=== PATIENT | female | born 1940 | race Caucasian/White ===

== ENCOUNTER 2020-02-06 08:03 | Inpatient (IN) | payer MEDICARE, MEDICAID ==
[~2020-02-06] VITALS: Ht 167.6 cm; Wt 82.8 kg
[2020-02-06 08:20] VITALS: BP 138/92
--- NOTE | 2020-02-06 08:24 | NUR ---
ED Nurse Note: Patient was brought in from [facility] d/t dislodged NG tube happened at 0100. Pt is covid (+), PNA. Patient presented with SOB, O2 sat 86% on RA, 99% with 2L via NC. Patient has left hip fracture, presented with IV line on left forearm, nurse was not able to draw blood. Patient AAO x3, VSS at this time.
--- NOTE | 2020-02-06 08:30 | NUR ---
ED Nurse Note: IV line was started at left AC 20ga, blood and urine specimen collected sent to lab.
--- NOTE | 2020-02-06 08:44 | Emergency Room Report ---
History of Present Illness General Chief Complaint: General Complaint Source: Medical Record, EMS Present Illness HPI 79-year-old female presents the ED for evaluation. Brought in by EMS from senior living facility. Patient pulled out her NG tube last night. Patient nonverbal at baseline. No signs of distress on arrival. Patient reportedly has been had a poor appetite. COVID positive. Unable to provide any additional history at this time. No other aggravating relieving factors. No other associated symptoms Allergies: Coded Allergies: No Known Allergies (Unverified , 02/06/20) COVID-19 Screening Contact w/high risk pt: Yes Experienced COVID-19 symptoms?: Yes COVID-19 Testing performed LEAD JANITOR: Yes - 01/31/20 COVID-19 Screening: Positive COVID-19 COVID-19 Testing Source: nasopharynx Patient History Past Medical History: none, other - COVID+ Past Surgical History: other - L hip fx Pertinent Family History: none Social History: Denies: smoking, alcohol use, drug use Now: No Immunizations: UTD Reviewed Nursing Documentation: PMH: Agreed; PSxH: Agreed Review of Systems All Other Systems: limited Physical Exam Vital Signs Date Time Temp Pulse Resp B/P (MAP) Pulse Ox O2 Delivery O2 Flow Rate FiO2 02/06/20 08:04 98.1 68 16 138/92 (107) Nasal Cannula 3.0 Sp02 EP Interpretation: reviewed, normal General Appearance: no apparent distress, non-toxic, other - nonverbal Head: normocephalic, atraumatic Eyes: bilateral eye normal inspection, bilateral eye PERRL ENT: hearing grossly normal, normal pharynx, no angioedema, normal voice Neck: full range of motion, supple/symm/no masses Respiratory: chest non-tender, lungs clear, normal breath sounds, speaking full sentences Cardiovascular #1: regular rate, rhythm, no edema Cardiovascular #2: 2+ carotid (R), 2+ carotid (L), 2+ radial (R), 2+ radial (L) , 2+ dorsalis pedis (R), 2+ dorsalis pedis (L) Gastrointestinal: normal bowel sounds, non tender, soft, non-distended, no guarding, no rebound Rectal: deferred Genitourinary: normal inspection, no CVA tenderness Musculoskeletal: back normal, normal range of motion, gait/station normal, non- tender Neurologic: alert, other - nonverbal Psychiatric: other - nonverbal Reflexes: 3+ bicep (R), 3+ bicep (L), 3+ tricep (R), 3+ tricep (L), 3+ knee (R) , 3+ knee (L) Skin: other - see nursing notes Lymphatic: no adenopathy Medical Decision Making Diagnostic Impression: Primary Impression: Pneumonia Qualified Codes: J18.9 - Pneumonia, unspecified organism Additional Impressions: Renal failure Qualified Codes: N19 - Unspecified kidney failure Failure to thrive Qualified Codes: R62.7 - Adult failure to thrive UTI (urinary tract infection) Qualified Codes: N39.0 - Urinary tract infection, site not specified ER Course Hospital Course 79-year-old female presents after dislodged NG tube. Poor appetite. Recent COVID diagnosis Differential diagnoses include: Pneumonia, CHF exacerbation, pneumothorax, fluid overload Clinical course Patient placed on stretcher. In isolation. I wore full PPE. On content analyst with stable vitals. After initial history and physical, I ordered nebulizer treatments. I ordered labs, IV fluids, EKG, chest x-ray, blood cultures, UA. Patient placed on nasal cannula with O2 saturation improving Labs - no leukocytosis noted, hemoglobin/hematocrit stable, BUN/Cr elevated, lactate okay UA+ bacteria CXR - bilateral opacities EKG - afib no acute ischemic changes interpreted by me IV fluids given. Broad-spectrum antibiotics given. Case discussed with Dr. Faust and he agreed to the patient to his service for further care and support I feel this is a highly complex case requiring extensive working including EKG/ Rhythm strip, Xray/CT/US, Blood/urine lab work, repeat exams while in ED, and administration of strong opiates/narcotics for pain control, admission to hospital or close patient follow up. Diagnosis - pneumonia, renal failure, FTT, UTI Patient admitted to floor in serious condition Laboratory Tests Test 02/06/20 08:40 02/06/20 08:50 Urine Color Pale yellow Urine Appearance Slightly cloudy Urine pH 5 (4.5-8.0) Urine Specific [place] 1.015 (1.005-1.035) Urine Protein 2+ (NEGATIVE) H Urine Glucose (UA) Negative (NEGATIVE) Urine Ketones Negative (NEGATIVE) Urine Blood 5+ (NEGATIVE) H Urine Nitrite Negative (NEGATIVE) Urine Bilirubin Negative (NEGATIVE) Urine Urobilinogen Normal MG/DL (0.0-1.0) Urine Leukocyte Esterase 3+ (NEGATIVE) H Urine RBC Tntc /HPF (0 - 2) H Urine WBC Tntc /HPF (0 - 2) H Urine Squamous Epithelial Cells Few /LPF (NONE/OCC) Urine Bacteria Moderate /HPF (NONE) H Urine Yeast Many /HPF (NONE) H White Blood Count 10.4 K/UL (4.8-10.8) Red Blood Count 4.30 M/UL (4.20-5.40) Hemoglobin 11.6 G/DL (12.0-16.0) L Hematocrit 37.2 % (37.0-47.0) Mean Corpuscular Volume 87 FL (80-99) Mean Corpuscular Hemoglobin 26.9 PG (27.0-31.0) L Mean Corpuscular Hemoglobin Concent 31.1 G/DL (32.0-36.0) L Red Cell Distribution Width 14.9 % (11.6-14.8) H Platelet Count 185 K/UL (150-450) Mean Platelet Volume 7.3 FL (6.5-10.1) Neutrophils (%) (Auto) % (45.0-75.0) Lymphocytes (%) (Auto) % (20.0-45.0) Monocytes (%) (Auto) % (1.0-10.0) Eosinophils (%) (Auto) % (0.0-3.0) Basophils (%) (Auto) % (0.0-2.0) Differential Total Cells Counted 100 Neutrophils % (Manual) 86 % (45-75) H Lymphocytes % (Manual) 8 % (20-45) L Monocytes % (Manual) 4 % (1-10) Eosinophils % (Manual) 2 % (0-3) Basophils % (Manual) 0 % (0-2) Band Neutrophils 0 % (0-8) Platelet Estimate Adequate Platelet Morphology Normal Hypochromasia 1+ Anisocytosis 1+ Prothrombin Time 12.8 SEC (9.30-11.50) H Prothromb Time International Ratio 1.2 (0.9-1.1) H Activated Partial Thromboplast Time 29 SEC (23-33) Sodium Level 142 MMOL/L (136-145) Potassium Level 4.1 MMOL/L (3.5-5.1) Chloride Level 106 MMOL/L (98-107) Carbon Dioxide Level 25 MMOL/L (21-32) Anion Gap 11 mmol/L (5-15) Blood Urea Nitrogen 93 mg/dL (7-18) H Creatinine 4.1 MG/DL (0.55-1.30) H Estimat Glomerular Filtration Rate 10.5 mL/min (>60) Glucose Level 228 MG/DL (74-106) H Lactic Acid Level 1.20 mmol/L (0.4-2.0) Calcium Level 8.8 MG/DL (8.5-10.1) Total Bilirubin 0.7 MG/DL (0.2-1.0) Aspartate Amino Transf (AST/SGOT) 23 U/L (15-37) Alanine Aminotransferase (ALT/SGPT) 24 U/L (12-78) Alkaline Phosphatase 65 U/L (46-116) C-Reactive Protein, Quantitative 4.8 mg/dL (0.00-0.90) H Pro-B-Type Natriuretic Peptide 84299 pg/mL (0-125) H Total Protein 6.1 G/DL (6.4-8.2) L Albumin 1.8 G/DL (3.4-5.0) L Globulin 4.3 g/dL Albumin/Globulin Ratio 0.4 (1.0-2.7) L EKG Diagnostic Results Rate: normal Rhythm: other - afib ST Segments: no acute changes ASA given to the pt in ED: No Rhythm Strip Diag. Results EP Interpretation: yes Rhythm: no PVC's, no ectopy Chest X-Ray Diagnostic Results Chest X-Ray Diagnostic Results : Chest X-Ray Ordered: Yes # of Views/Limited/Complete: 1 View Indication: Other EP Interpretation: Yes Interpretation: no pneumothorax Last Vital Signs Date Time Temp Pulse Resp B/P (MAP) Pulse Ox O2 Delivery O2 Flow Rate FiO2 02/06/20 08:04 98.1 68 16 138/92 (107) Nasal Cannula 3.0 Status: improved Disposition: ADMITTED INPATIENT Condition: Serious Referrals: Janes Faust MD (PCP) Luca Wheatley MD Feb 06, 2020 08:44
[2020-02-06] MEDS ORDERED: CARVEDILOL25 MG NGT (09:19)
[2020-02-06] MEDS ORDERED: HEPARIN SO5000 UNIT2 SUBQ (09:19)
[2020-02-06] MEDS ORDERED: LANTUS SOL100 UNIT/1 SUBQ (09:19)
[2020-02-06] MEDS ORDERED: GLIPIZIDE5 MG GT (09:19)
[2020-02-06] MEDS ORDERED: METFORMIN HCL1000 M1 ORAL (09:19)
[2020-02-06] MEDS ORDERED: GABAPENTIN400 MG NG (09:19)
[2020-02-06] MEDS ORDERED: NORCO 5-325 TA1 EAC1 NGT (09:19)
[2020-02-06] MEDS ORDERED: ACETAMINOPHEN325 M1 NGT (09:19)
[2020-02-06] MEDS ORDERED: FERROUS SULFAT325 MG GT (09:19)
[2020-02-06] MEDS ORDERED: ZOSYN 3.373.375 GM/1 IVPB (09:19)
[2020-02-06] MEDS ORDERED: ATORVASTATIN CA20 MG NGT (09:19)
[2020-02-06 09:24] LABS: HEMATOCRIT 37.2 % (37.0-47.0); HEMOGLOBIN 11.6 G/DL (12.0-16.0); MEAN CORPUSCULAR VOLUME 87 FL (80-99); PLATELET COUNT 185 K/UL (150-450); RED CELL DISTRIBUTION WIDTH 14.9 % (11.6-14.8); WHITE BLOOD COUNT 10.4 K/UL (4.8-10.8)
[2020-02-06 09:25] LABS: CALCIUM 8.8 MG/DL (8.5-10.1); CREATININE 4.1 MG/DL (0.55-1.30); POTASSIUM 4.1 MMOL/L (3.5-5.1)
[2020-02-06 09:34] LABS: INR 1.2 (0.9-1.1)
[2020-02-06 09:37] LABS: APPEARANCE,URINE SLIGHTLY CLOUDY; BILIRUBIN, URINE NEGATIVE (NEGATIVE); COLOR,URINE PALE YELLOW; GLUCOSE, URINE (UA) NEGATIVE (NEGATIVE); KETONES,URINE NEGATIVE (NEGATIVE); LEUKOCYTE ESTERASE ,URINE 3+ (NEGATIVE); NITRITE,URINE NEGATIVE (NEGATIVE); PH,URINE 5 (4.5-8.0); PROTEIN,URINE 2+ (NEGATIVE); UROBILINOGEN,URINE NORMAL MG/DL (0.0-1.0)
[2020-02-06 09:39] LABS: ALBUMIN 1.8 G/DL (3.4-5.0); ALBUMIN/GLOBULIN RATIO 0.4 (1.0-2.7); BILIRUBIN,TOTAL 0.7 MG/DL (0.2-1.0)
--- NOTE | 2020-02-06 09:51 | Diagnostic Imaging Report ---
EXAM: XR Chest, 1 View CLINICAL HISTORY: PREOP TECHNIQUE: Frontal view of the chest. COMPARISON: No relevant prior studies available. FINDINGS: Lungs: Subsegmental atelectasis versus infiltrates in bilateral lung bases. Pulmonary vascular congestion. Pleural space: Small bilateral pleural effusions. Heart: Cardiomegaly. Mediastinum: Unremarkable. Bones/joints: Degenerative changes throughout the visualized spine and shoulder joints. Vasculature: Atherosclerotic calcifications within the aortic arch. Tubes, lines and devices: Telemetry leads overlie the thorax. IMPRESSION: 1. Findings concerning for CHF. Cardiomegaly with pulmonary vascular congestion and small bilateral pleural effusions. 2. Subsegmental atelectasis versus infiltrates in bilateral lung bases.
--- NOTE | 2020-02-06 10:04 | NUR ---
ED Nurse Note: Patient was assessed, can freely swalow. Per Dr. Ardon withhold NG tube for now.
[2020-02-06] MEDS ORDERED: Azithromycin 500 MG in NS 275 ML IV ONE (10:15)
[2020-02-06] MEDS ORDERED: Piperacillin/Tazobactam 3.375 GM in NS 110 ML IVPB ONE (10:15)
[2020-02-06 11:20] VITALS: BP 128/90
[2020-02-06] MEDS ORDERED: Morphine Sulfate 2mg/ml Inj(IV/IM USE ONLY) IVP ONE (11:45)
--- NOTE | 2020-02-06 11:50 | NUR ---
ED Nurse Note: NG tube was placed by Viv,RN 16F, patient tolerated procedure well.
--- NOTE | 2020-02-06 12:03 | NUR ---
ED Nurse Note: Report was given to BONG Rosado.
--- NOTE | 2020-02-06 12:58 | NUR ---
ED Nurse Note: Patient was admited to AMS due to FTT. Patient was transfered to the unit via gurney, with all belongings. Patient AAO x 4 ,VSS at this time.
[2020-02-06 13:40] VITALS: BP 133/75
--- NOTE | 2020-02-06 13:40 | NUR ---
NURSE NOTES: admitted patient from Ed, came on rparis, no belongings noted. Patient on 2L O2, no respiratory distress noted, has NGT on left nare at 62cm taran. Has sacral wound and bilateral heels DTI, also large area bruise at right hip due to previous fall at SNF. Right lower leg dry wound with black scab. LAC gauge 20. Cornelius catheter Fr16 drains yellow urine with pink sediments, trace hematuria. Bilateral leg edema x3. Patient tried to pull out NGT and IV access, will notify dr. Faust.
--- NOTE | 2020-02-06 14:18 | NUR ---
NURSE NOTES: called [facility], nurse chemical supervisor is unable to take the call. Left message to hotel or motel receptionist Linda for facility's nurse chemical supervisor to call back at 4E number for patient's code status ISHMAEL.
--- NOTE | 2020-02-06 14:30 | Diagnostic Imaging Report ---
EXAM: XR Chest, 1 View CLINICAL HISTORY: NGT TECHNIQUE: Frontal view of the chest. COMPARISON: Chest x-rays obtained the same date. FINDINGS: Lungs: Pulmonary vascular congestion. Subsegmental atelectasis versus infiltrates in bilateral lung bases. Pleural space: Bilateral pleural effusions. Heart: Cardiomegaly. Mediastinum: Unremarkable. Bones/joints: Unremarkable. Soft tissues: Radiodense clips in the pelvis bilaterally. Tubes, lines and devices: NG tube tip in the mid central abdomen, likely in the distal stomach. IMPRESSION: 1. NG tube tip in the mid central abdomen, likely in the distal stomach. 2. Bilateral pleural effusions. 3. Pulmonary vascular congestion. 4. Cardiomegaly. 5. Subsegmental atelectasis versus infiltrates in bilateral lung bases.
--- NOTE | 2020-02-06 14:32 | Consultation ---
Consult Note Consult Note Asked to evaluate the patient at the request of Dr. Riojas for renal failure 79-year-old female presents the ED for evaluation. Brought in by EMS from [facility] facility. Patient pulled out her NG tube last night. Patient nonverbal at baseline. No signs of distress on arrival. Patient reportedly has been had a poor appetite. COVID positive. Unable to provide any additional history at this time. No other aggravating relieving factors. No other associated symptoms No Known Allergies (Unverified , 02/06/20) COVID-19 Screening Contact w/high risk pt: Yes Experienced COVID-19 symptoms?: Yes COVID-19 Testing performed MENTAL HEALTH COUNSELOR: Yes - 01/31/20 COVID-19 Screening: Positive COVID-19 COVID-19 Testing Source: nasopharynx Past Medical History: none, other - COVID+ Past Surgical History: other - L hip fx Pertinent Family History: none Social History: Denies: smoking, alcohol use, drug use Now: No Immunizations: UTD Reviewed Nursing Documentation: PMH: Agreed; PSxH: Agreed Vital Signs Date Time Temp Pulse Resp B/P (MAP) Pulse Ox O2 Delivery O2 Flow Rate FiO2 02/06/20 08:04 98.1 68 16 138/92 (107) Nasal Cannula 3.0 PHYSICAL EXAMINATION: VITAL SIGNS: Temperature 97.4, pulse 74, blood pressure 140/78. GENERAL APPEARANCE: Seems to have normal rate. HEAD AND NECK: She had dry mouth. HEART: Normal rate. LUNGS: Clear. ABDOMEN: Soft, nontender. She has NG-tube. EXTREMITIES: localized edema on the right hand. NEUROLOGIC: Opens eyes, disoriented. LABORATORY AND DIAGNOSTIC DATA: WBC 10.4, hemoglobin 11.6, hematocrit 37.2, platelet is 185,000. Sodium 142, potassium 4.1, chloride 106, bicarb 25, BUN 93, creatinine 4.1, glucose 128. BNP is elevated to 29,520. Albumin is 1.8. Lactic acid is within normal limit, 1.2. UA showed wbc too numerous to count, rbc too numerous to count, leukocyte esterase positive. . Assessment/Plan Impression: Renal failure, etiology unclear. Most likely secondary to heart failure and or diabetes Patient has history of diabetes mellitus based on her medication list: receiving metformin and oral hypoglycemic agents Pneumonia, Covid 19 Positive UTI Mild anemia Suggestions: Cornelius 2D echo Kidney ultrasound Urine studies Avoid nephrotoxic's Antibiotics Per orders Quirino Cormier MD Feb 06, 2020 14:32
--- NOTE | 2020-02-06 15:00 | NUR ---
NURSE NOTES: RN received admission orders from Dr. Faust who made round earlier and per Dr. Faust patient fell recently unknown date with left hip fracture. RN asked if x-ray is needed but Dr. Faust declined. Per Dr. Kaplan, no DVT prophylaxis due to fx and risk of bleeding.
[2020-02-06 16:00] VITALS: BP 104/74
--- NOTE | 2020-02-06 16:05 | NUR ---
NURSE NOTES: called [facility], spoken to Kriss Alarcon nurse lace tearing supervisor re: code status. Patient is Full Code. Addendum: 02/06/20 at 1939 by KUNAL ALEXANDER RN daughter Padmini contacted, she is not aware of patient's code and didn't want to make a decision, told to check [facility].
[2020-02-06] MEDS ORDERED: Docusate 100mg cap ORAL SCH (18:00)
[2020-02-06] MEDS: Docusate 100mg/10ml Liq NG SCH (18:14)
[2020-02-06] MEDS: NovoLOG Insulin Flexpen SUBQ SCH ×2 (18:26→23:52)
--- NOTE | 2020-02-06 18:44 | Consultation ---
DATE OF CONSULTATION: 02/06/2020 CHIEF COMPLAINT: I was asked to see this patient for gastrostomy evaluation versus oral diet. HISTORY OF PRESENT ILLNESS: The patient is an 79-year-old white woman with cognitive dysfunction was brought in from shelter with a nasogastric tube. Apparently shelter is unable to accept the patient with nasogastric tube feeding and therefore some form of stable feeding regimen will have to be discovered. The patient is somewhat confused and only says some words incoherently; however, she does respond to voice . She is awake. She has a nasogastric tube. She was examined in the emergency room. PAST MEDICAL HISTORY: History of failure to thrive, urinary tract infection, renal failure, history of for recent COVID-19 pneumonia, hypercholesterolemia, hypertension, anemia, diabetes. FAMILY HISTORY: Unavailable and unobtainable. SOCIAL HISTORY: The patient is from a shelter. REVIEW OF SYSTEMS: Unobtainable. PHYSICAL EXAMINATION: GENERAL: Debilitated white woman, seen in the emergency room, in no distress. HEENT: Normocephalic and atraumatic. Nasogastric tube was in place. NECK: Supple. CHEST: Coarse breath sounds. CARDIOVASCULAR: Regular rate. ABDOMEN: Soft, obese with good bowel sounds. EXTREMITIES: Trace edema in the lower extremities. LABORATORY DATA: Noted. The patient's creatinine is 4.1. ASSESSMENT: This patient presents with some degree of cognitive dysfunction and need for nasogastric tube feeding. I believe the she is awake enough that a swallow study can be done tomorrow to assess for swallow function. Sedatives should be avoided. In the meantime for now, nasogastric tube can be used to give feeding her swallow function is evaluated. RECOMMENDATIONS: Per above discussion and per orders in the chart. Thank you for asking me to participate in care this patient. Sofie Santos M.D. DR: Rohit JOB#: [id number] CC: LALO
--- NOTE | 2020-02-06 19:40 | NUR ---
NURSE HAND-OFF: Important Events on Shift:[admission, restraint, wound assessment, feeding through NGT started, tolerates well] Patient Status: [stable] Diet: [nepro 30cc/hr] Pending Orders: [cbc, cmp, uric acid, troponin, tsh, mag, phos, lipid and iron panels, HgAic, GGTP, folic acid, ferritin, vit VB12, CK] Pending Results/Labs:[] Pending MD notification:[] Latest Vital Signs: Temperature 97.7 , Pulse 81 , B/P 104 /74 , Respiratory Rate 18 , O2 SAT 93 , Nasal Cannula, O2 Flow Rate 2.0 . Vital Sign Comment: [] Latest Barrett Fall Score: 60 Fall Risk: High Risk Safety Measures: Call light , Bed Alarm Zone 2, Side Rails Side Rails x2, Bed position Low and Locked. Fall Precautions: Report given to [BONG Gaspar].
[2020-02-06 20:00] VITALS: BP 141/82
--- NOTE | 2020-02-06 20:05 | NUR ---
NURSE NOTES: Received patient asleep, on bilateral soft wrist restraints, on NGtube feeding.
[2020-02-06] MEDS: Carvedilol 25mg Tab NG SCH (20:55)
[2020-02-06] MEDS: cefTRIAXone 1 GM in D5W 55 ML IVPB SCH (20:55)
[2020-02-06] MEDS: Atorvastatin 20mg tab NG SCH (20:56)
[2020-02-06] MEDS ORDERED: Carvedilol 25mg Tab ORAL SCH (21:00)
[2020-02-06] MEDS ORDERED: Atorvastatin 20mg tab ORAL SCH (21:00)
--- NOTE | 2020-02-06 23:20 | Initial Psychiatric Evaluation ---
Psychiatry Consultation Psychiatry Consultation Chief Complaint: General Complaint Allergies: Coded Allergies: No Known Allergies (Unverified , 02/06/20) Medication History Scheduled Atorvastatin Calcium* (Atorvastatin Calcium*), 20 MG NGT BEDTIME, (Reported) Carvedilol* (Carvedilol*), 25 MG NGT EVERY 12 HOURS, (Reported) Docusate Sodium* (Docusate Sodium*), 100 MG GT DAILY, (Reported) Ferrous Sulfate* (Ferrous Sulfate*), 325 MG GT DAILY, (Reported) Folic Acid* (Folic Acid*), 1 MG GT DAILY, (Reported) Gabapentin* (Gabapentin*), 300 MG ORAL BID, (Reported) Glipizide* (Glipizide*), 10 MG GT BIDAC, (Reported) Heparin Sod (Porcine) (Heparin Sodium*), 5,000 UNITS SUBQ EVERY 12 HOURS, ( Reported) Nut.tx.glucose Intolerance,Soy (Glucerna), 1 EACH GT LUNCHTIME, (Reported) Pantoprazole* (Pantoprazole*), 40 MG GT EVERY 12 HOURS, (Reported) Lntrunrbjuqy-Dyqq-Cfxhuefa,Iso (Zosyn 3.375 Gm Pre Mix-Bag), 3.375 GM IVPB EVERY 12 HOURS, (Reported) Sodium Citrate (Sod Citrate-Citric Acid Soln), 30 ML GT BID, (Reported) Scheduled PRN Acetaminophen* (Acetaminophen 325MG Tablet*), 650 MG NGT Q6H PRN for Mild Pain ( Pain Scale 1-3), (Reported) Bisacodyl (Bisacodyl), 10 MG RC for Constipation, (Reported) Calcium Carb/Mag Hydrox/Simeth (Mylanta Tonight 800-270-80/10), 30 ML GT Q6HR PRN for GASTRITIS, (Reported) Hydralazine Hcl* (Hydralazine Hcl*), 10 MG GT for SBP>160, (Reported) Hydrocodone Bit/Acetaminophen 5-325* (Charlotte 5-325 Tablet*), 1 TAB NGT Q4H PRN for Moderate Pain (Pain Scale 4-6), (Reported) Magnesium Hydroxide* (Milk Of Magnesia*), 30 ML GT Q6HR PRN for GASTRITIS, ( Reported) Na Phos,M-B/Na Phos,Di-Ba* (Fleet Enema*), 133 ML RECTAL for Constipation, ( Reported) Ondansetron* (Zofran*), 4 MG GT Q12HR PRN for Nausea & Vomiting, (Reported) Miscellaneous Medications Insulin Aspart (Novolog), UNITS SQ, (Reported) Discontinued Medications Gabapentin* (Gabapentin*), 300 MG NG TWICE A DAY, (Reported) Discontinued Reason: Prescription changed Insulin Glargine (Lantus), 0 SUBQ BEDTIME, (Reported) Discontinued Reason: Prescription changed Metformin Hcl* (Metformin Hcl*), 1,000 MG ORAL DAILY, (Reported) Discontinued Reason: Pt stopped taking med Patient History Limited by: medical condition Objective Data Height (Feet): 5 Height (Inches): 6.00 Weight (Pounds): 160 Additional Comments: awake, disoriented. Mood is agitated. Affect is flat. Thought process, there is a paucity of thought content. Thought content, no suicidal or homicidal ideation. Cognition is impaired. Insight and judgment impaired. Assessment/Plan Diagnosis Brandenburg I: ASSESSMENT: Brandenburg I Dementia with behavior disturbance. Brandenburg II Deferred. Brandenburg III As above. Brandenburg IV Moderate. Brandenburg V 20. PLAN: 1. Haldol as needed. 2. Bilateral self-restraints. Eboni Thomas MD Feb 06, 2020 23:20
--- NOTE | 2020-02-06 23:59 | Consultation ---
DATE OF CONSULTATION: 02/06/2020 INFECTIOUS DISEASES CONSULTATION CONSULTING PHYSICIAN: Viet Harper MD PRIMARY ATTENDING PHYSICIAN: Janes Faust MD REASON FOR CONSULTATION: COVID-19 disease and UTI. HISTORY OF PRESENT ILLNESS: The patient is an 79-year-old white female [facility] because failure to thrive she had , NG-tube in the nursing facility did pull out. The patient's COVID test is positive since 01/31/2020, but found to have renal failure and pyuria. PAST MEDICAL HISTORY: Diabetes mellitus. She has dementia and right hip fracture. ALLERGIES: No known drug allergies. MEDICATIONS: Protonix, atorvastatin, insulin aspart, carvedilol. Got a dose of Zosyn and azithromycin in the ER. SOCIAL HISTORY: Single. skilled nursing resident. No other history obtainable. PHYSICAL EXAMINATION: VITAL SIGNS: Temperature 97.4, pulse 74, blood pressure 140/78. GENERAL APPEARANCE: Seems to have normal rate. HEAD AND NECK: She had dry mouth. HEART: Normal rate. LUNGS: Clear. ABDOMEN: Soft, nontender. She has NG-tube. EXTREMITIES: localized edema on the right hand. NEUROLOGIC: Opens eyes, disoriented. LABORATORY AND DIAGNOSTIC DATA: WBC 10.4, hemoglobin 11.6, hematocrit 37.2, platelet is 185,000. Sodium 142, potassium 4.1, chloride 106, bicarb 25, BUN 93, creatinine 4.1, glucose 128. BNP is elevated to 29,520. Albumin is 1.8. Lactic acid is within normal limit, 1.2. UA showed wbc too numerous to count, rbc too numerous to count, leukocyte esterase positive. IMPRESSION: COVID-19, pneumonia, has some infiltrate on chest x-ray, has pyuria likely UTI, has likely CHF, failure to thrive, severe protein malnutrition, diabetes mellitus, and acute renal failure. RECOMMENDATION: We will start the patient on ceftriaxone. We will follow up the cultures. At the end of my exam, I thank Dr. Faust for involving me in the care of this patient. Viet Harper M.D. DR: Elfego JOB#: [id number] CC: LALO
[2020-02-07] VITALS (7 sets, daily range): BP systolic 138–160; BP diastolic 70–104
--- NOTE | 2020-02-07 02:00 | NUR ---
NURSE NOTES: Pt. received from BONG Gaspar. Pt. nonverbal, breathing even on 2LNC, no indications of respiratory distress, no indications of pain. Bilateral soft wrist restraints noted, movement and sensation intact, pulses palpable. Generalized edema noted in x4 extremities. IV noted left AC 20g saline locked. NG tube intact and secured, running nepro at 30cc. Cornelius intact and draining well. Bed is low and locked, side rails x3 up, bed alarm active, and call light in reach.
--- NOTE | 2020-02-07 02:59 | Consultation ---
DATE OF CONSULTATION: 02/06/2020 PULMONARY CONSULTATION CONSULTING PHYSICIAN: Brady Junior MD REFERRING PHYSICIAN: Janes Faust MD REASON FOR CONSULTATION: Pneumonia. HISTORY OF PRESENT ILLNESS: This is an 79-year-old female brought [facility] the hospital from a [facility]. She has an NG tube in place that she pulled out. Patient is unable to provide any further history. She was tested and found to be COVID positive. No other history available. Patient was seen in the emergency room. She has been seen by Nephrology as well. Patient is nonverbal. She is saturating well on nasal oxygen. MEDICATIONS: Patient's home medications include Lipitor, Coreg, Protonix. She is also on broad-spectrum antibiotics. REVIEW OF SYSTEMS: Unobtainable. PHYSICAL EXAMINATION: GENERAL: An elderly female. VITAL SIGNS: O2 saturation 98% on 2 L oxygen, blood pressure 104/70, heart rate 81, respirations 18, she is afebrile. HEENT: Unremarkable. NG tube is in place. LUNGS: Clear breath sounds bilaterally. ABDOMEN: Soft. EXTREMITIES: There is no edema. LABORATORY TESTING: Unremarkable with normal CBC except [place] 4[place] [address]. Coags show INR 1.2. Urinalysis shows too numerous to count wbc's. IMAGING STUDIES: Patient underwent a chest x-ray, which showed cardiomegaly with pulmonary vascular congestion and atelectasis bilaterally. Patient underwent abdominal x-ray as well, which showed NG tube in the correct position and also pulmonary vascular congestion. The patient was tested for COVID-19 and was found to be positive. IMPRESSION: 1. COVID-19 pneumonia. 2. Cardiomegaly/CHF. 3. Renal failure. 4. dysfunction. 5. Hyperlipidemia. DISCUSSION: Admit to the hospital. Patient will benefit from steroids and remdesivir. We will defer to ID. Continue oxygen oxygen. Will need swallow evaluation G-tube. Will follow her felt finishing supervisor. Brady Junior M.D. DR: MARCELLUS JOB#: [id number] CC:
--- NOTE | 2020-02-07 02:59 | History and Physical Report ---
DATE OF ADMISSION: 02/06/2020 HISTORY OF PRESENT ILLNESS: The patient comes in with failure to thrive, pulled out an NG-tube at the facility. The patient also was found to have pneumonia, UTI, renal failure, recently COVID positive, also recent left hip fracture. The patient's NG-tube was replaced at the emergency room. The patient denies nausea, vomiting, or diarrhea. Comes to our facility. The patient is unable to provide reliable history. PAST MEDICAL HISTORY: COVID positive, history of left hip fracture, history of UTI in the past. Also iron deficiency, hyperlipidemia, hypertension, NIDDM. PAST SURGICAL HISTORY: Hip surgery. ALLERGIES: No known allergies. FAMILY HISTORY: Noncontributory. SOCIAL HISTORY: No history of alcohol or illicit drugs. Comes from a detention. MEDICATIONS: Coreg, Lipitor, gabapentin, iodine, glipizide, Lantus, and metformin. REVIEW OF SYSTEMS: HEENT: Denies headaches. RESPIRATORY: Denies shortness of breath. Denies cough. CARDIOVASCULAR: Denies chest pain. GI: Denies nausea, vomiting, or diarrhea. Does have hip pain, however, is a poor historian. Cannot rely on the patient's history. PHYSICAL EXAMINATION: VITAL SIGNS: Temperature 97.7, pulse 81, blood pressure 104/74. HEENT: PERRLA. CHEST: Bilateral rales. CARDIOVASCULAR: Regular rate and rhythm. No murmurs. ABDOMEN: Soft. Positive bowel sounds. No organomegaly. PELVIC: Decreased range of motion of the hip due to pain. Dorsalis pedis pulses are present. LABORATORY DATA: WBC of 10.4, hemoglobin of 11.6, and platelets of 185. Sodium 142, potassium 4.1, BUN of 92, creatinine 4.1, and glucose of 228. ASSESSMENT AND PLAN: The patient is COVID positive, recent history of left hip fracture, failure to thrive. The patient with NG-tube, which was replaced at the emergency room. The patient also has UTI and pneumonia and renal failure. I have consulted Dr. Thomas, Dr. Winter, , Dr. Viet Harper, and Dr. Cormier for the agitation as well as for the management of possible G-tube. Says the detention is not accepting her NG-tube and also for the COVID positive, Dr. Viet Harper and Dr. Brady Junior were then consulted and for the acute renal failure and Dr. Cormier was consulted. Mostly, the patient is dehydrated. Janes Faust M.D. DR: KAREN JOB#: [id number] CC:
[2020-02-07] MEDS: NovoLOG Insulin Flexpen SUBQ SCH ×3 (06:25→18:00)
[2020-02-07 07:39] LABS: HEMATOCRIT 30.6 % (37.0-47.0); HEMOGLOBIN 9.4 G/DL (12.0-16.0); MEAN CORPUSCULAR VOLUME 87 FL (80-99); PLATELET COUNT 167 K/UL (150-450); RED BLOOD COUNT 3.53 M/UL (4.20-5.40); RED CELL DISTRIBUTION WIDTH 15.2 % (11.6-14.8); WHITE BLOOD COUNT 10.3 K/UL (4.8-10.8)
--- NOTE | 2020-02-07 07:39 | NUR ---
NURSE HAND-OFF: Important Events on Shift:[insulin given as ordered Patient Status: stable Diet: nepro Pending Orders: na Pending Results/Labs:na Pending MD notification:request PRN blood pressure medications Latest Vital Signs: Temperature 97.9 , Pulse 79 , B/P 160 /90 , Respiratory Rate 21 , O2 SAT 96 , Nasal Cannula, O2 Flow Rate 2.0 . Vital Sign Comment: stable Latest Barrett Fall Score: 60 Fall Risk: High Risk Safety Measures: Call light Within Reach, Bed Alarm Zone 2, Side Rails Side Rails x3, Bed position Low and Locked. Fall Precautions: Yellow Socks Report given to BONG Javier.
--- NOTE | 2020-02-07 07:53 | NUR ---
NURSE NOTES: Received report from BONG Kate. Patient is AAO x 1-2, nonverbal and unable to make needs known. Pt is on O2 at 2LPM via NC in no apparent respiratory distress. Pt has a L nare 62 cm NGT connected to continuous feeding at 30 ml/hr. Last BS was 251 and pt was given 4 units. LBM on 02/05/20. Pt has a kinney in place with slight hematuria reported noted during previous shift. Multiple skin issues and alterations. L AC [address] lock [address]. Pt has B soft wrist restraints in place, skin intact with swelling noted on B hands pitting edema of 3+ despite proper placement of restraints noted. BLE pitting edema noted as well. Pending stool collection. Bed in lowest position, locked. Will continue POC.
[2020-02-07 07:58] LABS: ALANINE AMINOTRANSFERASE 26 U/L (12-78); ALBUMIN 1.6 G/DL (3.4-5.0); ALBUMIN/GLOBULIN RATIO 0.4 (1.0-2.7); ALKALINE PHOSPHATASE 75 U/L (46-116); ANION GAP 14 mmol/L (5-15); ASPARTATE AMINO TRANSFERASE 24 U/L (15-37); BILIRUBIN,TOTAL 0.4 MG/DL (0.2-1.0); BLOOD UREA NITROGEN 90 mg/dL (7-18); CALCIUM 7.5 MG/DL (8.5-10.1); CARBON DIOXIDE 21 MMOL/L (21-32); CHLORIDE 113 MMOL/L (98-107); CHOLESTEROL 121 MG/DL (< 200); CREATINE KINASE 7 U/L (26-308); CREATININE 3.9 MG/DL (0.55-1.30); FERRITIN > 2000 NG/ML (8-388); GAMMA GLUTAMYL TRANSPEPTIDASE 54 U/L (5-85); HDL CHOLESTEROL 19 MG/DL (40-60); PHOSPHORUS 3.8 MG/DL (2.5-4.9); POTASSIUM 3.8 MMOL/L (3.5-5.1); SODIUM 148 MMOL/L (136-145); TRIGLYCERIDES 170 MG/DL (30-150)
[2020-02-07 09:07] LABS: IRON 52 ug/dL (50-175); TOTAL IRON BINDING CAPACITY 86 ug/dL (250-450)
[2020-02-07 09:10] LABS: % IRON SATURATION 60 % (15-50)
[2020-02-07] MEDS: Pantoprazole Inj IVP SCH (09:55)
[2020-02-07] MEDS: Carvedilol 25mg Tab NG SCH ×2 (09:55→21:49)
[2020-02-07] MEDS: Docusate 100mg/10ml Liq NG SCH ×2 (09:55→18:44)
[2020-02-07] MEDS: HydrALAZINE 10mg Tab NG SCH ×3 (09:59→18:44)
--- NOTE | 2020-02-07 10:17 | General Progress Note ---
Assessment/Plan Assessment/Plan: DYSPHAGIA Covod positive NGTF swallow eval pending will fu Subjective ROS Limited/Unobtainable: No Allergies: Coded Allergies: No Known Allergies (Unverified , 02/06/20) Objective Last 24 Hour Vital Signs Date Time Temp Pulse Resp B/P (MAP) Pulse Ox O2 Delivery O2 Flow Rate FiO2 02/07/20 09:59 160/104 02/07/20 09:55 77 160/104 02/07/20 08:00 97.9 77 18 160/104 (122) 96 02/07/20 06:00 97.9 79 21 160/90 (113) 96 02/07/20 00:00 97.8 83 21 138/70 (92) 97 02/06/20 20:55 78 141/82 02/06/20 20:24 Nasal Cannula 2.0 02/06/20 20:00 97.7 78 22 141/82 (101) 95 02/06/20 17:37 Nasal Cannula 2.0 02/06/20 16:00 97.7 81 18 104/74 (84) 93 02/06/20 13:40 96.4 79 18 133/75 (94) 100 02/06/20 12:55 97.4 74 18 140/78 99 Nasal Cannula 2.0 02/06/20 12:18 97.4 02/06/20 11:20 97.5 72 16 128/90 99 Nasal Cannula 2.0 Intake and Output 02/06/20 02/07/20 19:00 07:00 Intake Total 30 ml 295 ml Output Total 320 ml 150 ml Balance -290 ml 145 ml Intake Free Water 60 ml IV Total 55 ml Tube Feeding 30 ml 180 ml Output Urine Total 320 ml 150 ml # Voids 1 Laboratory Tests 02/06/20 18:10: Urine Random Sodium 24 02/07/20 04:00: White Blood Count 10.3, Red Blood Count 3.53L, Hemoglobin 9.4L, Hematocrit 30.6L , Mean Corpuscular Volume 87, Mean Corpuscular Hemoglobin 26.7L, Mean Corpuscular Hemoglobin Concent 30.9L, Red Cell Distribution Width 15.2H, Platelet Count 167, Mean Platelet Volume 7.0, Neutrophils (%) (Auto) , Lymphocytes (%) (Auto) , Monocytes (%) (Auto) , Eosinophils (%) (Auto) , Basophils (%) (Auto) , Neutrophils % (Manual) [Pending], Lymphocytes % (Manual) [Pending], Platelet Estimate [Pending], Platelet Morphology [Pending], Sodium Level 148H, Potassium Level 3.8, Chloride Level 113H, Carbon Dioxide Level 21, Anion Gap 14, Blood Urea Nitrogen 90H, Creatinine 3.9H, Estimat Glomerular Filtration Rate 11.1, Glucose Level 230H, Hemoglobin A1c 8.2H, Uric Acid 10.1H, Calcium Level 7.5L, Phosphorus Level 3.8, Magnesium Level 1.9, Iron Level 52, Total Iron Binding Capacity 86L, Percent Iron Saturation 60H, Unsaturated Iron Binding 34L, Ferritin > 2000H, Total Bilirubin 0.4, Gamma Glutamyl Transpeptidase 54, Aspartate Amino Transf (AST/SGOT) 24, Alanine Aminotransferase (ALT/SGPT) 26, Alkaline Phosphatase 75, Total Creatine Kinase 7L, Troponin I 0.100H, C-Reactive Protein, Quantitative 4.1H, Pro-B-Type Natriuretic Peptide 82351M, Total Protein 5.4L, Albumin 1.6L, Globulin 3.8, Albumin/Globulin Ratio 0.4L, Triglycerides Level 170H, Cholesterol Level 121, LDL Cholesterol 72, HDL Cholesterol 19L, Cholesterol/HDL Ratio 6.4H, Vitamin B12 Level 731, Folate 17.0, Thyroid Stimulating Hormone (TSH) 0.560 Height (Feet): 5 Height (Inches): 6.00 Weight (Pounds): 160 General Appearance: no apparent distress EENT: normal ENT inspection Neck: supple Cardiovascular: normal rate Respiratory/Chest: decreased breath sounds Abdomen: normal bowel sounds, non tender, soft Extremities: non-tender Gopal Winter MD Feb 07, 2020 10:17
--- NOTE | 2020-02-07 10:31 | Consultation ---
Consult Note Consult Note Additional 30 minutes of non face to face time was spent in review of medical records, arrangement of care and discussion with consultants involved with care Date of Discussion: 02/07/20 A [id number] discussion with the [] regarding the patient's advanced care planning took place during this hospitalization on the above date. The discussion included the explanation and discussion of advance directives and associated forms/documents, as well as the patient's current code status. We also discussed at length the patient's medical conditions (both acute and chronic), general prognosis, treatment options, and goals of care. The following summarizes the discussion: Advance Care Planning/Goals of Care: - Will attempt to fill out an AD and/or POLST with the patient prior to discharge, if not already completed - Continue current evaluation and management of any acute and chronic medical issues - Will continue to support the patient/family - Will continue to discuss both short- and long-term goals of care DPOA-HC/Surrogate Decision Maker: None currently appointed [] Code Status: Full Code AD Forms/Documents Completed: Deferred A total of 31 minutes was spent on this discussion, including counseling, answering questions, and completing, if any, pertinent advanced care planning forms/documents. Brady Junior MD Feb 07, 2020 10:31
--- NOTE | 2020-02-07 10:50 | Pulmonology Progress Note ---
Subjective ROS Limited/Unobtainable: No Interval Events: None new Constitutional: Reports: no symptoms HEENT: Repors: no symptoms Respiratory: Reports: no symptoms Cardiovascular: Reports: no symptoms Gastrointestinal/Abdominal: Reports: no symptoms Allergies: Coded Allergies: No Known Allergies (Unverified , 02/06/20) Objective Last 24 Hour Vital Signs Date Time Temp Pulse Resp B/P (MAP) Pulse Ox O2 Delivery O2 Flow Rate FiO2 02/07/20 09:59 160/104 02/07/20 09:55 77 160/104 02/07/20 08:00 97.9 77 18 160/104 (122) 96 02/07/20 06:00 97.9 79 21 160/90 (113) 96 02/07/20 00:00 97.8 83 21 138/70 (92) 97 02/06/20 20:55 78 141/82 02/06/20 20:24 Nasal Cannula 2.0 02/06/20 20:00 97.7 78 22 141/82 (101) 95 02/06/20 17:37 Nasal Cannula 2.0 02/06/20 16:00 97.7 81 18 104/74 (84) 93 02/06/20 13:40 96.4 79 18 133/75 (94) 100 02/06/20 12:55 97.4 74 18 140/78 99 Nasal Cannula 2.0 02/06/20 12:18 97.4 02/06/20 11:20 97.5 72 16 128/90 99 Nasal Cannula 2.0 Intake and Output 02/06/20 02/07/20 19:00 07:00 Intake Total 30 ml 295 ml Output Total 320 ml 150 ml Balance -290 ml 145 ml Intake Free Water 60 ml IV Total 55 ml Tube Feeding 30 ml 180 ml Output Urine Total 320 ml 150 ml # Voids 1 General Appearance: no acute distress HEENT: mucous membranes moist Respiratory: chest wall non-tender, lungs clear Cardiovascular: normal peripheral pulses Abdomen: normal bowel sounds Microbiology Date/Time Source Procedure Growth Status 02/06/20 08:50 Nasopharynx SARS-CoV-2 RdRp Gene Assay - Final Complete 02/06/20 08:40 Urine,Clean Catch Urine Culture - Preliminary NO GROWTH Resulted 02/06/20 00:00 Rectum Ordered Laboratory Tests 02/06/20 18:10: Urine Random Sodium 24 02/07/20 04:00: White Blood Count 10.3, Red Blood Count 3.53L, Hemoglobin 9.4L, Hematocrit 30.6L , Mean Corpuscular Volume 87, Mean Corpuscular Hemoglobin 26.7L, Mean Corpuscular Hemoglobin Concent 30.9L, Red Cell Distribution Width 15.2H, Platelet Count 167, Mean Platelet Volume 7.0, Neutrophils (%) (Auto) , Lymphocytes (%) (Auto) , Monocytes (%) (Auto) , Eosinophils (%) (Auto) , Basophils (%) (Auto) , Differential Total Cells Counted 100, Neutrophils % ( Manual) 87H, Lymphocytes % (Manual) 10L, Monocytes % (Manual) 3, Eosinophils % ( Manual) 0, Basophils % (Manual) 0, Band Neutrophils 0, Platelet Estimate Adequate, Platelet Morphology Normal, Hypochromasia 2+, Anisocytosis 1+, Sodium Level 148H, Potassium Level 3.8, Chloride Level 113H, Carbon Dioxide Level 21, Anion Gap 14, Blood Urea Nitrogen 90H, Creatinine 3.9H, Estimat Glomerular Filtration Rate 11.1, Glucose Level 230H, Hemoglobin A1c 8.2H, Uric Acid 10.1H, Calcium Level 7.5L, Phosphorus Level 3.8, Magnesium Level 1.9, Iron Level 52, Total Iron Binding Capacity 86L, Percent Iron Saturation 60H, Unsaturated Iron Binding 34L, Ferritin > 2000H, Total Bilirubin 0.4, Gamma Glutamyl Transpeptidase 54, Aspartate Amino Transf (AST/SGOT) 24, Alanine Aminotransferase (ALT/SGPT) 26, Alkaline Phosphatase 75, Total Creatine Kinase 7L, Troponin I 0.100H, C-Reactive Protein, Quantitative 4.1H, Pro-B-Type Natriuretic Peptide 50718R, Total Protein 5.4L, Albumin 1.6L, Globulin 3.8, Albumin/Globulin Ratio 0.4L, Triglycerides Level 170H, Cholesterol Level 121, LDL Cholesterol 72, HDL Cholesterol 19L, Cholesterol/HDL Ratio 6.4H, Vitamin B12 Level 731, Folate 17.0, Thyroid Stimulating Hormone (TSH) 0.560 Current Medications Medications (Trade) Dose Ordered Sig/Maria Fernanda Route PRN Reason Start Time Stop Time Status Last Admin Dose Admin Allopurinol (allopurinoL) 300 mg DAILY NG 02/07/20 09:00 03/08/20 08:59 02/07/20 09:55 Atorvastatin Calcium (Lipitor) 20 mg BEDTIME NG 02/06/20 21:00 05/06/20 20:59 02/06/20 20:56 Carvedilol (Coreg) 25 mg EVERY 12 HOURS NG 02/06/20 21:00 03/07/20 20:59 02/07/20 09:55 Ceftriaxone Sodium 1 gm/ Dextrose 55 ml @ 110 mls/hr Q24H IVPB 02/06/20 21:00 02/13/20 20:59 02/06/20 20:55 Dextrose (Dextrose 50%) 25 ml Q30M PRN IV Hypoglycemia 02/06/20 14:15 05/06/20 14:14 Dextrose (Dextrose 50%) 50 ml Q30M PRN IV Hypoglycemia 02/06/20 14:15 05/06/20 14:14 Docusate Sodium (Colace) 100 mg TWICE A DAY NG 02/06/20 18:00 03/07/20 17:59 02/07/20 09:55 Hydralazine HCl (Apresoline) 10 mg Q6HR NG 02/07/20 09:00 05/07/20 08:59 02/07/20 09:59 Insulin Aspart (NovoLOG) Q6HR SUBQ 02/06/20 18:00 05/06/20 17:59 02/07/20 06:25 Pantoprazole (Protonix) 40 mg DAILY IVP 02/07/20 09:00 03/08/20 08:59 02/07/20 09:55 Assessment/Plan Assessment/Plan IMPRESSION: 1. COVID-19 pneumonia. 2. Cardiomegaly/CHF. 3. Renal failure. DISCUSSION: Continue steroids and remdesivir. I will defer to ID. 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 Delmar Root Omar Syed MD Feb 07, 2020 10:50
--- NOTE | 2020-02-07 11:34 | Infectious Diseases Prog Note ---
Assessment/Plan Assessment/Plan IMPRESSION: COVID-19 pneumonia, pyuria likely UTI, CHF, Failure to thrive, Severe protein malnutrition, Diabetes mellitus, Acute renal failure. RECOMMENDATION: Continue ceftriaxone. We will follow up the cultures. Can not give Remdesivir because of renal failure Subjective ROS Limited/Unobtainable: Yes Respiratory: Reports: dry cough Neurologic: Reports: confusion, other - on restraint Allergies: Coded Allergies: No Known Allergies (Unverified , 02/06/20) Objective Last 24 Hour Vital Signs Date Time Temp Pulse Resp B/P (MAP) Pulse Ox O2 Delivery O2 Flow Rate FiO2 02/07/20 09:59 160/104 02/07/20 09:55 77 160/104 02/07/20 08:00 97.9 77 18 160/104 (122) 96 02/07/20 06:00 97.9 79 21 160/90 (113) 96 02/07/20 00:00 97.8 83 21 138/70 (92) 97 02/06/20 20:55 78 141/82 02/06/20 20:24 Nasal Cannula 2.0 02/06/20 20:00 97.7 78 22 141/82 (101) 95 02/06/20 17:37 Nasal Cannula 2.0 02/06/20 16:00 97.7 81 18 104/74 (84) 93 02/06/20 13:40 96.4 79 18 133/75 (94) 100 02/06/20 12:55 97.4 74 18 140/78 99 Nasal Cannula 2.0 02/06/20 12:18 97.4 Height (Feet): 5 Height (Inches): 6.00 Weight (Pounds): 160 General Appearance: no acute distress HEENT: mucous membranes moist Respiratory/Chest: lungs clear Cardiovascular: normal rate Abdomen: soft, non tender, other - NG tube Genitourinary: other - Cornelius catheter, cloudy urine Extremities: other - hands edema Neurologic/Psychiatric: alert, responsive Microbiology Date/Time Source Procedure Growth Status 02/06/20 08:50 Nasopharynx SARS-CoV-2 RdRp Gene Assay - Final Complete 02/06/20 08:40 Urine,Clean Catch Urine Culture - Preliminary NO GROWTH Resulted 02/06/20 00:00 Rectum Ordered Laboratory Tests Test 02/06/20 18:10 02/07/20 04:00 Urine Random Sodium 24 mmol/L (20-110) White Blood Count 10.3 K/UL (4.8-10.8) Red Blood Count 3.53 M/UL (4.20-5.40) L Hemoglobin 9.4 G/DL (12.0-16.0) L Hematocrit 30.6 % (37.0-47.0) L Mean Corpuscular Volume 87 FL (80-99) Mean Corpuscular Hemoglobin 26.7 PG (27.0-31.0) L Mean Corpuscular Hemoglobin Concent 30.9 G/DL (32.0-36.0) L Red Cell Distribution Width 15.2 % (11.6-14.8) H Platelet Count 167 K/UL (150-450) Mean Platelet Volume 7.0 FL (6.5-10.1) Neutrophils (%) (Auto) % (45.0-75.0) Lymphocytes (%) (Auto) % (20.0-45.0) Monocytes (%) (Auto) % (1.0-10.0) Eosinophils (%) (Auto) % (0.0-3.0) Basophils (%) (Auto) % (0.0-2.0) Differential Total Cells Counted 100 Neutrophils % (Manual) 87 % (45-75) H Lymphocytes % (Manual) 10 % (20-45) L Monocytes % (Manual) 3 % (1-10) Eosinophils % (Manual) 0 % (0-3) Basophils % (Manual) 0 % (0-2) Band Neutrophils 0 % (0-8) Platelet Estimate Adequate Platelet Morphology Normal Hypochromasia 2+ Anisocytosis 1+ Sodium Level 148 MMOL/L (136-145) H Potassium Level 3.8 MMOL/L (3.5-5.1) Chloride Level 113 MMOL/L (98-107) H Carbon Dioxide Level 21 MMOL/L (21-32) Anion Gap 14 mmol/L (5-15) Blood Urea Nitrogen 90 mg/dL (7-18) H Creatinine 3.9 MG/DL (0.55-1.30) H Estimat Glomerular Filtration Rate 11.1 mL/min (>60) Glucose Level 230 MG/DL (74-106) H Hemoglobin A1c 8.2 % (4.3-6.0) H Uric Acid 10.1 MG/DL (2.6-7.2) H Calcium Level 7.5 MG/DL (8.5-10.1) L Phosphorus Level 3.8 MG/DL (2.5-4.9) Magnesium Level 1.9 MG/DL (1.8-2.4) Iron Level 52 ug/dL (50-175) Total Iron Binding Capacity 86 ug/dL (250-450) L Percent Iron Saturation 60 % (15-50) H Unsaturated Iron Binding 34 ug/dL (112-346) L Ferritin > 2000 NG/ML (8-388) H Total Bilirubin 0.4 MG/DL (0.2-1.0) Gamma Glutamyl Transpeptidase 54 U/L (5-85) Aspartate Amino Transf (AST/SGOT) 24 U/L (15-37) Alanine Aminotransferase (ALT/SGPT) 26 U/L (12-78) Alkaline Phosphatase 75 U/L (46-116) Total Creatine Kinase 7 U/L (26-308) L Troponin I 0.100 ng/mL (0.000-0.056) C-Reactive Protein, Quantitative 4.1 mg/dL (0.00-0.90) H Pro-B-Type Natriuretic Peptide 80894 pg/mL (0-125) H Total Protein 5.4 G/DL (6.4-8.2) L Albumin 1.6 G/DL (3.4-5.0) L Globulin 3.8 g/dL Albumin/Globulin Ratio 0.4 (1.0-2.7) L Triglycerides Level 170 MG/DL (30-150) H Cholesterol Level 121 MG/DL (< 200) LDL Cholesterol 72 mg/dL (<100) HDL Cholesterol 19 MG/DL (40-60) L Cholesterol/HDL Ratio 6.4 (3.3-4.4) H Vitamin B12 Level 731 PG/ML (193-986) Folate 17.0 NG/ML (8.6-58.9) Thyroid Stimulating Hormone (TSH) 0.560 uiU/mL (0.358-3.740) Current Medications Medications (Trade) Dose Ordered Sig/Maria Fernanda Route PRN Reason Start Time Stop Time Status Last Admin Dose Admin Allopurinol (allopurinoL) 300 mg DAILY NG 02/07/20 09:00 03/08/20 08:59 02/07/20 09:55 Atorvastatin Calcium (Lipitor) 20 mg BEDTIME NG 02/06/20 21:00 05/06/20 20:59 02/06/20 20:56 Carvedilol (Coreg) 25 mg EVERY 12 HOURS NG 02/06/20 21:00 03/07/20 20:59 02/07/20 09:55 Ceftriaxone Sodium 1 gm/ Dextrose 55 ml @ 110 mls/hr Q24H IVPB 02/06/20 21:00 02/13/20 20:59 02/06/20 20:55 Dextrose (Dextrose 50%) 25 ml Q30M PRN IV Hypoglycemia 02/06/20 14:15 05/06/20 14:14 Dextrose (Dextrose 50%) 50 ml Q30M PRN IV Hypoglycemia 02/06/20 14:15 05/06/20 14:14 Docusate Sodium (Colace) 100 mg TWICE A DAY NG 02/06/20 18:00 03/07/20 17:59 02/07/20 09:55 Hydralazine HCl (Apresoline) 10 mg Q6HR NG 02/07/20 09:00 05/07/20 08:59 02/07/20 09:59 Insulin Aspart (NovoLOG) Q6HR SUBQ 02/06/20 18:00 05/06/20 17:59 02/07/20 06:25 Pantoprazole (Protonix) 40 mg DAILY IVP 02/07/20 09:00 03/08/20 08:59 02/07/20 09:55 Viet Harper MD Feb 07, 2020 11:34
[2020-02-07] MEDS ORDERED: Varibar Honey 250ml MC PRN (12:15)
[2020-02-07] MEDS ORDERED: Varibar Pudding 230ml MC PRN (12:15)
[2020-02-07] MEDS ORDERED: Varibar Thin Liquid powder 148gm MC PRN (12:15)
[2020-02-07] MEDS ORDERED: Varibar Nectar 240ml MC PRN (12:15)
--- NOTE | 2020-02-07 12:44 | NUR ---
RD ASSESSMENT & RECOMMENDATIONS SEE CARE ACTIVITY FOR COMPLETE ASSESSMENT DAILY ESTIMATED NEEDS: Needs based on Wounds, DM, ARF/ 53.4kg abw 25-30 kcals/kg 6981-4137 total kcals 1-1.5 (increase w/ renal fxn improvement) g protein/kg 53-80 g total protein 25-30 mL/kg 4456-1930 total fluid mLs NUTRITION DIAGNOSIS: * Swallowing difficulty R/T dysphagia, decreased cognitive fxn as evidenced by s/p NGT insertion @ SNF, on NGT feeds, pending RN REFERRAL eval. * Increased kcal/prot needs R/T wound healing as evidenced by pt admitted w/ multiple wound per photos, pending eval * Altered nutrition related lab values R/T diabetes, cardiac hx, renal dysfunction as evidenced by elev BGs (230, 228), A1C 8.2, BNP 07604, elev creat (4.1-> 3.9), elev BUN (93->90). CURRENT TF:Nepro @ 30ml/hr x 24 hrs PO DIET RECOMMENDATIONS: IF SAFE FOR ORAL DIET -> CCHO LOW, LOW NA/ texture per RN REFERRAL ENTERAL NUTRITION RECOMMENDATIONS: Glucerna 1.5 @ 40ml/hr x 24 hrs to provide 960ml, 1440kcal, 79g prot, 728ml free water * W/ improving renal fxn and lytes wnl, rec TF change to Glucerna 1.5 * Initiate GLucerna 1.5 @20ml/hr x 4hrs, advance 10ml q 4 hrs as tolerated to goal : will provide 100% est kcal/prot needs @ goal * HOB over 30 degrees/ water flush per MD ADDITIONAL RECOMMENDATIONS: * Per SNF: HT=62" NL=[id number] (02/05/20) * Monitor renal fxn and lytes, need for renal TF formula (creat trending down, K, phos, mag wnl) * Consider long acting insulin for improved BG control * Wound healing: Add Vit C 250mg QD + Silvano BID f/up w/ WC eval * Monitor for oral diet vs TF : RN REFERRAL eval pending
--- NOTE | 2020-02-07 12:57 | Nephrology Progress Note ---
Assessment/Plan Problem List: (1) Renal failure (ARF), acute on chronic (2) COVID-19 (3) UTI (urinary tract infection) (4) Congestive heart failure (5) Anemia (6) Diabetic nephropathy Assessment Renal failure, etiology unclear. Most likely secondary to heart failure. And or diabetes Patient has history of diabetes mellitus since she is receiving metformin and oral hypoglycemic agents Pneumonia UTI Mild anemia Plan February 06: Continue to monitor renal parameters. 2D echocardiogram results and kidney ultrasound results are pending. Hemoglobin A1c results suggestive of diabetes mellitus [id number]. Will continue to optimize cardiac status. Hydralazine as an afterload reduction ordered. Allopurinol for high uric acid ordered. February 05: Cornelius 2D echo Kidney ultrasound Urine studies Avoid nephrotoxic's Antibiotics Per orders Subjective ROS Limited/Unobtainable: Yes Objective Objective Last 24 Hour Vital Signs Date Time Temp Pulse Resp B/P (MAP) Pulse Ox O2 Delivery O2 Flow Rate FiO2 02/07/20 12:41 141/83 02/07/20 09:59 160/104 02/07/20 09:55 77 160/104 02/07/20 08:00 97.9 77 18 160/104 (122) 96 02/07/20 06:00 97.9 79 21 160/90 (113) 96 02/07/20 00:00 97.8 83 21 138/70 (92) 97 02/06/20 20:55 78 141/82 02/06/20 20:24 Nasal Cannula 2.0 02/06/20 20:00 97.7 78 22 141/82 (101) 95 02/06/20 17:37 Nasal Cannula 2.0 02/06/20 16:00 97.7 81 18 104/74 (84) 93 02/06/20 13:40 96.4 79 18 133/75 (94) 100 02/06/20 12:55 97.4 74 18 140/78 99 Nasal Cannula 2.0 Intake and Output 02/06/20 02/07/20 19:00 07:00 Intake Total 30 ml 295 ml Output Total 320 ml 150 ml Balance -290 ml 145 ml Intake Free Water 60 ml IV Total 55 ml Tube Feeding 30 ml 180 ml Output Urine Total 320 ml 150 ml # Voids 1 Laboratory Tests 02/06/20 18:10: Urine Random Sodium 24 02/07/20 04:00: White Blood Count 10.3, Red Blood Count 3.53L, Hemoglobin 9.4L, Hematocrit 30.6L , Mean Corpuscular Volume 87, Mean Corpuscular Hemoglobin 26.7L, Mean Corpuscular Hemoglobin Concent 30.9L, Red Cell Distribution Width 15.2H, Platelet Count 167, Mean Platelet Volume 7.0, Neutrophils (%) (Auto) , Lymphocytes (%) (Auto) , Monocytes (%) (Auto) , Eosinophils (%) (Auto) , Basophils (%) (Auto) , Differential Total Cells Counted 100, Neutrophils % ( Manual) 87H, Lymphocytes % (Manual) 10L, Monocytes % (Manual) 3, Eosinophils % ( Manual) 0, Basophils % (Manual) 0, Band Neutrophils 0, Platelet Estimate Adequate, Platelet Morphology Normal, Hypochromasia 2+, Anisocytosis 1+, Sodium Level 148H, Potassium Level 3.8, Chloride Level 113H, Carbon Dioxide Level 21, Anion Gap 14, Blood Urea Nitrogen 90H, Creatinine 3.9H, Estimat Glomerular Filtration Rate 11.1, Glucose Level 230H, Hemoglobin A1c 8.2H, Uric Acid 10.1H, Calcium Level 7.5L, Phosphorus Level 3.8, Magnesium Level 1.9, Iron Level 52, Total Iron Binding Capacity 86L, Percent Iron Saturation 60H, Unsaturated Iron Binding 34L, Ferritin > 2000H, Total Bilirubin 0.4, Gamma Glutamyl Transpeptidase 54, Aspartate Amino Transf (AST/SGOT) 24, Alanine Aminotransferase (ALT/SGPT) 26, Alkaline Phosphatase 75, Total Creatine Kinase 7L, Troponin I 0.100H, C-Reactive Protein, Quantitative 4.1H, Pro-B-Type Natriuretic Peptide 15622T, Total Protein 5.4L, Albumin 1.6L, Globulin 3.8, Albumin/Globulin Ratio 0.4L, Triglycerides Level 170H, Cholesterol Level 121, LDL Cholesterol 72, HDL Cholesterol 19L, Cholesterol/HDL Ratio 6.4H, Vitamin B12 Level 731, Folate 17.0, Thyroid Stimulating Hormone (TSH) 0.560 Height (Feet): 5 Height (Inches): 6.00 Weight (Pounds): 160 General Appearance: no apparent distress EENT: other - NG tube in place Cardiovascular: normal rate - 77 Respiratory/Chest: decreased breath sounds Abdomen: distended Quirino Cormier MD Feb 07, 2020 12:57
--- NOTE | 2020-02-07 14:33 | Diagnostic Imaging Report ---
Indication: Renal insufficiency Technique: US Renal Comp Comparison: None Findings: The right kidney measures 11 cm in length. Echogenicity appears within increased. There is a simple appearing cyst that measures 6.8 cm in the lower pole. No hydronephrosis or sonographically appreciable renal stone. Left kidney measures 9.7 cm in length. Echogenicity appears mildly increased. Well-circumscribed anechoic lesions are noted with enhance through transmission in the left kidney, larger measures 2.6 cm. These most likely represent cysts. Additional 2 cm hypoechoic lesion is noted with equivocal through transmission. Large versus is seen. Bladder is collapsed by Cornelius catheter. Trace ascites is incidentally identified. Cholelithiasis incidentally noted. No biliary ductal dilatation. Common bile duct normal in caliber measuring 5 mm. IMPRESSION: * Mildly increased renal echogenicity. Findings are concerning for intrinsic/medical renal disease. * No evidence of hydronephrosis bilaterally. * Bilateral simple appearing renal cysts. * Additional 2 cm hypoechoic possible cyst versus mass in the left kidney. Periventricular evaluation with MRI of the abdomen, ideally without and with contrast. * Bladder decompressed by Cornelius catheter, precluding its evaluation. * Trace ascites incidentally identified. * Cholelithiasis incidentally identified.
--- NOTE | 2020-02-07 14:55 | NUR ---
NURSE NOTES: Relayed prelim result of 2D Echo to Dr. Cormier's office and s/w Luisa. Notified re patient's Renal U/S result came back. aware of patient's troponin level from this AM per Luisa.
--- NOTE | 2020-02-07 16:19 | NUR ---
CASE MANAGEMENT:INITIAL REVIEW 79 YR OLD FEMALE BIBA FROM [facility] CC;GENERAL COMPLAINT SI;COVID-19 POSITIVE. FAILURE TO THRIVE 98.1 79 16 138/92 99% 3L NC bun 93 cr 4.1 bg 228 crp 4.8 bnp [id number] alb 1.8 UA+ PROTEIN, BLOOD, LEUKOCYTE ESTERASE, RBC, WBC, BACTERIA, YEAST COVID RAPID ~ POSITIVE CXR ~ 1. Findings concerning for CHF. Cardiomegaly with pulmonary vascular congestion and small bilateral pleural effusions. 2. Subsegmental atelectasis versus infiltrates in bilateral lung bases. ABD XRAY ~ 1. NG tube tip in the mid central abdomen, likely in the distal stomach. 2. Bilateral pleural effusions. 3. Pulmonary vascular congestion. 4. Cardiomegaly. 5. Subsegmental atelectasis versus infiltrates in bilateral lung bases. IS;IVF NS BOLUS ZITHROMAX IV ZOSYN IV MORPHINE IV ADMITTED TO MED SURG MED SURG STATUS DCP;FROM [facility]
--- NOTE | 2020-02-07 17:05 | Cardiac Electrophysiology PN ---
Subjective Subjective Troponin leak due to renal failure and Cr 4 Nonverbal covid positive EF 55% ECG fib. Off anticoagulation for Left hip Fx Not a candidate for cardiac cath nor indicated [id number] Objective Last 24 Hour Vital Signs Date Time Temp Pulse Resp B/P (MAP) Pulse Ox O2 Delivery O2 Flow Rate FiO2 02/07/20 16:00 97.9 83 19 139/92 (108) 97 02/07/20 12:41 141/83 02/07/20 12:00 98.1 77 18 141/83 (102) 95 02/07/20 09:59 160/104 02/07/20 09:55 77 160/104 02/07/20 09:00 Nasal Cannula 2.0 02/07/20 08:00 97.9 77 18 160/104 (122) 96 02/07/20 06:00 97.9 79 21 160/90 (113) 96 02/07/20 00:00 97.8 83 21 138/70 (92) 97 02/06/20 20:55 78 141/82 02/06/20 20:24 Nasal Cannula 2.0 02/06/20 20:00 97.7 78 22 141/82 (101) 95 02/06/20 17:37 Nasal Cannula 2.0 Intake and Output 02/06/20 02/07/20 19:00 07:00 Intake Total 30 ml 295 ml Output Total 320 ml 150 ml Balance -290 ml 145 ml Intake Free Water 60 ml IV Total 55 ml Tube Feeding 30 ml 180 ml Output Urine Total 320 ml 150 ml # Voids 1 Laboratory Tests Test 02/06/20 18:10 02/07/20 04:00 Urine Random Sodium 24 mmol/L (20-110) White Blood Count 10.3 K/UL (4.8-10.8) Red Blood Count 3.53 M/UL (4.20-5.40) L Hemoglobin 9.4 G/DL (12.0-16.0) L Hematocrit 30.6 % (37.0-47.0) L Mean Corpuscular Volume 87 FL (80-99) Mean Corpuscular Hemoglobin 26.7 PG (27.0-31.0) L Mean Corpuscular Hemoglobin Concent 30.9 G/DL (32.0-36.0) L Red Cell Distribution Width 15.2 % (11.6-14.8) H Platelet Count 167 K/UL (150-450) Mean Platelet Volume 7.0 FL (6.5-10.1) Neutrophils (%) (Auto) % (45.0-75.0) Lymphocytes (%) (Auto) % (20.0-45.0) Monocytes (%) (Auto) % (1.0-10.0) Eosinophils (%) (Auto) % (0.0-3.0) Basophils (%) (Auto) % (0.0-2.0) Differential Total Cells Counted 100 Neutrophils % (Manual) 87 % (45-75) H Lymphocytes % (Manual) 10 % (20-45) L Monocytes % (Manual) 3 % (1-10) Eosinophils % (Manual) 0 % (0-3) Basophils % (Manual) 0 % (0-2) Band Neutrophils 0 % (0-8) Platelet Estimate Adequate Platelet Morphology Normal Hypochromasia 2+ Anisocytosis 1+ Sodium Level 148 MMOL/L (136-145) H Potassium Level 3.8 MMOL/L (3.5-5.1) Chloride Level 113 MMOL/L (98-107) H Carbon Dioxide Level 21 MMOL/L (21-32) Anion Gap 14 mmol/L (5-15) Blood Urea Nitrogen 90 mg/dL (7-18) H Creatinine 3.9 MG/DL (0.55-1.30) H Estimat Glomerular Filtration Rate 11.1 mL/min (>60) Glucose Level 230 MG/DL (74-106) H Hemoglobin A1c 8.2 % (4.3-6.0) H Uric Acid 10.1 MG/DL (2.6-7.2) H Calcium Level 7.5 MG/DL (8.5-10.1) L Phosphorus Level 3.8 MG/DL (2.5-4.9) Magnesium Level 1.9 MG/DL (1.8-2.4) Iron Level 52 ug/dL (50-175) Total Iron Binding Capacity 86 ug/dL (250-450) L Percent Iron Saturation 60 % (15-50) H Unsaturated Iron Binding 34 ug/dL (112-346) L Ferritin > 2000 NG/ML (8-388) H Total Bilirubin 0.4 MG/DL (0.2-1.0) Gamma Glutamyl Transpeptidase 54 U/L (5-85) Aspartate Amino Transf (AST/SGOT) 24 U/L (15-37) Alanine Aminotransferase (ALT/SGPT) 26 U/L (12-78) Alkaline Phosphatase 75 U/L (46-116) Total Creatine Kinase 7 U/L (26-308) L Troponin I 0.100 ng/mL (0.000-0.056) C-Reactive Protein, Quantitative 4.1 mg/dL (0.00-0.90) H Pro-B-Type Natriuretic Peptide 49124 pg/mL (0-125) H Total Protein 5.4 G/DL (6.4-8.2) L Albumin 1.6 G/DL (3.4-5.0) L Globulin 3.8 g/dL Albumin/Globulin Ratio 0.4 (1.0-2.7) L Triglycerides Level 170 MG/DL (30-150) H Cholesterol Level 121 MG/DL (< 200) LDL Cholesterol 72 mg/dL (<100) HDL Cholesterol 19 MG/DL (40-60) L Cholesterol/HDL Ratio 6.4 (3.3-4.4) H Vitamin B12 Level 731 PG/ML (193-986) Folate 17.0 NG/ML (8.6-58.9) Thyroid Stimulating Hormone (TSH) 0.560 uiU/mL (0.358-3.740) Microbiology Date/Time Source Procedure Growth Status 02/06/20 08:50 Nasopharynx SARS-CoV-2 RdRp Gene Assay - Final Complete 02/06/20 08:40 Urine,Clean Catch Urine Culture - Preliminary NO GROWTH Resulted 02/06/20 00:00 Rectum Ordered Aditya Reynolds MD Feb 07, 2020 17:05
--- NOTE | 2020-02-07 17:12 | Consultation ---
History of Present Illness General Date patient seen: Feb 07, 2020 Reason for Hospitalization: General Complaint Present Illness HPI 79-year-old female with multi-medical comorbidities presents [facility] emergency department for evaluation. [facility] Patient nonverbal at baseline. No signs of distress on arrival. Patient reportedly has been had a poor appetite. COVID positive. Unable to provide any additional history at this time. No other aggravating relieving factors. No other associated symptoms surgery called to evaluate assist with care. NG tube is in place. Patient has been admitted. Care management initiated. Patient unable to provide history or participate in exam. Labs reviewed. Extensive chart review performed. Imaging reviewed. Allergies: Coded Allergies: No Known Allergies (Unverified , 02/06/20) COVID-19 Screening Contact w/high risk pt: Yes Experienced COVID-19 symptoms?: Yes COVID-19 symptoms experienced: Shortness of Breath Medication History Scheduled Atorvastatin Calcium* (Atorvastatin Calcium*), 20 MG NGT BEDTIME, (Reported) Carvedilol* (Carvedilol*), 25 MG NGT EVERY 12 HOURS, (Reported) Ferrous Sulfate* (Ferrous Sulfate*), 325 MG ORAL DAILY, (Reported) Gabapentin* (Gabapentin*), 300 MG NG TWICE A DAY, (Reported) Glipizide* (Glipizide*), 10 MG ORAL BIDAC, (Reported) Heparin Sod (Porcine) (Heparin Sodium*), 5,000 UNITS SUBQ EVERY 12 HOURS, ( Reported) Insulin Glargine (Lantus), 0 SUBQ BEDTIME, (Reported) Metformin Hcl* (Metformin Hcl*), 1,000 MG ORAL DAILY, (Reported) Fbhspybmoeui-Xabu-Uxsurwjb,Iso (Zosyn 3.375 Gm Pre Mix-Bag), 3.375 GM IVPB EVERY 12 HOURS, (Reported) Scheduled PRN Acetaminophen* (Acetaminophen 325MG Tablet*), 650 MG NGT Q6H PRN for For Pain, ( Reported) Hydrocodone Bit/Acetaminophen 5-325* ([place] 5-325 Tablet*), 1 TAB NGT Q4H PRN for FOR PAIN, (Reported) Patient History Limited by: medical condition History Provided By: Medical Record, PMD Healthcare decision maker Resuscitation status Advanced Directive on File Past Medical/Surgical History Past Medical/Surgical History: (1) UTI (urinary tract infection) (2) Renal failure (3) Pneumonia (4) Failure to thrive (5) Renal failure (ARF), acute on chronic (6) COVID-19 (7) Congestive heart failure (8) Anemia (9) Diabetic nephropathy Review of Systems Review of Symptoms General ROS: no weight loss or fever Psychological ROS: no depression or mood changes, no memory loss Ophthalmic ROS: no visual changes or eye irritation ENT ROS: no nasal congestion, hearing loss, dizziness Allergy and Immunology ROS: no allergic symptoms or urticaria Hematological and Lymphatic ROS: no swollen glands, unusual bleeding or bruising Endocrine ROS: no polyuria, polydipsia, weight changes, temperature intolerance Respiratory ROS: no cough, shortness of breath, or wheezing Cardiovascular ROS: no chest pain or dyspnea on exertion Gastrointestinal ROS: denies abdominal pain, bright red blood in stool. Musculoskeletal ROS: no myalgias or arthralgias Neurological ROS: no TIA or stroke symptoms Dermatological ROS: no new or changing skin lesions, rashes or pruritis limited given condition Physical Exam Physical Exam General appearance: alert, no distress, appears stated age Head: Normocephalic, without obvious abnormality, atraumatic Eyes: conjunctivae/corneas clear. PERRL, EOM's intact. Fundi benign Throat: Lips, mucosa, and tongue normal. Teeth and gums normal Neck: supple, symmetrical, trachea midline, no adenopathy, thyroid: not enlarged, symmetric, no tenderness/mass/nodules, no carotid bruit and no JVD Lungs: clear to auscultation bilaterally Heart: regular rate and rhythm, S1, S2 normal, no murmur, click, rub or gallop Abdomen: soft, non-tender. Bowel sounds normal. No masses, no organomegaly Extremities: extremities normal, atraumatic, no cyanosis or edema Pulses: 2+ and symmetric Skin: Skin see below Neurologic: Grossly normal Last 24 Hour Vital Signs Date Time Temp Pulse Resp B/P (MAP) Pulse Ox O2 Delivery O2 Flow Rate FiO2 02/07/20 16:00 97.9 83 19 139/92 (108) 97 02/07/20 12:41 141/83 02/07/20 12:00 98.1 77 18 141/83 (102) 95 02/07/20 09:59 160/104 02/07/20 09:55 77 160/104 02/07/20 09:00 Nasal Cannula 2.0 02/07/20 08:00 97.9 77 18 160/104 (122) 96 02/07/20 06:00 97.9 79 21 160/90 (113) 96 02/07/20 00:00 97.8 83 21 138/70 (92) 97 02/06/20 20:55 78 141/82 02/06/20 20:24 Nasal Cannula 2.0 02/06/20 20:00 97.7 78 22 141/82 (101) 95 02/06/20 17:37 Nasal Cannula 2.0 Intake and Output 02/06/20 02/07/20 19:00 07:00 Intake Total 30 ml 295 ml Output Total 320 ml 150 ml Balance -290 ml 145 ml Intake Free Water 60 ml IV Total 55 ml Tube Feeding 30 ml 180 ml Output Urine Total 320 ml 150 ml # Voids 1 Laboratory Tests Test 02/06/20 18:10 02/07/20 04:00 Urine Random Sodium 24 mmol/L (20-110) White Blood Count 10.3 K/UL (4.8-10.8) Red Blood Count 3.53 M/UL (4.20-5.40) L Hemoglobin 9.4 G/DL (12.0-16.0) L Hematocrit 30.6 % (37.0-47.0) L Mean Corpuscular Volume 87 FL (80-99) Mean Corpuscular Hemoglobin 26.7 PG (27.0-31.0) L Mean Corpuscular Hemoglobin Concent 30.9 G/DL (32.0-36.0) L Red Cell Distribution Width 15.2 % (11.6-14.8) H Platelet Count 167 K/UL (150-450) Mean Platelet Volume 7.0 FL (6.5-10.1) Neutrophils (%) (Auto) % (45.0-75.0) Lymphocytes (%) (Auto) % (20.0-45.0) Monocytes (%) (Auto) % (1.0-10.0) Eosinophils (%) (Auto) % (0.0-3.0) Basophils (%) (Auto) % (0.0-2.0) Differential Total Cells Counted 100 Neutrophils % (Manual) 87 % (45-75) H Lymphocytes % (Manual) 10 % (20-45) L Monocytes % (Manual) 3 % (1-10) Eosinophils % (Manual) 0 % (0-3) Basophils % (Manual) 0 % (0-2) Band Neutrophils 0 % (0-8) Platelet Estimate Adequate Platelet Morphology Normal Hypochromasia 2+ Anisocytosis 1+ Sodium Level 148 MMOL/L (136-145) H Potassium Level 3.8 MMOL/L (3.5-5.1) Chloride Level 113 MMOL/L (98-107) H Carbon Dioxide Level 21 MMOL/L (21-32) Anion Gap 14 mmol/L (5-15) Blood Urea Nitrogen 90 mg/dL (7-18) H Creatinine 3.9 MG/DL (0.55-1.30) H Estimat Glomerular Filtration Rate 11.1 mL/min (>60) Glucose Level 230 MG/DL (74-106) H Hemoglobin A1c 8.2 % (4.3-6.0) H Uric Acid 10.1 MG/DL (2.6-7.2) H Calcium Level 7.5 MG/DL (8.5-10.1) L Phosphorus Level 3.8 MG/DL (2.5-4.9) Magnesium Level 1.9 MG/DL (1.8-2.4) Iron Level 52 ug/dL (50-175) Total Iron Binding Capacity 86 ug/dL (250-450) L Percent Iron Saturation 60 % (15-50) H Unsaturated Iron Binding 34 ug/dL (112-346) L Ferritin > 2000 NG/ML (8-388) H Total Bilirubin 0.4 MG/DL (0.2-1.0) Gamma Glutamyl Transpeptidase 54 U/L (5-85) Aspartate Amino Transf (AST/SGOT) 24 U/L (15-37) Alanine Aminotransferase (ALT/SGPT) 26 U/L (12-78) Alkaline Phosphatase 75 U/L (46-116) Total Creatine Kinase 7 U/L (26-308) L Troponin I 0.100 ng/mL (0.000-0.056) C-Reactive Protein, Quantitative 4.1 mg/dL (0.00-0.90) H Pro-B-Type Natriuretic Peptide 28552 pg/mL (0-125) H Total Protein 5.4 G/DL (6.4-8.2) L Albumin 1.6 G/DL (3.4-5.0) L Globulin 3.8 g/dL Albumin/Globulin Ratio 0.4 (1.0-2.7) L Triglycerides Level 170 MG/DL (30-150) H Cholesterol Level 121 MG/DL (< 200) LDL Cholesterol 72 mg/dL (<100) HDL Cholesterol 19 MG/DL (40-60) L Cholesterol/HDL Ratio 6.4 (3.3-4.4) H Vitamin B12 Level 731 PG/ML (193-986) Folate 17.0 NG/ML (8.6-58.9) Thyroid Stimulating Hormone (TSH) 0.560 uiU/mL (0.358-3.740) Height (Feet): 5 Height (Inches): 6.00 Weight (Pounds): 160 Medications Current Medications Medications (Trade) Dose Ordered Sig/Maria Fernanda Route PRN Reason Start Time Stop Time Status Last Admin Dose Admin Allopurinol (allopurinoL) 300 mg DAILY NG 02/07/20 09:00 03/08/20 08:59 02/07/20 09:55 Atorvastatin Calcium (Lipitor) 20 mg BEDTIME NG 02/06/20 21:00 05/06/20 20:59 02/06/20 20:56 Barium Sulfate (Varibar Honey) 250 ml NOW PRN MC RAD 02/07/20 12:15 02/10/20 12:12 Barium Sulfate (Varibar [place]) 240 ml NOW PRN MC RAD 02/07/20 12:15 02/10/20 12:12 Barium Sulfate (Varibar Pudding) 230 ml NOW PRN MC RAD 02/07/20 12:15 02/10/20 12:12 Barium Sulfate (Varibar Thin Liquid powder) 148 gm NOW PRN MC RAD 02/07/20 12:15 02/10/20 12:12 Carvedilol (Coreg) 25 mg EVERY 12 HOURS NG 02/06/20 21:00 03/07/20 20:59 02/07/20 09:55 Ceftriaxone Sodium 1 gm/ Dextrose 55 ml @ 110 mls/hr Q24H IVPB 02/06/20 21:00 02/13/20 20:59 02/06/20 20:55 Dextrose (Dextrose 50%) 25 ml Q30M PRN IV Hypoglycemia 02/06/20 14:15 05/06/20 14:14 Dextrose (Dextrose 50%) 50 ml Q30M PRN IV Hypoglycemia 02/06/20 14:15 05/06/20 14:14 Docusate Sodium (Colace) 100 mg TWICE A DAY NG 02/06/20 18:00 03/07/20 17:59 02/07/20 09:55 Hydralazine HCl (Apresoline) 10 mg Q6HR NG 02/07/20 09:00 05/07/20 08:59 02/07/20 12:41 Insulin Aspart (NovoLOG) Q6HR SUBQ 02/06/20 18:00 05/06/20 17:59 02/07/20 12:43 Pantoprazole (Protonix) 40 mg DAILY IVP 02/07/20 09:00 03/08/20 08:59 02/07/20 09:55 Assessment/Plan Problem List: (1) UTI (urinary tract infection) ICD Codes: N39.0 - Urinary tract infection, site not specified SNOMED: 98366824 Qualifiers: Qualified Codes: N39.0 - Urinary tract infection, site not specified (2) Renal failure (ARF), acute on chronic ICD Codes: N17.9 - Acute kidney failure, unspecified; N18.9 - Chronic kidney disease, unspecified SNOMED: 471622986 (3) COVID-19 Assessment & Plan: ++ abx as per ID will follow with recs Lungs: Subsegmental atelectasis versus infiltrates in bilateral lung bases. Pulmonary vascular congestion. Pleural space: Small bilateral pleural effusions. Heart: Cardiomegaly. Mediastinum: Unremarkable. Bones/joints: Degenerative changes throughout the visualized spine and shoulder joints. Vasculature: Atherosclerotic calcifications within the aortic arch. Tubes, lines and devices: Telemetry leads overlie the thorax. IMPRESSION: 1. Findings concerning for CHF. Cardiomegaly with pulmonary vascular congestion and small bilateral pleural effusions. 2. Subsegmental atelectasis versus infiltrates in bilateral lung bases. ICD Codes: U07.1 - COVID-19 SNOMED: 007460730 (4) Congestive heart failure ICD Codes: I50.9 - Heart failure, unspecified SNOMED: 56158361 (5) Anemia ICD Codes: D64.9 - Anemia, unspecified SNOMED: 844320392 (6) Diabetic nephropathy ICD Codes: E11.21 - Type 2 diabetes mellitus with diabetic nephropathy SNOMED: 08739426, 935332719 (7) Failure to thrive Assessment & Plan: DAILY ESTIMATED NEEDS: Needs based on Wounds, DM, ARF/ 53.4kg abw 25-30 kcals/kg 6912-1342 total kcals 1-1.5 (increase w/ renal fxn improvement) g protein/kg 53-80 g total protein 25-30 mL/kg 6319-6066 total fluid mLs NUTRITION DIAGNOSIS: * Swallowing difficulty R/T dysphagia, decreased cognitive fxn as evidenced by s/p NGT insertion @ SNF, on NGT feeds, pending [facility] eval. * Increased kcal/prot needs R/T wound healing as evidenced by pt admitted w/ multiple wound per photos, pending eval * Altered nutrition related lab values R/T diabetes, cardiac hx, renal dysfunction as evidenced by elev BGs (230, 228), A1C 8.2, BNP 68726, elev creat (4.1-> 3.9), elev BUN (93->90). CURRENT TF:Nepro @ 30ml/hr x 24 hrs PO DIET RECOMMENDATIONS: IF SAFE FOR ORAL DIET -> CCHO LOW, LOW NA/ texture per [facility] ENTERAL NUTRITION RECOMMENDATIONS: Glucerna 1.5 @ 40ml/hr x 24 hrs to provide 960ml, 1440kcal, 79g prot, 728ml free water * W/ improving renal fxn and lytes wnl, rec TF change to Glucerna 1.5 * Initiate GLucerna 1.5 @20ml/hr x 4hrs, advance 10ml q 4 hrs as tolerated to goal : will provide 100% est kcal/prot needs @ goal * HOB over 30 degrees/ water flush per MD ADDITIONAL RECOMMENDATIONS: * Per SNF: HT=62" TN=079hhm (02/05/20) * Monitor renal fxn and lytes, need for renal TF formula (creat trending down, K, phos, mag wnl) * Consider long acting insulin for improved BG control * Wound healing: Add Vit C 250mg QD + Silvano BID f/up w/ WC eval * Monitor for oral diet vs TF : [facility] eval pending SNOMED: 68506763 Qualifiers: Qualified Codes: R62.7 - Adult failure to thrive (8) Renal failure ICD Codes: N19 - Unspecified kidney failure SNOMED: 93136155 Qualifiers: Qualified Codes: N19 - Unspecified kidney failure (9) Pneumonia ICD Codes: J18.9 - Pneumonia, unspecified organism SNOMED: 766727868 Qualifiers: Qualified Codes: J18.9 - Pneumonia, unspecified organism (10) Deep tissue injury Assessment & Plan: Patient identified on admission to have a large sacral deep tissue injury non-blanchable erythema blistering epidermis intact no drainage. Unknown duration. Tenderness difficult to a certain based on clinical examinations patient's history. Labs noted. Patient high risk for decubitus ulcer formation worsening condition. NG tube in place currently. Nutritional optimization. Turn every 2 hours. Offload pressure with pillows. OPTi foam dressing to sacrum. Care plan initiated. Thank you will follow with recommendations ICD Codes: T14.8XXA - Other injury of unspecified body region, initial encounter SNOMED: 963808882 Chris Lei Feb 07, 2020 17:12
--- NOTE | 2020-02-07 18:49 | NUR ---
[facility] [employer] [facility] SWALLOW EVALUATION PATIENT REFERRED TO [facility] [facility] BY DR. CAICEDO. DYSPHAGIA RISK FACTORS FOR THIS 79 Y.O. FEMALE: ACUTE: COVID-19 pneumonia, acute renal failure, PNA, UTI, CHF, FTT, severe protein malnutrition, DM, recent left hip fracture. The patient's NG-tube was replaced at the emergency room. H/O: failure to thrive, urinary tract infection, renal failure, hypercholesterolemia, hypertension, anemia, diabetes. PLOF: Pt's daughter reports that Pt consume thin liquids and soft-puree like food at home. VITALS ON 2 L NASAL CANNULA: HR: 83; RR: 19; SP02 97% Pt seem at bedside, has baseline very wet and deep coughing, oral cavity is dry with debris noted throughout, Pt is unable to verbally communicate wants and needs, is agreeable to PO trials. INITIAL IMPRESSIONS: Moderate oropharyngeal dysphagia with reduced lingual and labial ROM and coordination, prolonged A-P transit times, laryngeal elevation is moderate to severely delayed, multiple swallows noted with each PO trial. Overt aspiration signs and symptoms on thin liquids signified by immediate coughing and with nectar thick liquids s/p 2 PO trials. Patient agreeable to PO trials, minimal PO on each tsp due to Pt's poor opening of mouth, prolonged A-P bolus transit, laryngeal elevation is moderate to severely delayed and incomplete in feel, multiple swallows with each PO trial. PATIENT IS A HIGH RISK FOR ASPIRATION AND POOR PO DUE TO COGNITIVE BEHAVIORAL DEFICITS AND POOR SWALLOW EFFICIENCY. While Pt did not exhibit any overt s/s of aspiration with puree solids, given clinical presentation, at this time Pt has poor prognosis to meet nutrition/hydration and med management via PO intake due to current lethargy, poor swallow efficiency, and now with PNA. RECOMMENDATIONS: 1. NPO, CONTINUE NGT, STRICT ORAL CARE TIB +MOISTURE 2. [employer] PLANS TO F/U TOMORROW TO RE-ASSESS SWALLOWING FUNCTION 3. MONITOR FOR ABILITY TO BE TRANSFERRED TO RADIOLOGY FOR MBSS [employer] spoke with RN regarding results and recommendations, will f/u tomorrow to reassess. Thank you for this referral!
--- NOTE | 2020-02-07 19:30 | NUR ---
NURSE HAND-OFF: Important Events on Shift: Pt failed swallow eval today; NPO for another day per ST, re-eval tomorrow; dtr, Tar[place]y aware; consistently asking for update Patient Status: stable Diet:TF Nepro Pending Orders: n/a Pending Results/Labs: labs in AM Pending MD notification: n/a Latest Vital Signs: Temperature 97.9 , Pulse 83 , B/P 139 /92 , Respiratory Rate 19 , O2 SAT 97 , Nasal Cannula, O2 Flow Rate 2.0 . Vital Sign Comment: continue to monitor Latest Barrett Fall Score: 60 Fall Risk: High Risk Safety Measures: Call light Within Reach, Bed Alarm Zone 2, Side Rails Side Rails x3, Bed position Low and Locked. Fall Precautions: Yellow Socks Report given to BONG Olea. Endorsed POC.
--- NOTE | 2020-02-07 19:31 | NUR ---
NURSE NOTES: Received report from Yaya WOODY. Rounding is done with Yaya. Patient is a/o x1-2, open eyes and responsive, but non-verbal, unable to make needs known. Breathing is even and unlabored with nc 2L/min. NGT connected to continuous feeding at 30ml/hr. No any distress at this time. Cornelius is in place and draining to gravity. UO is low and Yaya stated that Doctor already aware. IV is intact and patent. Multiple skin issues and alterations. L AC [address] lock [address]. Pt has B soft wrist restraints in place, skin intact with swelling noted on B hands pitting edema of 3+ despite proper placement of restraints noted. BLE pitting edema noted as well. Pending stool collection. Bed is on alarm, locked , and lowest position. Call light within reach. Will continue to monitor.
[2020-02-07] MEDS: cefTRIAXone 1 GM in D5W 55 ML IVPB SCH (21:49)
[2020-02-07] MEDS: Atorvastatin 20mg tab NG SCH (21:49)
--- NOTE | 2020-02-07 22:13 | General Progress Note ---
Assessment/Plan Problem List: (1) Congestive heart failure ICD Codes: I50.9 - Heart failure, unspecified SNOMED: 16486237 (2) Anemia ICD Codes: D64.9 - Anemia, unspecified SNOMED: 179652114 (3) Diabetic nephropathy ICD Codes: E11.21 - Type 2 diabetes mellitus with diabetic nephropathy SNOMED: 47576343, 024076789 (4) Renal failure ICD Codes: N19 - Unspecified kidney failure SNOMED: 65929343 Qualifiers: Qualified Codes: N19 - Unspecified kidney failure (5) Failure to thrive SNOMED: 12535519 Qualifiers: Qualified Codes: R62.7 - Adult failure to thrive (6) Pneumonia ICD Codes: J18.9 - Pneumonia, unspecified organism SNOMED: 550886056 Qualifiers: Qualified Codes: J18.9 - Pneumonia, unspecified organism (7) UTI (urinary tract infection) ICD Codes: N39.0 - Urinary tract infection, site not specified SNOMED: 64054895 Qualifiers: Qualified Codes: N39.0 - Urinary tract infection, site not specified (8) Renal failure (ARF), acute on chronic ICD Codes: N17.9 - Acute kidney failure, unspecified; N18.9 - Chronic kidney disease, unspecified SNOMED: 510089275 Status: progressing Assessment/Plan: afebrile h/o covid positive reviewed chart and labs ftt weak vitals stable pna resp insuff Subjective ROS Limited/Unobtainable: Yes Allergies: Coded Allergies: No Known Allergies (Unverified , 02/06/20) Objective Last 24 Hour Vital Signs Date Time Temp Pulse Resp B/P (MAP) Pulse Ox O2 Delivery O2 Flow Rate FiO2 02/07/20 21:49 80 155/79 02/07/20 18:44 139/92 02/07/20 16:00 97.9 83 19 139/92 (108) 97 02/07/20 12:41 141/83 02/07/20 12:00 98.1 77 18 141/83 (102) 95 02/07/20 09:59 160/104 02/07/20 09:55 77 160/104 02/07/20 09:00 Nasal Cannula 2.0 02/07/20 08:00 97.9 77 18 160/104 (122) 96 02/07/20 06:00 97.9 79 21 160/90 (113) 96 02/07/20 00:00 97.8 83 21 138/70 (92) 97 Intake and Output 02/06/20 02/07/20 19:00 07:00 Intake Total 30 ml 295 ml Output Total 320 ml 150 ml Balance -290 ml 145 ml Intake Free Water 60 ml IV Total 55 ml Tube Feeding 30 ml 180 ml Output Urine Total 320 ml 150 ml # Voids 1 Laboratory Tests 02/07/20 04:00: White Blood Count 10.3, Red Blood Count 3.53L, Hemoglobin 9.4L, Hematocrit 30.6L , Mean Corpuscular Volume 87, Mean Corpuscular Hemoglobin 26.7L, Mean Corpuscular Hemoglobin Concent 30.9L, Red Cell Distribution Width 15.2H, Platelet Count 167, Mean Platelet Volume 7.0, Neutrophils (%) (Auto) , Lymphocytes (%) (Auto) , Monocytes (%) (Auto) , Eosinophils (%) (Auto) , Basophils (%) (Auto) , Differential Total Cells Counted 100, Neutrophils % ( Manual) 87H, Lymphocytes % (Manual) 10L, Monocytes % (Manual) 3, Eosinophils % ( Manual) 0, Basophils % (Manual) 0, Band Neutrophils 0, Platelet Estimate Adequate, Platelet Morphology Normal, Hypochromasia 2+, Anisocytosis 1+, Sodium Level 148H, Potassium Level 3.8, Chloride Level 113H, Carbon Dioxide Level 21, Anion Gap 14, Blood Urea Nitrogen 90H, Creatinine 3.9H, Estimat Glomerular Filtration Rate 11.1, Glucose Level 230H, Hemoglobin A1c 8.2H, Uric Acid 10.1H, Calcium Level 7.5L, Phosphorus Level 3.8, Magnesium Level 1.9, Iron Level 52, Total Iron Binding Capacity 86L, Percent Iron Saturation 60H, Unsaturated Iron Binding 34L, Ferritin > 2000H, Total Bilirubin 0.4, Gamma Glutamyl Transpeptidase 54, Aspartate Amino Transf (AST/SGOT) 24, Alanine Aminotransferase (ALT/SGPT) 26, Alkaline Phosphatase 75, Total Creatine Kinase 7L, Troponin I 0.100H, C-Reactive Protein, Quantitative 4.1H, Pro-B-Type Natriuretic Peptide 55327O, Total Protein 5.4L, Albumin 1.6L, Globulin 3.8, Albumin/Globulin Ratio 0.4L, Triglycerides Level 170H, Cholesterol Level 121, LDL Cholesterol 72, HDL Cholesterol 19L, Cholesterol/HDL Ratio 6.4H, Vitamin B12 Level 731, Folate 17.0, Thyroid Stimulating Hormone (TSH) 0.560 Height (Feet): 5 Height (Inches): 6.00 Weight (Pounds): 160 Janes Faust MD Feb 07, 2020 22:13
[2020-02-07] MEDS ORDERED: Haloperidol 5mg/ml Inj IM PRN (23:15)
[2020-02-08] VITALS: BP 121/79
[2020-02-08] MEDS: NovoLOG Insulin Flexpen SUBQ SCH ×6 (00:20→23:26)
[2020-02-08] MEDS: HydrALAZINE 10mg Tab NG SCH ×2 (00:53→05:08)
[2020-02-08 04:00] VITALS: BP 132/79
[2020-02-08 06:37] LABS: HEMATOCRIT 27.5 % (37.0-47.0); HEMOGLOBIN 8.5 G/DL (12.0-16.0); MEAN CORPUSCULAR VOLUME 88 FL (80-99); PLATELET COUNT 136 K/UL (150-450); RED BLOOD COUNT 3.13 M/UL (4.20-5.40); RED CELL DISTRIBUTION WIDTH 16.7 % (11.6-14.8); WHITE BLOOD COUNT 7.5 K/UL (4.8-10.8)
[2020-02-08 06:51] LABS: ALBUMIN 1.6 G/DL (3.4-5.0); ALBUMIN/GLOBULIN RATIO 0.4 (1.0-2.7); BILIRUBIN,TOTAL 0.3 MG/DL (0.2-1.0); CALCIUM 7.7 MG/DL (8.5-10.1); CREATININE 4.1 MG/DL (0.55-1.30); PHOSPHORUS 4.2 MG/DL (2.5-4.9); POTASSIUM 3.8 MMOL/L (3.5-5.1)
--- NOTE | 2020-02-08 07:20 | NUR ---
NURSE HAND-OFF: Important Events on Shift:[N/A] Patient Status: [STABLE] Diet: [TUBE FEEDING] Pending Orders: [NONE] Pending Results/Labs:[NONE] Pending MD notification:[NONE] Latest Vital Signs: Temperature 97.8 , Pulse 76 , B/P 132 /79 , Respiratory Rate 20 , O2 SAT 98 , Nasal Cannula, O2 Flow Rate 2.0 . Vital Sign Comment: [STABLE] Latest Barrett Fall Score: 60 Fall Risk: High Risk Safety Measures: Call light Within Reach, Bed Alarm Zone 2, Side Rails Side Rails x3, Bed position Low and Locked. Fall Precautions: Yellow Socks Report given to [LUIS ANTONIO WOODY].
--- NOTE | 2020-02-08 07:45 | NUR ---
NURSE NOTES: Received report from BONG Olea. Patient is AAO x 1-2, nonverbal and unable to make needs known. Pt is bedbound, nonambulatory. Pt is on O2 at 2LPM via NC in no apparent respiratory distress. Pt has a L nare 62 cm NGT connected to continuous feeding at 30 ml/hr. LBM on 02/05/20. Pt has a kinney in place with 400 ml urine output in previous shift. Multiple skin issues and alterations. L AC [address], patent and flushing. Pt has B soft wrist restraints in place, skin intact with swelling noted on B hands pitting edema of 3+ despite proper placement of restraints noted. BLE pitting edema noted as well. Pending stool collection. Bed in lowest position, locked. Will continue POC.
[2020-02-08 08:00] VITALS: BP 152/95
--- NOTE | 2020-02-08 08:01 | Consultation ---
DATE OF CONSULTATION: 02/07/2020 CARDIOLOGY CONSULTATION CONSULTING PHYSICIAN: Aditya Reynolds M.D. REFERRING PHYSICIAN: Janes Faust M.D. REASON FOR CONSULTATION: Elevated troponin. HISTORY OF PRESENT ILLNESS: The patient is an 79-year-old lady with history of hypertension and was brought to the hospital with NG-tube in place that she had already pulled out. The patient was tested positive for COVID. The patient is not able to provide any information. The patient was evaluated by Dr. Cormier, who ordered a troponin that came back positive. At the time of my evaluation, the patient is nonverbal and is unable to provide any information. Her echocardiogram showed ejection fraction of 50%. The patient's creatinine is also elevated at 4. REVIEW OF SYSTEMS: Cannot be obtained. PAST MEDICAL HISTORY: As mentioned above. FAMILY HISTORY: Noncontributory. SOCIAL HISTORY: She is living at home per her daughter and the long-term per chart prior to coming to the hospital. PHYSICAL EXAMINATION: VITAL SIGNS: Show blood pressure 139/92, pulse is 83, and respirations 18. HEAD AND NECK: Shows no JVD. LUNGS: Decreased breath sounds. CARDIOVASCULAR: Shows regular S1 and S2 with no gallop. ABDOMEN: Soft. EXTREMITIES: 2+ pitting edema. LABORATORY AND DIAGNOSTIC DATA: Her echocardiogram showed normal ejection fraction of 50%, moderate pleural effusion, moderate mitral regurgitation, severe tricuspid regurgitation, and severe pulmonary hypertension. Labs show sodium 148, potassium 3.8, BUN of 90, creatinine of 4.1, and glucose of 230. Troponin is 0.1. ASSESSMENT AND PLAN: 1. Elevated troponin, likely due to the patient's renal failure with BUN of 90 and creatinine of 4.1. The patient is nonverbal and not complained of chest pain. The patient is already on Coreg 25 mg b.i.d. and Lipitor. Her ejection fraction was 50%. We will repeat troponin in the morning and we will get an EKG. 2. Hypertension, on Coreg 25 mg b.i.d. and p.r.n., hydralazine. 3. Hyperlipidemia, on Lipitor. 4. COVID positive. 5. Dysphagia, status post NG tube placement, level is pending. 6. UTI. 7. Diabetes. 8. Severe protein malnutrition. Thank you very much for allowing me to participate in the care of this patient. Please do not hesitate to contact me if you have any questions regarding my evaluation. Aditya Reynolds M.D. DR: Carlos JOB#: [id number] CC:
--- NOTE | 2020-02-08 08:25 | Consultation ---
DATE OF CONSULTATION: 02/07/2020 CONSULTING PHYSICIAN: Eboni Thomas M.D. HISTORY OF PRESENT ILLNESS: This is an 79-year-old female with a history of left hip fracture, dementia, hyperlipidemia, hypertension, positive, who has been admitted to the hospital for medical stabilization. The patient is admitted for failure to thrive and pulled out her NG-tube. The patient is easily agitated, she is with bilateral restraints, difficult to manage, and difficult to redirect. PAST PSYCHIATRIC HISTORY: Significant for dementia. PAST MEDICAL HISTORY: As above. ALLERGIES: No known drug allergies. SUBSTANCE ABUSE HISTORY: No known history of illicit drug use or alcohol. MENTAL STATUS EXAMINATION: The patient is awake, disoriented. Mood is agitated. Affect is flat. Thought process, there is a paucity of thought content. Thought content, no suicidal or homicidal ideation. Cognition is impaired. Insight and judgment impaired. ASSESSMENT: [place] I Dementia with behavior disturbance. [place] II Deferred. [place] III As above. [place] IV Moderate. [place] V 20. PLAN: 1. Haldol as needed. 2. Bilateral self-restraints. Eboni Thomas M.D. DR: GLORIA JOB#: [id number] CC: LALO
--- NOTE | 2020-02-08 08:46 | General Progress Note ---
Assessment/Plan Status: progressing Assessment/Plan: DYSPHAGIA Covod positive HTN elevated trop renal insuf NGTF swallow eval appreciated, pending repeat for today will fu Subjective ROS Limited/Unobtainable: No Allergies: Coded Allergies: No Known Allergies (Unverified , 02/06/20) Objective Last 24 Hour Vital Signs Date Time Temp Pulse Resp B/P (MAP) Pulse Ox O2 Delivery O2 Flow Rate FiO2 02/08/20 08:00 97.2 73 20 152/95 (114) 98 02/08/20 05:08 132/79 02/08/20 04:00 97.8 76 20 132/79 (96) 98 02/08/20 00:53 121/79 02/08/20 00:00 97.9 79 20 121/79 (93) 97 02/07/20 21:49 80 155/79 02/07/20 21:00 Nasal Cannula 2.0 02/07/20 20:00 97.2 80 20 155/79 (104) 99 02/07/20 18:44 139/92 02/07/20 16:00 97.9 83 19 139/92 (108) 97 02/07/20 12:41 141/83 02/07/20 12:00 98.1 77 18 141/83 (102) 95 02/07/20 09:59 160/104 02/07/20 09:55 77 160/104 02/07/20 09:00 Nasal Cannula 2.0 Intake and Output 02/07/20 02/08/20 19:00 07:00 Intake Total 85 ml Output Total 500 ml 400 ml Balance -500 ml -315 ml IV Total 55 ml Tube Feeding 30 ml Output Urine Total 500 ml 400 ml Laboratory Tests 02/08/20 05:35: White Blood Count 7.5, Red Blood Count 3.13L, Hemoglobin 8.5L, Hematocrit 27.5L , Mean Corpuscular Volume 88, Mean Corpuscular Hemoglobin 27.2, Mean Corpuscular Hemoglobin Concent 31.0L, Red Cell Distribution Width 16.7H, Platelet Count 136L, Mean Platelet Volume 7.8, Neutrophils (%) (Auto) , Lymphocytes (%) (Auto) , Monocytes (%) (Auto) , Eosinophils (%) (Auto) , Basophils (%) (Auto) , Sodium Level 148H, Potassium Level 3.8, Chloride Level 114H, Carbon Dioxide Level 21, Anion Gap 13, Blood Urea Nitrogen 96H, Creatinine 4.1H, Estimat Glomerular Filtration Rate 10.5, Glucose Level 270H, Uric Acid 10.3H, Calcium Level 7.7L, Phosphorus Level 4.2, Magnesium Level 2.1, Total Bilirubin 0.3, Aspartate Amino Transf (AST/SGOT) 16, Alanine Aminotransferase (ALT/SGPT) 22, Alkaline Phosphatase 70, Troponin I 0.088H, C- Reactive Protein, Quantitative 3.9H, Pro-B-Type Natriuretic Peptide 15594F, Total Protein 5.4L, Albumin 1.6L, Globulin 3.8, Albumin/Globulin Ratio 0.4L Height (Feet): 5 Height (Inches): 6.00 Weight (Pounds): 160 General Appearance: lethargic EENT: normal ENT inspection Neck: supple Cardiovascular: normal rate Respiratory/Chest: decreased breath sounds Abdomen: hypoactive bowel sounds Extremities: non-tender Gopal Winter MD Feb 08, 2020 08:46
[2020-02-08] MEDS: Carvedilol 25mg Tab NG SCH ×2 (09:00→21:00)
[2020-02-08] MEDS: Docusate 100mg/10ml Liq NG SCH ×2 (09:00→18:00)
[2020-02-08] MEDS: Pantoprazole Inj IVP SCH ×2 (09:04→20:46)
--- NOTE | 2020-02-08 09:10 | NUR ---
NURSE NOTES: Patient noted to have inadvertently removed her NGT. Dr. Winter notified. Per Dr. Winter, await ST re-eval today. Pt to remain NPO. Update given to patient's dtrCharisse. Will continue POC.
--- NOTE | 2020-02-08 09:44 | Nephrology Progress Note ---
Assessment/Plan Problem List: (1) Renal failure (ARF), acute on chronic (2) COVID-19 (3) UTI (urinary tract infection) (4) Congestive heart failure (5) Anemia (6) Diabetic nephropathy Assessment Renal failure, etiology unclear. Most likely secondary to heart failure. And or diabetes Patient has history of diabetes mellitus since she is receiving metformin and oral hypoglycemic agents Pneumonia UTI Mild anemia Plan February 07: Discussed with BONG Javier. Labs reviewed. 2D echo indicates LV function and ejection fraction in mid 50s. Renal parameters unchanged. Calculated GFR between 10-11. We will continue to optimize cardiac status. In my opinion the patient requires dialysis treatment and ultrafiltration if aggressive approach is our plan based on patient being full code. I will discuss the matter with the patient's daughter. Will also discuss with PMD Dr. Riojas. February 06: Continue to monitor renal parameters. 2D echocardiogram results and kidney ultrasound results are pending. Hemoglobin A1c results suggestive of diabetes mellitus [id number]. Will continue to optimize cardiac status. Hydralazine as an afterload reduction ordered. Allopurinol for high uric acid ordered. February 05: Cornelius 2D echo Urine studies Avoid nephrotoxic's Antibiotics Per orders KIDNEY OMARI: * Mildly increased renal echogenicity. Findings are concerning for intrinsic/ medical renal disease. * No evidence of hydronephrosis bilaterally. * Bilateral simple appearing renal cysts. * Additional 2 cm hypoechoic possible cyst versus mass in the left kidney. Periventricular evaluation with MRI of the abdomen, ideally without and with contrast. * Bladder decompressed by Cornelius catheter, precluding its evaluation. * Trace ascites incidentally identified. * Cholelithiasis incidentally identified. Subjective ROS Limited/Unobtainable: No Constitutional: Reports: malaise, weakness Objective Objective Last 24 Hour Vital Signs Date Time Temp Pulse Resp B/P (MAP) Pulse Ox O2 Delivery O2 Flow Rate FiO2 02/08/20 09:00 73 152/95 02/08/20 08:00 97.2 73 20 152/95 (114) 98 02/08/20 05:08 132/79 02/08/20 04:00 97.8 76 20 132/79 (96) 98 02/08/20 00:53 121/79 02/08/20 00:00 97.9 79 20 121/79 (93) 97 02/07/20 21:49 80 155/79 02/07/20 21:00 Nasal Cannula 2.0 02/07/20 20:00 97.2 80 20 155/79 (104) 99 02/07/20 18:44 139/92 02/07/20 16:00 97.9 83 19 139/92 (108) 97 02/07/20 12:41 141/83 02/07/20 12:00 98.1 77 18 141/83 (102) 95 02/07/20 09:59 160/104 02/07/20 09:55 77 160/104 Intake and Output 02/07/20 02/08/20 19:00 07:00 Intake Total 85 ml Output Total 500 ml 400 ml Balance -500 ml -315 ml IV Total 55 ml Tube Feeding 30 ml Output Urine Total 500 ml 400 ml Laboratory Tests 02/08/20 05:35: White Blood Count 7.5, Red Blood Count 3.13L, Hemoglobin 8.5L, Hematocrit 27.5L , Mean Corpuscular Volume 88, Mean Corpuscular Hemoglobin 27.2, Mean Corpuscular Hemoglobin Concent 31.0L, Red Cell Distribution Width 16.7H, Platelet Count 136L, Mean Platelet Volume 7.8, Neutrophils (%) (Auto) , Lymphocytes (%) (Auto) , Monocytes (%) (Auto) , Eosinophils (%) (Auto) , Basophils (%) (Auto) , Sodium Level 148H, Potassium Level 3.8, Chloride Level 114H, Carbon Dioxide Level 21, Anion Gap 13, Blood Urea Nitrogen 96H, Creatinine 4.1H, Estimat Glomerular Filtration Rate 10.5, Glucose Level 270H, Uric Acid 10.3H, Calcium Level 7.7L, Phosphorus Level 4.2, Magnesium Level 2.1, Total Bilirubin 0.3, Aspartate Amino Transf (AST/SGOT) 16, Alanine Aminotransferase (ALT/SGPT) 22, Alkaline Phosphatase 70, Troponin I 0.088H, C- Reactive Protein, Quantitative 3.9H, Pro-B-Type Natriuretic Peptide 09036U, Total Protein 5.4L, Albumin 1.6L, Globulin 3.8, Albumin/Globulin Ratio 0.4L Height (Feet): 5 Height (Inches): 6.00 Weight (Pounds): 160 General Appearance: no apparent distress, lethargic EENT: other Cardiovascular: normal rate Respiratory/Chest: decreased breath sounds Abdomen: distended Quirino Cormier MD Feb 08, 2020 09:44
--- NOTE | 2020-02-08 10:11 | Cardiac Electrophysiology PN ---
Assessment/Plan Assessment/Plan 1. Elevated troponin, due to the patient's renal failure with BUN of 90 and creatinine of 4.1. Levels are low and flat. The patient is nonverbal and not complained of chest pain. On Coreg 25 mg b.i.d. and Lipitor. Her ejection fraction was 50%. 2. Hypertension, on Coreg 25 mg b.i.d. and p.r.n., hydralazine. 3. Hyperlipidemia, on Lipitor. 4. COVID positive. 5. Dysphagia, status post NG tube placement, 6. UTI. 7. Diabetes. 8. Severe protein malnutrition. Subjective Subjective Troponin leak due to renal failure and Cr 4. In atrial fib Nonverbal covid positive EF 55% ECG fib. Off anticoagulation for Left hip Fx Objective Last 24 Hour Vital Signs Date Time Temp Pulse Resp B/P (MAP) Pulse Ox O2 Delivery O2 Flow Rate FiO2 02/08/20 09:00 73 152/95 02/08/20 08:00 97.2 73 20 152/95 (114) 98 02/08/20 05:08 132/79 02/08/20 04:00 97.8 76 20 132/79 (96) 98 02/08/20 00:53 121/79 02/08/20 00:00 97.9 79 20 121/79 (93) 97 02/07/20 21:49 80 155/79 02/07/20 21:00 Nasal Cannula 2.0 02/07/20 20:00 97.2 80 20 155/79 (104) 99 02/07/20 18:44 139/92 02/07/20 16:00 97.9 83 19 139/92 (108) 97 02/07/20 12:41 141/83 02/07/20 12:00 98.1 77 18 141/83 (102) 95 Intake and Output 02/07/20 02/08/20 19:00 07:00 Intake Total 85 ml Output Total 500 ml 400 ml Balance -500 ml -315 ml IV Total 55 ml Tube Feeding 30 ml Output Urine Total 500 ml 400 ml Laboratory Tests Test 02/08/20 05:35 White Blood Count 7.5 K/UL (4.8-10.8) Red Blood Count 3.13 M/UL (4.20-5.40) L Hemoglobin 8.5 G/DL (12.0-16.0) L Hematocrit 27.5 % (37.0-47.0) L Mean Corpuscular Volume 88 FL (80-99) Mean Corpuscular Hemoglobin 27.2 PG (27.0-31.0) Mean Corpuscular Hemoglobin Concent 31.0 G/DL (32.0-36.0) L Red Cell Distribution Width 16.7 % (11.6-14.8) H Platelet Count 136 K/UL (150-450) L Mean Platelet Volume 7.8 FL (6.5-10.1) Neutrophils (%) (Auto) % (45.0-75.0) Lymphocytes (%) (Auto) % (20.0-45.0) Monocytes (%) (Auto) % (1.0-10.0) Eosinophils (%) (Auto) % (0.0-3.0) Basophils (%) (Auto) % (0.0-2.0) Sodium Level 148 MMOL/L (136-145) H Potassium Level 3.8 MMOL/L (3.5-5.1) Chloride Level 114 MMOL/L (98-107) H Carbon Dioxide Level 21 MMOL/L (21-32) Anion Gap 13 mmol/L (5-15) Blood Urea Nitrogen 96 mg/dL (7-18) H Creatinine 4.1 MG/DL (0.55-1.30) H Estimat Glomerular Filtration Rate 10.5 mL/min (>60) Glucose Level 270 MG/DL (74-106) H Uric Acid 10.3 MG/DL (2.6-7.2) H Calcium Level 7.7 MG/DL (8.5-10.1) L Phosphorus Level 4.2 MG/DL (2.5-4.9) Magnesium Level 2.1 MG/DL (1.8-2.4) Total Bilirubin 0.3 MG/DL (0.2-1.0) Aspartate Amino Transf (AST/SGOT) 16 U/L (15-37) Alanine Aminotransferase (ALT/SGPT) 22 U/L (12-78) Alkaline Phosphatase 70 U/L (46-116) Troponin I 0.088 ng/mL (0.000-0.056) C-Reactive Protein, Quantitative 3.9 mg/dL (0.00-0.90) H Pro-B-Type Natriuretic Peptide 43241 pg/mL (0-125) H Total Protein 5.4 G/DL (6.4-8.2) L Albumin 1.6 G/DL (3.4-5.0) L Globulin 3.8 g/dL Albumin/Globulin Ratio 0.4 (1.0-2.7) L Microbiology Date/Time Source Procedure Growth Status 02/06/20 08:50 Blood Blood Culture - Preliminary NO GROWTH AFTER 24 HOURS Resulted 02/06/20 08:35 Blood Blood Culture - Preliminary NO GROWTH AFTER 24 HOURS Resulted 02/06/20 08:50 Nasopharynx SARS-CoV-2 RdRp Gene Assay - Final Complete 02/06/20 08:40 Urine,Clean Catch Urine Culture - Preliminary Resulted 02/07/20 10:00 Rectum Received Objective HEAD AND NECK: Shows no JVD. LUNGS: Decreased breath sounds. CARDIOVASCULAR: Irregular S1 and S2 with no gallop. ABDOMEN: Soft. EXTREMITIES: 2+ pitting edema. Aditya Reynolds MD Feb 08, 2020 10:11
--- NOTE | 2020-02-08 10:16 | Pulmonology Progress Note ---
Subjective ROS Limited/Unobtainable: No Interval Events: None new Constitutional: Reports: no symptoms HEENT: Repors: no symptoms Respiratory: Reports: no symptoms Cardiovascular: Reports: no symptoms Gastrointestinal/Abdominal: Reports: no symptoms Allergies: Coded Allergies: No Known Allergies (Unverified , 02/06/20) Objective Last 24 Hour Vital Signs Date Time Temp Pulse Resp B/P (MAP) Pulse Ox O2 Delivery O2 Flow Rate FiO2 02/08/20 09:00 73 152/95 02/08/20 08:00 97.2 73 20 152/95 (114) 98 02/08/20 05:08 132/79 02/08/20 04:00 97.8 76 20 132/79 (96) 98 02/08/20 00:53 121/79 02/08/20 00:00 97.9 79 20 121/79 (93) 97 02/07/20 21:49 80 155/79 02/07/20 21:00 Nasal Cannula 2.0 02/07/20 20:00 97.2 80 20 155/79 (104) 99 02/07/20 18:44 139/92 02/07/20 16:00 97.9 83 19 139/92 (108) 97 02/07/20 12:41 141/83 02/07/20 12:00 98.1 77 18 141/83 (102) 95 Intake and Output 02/07/20 02/08/20 19:00 07:00 Intake Total 85 ml Output Total 500 ml 400 ml Balance -500 ml -315 ml IV Total 55 ml Tube Feeding 30 ml Output Urine Total 500 ml 400 ml General Appearance: no acute distress HEENT: mucous membranes moist Respiratory: chest wall non-tender, lungs clear Cardiovascular: normal peripheral pulses Abdomen: normal bowel sounds Microbiology Date/Time Source Procedure Growth Status 02/06/20 08:50 Blood Blood Culture - Preliminary NO GROWTH AFTER 24 HOURS Resulted 02/06/20 08:35 Blood Blood Culture - Preliminary NO GROWTH AFTER 24 HOURS Resulted 02/06/20 08:50 Nasopharynx SARS-CoV-2 RdRp Gene Assay - Final Complete 02/06/20 08:40 Urine,Clean Catch Urine Culture - Preliminary Resulted 02/07/20 10:00 Rectum Received Laboratory Tests 02/08/20 05:35: White Blood Count 7.5, Red Blood Count 3.13L, Hemoglobin 8.5L, Hematocrit 27.5L , Mean Corpuscular Volume 88, Mean Corpuscular Hemoglobin 27.2, Mean Corpuscular Hemoglobin Concent 31.0L, Red Cell Distribution Width 16.7H, Platelet Count 136L, Mean Platelet Volume 7.8, Neutrophils (%) (Auto) , Lymphocytes (%) (Auto) , Monocytes (%) (Auto) , Eosinophils (%) (Auto) , Basophils (%) (Auto) , Sodium Level 148H, Potassium Level 3.8, Chloride Level 114H, Carbon Dioxide Level 21, Anion Gap 13, Blood Urea Nitrogen 96H, Creatinine 4.1H, Estimat Glomerular Filtration Rate 10.5, Glucose Level 270H, Uric Acid 10.3H, Calcium Level 7.7L, Phosphorus Level 4.2, Magnesium Level 2.1, Total Bilirubin 0.3, Aspartate Amino Transf (AST/SGOT) 16, Alanine Aminotransferase (ALT/SGPT) 22, Alkaline Phosphatase 70, Troponin I 0.088H, C- Reactive Protein, Quantitative 3.9H, Pro-B-Type Natriuretic Peptide 90354C, Total Protein 5.4L, Albumin 1.6L, Globulin 3.8, Albumin/Globulin Ratio 0.4L Current Medications Medications (Trade) Dose Ordered Sig/Maria Fernanda Route PRN Reason Start Time Stop Time Status Last Admin Dose Admin Allopurinol (allopurinoL) 300 mg DAILY NG 02/07/20 09:00 03/08/20 08:59 02/07/20 09:55 Atorvastatin Calcium (Lipitor) 20 mg BEDTIME NG 02/06/20 21:00 05/06/20 20:59 02/07/20 21:49 Barium Sulfate (Varibar Honey) 250 ml NOW PRN RAD 02/07/20 12:15 02/10/20 12:12 Barium Sulfate (Varibar Innovation) 240 ml NOW PRN MC RAD 02/07/20 12:15 02/10/20 12:12 Barium Sulfate (Varibar Pudding) 230 ml NOW PRN RAD 02/07/20 12:15 02/10/20 12:12 Barium Sulfate (Varibar Thin Liquid powder) 148 gm NOW PRN MC RAD 02/07/20 12:15 02/10/20 12:12 Carvedilol (Coreg) 25 mg EVERY 12 HOURS NG 02/06/20 21:00 03/07/20 20:59 02/07/20 21:49 Ceftriaxone Sodium 1 gm/ Dextrose 55 ml @ 110 mls/hr Q24H IVPB 02/06/20 21:00 02/13/20 20:59 02/07/20 21:49 Dextrose (Dextrose 50%) 25 ml Q30M PRN IV Hypoglycemia 02/06/20 14:15 05/06/20 14:14 Dextrose (Dextrose 50%) 50 ml Q30M PRN IV Hypoglycemia 02/06/20 14:15 05/06/20 14:14 Docusate Sodium (Colace) 100 mg TWICE A DAY NG 02/06/20 18:00 03/07/20 17:59 02/07/20 18:44 Haloperidol Lactate (Haldol) 5 mg Q6H PRN IM Agitation 02/07/20 23:15 03/23/20 23:14 Hydralazine HCl (Apresoline) 25 mg Q8HR NG 02/08/20 14:00 05/07/20 08:59 Insulin Aspart (NovoLOG) Q6HR SUBQ 02/06/20 18:00 05/06/20 17:59 02/08/20 06:11 Pantoprazole (Protonix) 40 mg Q12HR IVP 02/08/20 21:00 03/08/20 08:59 Assessment/Plan Assessment/Plan IMPRESSION: 1. COVID-19 pneumonia. 2. Cardiomegaly/CHF. 3. Renal failure. DISCUSSION: Continue oxygen via nasal canulae Remdesiver contraindicated due to renal failure Hold off on steroids as minimal hypoxemia I will follow as foil spinner. Delmar Root Omar Syed MD Feb 08, 2020 10:16
--- NOTE | 2020-02-08 11:18 | Infectious Diseases Prog Note ---
Assessment/Plan Assessment/Plan IMPRESSION: COVID-19 pneumonia, positive since 01/18 pyuria likely UTI, CHF, Failure to thrive, Severe protein malnutrition, Diabetes mellitus, Acute renal failure. Chronic kidney disease RECOMMENDATION: Continue ceftriaxone. We will follow up the cultures. Case was D/W daughter Subjective ROS Limited/Unobtainable: Yes Constitutional: Denies: fever Neurologic: Reports: confusion, other - on restraint Allergies: Coded Allergies: No Known Allergies (Unverified , 02/06/20) Objective Last 24 Hour Vital Signs Date Time Temp Pulse Resp B/P (MAP) Pulse Ox O2 Delivery O2 Flow Rate FiO2 02/08/20 09:00 73 152/95 02/08/20 08:00 97.2 73 20 152/95 (114) 98 02/08/20 05:08 132/79 02/08/20 04:00 97.8 76 20 132/79 (96) 98 02/08/20 00:53 121/79 02/08/20 00:00 97.9 79 20 121/79 (93) 97 02/07/20 21:49 80 155/79 02/07/20 21:00 Nasal Cannula 2.0 02/07/20 20:00 97.2 80 20 155/79 (104) 99 02/07/20 18:44 139/92 02/07/20 16:00 97.9 83 19 139/92 (108) 97 02/07/20 12:41 141/83 02/07/20 12:00 98.1 77 18 141/83 (102) 95 Height (Feet): 5 Height (Inches): 6.00 Weight (Pounds): 160 General Appearance: no acute distress HEENT: mucous membranes moist Respiratory/Chest: lungs clear, other - oxygen by nasal cannula Abdomen: soft, non tender Genitourinary: other - Cornelius catheter, cloudy urine Extremities: other - edema of arms Neurologic/Psychiatric: aphasia, other - awake Microbiology Date/Time Source Procedure Growth Status 02/07/20 10:00 Rectum Received 02/06/20 08:50 Nasopharynx SARS-CoV-2 RdRp Gene Assay - Final Complete 02/06/20 08:50 Blood Blood Culture - Preliminary NO GROWTH AFTER 24 HOURS Resulted 02/06/20 08:40 Urine,Clean Catch Urine Culture - Preliminary Resulted 02/06/20 08:35 Blood Blood Culture - Preliminary NO GROWTH AFTER 24 HOURS Resulted Laboratory Tests Test 02/08/20 05:35 White Blood Count 7.5 K/UL (4.8-10.8) Red Blood Count 3.13 M/UL (4.20-5.40) L Hemoglobin 8.5 G/DL (12.0-16.0) L Hematocrit 27.5 % (37.0-47.0) L Mean Corpuscular Volume 88 FL (80-99) Mean Corpuscular Hemoglobin 27.2 PG (27.0-31.0) Mean Corpuscular Hemoglobin Concent 31.0 G/DL (32.0-36.0) L Red Cell Distribution Width 16.7 % (11.6-14.8) H Platelet Count 136 K/UL (150-450) L Mean Platelet Volume 7.8 FL (6.5-10.1) Neutrophils (%) (Auto) % (45.0-75.0) Lymphocytes (%) (Auto) % (20.0-45.0) Monocytes (%) (Auto) % (1.0-10.0) Eosinophils (%) (Auto) % (0.0-3.0) Basophils (%) (Auto) % (0.0-2.0) Sodium Level 148 MMOL/L (136-145) H Potassium Level 3.8 MMOL/L (3.5-5.1) Chloride Level 114 MMOL/L (98-107) H Carbon Dioxide Level 21 MMOL/L (21-32) Anion Gap 13 mmol/L (5-15) Blood Urea Nitrogen 96 mg/dL (7-18) H Creatinine 4.1 MG/DL (0.55-1.30) H Estimat Glomerular Filtration Rate 10.5 mL/min (>60) Glucose Level 270 MG/DL (74-106) H Uric Acid 10.3 MG/DL (2.6-7.2) H Calcium Level 7.7 MG/DL (8.5-10.1) L Phosphorus Level 4.2 MG/DL (2.5-4.9) Magnesium Level 2.1 MG/DL (1.8-2.4) Total Bilirubin 0.3 MG/DL (0.2-1.0) Aspartate Amino Transf (AST/SGOT) 16 U/L (15-37) Alanine Aminotransferase (ALT/SGPT) 22 U/L (12-78) Alkaline Phosphatase 70 U/L (46-116) Troponin I 0.088 ng/mL (0.000-0.056) C-Reactive Protein, Quantitative 3.9 mg/dL (0.00-0.90) H Pro-B-Type Natriuretic Peptide 80425 pg/mL (0-125) H Total Protein 5.4 G/DL (6.4-8.2) L Albumin 1.6 G/DL (3.4-5.0) L Globulin 3.8 g/dL Albumin/Globulin Ratio 0.4 (1.0-2.7) L Current Medications Medications (Trade) Dose Ordered Sig/Maria Fernanda Route PRN Reason Start Time Stop Time Status Last Admin Dose Admin Allopurinol (allopurinoL) 300 mg DAILY NG 02/07/20 09:00 03/08/20 08:59 02/07/20 09:55 Atorvastatin Calcium (Lipitor) 20 mg BEDTIME NG 02/06/20 21:00 05/06/20 20:59 02/07/20 21:49 Barium Sulfate (Varibar Honey) 250 ml NOW PRN MC RAD 02/07/20 12:15 02/10/20 12:12 Barium Sulfate (Varibar [place]) 240 ml NOW PRN MC RAD 02/07/20 12:15 02/10/20 12:12 Barium Sulfate (Varibar Pudding) 230 ml NOW PRN MC RAD 02/07/20 12:15 02/10/20 12:12 Barium Sulfate (Varibar Thin Liquid powder) 148 gm NOW PRN MC RAD 02/07/20 12:15 02/10/20 12:12 Carvedilol (Coreg) 25 mg EVERY 12 HOURS NG 02/06/20 21:00 03/07/20 20:59 02/07/20 21:49 Ceftriaxone Sodium 1 gm/ Dextrose 55 ml @ 110 mls/hr Q24H IVPB 02/06/20 21:00 02/13/20 20:59 02/07/20 21:49 Dextrose (Dextrose 50%) 25 ml Q30M PRN IV Hypoglycemia 02/06/20 14:15 05/06/20 14:14 Dextrose (Dextrose 50%) 50 ml Q30M PRN IV Hypoglycemia 02/06/20 14:15 05/06/20 14:14 Docusate Sodium (Colace) 100 mg TWICE A DAY NG 02/06/20 18:00 03/07/20 17:59 02/07/20 18:44 Haloperidol Lactate (Haldol) 5 mg Q6H PRN IM Agitation 02/07/20 23:15 03/23/20 23:14 Hydralazine HCl (Apresoline) 25 mg Q8HR NG 02/08/20 14:00 05/07/20 08:59 Insulin Aspart (NovoLOG) Q6HR SUBQ 02/06/20 18:00 05/06/20 17:59 02/08/20 06:11 Pantoprazole (Protonix) 40 mg Q12HR IVP 02/08/20 21:00 03/08/20 08:59 Viet Harper MD Feb 08, 2020 11:18
[2020-02-08 12:00] VITALS: BP 137/74
[2020-02-08] MEDS ORDERED: GABAPENTIN100 MG ORAL (13:09)
[2020-02-08] MEDS ORDERED: MILK OF MA400 MG/51 GT (13:09)
[2020-02-08] MEDS ORDERED: HYDRALAZINE HCL10 MG GT (13:09)
[2020-02-08] MEDS ORDERED: FOLIC ACID1 MG GT (13:09)
[2020-02-08] MEDS ORDERED: ZOFRAN4 M3 GT (13:09)
[2020-02-08] MEDS ORDERED: DOCUSATE SODIU100 MG GT (13:09)
[2020-02-08] MEDS ORDERED: BICITRA30 ML GT (13:09)
[2020-02-08] MEDS ORDERED: BISACODYL10 M1 RC (13:09)
[2020-02-08] MEDS ORDERED: FLEET ENEMA133 ML RECTAL (13:09)
[2020-02-08] MEDS ORDERED: MYLANTA TONIGH355 ML GT (13:18)
[2020-02-08] MEDS ORDERED: NOVOLOG100 UNIT/5 SQ (13:18)
[2020-02-08] MEDS ORDERED: GLUCERNA1 EACH GT (13:24)
[2020-02-08] MEDS ORDERED: PANTOPRAZOLE SO40 MG GT (13:25)
[2020-02-08] MEDS: HydrALAZINE 25mg tab NG SCH ×2 (14:00→21:27)
--- NOTE | 2020-02-08 14:11 | Cardiology Report ---
APPROVED REPORT EKG Measurement Heart [id number] <Conclusion> Atrial fibrillation Low voltage QRS Cannot rule out Anterior infarct, age undetermined Abnormal ECG
[2020-02-08 16:00] VITALS: BP 136/76
--- NOTE | 2020-02-08 18:00 | NUR ---
NURSE NOTES: Patient is still pending ev. Notified Dr. Govind amaro patient still NPO as patient is still awaiting ev. Pending nutrition orders as patient no longer has NGT. Addendum: 02/08/20 at 1935 by Yaya Rondon RN Dr. Winter also made aware. Received response from Dr. Winter and confirmed that patient must be kept NPO for now until ev.
--- NOTE | 2020-02-08 18:22 | Surgery Progress Note ---
Surgery Progress Note Subjective Additional Comments no acute events comfortable appearing no n/v Objective Last 24 Hour Vital Signs Date Time Temp Pulse Resp B/P (MAP) Pulse Ox O2 Delivery O2 Flow Rate FiO2 02/08/20 16:00 98.2 70 20 136/76 (96) 95 02/08/20 14:00 137/74 02/08/20 12:00 96.0 80 19 137/74 (95) 94 02/08/20 09:00 73 152/95 02/08/20 09:00 Nasal Cannula 2.0 02/08/20 08:00 97.2 73 20 152/95 (114) 98 02/08/20 05:08 132/79 02/08/20 04:00 97.8 76 20 132/79 (96) 98 02/08/20 00:53 121/79 02/08/20 00:00 97.9 79 20 121/79 (93) 97 02/07/20 21:49 80 155/79 02/07/20 21:00 Nasal Cannula 2.0 02/07/20 20:00 97.2 80 20 155/79 (104) 99 02/07/20 18:44 139/92 I&O Intake and Output 02/07/20 02/08/20 19:00 07:00 Intake Total 85 ml Output Total 500 ml 400 ml Balance -500 ml -315 ml IV Total 55 ml Tube Feeding 30 ml Output Urine Total 500 ml 400 ml Dressing: other Wound: other Cardiovascular: RSR Respiratory: decreased breath sounds Abdomen: soft, non-tender, present bowel sounds Extremities: no tenderness, no cyanosis Laboratory Tests Test 02/08/20 05:35 White Blood Count 7.5 K/UL (4.8-10.8) Red Blood Count 3.13 M/UL (4.20-5.40) L Hemoglobin 8.5 G/DL (12.0-16.0) L Hematocrit 27.5 % (37.0-47.0) L Mean Corpuscular Volume 88 FL (80-99) Mean Corpuscular Hemoglobin 27.2 PG (27.0-31.0) Mean Corpuscular Hemoglobin Concent 31.0 G/DL (32.0-36.0) L Red Cell Distribution Width 16.7 % (11.6-14.8) H Platelet Count 136 K/UL (150-450) L Mean Platelet Volume 7.8 FL (6.5-10.1) Neutrophils (%) (Auto) % (45.0-75.0) Lymphocytes (%) (Auto) % (20.0-45.0) Monocytes (%) (Auto) % (1.0-10.0) Eosinophils (%) (Auto) % (0.0-3.0) Basophils (%) (Auto) % (0.0-2.0) Sodium Level 148 MMOL/L (136-145) H Potassium Level 3.8 MMOL/L (3.5-5.1) Chloride Level 114 MMOL/L (98-107) H Carbon Dioxide Level 21 MMOL/L (21-32) Anion Gap 13 mmol/L (5-15) Blood Urea Nitrogen 96 mg/dL (7-18) H Creatinine 4.1 MG/DL (0.55-1.30) H Estimat Glomerular Filtration Rate 10.5 mL/min (>60) Glucose Level 270 MG/DL (74-106) H Uric Acid 10.3 MG/DL (2.6-7.2) H Calcium Level 7.7 MG/DL (8.5-10.1) L Phosphorus Level 4.2 MG/DL (2.5-4.9) Magnesium Level 2.1 MG/DL (1.8-2.4) Total Bilirubin 0.3 MG/DL (0.2-1.0) Aspartate Amino Transf (AST/SGOT) 16 U/L (15-37) Alanine Aminotransferase (ALT/SGPT) 22 U/L (12-78) Alkaline Phosphatase 70 U/L (46-116) Troponin I 0.088 ng/mL (0.000-0.056) C-Reactive Protein, Quantitative 3.9 mg/dL (0.00-0.90) H Pro-B-Type Natriuretic Peptide 02941 pg/mL (0-125) H Total Protein 5.4 G/DL (6.4-8.2) L Albumin 1.6 G/DL (3.4-5.0) L Globulin 3.8 g/dL Albumin/Globulin Ratio 0.4 (1.0-2.7) L Plan Problems: (1) UTI (urinary tract infection) (2) Renal failure (ARF), acute on chronic (3) COVID-19 Assessment & Plan: ++ abx as per ID will follow with recs Lungs: Subsegmental atelectasis versus infiltrates in bilateral lung bases. Pulmonary vascular congestion. Pleural space: Small bilateral pleural effusions. Heart: Cardiomegaly. Mediastinum: Unremarkable. Bones/joints: Degenerative changes throughout the visualized spine and shoulder joints. Vasculature: Atherosclerotic calcifications within the aortic arch. Tubes, lines and devices: Telemetry leads overlie the thorax. IMPRESSION: 1. Findings concerning for CHF. Cardiomegaly with pulmonary vascular congestion and small bilateral pleural effusions. 2. Subsegmental atelectasis versus infiltrates in bilateral lung bases. (4) Congestive heart failure (5) Anemia (6) Diabetic nephropathy (7) Failure to thrive Assessment & Plan: DAILY ESTIMATED NEEDS: Needs based on Wounds, DM, ARF/ 53.4kg abw 25-30 kcals/kg 7566-7550 total kcals 1-1.5 (increase w/ renal fxn improvement) g protein/kg 53-80 g total protein 25-30 mL/kg 7810-5095 total fluid mLs NUTRITION DIAGNOSIS: * Swallowing difficulty R/T dysphagia, decreased cognitive fxn as evidenced by s/p NGT insertion @ SNF, on NGT feeds, pending SALES TEAM MANAGER eval. * Increased kcal/prot needs R/T wound healing as evidenced by pt admitted w/ multiple wound per photos, pending eval * Altered nutrition related lab values R/T diabetes, cardiac hx, renal dysfunction as evidenced by elev BGs (230, 228), A1C 8.2, BNP 40875, elev creat (4.1-> 3.9), elev BUN (93->90). CURRENT TF:Nepro @ 30ml/hr x 24 hrs PO DIET RECOMMENDATIONS: IF SAFE FOR ORAL DIET -> CCHO LOW, LOW NA/ texture per SALES TEAM MANAGER ENTERAL NUTRITION RECOMMENDATIONS: Glucerna 1.5 @ 40ml/hr x 24 hrs to provide 960ml, 1440kcal, 79g prot, 728ml free water * W/ improving renal fxn and lytes wnl, rec TF change to Glucerna 1.5 * Initiate GLucerna 1.5 @20ml/hr x 4hrs, advance 10ml q 4 hrs as tolerated to goal : will provide 100% est kcal/prot needs @ goal * HOB over 30 degrees/ water flush per MD ADDITIONAL RECOMMENDATIONS: * Per SNF: HT=62" IM=040iht (02/05/20) * Monitor renal fxn and lytes, need for renal TF formula (creat trending down, K, phos, mag wnl) * Consider long acting insulin for improved BG control * Wound healing: Add Vit C 250mg QD + Silvano BID f/up w/ WC eval * Monitor for oral diet vs TF : SALES TEAM MANAGER eval pending (8) Renal failure (9) Pneumonia (10) Deep tissue injury Assessment & Plan: Patient identified on admission to have a large sacral deep tissue injury non-blanchable erythema blistering epidermis intact no drainage. Unknown duration. Tenderness difficult to a certain based on clinical examinations patient's history. Labs noted. Patient high risk for decubitus ulcer formation worsening condition. NG tube in place currently. Nutritional optimization. Turn every 2 hours. Offload pressure with pillows. OPTi foam dressing to sacrum. Care plan initiated. Thank you will follow with recommendations Chris Lei Feb 08, 2020 18:22
--- NOTE | 2020-02-08 19:00 | NUR ---
NURSE HAND-OFF: Important Events on Shift: Pt removed her NGT in AM; Per Dr. Winter, await ST eval; Dtr, Charisse, aware. ST eval still pending at this time. Patient Status: stable Diet: NPO Pending Orders: n/a Pending Results/Labs: labs in AM Pending MD notification: Notify Dr. Faust re ST eval results Latest Vital Signs: Temperature 98.2 , Pulse 70 , B/P 136 /76 , Respiratory Rate 20 , O2 SAT 95 , Nasal Cannula, O2 Flow Rate 2.0 . Vital Sign Comment: stable, continue to monitor Latest Barrett Fall Score: 60 Fall Risk: High Risk Safety Measures: Call light Within Reach, Bed Alarm Zone 2, Side Rails Side Rails x3, Bed position Low and Locked. Fall Precautions: Yellow Socks Report given to BONG Constantino. Endorsed POC.
[2020-02-08 20:00] VITALS: BP 152/76
--- NOTE | 2020-02-08 20:00 | NUR ---
NURSE NOTES: Patient received in bed asleep, appears fatigued. On bilateral soft wrist restraints to prevent pulling medical devices. had BM, incontinence care provided. Will continue with plan of care.
[2020-02-08] MEDS: Atorvastatin 20mg tab NG SCH (20:32)
[2020-02-08] MEDS: cefTRIAXone 1 GM in D5W 55 ML IVPB SCH (20:46)
--- NOTE | 2020-02-08 21:24 | General Progress Note ---
Assessment/Plan Problem List: (1) Congestive heart failure ICD Codes: I50.9 - Heart failure, unspecified SNOMED: 37463743 (2) Anemia ICD Codes: D64.9 - Anemia, unspecified SNOMED: 223892418 (3) Diabetic nephropathy ICD Codes: E11.21 - Type 2 diabetes mellitus with diabetic nephropathy SNOMED: 65877822, 977897948 (4) Renal failure ICD Codes: N19 - Unspecified kidney failure SNOMED: 83383921 Qualifiers: Qualified Codes: N19 - Unspecified kidney failure (5) Failure to thrive SNOMED: 16390167 Qualifiers: Qualified Codes: R62.7 - Adult failure to thrive (6) Pneumonia ICD Codes: J18.9 - Pneumonia, unspecified organism SNOMED: 874274069 Qualifiers: Qualified Codes: J18.9 - Pneumonia, unspecified organism (7) UTI (urinary tract infection) ICD Codes: N39.0 - Urinary tract infection, site not specified SNOMED: 48744594 Qualifiers: Qualified Codes: N39.0 - Urinary tract infection, site not specified (8) Renal failure (ARF), acute on chronic ICD Codes: N17.9 - Acute kidney failure, unspecified; N18.9 - Chronic kidney disease, unspecified SNOMED: 099241487 Status: progressing Assessment/Plan: spoke with daughter worsening renal function peg per dr melo swallow study is pending Subjective ROS Limited/Unobtainable: Yes Allergies: Coded Allergies: No Known Allergies (Unverified , 02/06/20) Objective Last 24 Hour Vital Signs Date Time Temp Pulse Resp B/P (MAP) Pulse Ox O2 Delivery O2 Flow Rate FiO2 02/08/20 16:00 98.2 70 20 136/76 (96) 95 02/08/20 14:00 137/74 02/08/20 12:00 96.0 80 19 137/74 (95) 94 02/08/20 09:00 73 152/95 02/08/20 09:00 Nasal Cannula 2.0 02/08/20 08:00 97.2 73 20 152/95 (114) 98 02/08/20 05:08 132/79 02/08/20 04:00 97.8 76 20 132/79 (96) 98 02/08/20 00:53 121/79 02/08/20 00:00 97.9 79 20 121/79 (93) 97 02/07/20 21:49 80 155/79 Intake and Output 02/07/20 02/08/20 19:00 07:00 Intake Total 85 ml Output Total 500 ml 400 ml Balance -500 ml -315 ml IV Total 55 ml Tube Feeding 30 ml Output Urine Total 500 ml 400 ml Laboratory Tests 02/08/20 05:35: White Blood Count 7.5, Red Blood Count 3.13L, Hemoglobin 8.5L, Hematocrit 27.5L , Mean Corpuscular Volume 88, Mean Corpuscular Hemoglobin 27.2, Mean Corpuscular Hemoglobin Concent 31.0L, Red Cell Distribution Width 16.7H, Platelet Count 136L, Mean Platelet Volume 7.8, Neutrophils (%) (Auto) , Lymphocytes (%) (Auto) , Monocytes (%) (Auto) , Eosinophils (%) (Auto) , Basophils (%) (Auto) , Sodium Level 148H, Potassium Level 3.8, Chloride Level 114H, Carbon Dioxide Level 21, Anion Gap 13, Blood Urea Nitrogen 96H, Creatinine 4.1H, Estimat Glomerular Filtration Rate 10.5, Glucose Level 270H, Uric Acid 10.3H, Calcium Level 7.7L, Phosphorus Level 4.2, Magnesium Level 2.1, Total Bilirubin 0.3, Aspartate Amino Transf (AST/SGOT) 16, Alanine Aminotransferase (ALT/SGPT) 22, Alkaline Phosphatase 70, Troponin I 0.088H, C- Reactive Protein, Quantitative 3.9H, Pro-B-Type Natriuretic Peptide 70410T, Total Protein 5.4L, Albumin 1.6L, Globulin 3.8, Albumin/Globulin Ratio 0.4L Height (Feet): 5 Height (Inches): 6.00 Weight (Pounds): 160 Janes Faust MD Feb 08, 2020 21:24
--- NOTE | 2020-02-08 23:00 | Psych Consult Progress Note ---
Psychiatry Progress Note Psychiatry Progress Note Subjective cont to have episodes of agitation Medications Current Medications Medications (Trade) Dose Ordered Sig/Maria Fernanda Route PRN Reason Start Time Stop Time Status Last Admin Dose Admin Allopurinol (allopurinoL) 300 mg DAILY NG 02/07/20 09:00 03/08/20 08:59 02/07/20 09:55 Atorvastatin Calcium (Lipitor) 20 mg BEDTIME NG 02/06/20 21:00 05/06/20 20:59 02/07/20 21:49 Barium Sulfate (Varibar Honey) 250 ml NOW PRN MC RAD 02/07/20 12:15 02/10/20 12:12 Barium Sulfate (Varibar [place]) 240 ml NOW PRN MC RAD 02/07/20 12:15 02/10/20 12:12 Barium Sulfate (Varibar Pudding) 230 ml NOW PRN MC RAD 02/07/20 12:15 02/10/20 12:12 Barium Sulfate (Varibar Thin Liquid powder) 148 gm NOW PRN MC RAD 02/07/20 12:15 02/10/20 12:12 Carvedilol (Coreg) 25 mg EVERY 12 HOURS NG 02/06/20 21:00 03/07/20 20:59 02/07/20 21:49 Ceftriaxone Sodium 1 gm/ Dextrose 55 ml @ 110 mls/hr Q24H IVPB 02/06/20 21:00 02/13/20 20:59 02/08/20 20:46 Dextrose (Dextrose 50%) 25 ml Q30M PRN IV Hypoglycemia 02/06/20 14:15 05/06/20 14:14 Dextrose (Dextrose 50%) 50 ml Q30M PRN IV Hypoglycemia 02/06/20 14:15 05/06/20 14:14 Docusate Sodium (Colace) 100 mg TWICE A DAY NG 02/06/20 18:00 03/07/20 17:59 02/07/20 18:44 Haloperidol Lactate (Haldol) 5 mg Q6H PRN IM Agitation 02/07/20 23:15 03/23/20 23:14 Hydralazine HCl (Apresoline) 25 mg Q8HR NG 02/08/20 14:00 05/07/20 08:59 Insulin Aspart (NovoLOG) Q6HR SUBQ 02/06/20 18:00 05/06/20 17:59 02/08/20 12:27 Pantoprazole (Protonix) 40 mg Q12HR IVP 02/08/20 21:00 03/08/20 08:59 02/08/20 20:46 Allergies: Coded Allergies: No Known Allergies (Unverified , 02/06/20) Objective Data Height (Feet): 5 Height (Inches): 6.00 Weight (Pounds): 160 General Appearance: no apparent distress, lethargic Additional Comments: awake, disoriented. Mood is agitated. Affect is flat. Thought process, there is a paucity of thought content. Thought content, no suicidal or homicidal ideation. Cognition is impaired. Insight and judgment impaired. Assessment/Plan Status: progressing Assessment/Plan: ASSESSMENT: Charlotte I Dementia with behavior disturbance. Charlotte II Deferred. Charlotte III As above. Charlotte IV Moderate. Charlotte V 20. PLAN: 1. Haldol as needed. 2. Bilateral self-restraints. Eboni Thomas MD Feb 08, 2020 23:00
[2020-02-09] VITALS: BP 142/83
[2020-02-09 04:00] VITALS: BP 163/92
--- NOTE | 2020-02-09 04:00 | NUR ---
NURSE NOTES: Patient had BM again. Incontinence care provided. Dressing changed on sacrum. Calazime cream applied to perineal and abdominal folds redness.
--- NOTE | 2020-02-09 05:16 | NUR ---
NURSE NOTES: Unable to draw blood from patient d/t bilateral arm edema. heavy truck technician made aware.
[2020-02-09] MEDS: HydrALAZINE 25mg tab NG SCH ×3 (05:29→21:49)
[2020-02-09] MEDS: NovoLOG Insulin Flexpen SUBQ SCH ×3 (05:29→18:35)
[2020-02-09 06:37] LABS: HEMATOCRIT 27.6 % (37.0-47.0); HEMOGLOBIN 8.8 G/DL (12.0-16.0); MEAN CORPUSCULAR VOLUME 87 FL (80-99); PLATELET COUNT 131 K/UL (150-450); RED BLOOD COUNT 3.18 M/UL (4.20-5.40); RED CELL DISTRIBUTION WIDTH 16.8 % (11.6-14.8); WHITE BLOOD COUNT 6.7 K/UL (4.8-10.8)
[2020-02-09 07:13] LABS: ALBUMIN 1.7 G/DL (3.4-5.0); ALBUMIN/GLOBULIN RATIO 0.4 (1.0-2.7); BILIRUBIN,TOTAL 0.4 MG/DL (0.2-1.0); CALCIUM 7.2 MG/DL (8.5-10.1); CREATININE 4.2 MG/DL (0.55-1.30); PHOSPHORUS 4.8 MG/DL (2.5-4.9)
--- NOTE | 2020-02-09 07:24 | NUR ---
NURSE HAND-OFF: Important Events on Shift:[had BM, wound dressings changed] Patient Status: [stable] Diet: [NPO] Pending Orders: [awaiting repeat Bedside Swallow] Pending Results/Labs:[] Pending MD notification:[restraint order due to be renewed today] Latest Vital Signs: Temperature 96.8 , Pulse 71 , B/P 163 /92 , Respiratory Rate 20 , O2 SAT 97 , Room Air, O2 Flow Rate 2.0 . Vital Sign Comment: [] Latest Barrett Fall Score: 75 Fall Risk: High Risk Safety Measures: Call light Within Reach, Bed Alarm Zone 2, Side Rails Side Rails x3, Bed position Low and Locked. Fall Precautions: Yellow Socks Report given to [Gloria WOODY].
[2020-02-09 08:00] VITALS: BP 181/97
--- NOTE | 2020-02-09 08:08 | NUR ---
NURSE NOTES: received report from BONG Constantino. patient in bed. sleeping. no respiratory distress noted on room air. breathing even and unlabored. no facial grimacing. IV on LAC intact. f/c draining. complete NPO. pending ST eval today. positive covid on 02/05. droplet and contact isolation. lung sound clear. active bowel sound. edema all extremities. +4. bed in the lowest position and locked. call light within reach. alarm on. will continue to provide plan of care.
--- NOTE | 2020-02-09 08:23 | General Progress Note ---
Assessment/Plan Status: progressing Assessment/Plan: DYSPHAGIA Covod positive HTN elevated trop renal insuf swallow eval appreciated, pending repeat for today npo for now pending family decisions>>> ? hospice will fu Subjective ROS Limited/Unobtainable: No Allergies: Coded Allergies: No Known Allergies (Unverified , 02/06/20) Objective Last 24 Hour Vital Signs Date Time Temp Pulse Resp B/P (MAP) Pulse Ox O2 Delivery O2 Flow Rate FiO2 02/09/20 05:29 163/92 02/09/20 04:00 96.8 71 20 163/92 (115) 97 02/09/20 00:00 96.4 78 18 142/83 (102) 94 02/08/20 21:27 152/76 02/08/20 21:00 Room Air 02/08/20 21:00 73 152/76 02/08/20 20:00 96.3 73 18 152/76 (101) 97 02/08/20 16:00 98.2 70 20 136/76 (96) 95 02/08/20 14:00 137/74 02/08/20 12:00 96.0 80 19 137/74 (95) 94 02/08/20 09:00 73 152/95 02/08/20 09:00 Nasal Cannula 2.0 Intake and Output 02/08/20 02/09/20 19:00 07:00 Intake Total 55 ml Output Total 200 ml 170 ml Balance -200 ml -115 ml IV Total 55 ml Output Urine Total 200 ml 170 ml # Voids 3 # Bowel Movements 2 Laboratory Tests 02/09/20 06:15: White Blood Count 6.7, Red Blood Count 3.18L, Hemoglobin 8.8L, Hematocrit 27.6L, Mean Corpuscular Volume 87, Mean Corpuscular Hemoglobin 27.7, Mean Corpuscular Hemoglobin Concent 31.9L, Red Cell Distribution Width 16.8H, Platelet Count 131L , Mean Platelet Volume 6.9, Neutrophils (%) (Auto) , Lymphocytes (%) (Auto) , Monocytes (%) (Auto) , Eosinophils (%) (Auto) , Basophils (%) (Auto) , Neutrophils % (Manual) [Pending], Lymphocytes % (Manual) [Pending], Platelet Estimate [Pending], Platelet Morphology [Pending], Sodium Level 149H, Potassium Level 4.0, Chloride Level 114H, Carbon Dioxide Level 21, Anion Gap 14, Blood Urea Nitrogen 98H, Creatinine 4.2H, Estimat Glomerular Filtration Rate 10.2, Glucose Level 197H, Uric Acid 10.9H, Calcium Level 7.2L, Phosphorus Level 4.8, Magnesium Level 2.0, Total Bilirubin 0.4, Aspartate Amino Transf (AST/SGOT) 16, Alanine Aminotransferase (ALT/SGPT) 15, Alkaline Phosphatase 66, C-Reactive Protein, Quantitative 4.3H, Pro-B-Type Natriuretic Peptide 68725R, Total Protein 5.8L, Albumin 1.7L, Globulin 4.1, Albumin/Globulin Ratio 0.4L Height (Feet): 5 Height (Inches): 6.00 Weight (Pounds): 160 General Appearance: no apparent distress EENT: normal ENT inspection Neck: supple Cardiovascular: normal rate Respiratory/Chest: decreased breath sounds Abdomen: normal bowel sounds, non tender, soft Extremities: non-tender Gopal Winter MD Feb 09, 2020 08:23
[2020-02-09] MEDS: Docusate 100mg/10ml Liq NG SCH ×2 (09:00→18:00)
[2020-02-09] MEDS: Carvedilol 25mg Tab NG SCH ×2 (09:00→21:49)
--- NOTE | 2020-02-09 09:13 | Nephrology Progress Note ---
Assessment/Plan Problem List: (1) Renal failure (ARF), acute on chronic (2) COVID-19 (3) UTI (urinary tract infection) (4) Congestive heart failure (5) Anemia (6) Diabetic nephropathy Assessment Renal failure, etiology unclear. Most likely secondary to heart failure. And or diabetes Patient has history of diabetes mellitus since she is receiving metformin and oral hypoglycemic agents Pneumonia UTI Mild anemia Plan February 08: Labs were reviewed. Medication list reviewed. Yesterday I received a call from Dr. Recinos the patient's primary physician who opposes initiating dialysis on the patient due to her multiple medical problems and dementia. Later on I received a text from him that the daughter is talking to family about home hospice. At this time we will continue her supportive noninvasive care. Will start the patient off clonidine patch for high blood pressure. February 07: Discussed with BONG Javier. Labs reviewed. 2D echo indicates LV function and ejection fraction in mid 50s. Renal parameters unchanged. Calculated GFR between 10-11. We will continue to optimize cardiac status. In my opinion the patient requires dialysis treatment and ultrafiltration if aggressive approach is our plan based on patient being full code. I will discuss the matter with the patient's daughter. Will also discuss with PMD Dr. Riojas. February 06: Continue to monitor renal parameters. 2D echocardiogram results and kidney ultrasound results are pending. Hemoglobin A1c results suggestive of diabetes mellitus [id number]. Will continue to optimize cardiac status. Hydralazine as an afterload reduction ordered. Allopurinol for high uric acid ordered. February 05: Cornelius 2D echo Urine studies Avoid nephrotoxic's Antibiotics Per orders KIDNEY OMARI: * Mildly increased renal echogenicity. Findings are concerning for intrinsic/medical renal disease. * No evidence of hydronephrosis bilaterally. * Bilateral simple appearing renal cysts. * Additional 2 cm hypoechoic possible cyst versus mass in the left kidney. Periventricular evaluation with MRI of the abdomen, ideally without and with contrast. * Bladder decompressed by Cornelius catheter, precluding its evaluation. * Trace ascites incidentally identified. * Cholelithiasis incidentally identified. Subjective ROS Limited/Unobtainable: Yes Objective Objective Last 24 Hour Vital Signs Date Time Temp Pulse Resp B/P (MAP) Pulse Ox O2 Delivery O2 Flow Rate FiO2 02/09/20 05:29 163/92 02/09/20 04:00 96.8 71 20 163/92 (115) 97 02/09/20 00:00 96.4 78 18 142/83 (102) 94 02/08/20 21:27 152/76 02/08/20 21:00 Room Air 02/08/20 21:00 73 152/76 02/08/20 20:00 96.3 73 18 152/76 (101) 97 02/08/20 16:00 98.2 70 20 136/76 (96) 95 02/08/20 14:00 137/74 02/08/20 12:00 96.0 80 19 137/74 (95) 94 Intake and Output 02/08/20 02/09/20 19:00 07:00 Intake Total 55 ml Output Total 200 ml 170 ml Balance -200 ml -115 ml IV Total 55 ml Output Urine Total 200 ml 170 ml # Voids 3 # Bowel Movements 2 Current Medications Medications (Trade) Dose Ordered Sig/Maria Fernanda Route PRN Reason Start Time Stop Time Status Last Admin Dose Admin Allopurinol (allopurinoL) 300 mg DAILY NG 02/07/20 09:00 03/08/20 08:59 02/07/20 09:55 Atorvastatin Calcium (Lipitor) 20 mg BEDTIME NG 02/06/20 21:00 05/06/20 20:59 02/07/20 21:49 Barium Sulfate (Varibar Honey) 250 ml NOW PRN MC RAD 02/07/20 12:15 02/10/20 12:12 Barium Sulfate (Varibar [place]) 240 ml NOW PRN MC RAD 02/07/20 12:15 02/10/20 12:12 Barium Sulfate (Varibar Pudding) 230 ml NOW PRN MC RAD 02/07/20 12:15 02/10/20 12:12 Barium Sulfate (Varibar Thin Liquid powder) 148 gm NOW PRN MC RAD 02/07/20 12:15 02/10/20 12:12 Carvedilol (Coreg) 25 mg EVERY 12 HOURS NG 02/06/20 21:00 03/07/20 20:59 02/07/20 21:49 Ceftriaxone Sodium 1 gm/ Dextrose 55 ml @ 110 mls/hr Q24H IVPB 02/06/20 21:00 02/13/20 20:59 02/08/20 20:46 Dextrose (Dextrose 50%) 25 ml Q30M PRN IV Hypoglycemia 02/06/20 14:15 05/06/20 14:14 Dextrose (Dextrose 50%) 50 ml Q30M PRN IV Hypoglycemia 02/06/20 14:15 05/06/20 14:14 Docusate Sodium (Colace) 100 mg TWICE A DAY NG 02/06/20 18:00 03/07/20 17:59 02/07/20 18:44 Haloperidol Lactate (Haldol) 5 mg Q6H PRN IM Agitation 02/07/20 23:15 03/23/20 23:14 Hydralazine HCl (Apresoline) 25 mg Q8HR NG 02/08/20 14:00 05/07/20 08:59 Insulin Aspart (NovoLOG) Q6HR SUBQ 02/06/20 18:00 05/06/20 17:59 02/09/20 05:29 Pantoprazole (Protonix) 40 mg Q12HR IVP 02/08/20 21:00 03/08/20 08:59 02/08/20 20:46 Laboratory Tests 02/09/20 06:15: White Blood Count 6.7, Red Blood Count 3.18L, Hemoglobin 8.8L, Hematocrit 27.6L, Mean Corpuscular Volume 87, Mean Corpuscular Hemoglobin 27.7, Mean Corpuscular Hemoglobin Concent 31.9L, Red Cell Distribution Width 16.8H, Platelet Count 131L , Mean Platelet Volume 6.9, Neutrophils (%) (Auto) , Lymphocytes (%) (Auto) , Monocytes (%) (Auto) , Eosinophils (%) (Auto) , Basophils (%) (Auto) , Neutrophils % (Manual) [Pending], Lymphocytes % (Manual) [Pending], Platelet Est imate [Pending], Platelet Morphology [Pending], Sodium Level 149H, Potassium Level 4.0, Chloride Level 114H, Carbon Dioxide Level 21, Anion Gap 14, Blood Urea Nitrogen 98H, Creatinine 4.2H, Estimat Glomerular Filtration Rate 10.2, Glucose Level 197H, Uric Acid 10.9H, Calcium Level 7.2L, Phosphorus Level 4.8, Magnesium Level 2.0, Total Bilirubin 0.4, Aspartate Amino Transf (AST/SGOT) 16, Alanine Aminotransferase (ALT/SGPT) 15, Alkaline Phosphatase 66, C-Reactive Protein, Quantitative 4.3H, Pro-B-Type Natriuretic Peptide 79678I, Total Protein 5.8L, Albumin 1.7L, Globulin 4.1, Albumin/Globulin Ratio 0.4L Height (Feet): 5 Height (Inches): 6.00 Weight (Pounds): 160 General Appearance: no apparent distress, lethargic Cardiovascular: normal rate Respiratory/Chest: decreased breath sounds Abdomen: distended Quirino Cormier MD Feb 09, 2020 09:13
[2020-02-09] MEDS: Pantoprazole Inj IVP SCH ×2 (09:52→21:50)
--- NOTE | 2020-02-09 10:01 | NUR ---
NURSE NOTES: patient blood pressure was trending up. 181/97 at 0800. rechecked 195/110. Patient is complete NPO for swallow eval. Notified Dr. Cormier and received order TTS 3 now and once a week. order noted and carried out.
--- NOTE | 2020-02-09 10:13 | NUR ---
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 Notified DR.Masoud Harper and no new order at this time.
--- NOTE | 2020-02-09 10:27 | Pulmonology Progress Note ---
Subjective ROS Limited/Unobtainable: Yes Interval Events: None new Constitutional: Denies: fever HEENT: Repors: no symptoms Respiratory: Reports: no symptoms Cardiovascular: Reports: no symptoms Gastrointestinal/Abdominal: Reports: no symptoms Allergies: Coded Allergies: No Known Allergies (Unverified , 02/06/20) Objective Last 24 Hour Vital Signs Date Time Temp Pulse Resp B/P (MAP) Pulse Ox O2 Delivery O2 Flow Rate FiO2 02/09/20 08:00 98.0 71 20 181/97 (125) 96 02/09/20 05:29 163/92 02/09/20 04:00 96.8 71 20 163/92 (115) 97 02/09/20 00:00 96.4 78 18 142/83 (102) 94 02/08/20 21:27 152/76 02/08/20 21:00 Room Air 02/08/20 21:00 73 152/76 02/08/20 20:00 96.3 73 18 152/76 (101) 97 02/08/20 16:00 98.2 70 20 136/76 (96) 95 02/08/20 14:00 137/74 02/08/20 12:00 96.0 80 19 137/74 (95) 94 Intake and Output 02/08/20 02/09/20 19:00 07:00 Intake Total 55 ml Output Total 200 ml 170 ml Balance -200 ml -115 ml IV Total 55 ml Output Urine Total 200 ml 170 ml # Voids 3 # Bowel Movements 2 General Appearance: no acute distress HEENT: mucous membranes moist Respiratory: chest wall non-tender, lungs clear Cardiovascular: normal peripheral pulses Abdomen: normal bowel sounds Microbiology Date/Time Source Procedure Growth Status 02/07/20 10:00 Rectum VRE Culture - Final Enterococcus Faecium - Vre Complete Laboratory Tests 02/09/20 06:15: White Blood Count 6.7, Red Blood Count 3.18L, Hemoglobin 8.8L, Hematocrit 27.6L, Mean Corpuscular Volume 87, Mean Corpuscular Hemoglobin 27.7, Mean Corpuscular Hemoglobin Concent 31.9L, Red Cell Distribution Width 16.8H, Platelet Count 131L , Mean Platelet Volume 6.9, Neutrophils (%) (Auto) , Lymphocytes (%) (Auto) , Monocytes (%) (Auto) , Eosinophils (%) (Auto) , Basophils (%) (Auto) , Neutrophils % (Manual) [Pending], Lymphocytes % (Manual) [Pending], Platelet Estimate [Pending], Platelet Morphology [Pending], Sodium Level 149H, Potassium Level 4.0, Chloride Level 114H, Carbon Dioxide Level 21, Anion Gap 14, Blood Urea Nitrogen 98H, Creatinine 4.2H, Estimat Glomerular Filtration Rate 10.2, Glucose Level 197H, Uric Acid 10.9H, Calcium Level 7.2L, Phosphorus Level 4.8, Magnesium Level 2.0, Total Bilirubin 0.4, Aspartate Amino Transf (AST/SGOT) 16, Alanine Aminotransferase (ALT/SGPT) 15, Alkaline Phosphatase 66, C-Reactive Protein, Quantitative 4.3H, Pro-B-Type Natriuretic Peptide 05796F, Total Protein 5.8L, Albumin 1.7L, Globulin 4.1, Albumin/Globulin Ratio 0.4L Current Medications Medications (Trade) Dose Ordered Sig/Maria Fernanda Route PRN Reason Start Time Stop Time Status Last Admin Dose Admin Allopurinol (allopurinoL) 300 mg DAILY NG 02/07/20 09:00 03/08/20 08:59 02/07/20 09:55 Barium Sulfate (Varibar Honey) 250 ml NOW PRN MC RAD 02/07/20 12:15 02/10/20 12:12 Barium Sulfate (Varibar [place]) 240 ml NOW PRN MC RAD 02/07/20 12:15 02/10/20 12:12 Barium Sulfate (Varibar Pudding) 230 ml NOW PRN MC RAD 02/07/20 12:15 02/10/20 12:12 Barium Sulfate (Varibar Thin Liquid powder) 148 gm NOW PRN MC RAD 02/07/20 12:15 02/10/20 12:12 Carvedilol (Coreg) 25 mg EVERY 12 HOURS NG 02/06/20 21:00 03/07/20 20:59 02/07/20 21:49 Ceftriaxone Sodium 1 gm/ Dextrose 55 ml @ 110 mls/hr Q24H IVPB 02/06/20 21:00 02/13/20 20:59 02/08/20 20:46 Clonidine HCl (Catapres TTS-3) 1 patch QWEEK TDERMAL 02/09/20 11:00 05/09/20 10:59 Dextrose (Dextrose 50%) 25 ml Q30M PRN IV Hypoglycemia 02/06/20 14:15 05/06/20 14:14 Dextrose (Dextrose 50%) 50 ml Q30M PRN IV Hypoglycemia 02/06/20 14:15 05/06/20 14:14 Docusate Sodium (Colace) 100 mg TWICE A DAY NG 02/06/20 18:00 03/07/20 17:59 02/07/20 18:44 Haloperidol Lactate (Haldol) 5 mg Q6H PRN IM Agitation 02/07/20 23:15 03/23/20 23:14 Hydralazine HCl (Apresoline) 25 mg Q8HR NG 02/08/20 14:00 05/07/20 08:59 Insulin Aspart (NovoLOG) Q6HR SUBQ 02/06/20 18:00 05/06/20 17:59 02/09/20 05:29 Pantoprazole (Protonix) 40 mg Q12HR IVP 02/08/20 21:00 03/08/20 08:59 02/09/20 09:52 Assessment/Plan Assessment/Plan IMPRESSION: 1. COVID-19 pneumonia. 2. Cardiomegaly/CHF. 3. Renal failure. DISCUSSION: Continue oxygen via nasal canulae; currently on RA Remdesiver contraindicated due to renal failure Hold off on steroids as minimal hypoxemia I will follow as data integrity consultant. Delmar Root Omar Syed MD Feb 09, 2020 10:27
--- NOTE | 2020-02-09 10:57 | NUR ---
CASE MANAGEMENT:REVIEW SI;CHF. COVID PNEUMONIA. RENAL FAILURE. ANEMIA. 96.8 78 20 181/97 94% ON RA H/H 8.8/27.6 NA 149 BUN 98 CR 4.2 URIC ACID 10.9 CA 7.2 CRP 4.3 [employer]OD[employer]ENCE [employer]OR 35538 ALB 1.7 IS;PROTONIX IV Q12 ROCEPHIN IV Q24 INSULIN SUBQ Q6 MED SURG STATUS DCP;FROM [facility] PLAN; CONTINUE NPO SWALLOW EVEN PEG PLACEMENT
[2020-02-09 12:00] VITALS: BP 168/65
--- NOTE | 2020-02-09 12:50 | NUR ---
NURSE NOTES provide wound treatment with Josewound care nurse. noted unstageable on sacral area. new treatment order with therahoney and moisture barrier around wound cover with optifoam daily. placed p200 mattress for wound management. both heels redness. turn and reposition every 2hours.
--- NOTE | 2020-02-09 13:47 | NUR ---
NURSE NOTES: patient was trying to pull out kinney cath. notified and received order renew soft restraints for prevention removing devices. order noted and carried out.
--- NOTE | 2020-02-09 14:25 | NUR ---
NURSE NOTES: ST is not available for swallow eval until tmrw. notified and received order insert NG tube for feeding. order noted and carried out.
--- NOTE | 2020-02-09 14:28 | Surgery Progress Note ---
Surgery Progress Note Subjective Symptoms: improved Additional Comments no acute events labs noted eaxm stable Objective Last 24 Hour Vital Signs Date Time Temp Pulse Resp B/P (MAP) Pulse Ox O2 Delivery O2 Flow Rate FiO2 02/09/20 12:00 98.9 91 20 168/65 (99) 98 02/09/20 10:32 181/97 02/09/20 09:00 Room Air 02/09/20 08:00 98.0 71 20 181/97 (125) 96 02/09/20 05:29 163/92 02/09/20 04:00 96.8 71 20 163/92 (115) 97 02/09/20 00:00 96.4 78 18 142/83 (102) 94 02/08/20 21:27 152/76 02/08/20 21:00 Room Air 02/08/20 21:00 73 152/76 02/08/20 20:00 96.3 73 18 152/76 (101) 97 02/08/20 16:00 98.2 70 20 136/76 (96) 95 I&O Intake and Output 02/08/20 02/09/20 19:00 07:00 Intake Total 55 ml Output Total 200 ml 170 ml Balance -200 ml -115 ml IV Total 55 ml Output Urine Total 200 ml 170 ml # Voids 3 # Bowel Movements 2 Dressing: dry Cardiovascular: RSR Respiratory: clear, decreased breath sounds Abdomen: soft, non-tender, present bowel sounds Extremities: no cyanosis Laboratory Tests Test 02/09/20 06:15 White Blood Count 6.7 K/UL (4.8-10.8) Red Blood Count 3.18 M/UL (4.20-5.40) L Hemoglobin 8.8 G/DL (12.0-16.0) L Hematocrit 27.6 % (37.0-47.0) L Mean Corpuscular Volume 87 FL (80-99) Mean Corpuscular Hemoglobin 27.7 PG (27.0-31.0) Mean Corpuscular Hemoglobin Concent 31.9 G/DL (32.0-36.0) L Red Cell Distribution Width 16.8 % (11.6-14.8) H Platelet Count 131 K/UL (150-450) L Mean Platelet Volume 6.9 FL (6.5-10.1) Neutrophils (%) (Auto) % (45.0-75.0) Lymphocytes (%) (Auto) % (20.0-45.0) Monocytes (%) (Auto) % (1.0-10.0) Eosinophils (%) (Auto) % (0.0-3.0) Basophils (%) (Auto) % (0.0-2.0) Differential Total Cells Counted 100 Neutrophils % (Manual) 90 % (45-75) H Lymphocytes % (Manual) 8 % (20-45) L Monocytes % (Manual) 2 % (1-10) Eosinophils % (Manual) 0 % (0-3) Basophils % (Manual) 0 % (0-2) Band Neutrophils 0 % (0-8) Platelet Estimate Decreased L Platelet Morphology Normal Hypochromasia 2+ Anisocytosis 1+ Sodium Level 149 MMOL/L (136-145) H Potassium Level 4.0 MMOL/L (3.5-5.1) Chloride Level 114 MMOL/L (98-107) H Carbon Dioxide Level 21 MMOL/L (21-32) Anion Gap 14 mmol/L (5-15) Blood Urea Nitrogen 98 mg/dL (7-18) H Creatinine 4.2 MG/DL (0.55-1.30) H Estimat Glomerular Filtration Rate 10.2 mL/min (>60) Glucose Level 197 MG/DL (74-106) H Uric Acid 10.9 MG/DL (2.6-7.2) H Calcium Level 7.2 MG/DL (8.5-10.1) L Phosphorus Level 4.8 MG/DL (2.5-4.9) Magnesium Level 2.0 MG/DL (1.8-2.4) Total Bilirubin 0.4 MG/DL (0.2-1.0) Aspartate Amino Transf (AST/SGOT) 16 U/L (15-37) Alanine Aminotransferase (ALT/SGPT) 15 U/L (12-78) Alkaline Phosphatase 66 U/L (46-116) C-Reactive Protein, Quantitative 4.3 mg/dL (0.00-0.90) H Pro-B-Type Natriuretic Peptide 89397 pg/mL (0-125) H Total Protein 5.8 G/DL (6.4-8.2) L Albumin 1.7 G/DL (3.4-5.0) L Globulin 4.1 g/dL Albumin/Globulin Ratio 0.4 (1.0-2.7) L Plan Problems: (1) UTI (urinary tract infection) (2) Renal failure (ARF), acute on chronic (3) COVID-19 Assessment & Plan: ++ abx as per ID will follow with recs Lungs: Subsegmental atelectasis versus infiltrates in bilateral lung bases. Pulmonary vascular congestion. Pleural space: Small bilateral pleural effusions. Heart: Cardiomegaly. Mediastinum: Unremarkable. Bones/joints: Degenerative changes throughout the visualized spine and shoulder joints. Vasculature: Atherosclerotic calcifications within the aortic arch. Tubes, lines and devices: Telemetry leads overlie the thorax. IMPRESSION: 1. Findings concerning for CHF. Cardiomegaly with pulmonary vascular congestion and small bilateral pleural effusions. 2. Subsegmental atelectasis versus infiltrates in bilateral lung bases. (4) Congestive heart failure (5) Anemia (6) Diabetic nephropathy (7) Failure to thrive Assessment & Plan: DAILY ESTIMATED NEEDS: Needs based on Wounds, DM, ARF/ 53.4kg abw 25-30 kcals/kg [id number] total kcals 1-1.5 (increase w/ renal fxn improvement) g protein/kg 53-80 g total protein 25-30 mL/kg 9566-2133 total fluid mLs NUTRITION DIAGNOSIS: * Swallowing difficulty R/T dysphagia, decreased cognitive fxn as evidenced by s/p NGT insertion @ SNF, on NGT feeds, pending TECHNOLOGY TRAINER eval. * Increased kcal/prot needs R/T wound healing as evidenced by pt admitted w/ multiple wound per photos, pending eval * Altered nutrition related lab values R/T diabetes, cardiac hx, renal dysfunction as evidenced by elev BGs (230, 228), A1C 8.2, BNP 66280, elev creat (4.1-> 3.9), elev BUN (93->90). CURRENT TF:Nepro @ 30ml/hr x 24 hrs PO DIET RECOMMENDATIONS: IF SAFE FOR ORAL DIET -> CCHO LOW, LOW NA/ texture per TECHNOLOGY TRAINER ENTERAL NUTRITION RECOMMENDATIONS: Glucerna 1.5 @ 40ml/hr x 24 hrs to provide 960ml, 1440kcal, 79g prot, 728ml free water * W/ improving renal fxn and lytes wnl, rec TF change to Glucerna 1.5 * Initiate GLucerna 1.5 @20ml/hr x 4hrs, advance 10ml q 4 hrs as tolerated to goal : will provide 100% est kcal/prot needs @ goal * HOB over 30 degrees/ water flush per MD ADDITIONAL RECOMMENDATIONS: * Per SNF: HT=62" KE=333mbb (02/05/20) * Monitor renal fxn and lytes, need for renal TF formula (creat trending down, K, phos, mag wnl) * Consider long acting insulin for improved BG control * Wound healing: Add Vit C 250mg QD + Silvano BID f/up w/ WC eval * Monitor for oral diet vs TF : TECHNOLOGY TRAINER eval pending (8) Renal failure (9) Pneumonia (10) Deep tissue injury Assessment & Plan: Patient identified on admission to have a large sacral deep tissue injury non-blanchable erythema blistering epidermis intact no drainage. Unknown duration. Tenderness difficult to a certain based on clinical examinations patient's history. Labs noted. Patient high risk for decubitus ulcer formation worsening condition. NG tube in place currently. Nutritional optimization. Turn every 2 hours. Offload pressure with pillows. OPTi foam dressing to sacrum. Care plan initiated. Thank you will follow with recommendations Chris Lei Feb 09, 2020 14:28
--- NOTE | 2020-02-09 14:42 | NUR ---
NURSE NOTES: Wound re-assessment done by Wound care nurse and clarified the order of the wound stage on sacrum,patient admitted with sacrum unstageable pressure sore and left and right heel stage 1.
--- NOTE | 2020-02-09 14:45 | Infectious Diseases Prog Note ---
Assessment/Plan Assessment/Plan IMPRESSION: COVID-19 pneumonia, positive since 01/18 pyuria likely UTI, CHF, Failure to thrive, Severe protein malnutrition, Diabetes mellitus, Acute renal failure. 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 We will follow up the cultures. Family is considering hospice Subjective ROS Limited/Unobtainable: Yes Allergies: Coded Allergies: No Known Allergies (Unverified , 02/06/20) Objective Last 24 Hour Vital Signs Date Time Temp Pulse Resp B/P (MAP) Pulse Ox O2 Delivery O2 Flow Rate FiO2 02/09/20 12:00 98.9 91 20 168/65 (99) 98 02/09/20 10:32 181/97 02/09/20 09:00 Room Air 02/09/20 08:00 98.0 71 20 181/97 (125) 96 02/09/20 05:29 163/92 02/09/20 04:00 96.8 71 20 163/92 (115) 97 02/09/20 00:00 96.4 78 18 142/83 (102) 94 02/08/20 21:27 152/76 02/08/20 21:00 Room Air 02/08/20 21:00 73 152/76 02/08/20 20:00 96.3 73 18 152/76 (101) 97 02/08/20 16:00 98.2 70 20 136/76 (96) 95 Height (Feet): 5 Height (Inches): 6.00 Weight (Pounds): 160 HEENT: mucous membranes moist Respiratory/Chest: lungs clear Cardiovascular: normal rate Abdomen: soft, non tender Neurologic/Psychiatric: aphasia Microbiology Date/Time Source Procedure Growth Status 02/07/20 10:00 Rectum VRE Culture - Final Enterococcus Faecium - Vre Complete Laboratory Tests Test 02/09/20 06:15 White Blood Count 6.7 K/UL (4.8-10.8) Red Blood Count 3.18 M/UL (4.20-5.40) L Hemoglobin 8.8 G/DL (12.0-16.0) L Hematocrit 27.6 % (37.0-47.0) L Mean Corpuscular Volume 87 FL (80-99) Mean Corpuscular Hemoglobin 27.7 PG (27.0-31.0) Mean Corpuscular Hemoglobin Concent 31.9 G/DL (32.0-36.0) L Red Cell Distribution Width 16.8 % (11.6-14.8) H Platelet Count 131 K/UL (150-450) L Mean Platelet Volume 6.9 FL (6.5-10.1) Neutrophils (%) (Auto) % (45.0-75.0) Lymphocytes (%) (Auto) % (20.0-45.0) Monocytes (%) (Auto) % (1.0-10.0) Eosinophils (%) (Auto) % (0.0-3.0) Basophils (%) (Auto) % (0.0-2.0) Differential Total Cells Counted 100 Neutrophils % (Manual) 90 % (45-75) H Lymphocytes % (Manual) 8 % (20-45) L Monocytes % (Manual) 2 % (1-10) Eosinophils % (Manual) 0 % (0-3) Basophils % (Manual) 0 % (0-2) Band Neutrophils 0 % (0-8) Platelet Estimate Decreased L Platelet Morphology Normal Hypochromasia 2+ Anisocytosis 1+ Sodium Level 149 MMOL/L (136-145) H Potassium Level 4.0 MMOL/L (3.5-5.1) Chloride Level 114 MMOL/L (98-107) H Carbon Dioxide Level 21 MMOL/L (21-32) Anion Gap 14 mmol/L (5-15) Blood Urea Nitrogen 98 mg/dL (7-18) H Creatinine 4.2 MG/DL (0.55-1.30) H Estimat Glomerular Filtration Rate 10.2 mL/min (>60) Glucose Level 197 MG/DL (74-106) H Uric Acid 10.9 MG/DL (2.6-7.2) H Calcium Level 7.2 MG/DL (8.5-10.1) L Phosphorus Level 4.8 MG/DL (2.5-4.9) Magnesium Level 2.0 MG/DL (1.8-2.4) Total Bilirubin 0.4 MG/DL (0.2-1.0) Aspartate Amino Transf (AST/SGOT) 16 U/L (15-37) Alanine Aminotransferase (ALT/SGPT) 15 U/L (12-78) Alkaline Phosphatase 66 U/L (46-116) C-Reactive Protein, Quantitative 4.3 mg/dL (0.00-0.90) H Pro-B-Type Natriuretic Peptide 03632 pg/mL (0-125) H Total Protein 5.8 G/DL (6.4-8.2) L Albumin 1.7 G/DL (3.4-5.0) L Globulin 4.1 g/dL Albumin/Globulin Ratio 0.4 (1.0-2.7) L Current Medications Medications (Trade) Dose Ordered Sig/Maria Fernanda Route PRN Reason Start Time Stop Time Status Last Admin Dose Admin Allopurinol (allopurinoL) 300 mg DAILY NG 02/07/20 09:00 03/08/20 08:59 02/07/20 09:55 Barium Sulfate (Varibar Honey) 250 ml NOW PRN MC RAD 02/07/20 12:15 02/10/20 12:12 Barium Sulfate (Varibar [place]) 240 ml NOW PRN MC RAD 02/07/20 12:15 02/10/20 12:12 Barium Sulfate (Varibar Pudding) 230 ml NOW PRN MC RAD 02/07/20 12:15 02/10/20 12:12 Barium Sulfate (Varibar Thin Liquid powder) 148 gm NOW PRN MC RAD 02/07/20 12:15 02/10/20 12:12 Carvedilol (Coreg) 25 mg EVERY 12 HOURS NG 02/06/20 21:00 03/07/20 20:59 02/07/20 21:49 Ceftriaxone Sodium 1 gm/ Dextrose 55 ml @ 110 mls/hr Q24H IVPB 02/06/20 21:00 02/13/20 20:59 02/08/20 20:46 Clonidine HCl (Catapres TTS-3) 1 patch QWEEK TDERMAL 02/09/20 11:00 05/09/20 10:59 02/09/20 10:32 Dextrose (Dextrose 50%) 25 ml Q30M PRN IV Hypoglycemia 02/06/20 14:15 05/06/20 14:14 Dextrose (Dextrose 50%) 50 ml Q30M PRN IV Hypoglycemia 02/06/20 14:15 05/06/20 14:14 Docusate Sodium (Colace) 100 mg TWICE A DAY NG 02/06/20 18:00 03/07/20 17:59 02/07/20 18:44 Haloperidol Lactate (Haldol) 5 mg Q6H PRN IM Agitation 02/07/20 23:15 03/23/20 23:14 Hydralazine HCl (Apresoline) 25 mg Q8HR NG 02/08/20 14:00 05/07/20 08:59 Insulin Aspart (NovoLOG) Q6HR SUBQ 02/06/20 18:00 05/06/20 17:59 02/09/20 05:29 Pantoprazole (Protonix) 40 mg Q12HR IVP 02/08/20 21:00 03/08/20 08:59 02/09/20 09:52 Viet Harper MD Feb 09, 2020 14:45
[2020-02-09 16:00] VITALS: BP 134/72
--- NOTE | 2020-02-09 16:55 | Cardiology Progress Note ---
Assessment/Plan Status: stable Assessment/Plan Assessment/Plan Assessment/Plan 1. Elevated troponin, due to the patient's renal failure with BUN of 90 and creatinine of 4.1. Levels are low and flat. The patient is nonverbal and not complained of chest pain. On Coreg 25 mg b.i.d. and Lipitor. Her ejection fraction was 50%. 2. Hypertension, on Coreg 25 mg b.i.d. and p.r.n., hydralazine. 3. Hyperlipidemia, on Lipitor. 4. COVID positive. 5. Dysphagia, status post NG tube placement, 6. UTI. 7. Diabetes. 8. Severe protein malnutrition. Subjective Cardiovascular: Reports: no symptoms Respiratory: Reports: no symptoms Gastrointestinal/Abdominal: Reports: no symptoms Genitourinary: Reports: no symptoms Subjective COVERAGE FOR [place]OL[place] Objective Last 24 Hour Vital Signs Date Time Temp Pulse Resp B/P (MAP) Pulse Ox O2 Delivery O2 Flow Rate FiO2 02/09/20 16:00 98.8 84 20 134/72 (92) 98 02/09/20 12:00 98.9 91 20 168/65 (99) 98 02/09/20 10:32 181/97 02/09/20 09:00 Room Air 02/09/20 08:00 98.0 71 20 181/97 (125) 96 02/09/20 05:29 163/92 02/09/20 04:00 96.8 71 20 163/92 (115) 97 02/09/20 00:00 96.4 78 18 142/83 (102) 94 02/08/20 21:27 152/76 02/08/20 21:00 Room Air 02/08/20 21:00 73 152/76 02/08/20 20:00 96.3 73 18 152/76 (101) 97 General Appearance: no apparent distress, alert EENT: PERRL/EOMI, normal ENT inspection, TMs normal Neck: non-tender, normal alignment, supple, normal inspection Rhythm: NSR Cardiovascular: normal peripheral pulses, normal rate, regular rhythm Respiratory/Chest: chest wall non-tender, lungs clear, normal breath sounds, no respiratory distress Abdomen: normal bowel sounds, non tender, no organomegaly Extremities: normal range of motion, non-tender, normal inspection 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: 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, no motor/sensory deficits Intake and Output 02/08/20 02/09/20 19:00 07:00 Intake Total 55 ml Output Total 200 ml 170 ml Balance -200 ml -115 ml IV Total 55 ml Output Urine Total 200 ml 170 ml # Voids 3 # Bowel Movements 2 Laboratory Tests Test 02/09/20 06:15 White Blood Count 6.7 K/UL (4.8-10.8) Red Blood Count 3.18 M/UL (4.20-5.40) L Hemoglobin 8.8 G/DL (12.0-16.0) L Hematocrit 27.6 % (37.0-47.0) L Mean Corpuscular Volume 87 FL (80-99) Mean Corpuscular Hemoglobin 27.7 PG (27.0-31.0) Mean Corpuscular Hemoglobin Concent 31.9 G/DL (32.0-36.0) L Red Cell Distribution Width 16.8 % (11.6-14.8) H Platelet Count 131 K/UL (150-450) L Mean Platelet Volume 6.9 FL (6.5-10.1) Neutrophils (%) (Auto) % (45.0-75.0) Lymphocytes (%) (Auto) % (20.0-45.0) Monocytes (%) (Auto) % (1.0-10.0) Eosinophils (%) (Auto) % (0.0-3.0) Basophils (%) (Auto) % (0.0-2.0) Differential Total Cells Counted 100 Neutrophils % (Manual) 90 % (45-75) H Lymphocytes % (Manual) 8 % (20-45) L Monocytes % (Manual) 2 % (1-10) Eosinophils % (Manual) 0 % (0-3) Basophils % (Manual) 0 % (0-2) Band Neutrophils 0 % (0-8) Platelet Estimate Decreased L Platelet Morphology Normal Hypochromasia 2+ Anisocytosis 1+ Sodium Level 149 MMOL/L (136-145) H Potassium Level 4.0 MMOL/L (3.5-5.1) Chloride Level 114 MMOL/L (98-107) H Carbon Dioxide Level 21 MMOL/L (21-32) Anion Gap 14 mmol/L (5-15) Blood Urea Nitrogen 98 mg/dL (7-18) H Creatinine 4.2 MG/DL (0.55-1.30) H Estimat Glomerular Filtration Rate 10.2 mL/min (>60) Glucose Level 197 MG/DL (74-106) H Uric Acid 10.9 MG/DL (2.6-7.2) H Calcium Level 7.2 MG/DL (8.5-10.1) L Phosphorus Level 4.8 MG/DL (2.5-4.9) Magnesium Level 2.0 MG/DL (1.8-2.4) Total Bilirubin 0.4 MG/DL (0.2-1.0) Aspartate Amino Transf (AST/SGOT) 16 U/L (15-37) Alanine Aminotransferase (ALT/SGPT) 15 U/L (12-78) Alkaline Phosphatase 66 U/L (46-116) C-Reactive Protein, Quantitative 4.3 mg/dL (0.00-0.90) H Pro-B-Type Natriuretic Peptide 44629 pg/mL (0-125) H Total Protein 5.8 G/DL (6.4-8.2) L Albumin 1.7 G/DL (3.4-5.0) L Globulin 4.1 g/dL Albumin/Globulin Ratio 0.4 (1.0-2.7) L Microbiology Date/Time Source Procedure Growth Status 02/07/20 10:00 Rectum VRE Culture - Final Enterococcus Faecium - Vre Complete Bennett Barron MD Feb 09, 2020 16:55
--- NOTE | 2020-02-09 17:33 | Diagnostic Imaging Report ---
EXAM: XR Abdomen, 2 Views CLINICAL HISTORY: NGT TECHNIQUE: Frontal view of the abdomen/pelvis with upright view of the abdomen. COMPARISON: 02/06/2020 FINDINGS: Lower thorax: Cardiomegaly again seen. Dense retrocardiac atelectasis and bibasilar atelectasis without or with consolidation, correlate with presentation. Lungs better evaluated with dedicated chest radiographs. Intraperitoneal space: No free air. Gastrointestinal tract: Nonobstructive bowel gas pattern. Bones/joints: Unremarkable. Tubes, lines and devices: Enteric tube with tip and proximal sideport below the gastroesophageal junction. IMPRESSION: 1. Enteric tube with tip and proximal sideport below the gastroesophageal junction. 2. Nonobstructive bowel gas pattern. 3. Dense retrocardiac atelectasis and bibasilar atelectasis without or with consolidation, correlate with presentation. 4. Lungs better evaluated with dedicated chest radiographs. 5. Cardiomegaly again seen.
--- NOTE | 2020-02-09 18:03 | NUR ---
NURSE NOTES:WOUND CARE NOTES: Pt presented on admission with multiple Pressure Injuries, Fx L Hip. Large contusion noted to L Hip/ Lateral L Femur. Sacral DTPI partially opened and is 75% necrotic, 25% moist erythematous and clear skin flap that is loose.(L)5.5cm x (W)9cm. Small amt serous exudate noted. Non-Blanchable erythema periwound. Partial thickness wound noted to L Hip. Base of wound is moist and viable. edges adherent to base of wound(L)3cm x (W)2.5cm. L Heel is boggy with non-Blanchable erythema with delineated margins. L heel is boggy with non-blanchable erythema. Tx.Plan: Cleanse Sacral wound with Saline. Apply Therahoney. Apply Moisture Barrier Paste periwound. Cover with Optifoam drsg. Change every 3 days and prn. Apply Moisture Barrier Paste to L Hip wound. Cover with Optifoam drsg. Change every 3 days and prn Apply Cavilon Skin Barrier to both heels. Cover each heel with Optifoam drsg. Change every 7 days and prn. Reposition at least every 2hours or as tolerated. Off-load heels with pillow. APM/CHE Mattress overlay.
--- NOTE | 2020-02-09 18:08 | NUR ---
NURSE NOTES: KUB resulted. verified with radiology Theo, ok to use NG tube.
--- NOTE | 2020-02-09 19:34 | NUR ---
NURSE HAND-OFF: Important Events on Shift:NG insertion, wound care(unstageable on sacral) Patient Status: weak Diet: Nephro@30 Pending Orders: 2nd ST swallow eval Pending Results/Labs:n/a Pending MD notification:n/a Latest Vital Signs: Temperature 98.8 , Pulse 84 , B/P 134 /72 , Respiratory Rate 20 , O2 SAT 98 , Room Air, O2 Flow Rate 2.0 . Vital Sign Comment: stable. episode of HTN. new order of TTS3 qweek Latest Barrett Fall Score: 75 Fall Risk: High Risk Safety Measures: Call light Within Reach, Bed Alarm Zone 2, Side Rails Side Rails x3, Bed position Low and Locked. Fall Precautions: Yellow Socks Report given to BONG Hyde
[2020-02-09 20:00] VITALS: BP 160/100
--- NOTE | 2020-02-09 20:00 | NUR ---
NURSE NOTES: Received patient awake in bed, no s/s of acute distress. Edema noted on bilateral upper extremities. IV access patent, flushed with normal saline, patient tolerating well. Cornelius catheter noted, draining yellow liquid, secured. Bed low and locked, P200 mattress. NG tube in place, feeding at 30cc/hr, patient tolerating well.
--- NOTE | 2020-02-09 21:07 | General Progress Note ---
Subjective ROS Limited/Unobtainable: Yes Allergies: Coded Allergies: No Known Allergies (Unverified , 02/06/20) Objective Last 24 Hour Vital Signs Date Time Temp Pulse Resp B/P (MAP) Pulse Ox O2 Delivery O2 Flow Rate FiO2 02/09/20 16:00 98.8 84 20 134/72 (92) 98 02/09/20 12:00 98.9 91 20 168/65 (99) 98 02/09/20 10:32 181/97 02/09/20 09:00 Room Air 02/09/20 08:00 98.0 71 20 181/97 (125) 96 02/09/20 05:29 163/92 02/09/20 04:00 96.8 71 20 163/92 (115) 97 02/09/20 00:00 96.4 78 18 142/83 (102) 94 02/08/20 21:27 152/76 Intake and Output 02/08/20 02/09/20 19:00 07:00 Intake Total 55 ml Output Total 200 ml 170 ml Balance -200 ml -115 ml IV Total 55 ml Output Urine Total 200 ml 170 ml # Voids 3 # Bowel Movements 2 Laboratory Tests 02/09/20 06:15: White Blood Count 6.7, Red Blood Count 3.18L, Hemoglobin 8.8L, Hematocrit 27.6L, Mean Corpuscular Volume 87, Mean Corpuscular Hemoglobin 27.7, Mean Corpuscular Hemoglobin Concent 31.9L, Red Cell Distribution Width 16.8H, Platelet Count 131L , Mean Platelet Volume 6.9, Neutrophils (%) (Auto) , Lymphocytes (%) (Auto) , Monocytes (%) (Auto) , Eosinophils (%) (Auto) , Basophils (%) (Auto) , Differential Total Cells Counted 100, Neutrophils % (Manual) 90H, Lymphocytes % (Manual) 8L, Monocytes % (Manual) 2, Eosinophils % (Manual) 0, Basophils % (Manual) 0, Band Neutrophils 0, Platelet Estimate DecreasedL, Platelet Morphology Normal, Hypochromasia 2+, Anisocytosis 1+, Sodium Level 149H, Potassium Level 4.0, Chloride Level 114H, Carbon Dioxide Level 21, Anion Gap 14, Blood Urea Nitrogen 98H, Creatinine 4.2H, Estimat Glomerular Filtration Rate 10.2, Glucose Level 197H, Uric Acid 10.9H, Calcium Level 7.2L, Phosphorus Level 4.8, Magnesium Level 2.0, Total Bilirubin 0.4, Aspartate Amino Transf (AST/SGOT) 16, Alanine Aminotransferase (ALT/SGPT) 15, Alkaline Phosphatase 66, C-Reactive Protein, Quantitative 4.3H, Pro-B-Type Natriuretic Peptide 56962W, Total Protein 5.8L, Albumin 1.7L, Globulin 4.1, Albumin/Globulin Ratio 0.4L Height (Feet): 5 Height (Inches): 6.00 Weight (Pounds): 160 Assessment/Plan Problem List: (1) Congestive heart failure ICD Codes: I50.9 - Heart failure, unspecified SNOMED: 87565278 (2) Anemia ICD Codes: D64.9 - Anemia, unspecified SNOMED: 399185253 (3) Diabetic nephropathy ICD Codes: E11.21 - Type 2 diabetes mellitus with diabetic nephropathy SNOMED: 02825565, 016203605 (4) Renal failure ICD Codes: N19 - Unspecified kidney failure SNOMED: 14933184 Qualifiers: Qualified Codes: N19 - Unspecified kidney failure (5) Failure to thrive SNOMED: 39341840 Qualifiers: Qualified Codes: R62.7 - Adult failure to thrive (6) Pneumonia ICD Codes: J18.9 - Pneumonia, unspecified organism SNOMED: 475767185 Qualifiers: Qualified Codes: J18.9 - Pneumonia, unspecified organism (7) UTI (urinary tract infection) ICD Codes: N39.0 - Urinary tract infection, site not specified SNOMED: 76877566 Qualifiers: Qualified Codes: N39.0 - Urinary tract infection, site not specified (8) Renal failure (ARF), acute on chronic ICD Codes: N17.9 - Acute kidney failure, unspecified; N18.9 - Chronic kidney disease, unspecified SNOMED: 097945450 Status: stable Assessment/Plan: worsening renal function on top of cril malnutrition FTT s/p pna afebrile peg per dr lorie lewis study is pending Janes Faust MD Feb 09, 2020 21:07
--- NOTE | 2020-02-09 21:29 | Cardiology Report ---
APPROVED REPORT EXAM: Two-dimensional and M-mode echocardiogram with Doppler and color Doppler. INDICATION Congestive Heart Failure M-Mode DIMENSIONS IVSd1.3 (0.7-1.1cm)Left Atrium (MM)5.5 (1.6-4.0cm) LVDd5.5 (3.5-5.6cm)Aortic Root3.1 (2.0-3.7cm) PWd1.2 (0.7-1.1cm)Aortic Cusp Exc.1.1 (1.5-2.0cm) IVSs1.5 cmEPSS1.6 (>1.0cm) LVDs4.4 (2.5-4.0cm) PWs1.5 cm <Conclusion> Normal left ventricular chamber size, systolic function and wall motion. Basal to mid septal wall hypokinesia. Left ventricular ejection fraction estimated to be 50 %. Mild left ventricular hypertrophy. No evidence of pericardial effusion. Moderate pleural effusion. Moderate left atrial enlargement. Mild right atrial enlargement. Right ventricular chamber size is within normal limits. Moderate focal aortic valve sclerosis with decreased cusp excursion. Moderate thickened mitral valve leaflets with normal excursion. Mild mitral annulus and aortic root calcification. Pulmonic valve not well visualized. Normal tricuspid valve structure. IVC dilated at 2.3 cm and without physiologic collapse suggestive of increased RA pressure. A color flow and spectral Doppler study was performed and revealed: Trace aortic regurgitation. Moderate mitral regurgitation. Severe tricuspid regurgitation. Tricuspid systolic velocities suggests peak right ventricular systolic pressure of 67 mmHg,consistent with severe pulmonary hypertension. Moderate pulmonic regurgitation present.
[2020-02-09] MEDS ORDERED: LORazepam Inj 2mg/ml 1ml IV PRN (21:30)
[2020-02-09] MEDS: cefTRIAXone 1 GM in D5W 55 ML IVPB SCH (21:49)
--- NOTE | 2020-02-09 22:45 | Psych Consult Progress Note ---
Psychiatry Progress Note Psychiatry Progress Note Subjective cont to have episodes of agitation Medications Current Medications Medications (Trade) Dose Ordered Sig/Maria Fernanda Route PRN Reason Start Time Stop Time Status Last Admin Dose Admin Allopurinol (allopurinoL) 300 mg DAILY NG 02/07/20 09:00 03/08/20 08:59 02/07/20 09:55 Barium Sulfate (Varibar Honey) 250 ml NOW PRN MC RAD 02/07/20 12:15 02/10/20 12:12 Barium Sulfate (Varibar Sinai) 240 ml NOW PRN MC RAD 02/07/20 12:15 02/10/20 12:12 Barium Sulfate (Varibar Pudding) 230 ml NOW PRN MC RAD 02/07/20 12:15 02/10/20 12:12 Barium Sulfate (Varibar Thin Liquid powder) 148 gm NOW PRN MC RAD 02/07/20 12:15 02/10/20 12:12 Carvedilol (Coreg) 25 mg EVERY 12 HOURS NG 02/06/20 21:00 03/07/20 20:59 02/09/20 21:49 Ceftriaxone Sodium 1 gm/ Dextrose 55 ml @ 110 mls/hr Q24H IVPB 02/06/20 21:00 02/13/20 20:59 02/09/20 21:49 Clonidine HCl (Catapres TTS-3) 1 patch QWEEK TDERMAL 02/09/20 11:00 05/09/20 10:59 02/09/20 10:32 Dextrose (Dextrose 50%) 25 ml Q30M PRN IV Hypoglycemia 02/06/20 14:15 05/06/20 14:14 Dextrose (Dextrose 50%) 50 ml Q30M PRN IV Hypoglycemia 02/06/20 14:15 05/06/20 14:14 Docusate Sodium (Colace) 100 mg TWICE A DAY NG 02/06/20 18:00 03/07/20 17:59 02/07/20 18:44 Haloperidol Lactate (Haldol) 5 mg Q6H PRN IM Agitation 02/07/20 23:15 03/23/20 23:14 Hydralazine HCl (Apresoline) 25 mg Q8HR NG 02/08/20 14:00 05/07/20 08:59 02/09/20 21:49 Insulin Aspart (NovoLOG) Q6HR SUBQ 02/06/20 18:00 05/06/20 17:59 02/09/20 18:35 Pantoprazole (Protonix) 40 mg Q12HR IVP 02/08/20 21:00 03/08/20 08:59 02/09/20 21:50 Neurological/Psychiatric: Reports: anxiety, depressed, emotional problems Allergies: Coded Allergies: No Known Allergies (Unverified , 02/06/20) Objective Data Height (Feet): 5 Height (Inches): 6.00 Weight (Pounds): 160 General Appearance: no apparent distress, lethargic Additional Comments: awake, disoriented. Mood is agitated. Affect is flat. Thought process, there is a paucity of thought content. Thought content, no suicidal or homicidal ideation. Cognition is impaired. Insight and judgment impaired. Assessment/Plan Birchwood I: ASSESSMENT: Birchwood I Dementia with behavior disturbance. Birchwood II Deferred. Birchwood III As above. Birchwood IV Moderate. Birchwood V 20. PLAN: 1. Haldol as needed. 2. Bilateral self-restraints. Status: stable Status Narrative ASSESSMENT: Birchwood I Dementia with behavior disturbance. Birchwood II Deferred. Birchwood III As above. Birchwood IV Moderate. Birchwood V 20. PLAN: 1. Haldol as needed. 2. Bilateral self-restraints. Assessment/Plan: ASSESSMENT: Birchwood I Dementia with behavior disturbance. Birchwood II Deferred. Birchwood III As above. Birchwood IV Moderate. Birchwood V 20. PLAN: 1. Haldol as needed. 2. Bilateral self-restraints. Eboni Thomas MD Feb 09, 2020 22:45
[2020-02-10] VITALS (7 sets, daily range): BP systolic 123–170; BP diastolic 68–88
[2020-02-10] MEDS: NovoLOG Insulin Flexpen SUBQ SCH ×4 (05:10→18:00)
[2020-02-10] MEDS: HydrALAZINE 25mg tab NG SCH ×3 (05:10→21:30)
[2020-02-10 06:47] LABS: HEMATOCRIT 27.9 % (37.0-47.0); HEMOGLOBIN 8.7 G/DL (12.0-16.0); MEAN CORPUSCULAR VOLUME 88 FL (80-99); PLATELET COUNT 122 K/UL (150-450); RED BLOOD COUNT 3.18 M/UL (4.20-5.40); RED CELL DISTRIBUTION WIDTH 17.5 % (11.6-14.8); WHITE BLOOD COUNT 6.5 K/UL (4.8-10.8)
--- NOTE | 2020-02-10 07:05 | NUR ---
HAND-OFF: Report given to BONG Castro.
[2020-02-10 07:17] LABS: ALBUMIN 1.7 G/DL (3.4-5.0); ALBUMIN/GLOBULIN RATIO 0.4 (1.0-2.7); BILIRUBIN,TOTAL 0.3 MG/DL (0.2-1.0); CALCIUM 7.6 MG/DL (8.5-10.1); CREATININE 4.1 MG/DL (0.55-1.30); POTASSIUM 3.8 MMOL/L (3.5-5.1)
--- NOTE | 2020-02-10 08:26 | NUR ---
NURSE NOTES: received report from BONG Hyde. patient in bed. open eyes, non verbal, no respiratory distress on room air. no facial grimacing noted. dry cough. IV on left upper arm saline lock. intact. flushed. NG in place. no residual. positive bowel sound. running nephro@30/hr. elevated HOB at all times. F/C draining. no hematuria noted. no foul odor. P200 mattress for wound management. pending for [facility] evde. bed in the lowest position and locked. call light within reach. alarm on. will continue to provide plan of care.
[2020-02-10] MEDS: Docusate 100mg/10ml Liq NG SCH ×2 (08:39→17:59)
[2020-02-10] MEDS: Pantoprazole Inj IVP SCH (08:39)
[2020-02-10] MEDS: Carvedilol 25mg Tab NG SCH ×2 (08:39→21:30)
--- NOTE | 2020-02-10 10:00 | NUR ---
NURSE NOTES: received call from regarding patient's ST eval plan. will f/u for peg placement. patient needs to be seen by ST for swallow eval as soon as possible for discharge.
--- NOTE | 2020-02-10 10:26 | NUR ---
NURSE NOTES: ST swallow eval has been pending d/t ST is not available. called rehab and left message to .
--- NOTE | 2020-02-10 10:36 | Surgery Progress Note ---
Surgery Progress Note Subjective Additional Comments no acute events labs noted xray reviewed no n/v Objective Last 24 Hour Vital Signs Date Time Temp Pulse Resp B/P (MAP) Pulse Ox O2 Delivery O2 Flow Rate FiO2 02/10/20 09:00 Room Air 02/10/20 08:39 77 151/83 02/10/20 08:00 98.5 77 19 151/83 (105) 96 02/10/20 05:10 134/76 02/10/20 04:00 97.0 66 22 150/88 (108) 97 02/10/20 00:00 97.4 69 24 134/76 (95) 97 02/09/20 22:14 Room Air 02/09/20 21:49 134/72 02/09/20 21:49 84 134/72 02/09/20 20:00 97.9 83 20 160/100 (120) 97 02/09/20 16:00 98.8 84 20 134/72 (92) 98 02/09/20 12:00 98.9 91 20 168/65 (99) 98 I&O Intake and Output 02/09/20 02/10/20 19:00 07:00 Intake Total 450 ml Output Total 350 ml Balance 100 ml Intake Free Water 120 ml Tube Feeding 330 ml Output Urine Total 350 ml Dressing: saturated Cardiovascular: RSR Respiratory: decreased breath sounds Abdomen: soft, non-tender, present bowel sounds Extremities: no cyanosis Laboratory Tests Test 02/09/20 11:51 02/09/20 18:22 02/10/20 04:00 POC Whole Blood Glucose 169 MG/DL (74-106) H Pending White Blood Count 6.5 K/UL (4.8-10.8) Red Blood Count 3.18 M/UL (4.20-5.40) L Hemoglobin 8.7 G/DL (12.0-16.0) L Hematocrit 27.9 % (37.0-47.0) L Mean Corpuscular Volume 88 FL (80-99) Mean Corpuscular Hemoglobin 27.4 PG (27.0-31.0) Mean Corpuscular Hemoglobin Concent 31.2 G/DL (32.0-36.0) L Red Cell Distribution Width 17.5 % (11.6-14.8) H Platelet Count 122 K/UL (150-450) L Mean Platelet Volume 6.7 FL (6.5-10.1) Neutrophils (%) (Auto) % (45.0-75.0) Lymphocytes (%) (Auto) % (20.0-45.0) Monocytes (%) (Auto) % (1.0-10.0) Eosinophils (%) (Auto) % (0.0-3.0) Basophils (%) (Auto) % (0.0-2.0) Neutrophils % (Manual) Pending Lymphocytes % (Manual) Pending Platelet Estimate Pending Platelet Morphology Pending Sodium Level 148 MMOL/L (136-145) H Potassium Level 3.8 MMOL/L (3.5-5.1) Chloride Level 112 MMOL/L (98-107) H Carbon Dioxide Level 22 MMOL/L (21-32) Anion Gap 14 mmol/L (5-15) Blood Urea Nitrogen 99 mg/dL (7-18) H Creatinine 4.1 MG/DL (0.55-1.30) H Estimat Glomerular Filtration Rate 10.5 mL/min (>60) Glucose Level 162 MG/DL (74-106) H Calcium Level 7.6 MG/DL (8.5-10.1) L Total Bilirubin 0.3 MG/DL (0.2-1.0) Aspartate Amino Transf (AST/SGOT) 17 U/L (15-37) Alanine Aminotransferase (ALT/SGPT) 14 U/L (12-78) Alkaline Phosphatase 71 U/L (46-116) Total Protein 5.5 G/DL (6.4-8.2) L Albumin 1.7 G/DL (3.4-5.0) L Globulin 3.8 g/dL Albumin/Globulin Ratio 0.4 (1.0-2.7) L Plan Problems: (1) UTI (urinary tract infection) (2) Renal failure (ARF), acute on chronic (3) COVID-19 Assessment & Plan: ++ abx as per ID will follow with recs Lungs: Subsegmental atelectasis versus infiltrates in bilateral lung bases. Pulmonary vascular congestion. Pleural space: Small bilateral pleural effusions. Heart: Cardiomegaly. Mediastinum: Unremarkable. Bones/joints: Degenerative changes throughout the visualized spine and shoulder joints. Vasculature: Atherosclerotic calcifications within the aortic arch. Tubes, lines and devices: Telemetry leads overlie the thorax. IMPRESSION: 1. Findings concerning for CHF. Cardiomegaly with pulmonary vascular congestion and small bilateral pleural effusions. 2. Subsegmental atelectasis versus infiltrates in bilateral lung bases. (4) Congestive heart failure (5) Anemia (6) Diabetic nephropathy (7) Failure to thrive Assessment & Plan: DAILY ESTIMATED NEEDS: Needs based on Wounds, DM, ARF/ 53.4kg abw 25-30 kcals/kg 3676-6626 total kcals 1-1.5 (increase w/ renal fxn improvement) g protein/kg 53-80 g total protein 25-30 mL/kg 7897-6472 total fluid mLs NUTRITION DIAGNOSIS: * Swallowing difficulty R/T dysphagia, decreased cognitive fxn as evidenced by s/p NGT insertion @ SNF, on NGT feeds, pending HAT CONDITIONER eval. * Increased kcal/prot needs R/T wound healing as evidenced by pt admitted w/ multiple wound per photos, pending eval * Altered nutrition related lab values R/T diabetes, cardiac hx, renal dysfunction as evidenced by elev BGs (230, 228), A1C 8.2, BNP 62010, elev creat (4.1-> 3.9), elev BUN (93->90). CURRENT TF:Nepro @ 30ml/hr x 24 hrs PO DIET RECOMMENDATIONS: IF SAFE FOR ORAL DIET -> CCHO LOW, LOW NA/ texture per HAT CONDITIONER ENTERAL NUTRITION RECOMMENDATIONS: Glucerna 1.5 @ 40ml/hr x 24 hrs to provide 960ml, 1440kcal, 79g prot, 728ml free water * W/ improving renal fxn and lytes wnl, rec TF change to Glucerna 1.5 * Initiate GLucerna 1.5 @20ml/hr x 4hrs, advance 10ml q 4 hrs as tolerated to goal : will provide 100% est kcal/prot needs @ goal * HOB over 30 degrees/ water flush per MD ADDITIONAL RECOMMENDATIONS: * Per SNF: HT=62" UZ=783ycw (02/05/20) * Monitor renal fxn and lytes, need for renal TF formula (creat trending down, K, phos, mag wnl) * Consider long acting insulin for improved BG control * Wound healing: Add Vit C 250mg QD + Silvano BID f/up w/ WC eval * Monitor for oral diet vs TF : HAT CONDITIONER eval pending (8) Renal failure (9) Pneumonia (10) Deep tissue injury Assessment & Plan: Patient identified on admission to have a large sacral deep tissue injury non-blanchable erythema blistering epidermis intact no drainage. Unknown duration. Tenderness difficult to a certain based on clinical examinations patient's history. Labs noted. Patient high risk for decubitus ulcer formation worsening condition. NG tube in place currently. Nutritional optimization. Turn every 2 hours. Offload pressure with pillows. OPTi foam dressing to sacrum. Care plan initiated. Thank you will follow with recommendations Pt presented on admission with multiple Pressure Injuries, Fx L Hip. Large contusion noted to L Hip/ Lateral L Femur. Sacral DTPI partially opened and is 75% necrotic, 25% moist erythematous and clear skin flap that is loose.(L)5.5cm x (W)9cm. Small amt serous exudate noted. Non-Blanchable erythema periwound. Partial thickness wound noted to L Hip. Base of wound is moist and viable. edges adherent to base of wound(L)3cm x (W)2.5cm. L Heel is boggy with non-Blanchable erythema with delineated margins. L heel is boggy with non-blanchable erythema. Tx.Plan: Cleanse Sacral wound with Saline. Apply Therahoney. Apply Moisture Barrier Paste periwound. Cover with Optifoam drsg. Change every 3 days and prn. Apply Moisture Barrier Paste to L Hip wound. Cover with Optifoam drsg. Change every 3 days and prn Apply Cavilon Skin Barrier to both heels. Cover each heel with Optifoam drsg. Change every 7 days and prn. Reposition at least every 2hours or as tolerated. Off-load heels with pillow. APM/CHE Mattress overlay. Chris Lei Feb 10, 2020 10:36
--- NOTE | 2020-02-10 10:47 | Nephrology Progress Note ---
Assessment/Plan Problem List: (1) Renal failure (ARF), acute on chronic (2) COVID-19 (3) UTI (urinary tract infection) (4) Congestive heart failure (5) Anemia (6) Diabetic nephropathy Assessment Renal failure, etiology unclear. Most likely secondary to heart failure. And or diabetes Patient has history of diabetes mellitus since she is receiving metformin and oral hypoglycemic agents Pneumonia UTI Mild anemia Plan February 09: Labs reviewed. I received another message from which I shared with primary physician and the consultants indicating that the family does not want dialysis or invasive tubes and they are seeking comfort care and hospice. At this point there is not much to add from renal standpoint to view. Case management and discharge planning consultation and coordination with PMD. February 08: Labs were reviewed. Medication list reviewed. Yesterday I received a call from Dr. Recinos the patient's primary physician who opposes initiating dialysis on the patient due to her multiple medical problems and dementia. Later on I received a text from him that the daughter is talking to family about home hospice. At this time we will continue her supportive noninva sive care. Will start the patient off clonidine patch for high blood pressure. February 07: Discussed with BONG Javier. Labs reviewed. 2D echo indicates LV function and ejection fraction in mid 50s. Renal parameters unchanged. Calculated GFR between 10-11. We will continue to optimize cardiac status. In my opinion the patient requires dialysis treatment and ultrafiltration if aggressive approach is our plan based on patient being full code. I will discuss the matter with the patient's daughter. Will also discuss with PMD Dr. Riojas. February 06: Continue to monitor renal parameters. 2D echocardiogram results and kidney ultrasound results are pending. Hemoglobin A1c results suggestive of diabetes mellitus [id number]. Will continue to optimize cardiac status. Hydralazine as an afterload reduction ordered. Allopurinol for high uric acid ordered. February 05: Cornelius 2D echo Urine studies Avoid nephrotoxic's Antibiotics Per orders KIDNEY OMARI: * Mildly increased renal echogenicity. Findings are concerning for intrinsic/medical renal disease. * No evidence of hydronephrosis bilaterally. * Bilateral simple appearing renal cysts. * Additional 2 cm hypoechoic possible cyst versus mass in the left kidney. Periventricular evaluation with MRI of the abdomen, ideally without and with contrast. * Bladder decompressed by Cornelius catheter, precluding its evaluation. * Trace ascites incidentally identified. * Cholelithiasis incidentally identified. Subjective ROS Limited/Unobtainable: No Constitutional: Reports: malaise, weakness Objective Objective Last 24 Hour Vital Signs Date Time Temp Pulse Resp B/P (MAP) Pulse Ox O2 Delivery O2 Flow Rate FiO2 02/10/20 09:00 Room Air 02/10/20 08:39 77 151/83 02/10/20 08:00 98.5 77 19 151/83 (105) 96 02/10/20 05:10 134/76 02/10/20 04:00 97.0 66 22 150/88 (108) 97 02/10/20 00:00 97.4 69 24 134/76 (95) 97 02/09/20 22:14 Room Air 02/09/20 21:49 134/72 02/09/20 21:49 84 134/72 02/09/20 20:00 97.9 83 20 160/100 (120) 97 02/09/20 16:00 98.8 84 20 134/72 (92) 98 02/09/20 12:00 98.9 91 20 168/65 (99) 98 Intake and Output 02/09/20 02/10/20 19:00 07:00 Intake Total 450 ml Output Total 350 ml Balance 100 ml Intake Free Water 120 ml Tube Feeding 330 ml Output Urine Total 350 ml Current Medications Medications (Trade) Dose Ordered Sig/Maria Fernanda Route PRN Reason Start Time Stop Time Status Last Admin Dose Admin Allopurinol (allopurinoL) 300 mg DAILY NG 02/07/20 09:00 03/08/20 08:59 02/10/20 08:39 Carvedilol (Coreg) 25 mg EVERY 12 HOURS NG 02/06/20 21:00 03/07/20 20:59 02/10/20 08:39 Clonidine HCl (Catapres TTS-3) 1 patch QWEEK TDERMAL 02/09/20 11:00 05/09/20 10:59 02/09/20 10:32 Dextrose (Dextrose 50%) 25 ml Q30M PRN IV Hypoglycemia 02/06/20 14:15 05/06/20 14:14 Dextrose (Dextrose 50%) 50 ml Q30M PRN IV Hypoglycemia 02/06/20 14:15 05/06/20 14:14 Docusate Sodium (Colace) 100 mg TWICE A DAY NG 02/06/20 18:00 03/07/20 17:59 02/10/20 08:39 Epoetin Manoj (Epoetin Manoj-EPBX(NON ESRD)) 10,000 unit FRI- SUBQ 02/11/20 21:00 05/11/20 20:59 Haloperidol Lactate (Haldol) 5 mg Q6H PRN IM Agitation 02/07/20 23:15 03/23/20 23:14 Hydralazine HCl (Apresoline) 25 mg Q8HR NG 02/08/20 14:00 05/07/20 08:59 02/10/20 14:09 Insulin Aspart (NovoLOG) Q6HR SUBQ 02/06/20 18:00 05/06/20 17:59 02/10/20 11:46 Pantoprazole (Protonix) 40 mg Q12HR IVP 02/08/20 21:00 03/08/20 08:59 02/10/20 08:39 Laboratory Tests 02/09/20 11:51: POC Whole Blood Glucose 169H 02/09/20 18:22: POC Whole Blood Glucose [Pending] 02/10/20 04:00: White Blood Count 6.5, Red Blood Count 3.18L, Hemoglobin 8.7L, Hematocrit 27.9L, Mean Corpuscular Volume 88, Mean Corpuscular Hemoglobin 27.4, Mean Corpuscular Hemoglobin Concent 31.2L, Red Cell Distribution Width 17.5H, Platelet Count 122L , Mean Platelet Volume 6.7, Neutrophils (%) (Auto) , Lymphocytes (%) (Auto) , Monocytes (%) (Auto) , Eosinophils (%) (Auto) , Basophils (%) (Auto) , Neutrophils % (Manual) [Pending], Lymphocytes % (Manual) [Pending], Platelet Estimate [Pending], Platelet Morphology [Pending], Sodium Level 148H, Potassium Level 3.8, Chloride Level 112H, Carbon Dioxide Level 22, Anion Gap 14, Blood Urea Nitrogen 99H, Creatinine 4.1H, Estimat Glomerular Filtration Rate 10.5, Glucose Level 162H, Calcium Level 7.6L, Total Bilirubin 0.3, Aspartate Amino Transf (AST/SGOT) 17, Alanine Aminotransferase (ALT/SGPT) 14, Alkaline Phosphatase 71, Total Protein 5.5L, Albumin 1.7L, Globulin 3.8, Albumin/Globulin Ratio 0.4L Height (Feet): 5 Height (Inches): 6.00 Weight (Pounds): 160 General Appearance: no apparent distress, lethargic EENT: other - Now has NG tube Cardiovascular: normal rate Respiratory/Chest: decreased breath sounds Abdomen: distended Quirino Cormier MD Feb 10, 2020 10:47
--- NOTE | 2020-02-10 10:48 | Infectious Diseases Prog Note ---
Assessment/Plan Assessment/Plan IMPRESSION: COVID-19 pneumonia, positive since 01/18 pyuria, Urine culture [id number] gram positive CHF, Failure to thrive, Severe protein malnutrition, Diabetes mellitus, Acute renal failure. 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 Family is considering hospice Subjective ROS Limited/Unobtainable: Yes Constitutional: Denies: fever Allergies: Coded Allergies: No Known Allergies (Unverified , 02/06/20) Objective Last 24 Hour Vital Signs Date Time Temp Pulse Resp B/P (MAP) Pulse Ox O2 Delivery O2 Flow Rate FiO2 02/10/20 09:00 Room Air 02/10/20 08:39 77 151/83 02/10/20 08:00 98.5 77 19 151/83 (105) 96 02/10/20 05:10 134/76 02/10/20 04:00 97.0 66 22 150/88 (108) 97 02/10/20 00:00 97.4 69 24 134/76 (95) 97 02/09/20 22:14 Room Air 02/09/20 21:49 134/72 02/09/20 21:49 84 134/72 02/09/20 20:00 97.9 83 20 160/100 (120) 97 02/09/20 16:00 98.8 84 20 134/72 (92) 98 02/09/20 12:00 98.9 91 20 168/65 (99) 98 Height (Feet): 5 Height (Inches): 6.00 Weight (Pounds): 160 General Appearance: no acute distress HEENT: mucous membranes moist Respiratory/Chest: no respiratory distress Cardiovascular: normal rate Abdomen: soft, non tender, other - NG tube Neurologic/Psychiatric: disoriented Laboratory Tests Test 02/09/20 11:51 02/09/20 18:22 02/10/20 04:00 POC Whole Blood Glucose 169 MG/DL (74-106) H Pending White Blood Count 6.5 K/UL (4.8-10.8) Red Blood Count 3.18 M/UL (4.20-5.40) L Hemoglobin 8.7 G/DL (12.0-16.0) L Hematocrit 27.9 % (37.0-47.0) L Mean Corpuscular Volume 88 FL (80-99) Mean Corpuscular Hemoglobin 27.4 PG (27.0-31.0) Mean Corpuscular Hemoglobin Concent 31.2 G/DL (32.0-36.0) L Red Cell Distribution Width 17.5 % (11.6-14.8) H Platelet Count 122 K/UL (150-450) L Mean Platelet Volume 6.7 FL (6.5-10.1) Neutrophils (%) (Auto) % (45.0-75.0) Lymphocytes (%) (Auto) % (20.0-45.0) Monocytes (%) (Auto) % (1.0-10.0) Eosinophils (%) (Auto) % (0.0-3.0) Basophils (%) (Auto) % (0.0-2.0) Neutrophils % (Manual) Pending Lymphocytes % (Manual) Pending Platelet Estimate Pending Platelet Morphology Pending Sodium Level 148 MMOL/L (136-145) H Potassium Level 3.8 MMOL/L (3.5-5.1) Chloride Level 112 MMOL/L (98-107) H Carbon Dioxide Level 22 MMOL/L (21-32) Anion Gap 14 mmol/L (5-15) Blood Urea Nitrogen 99 mg/dL (7-18) H Creatinine 4.1 MG/DL (0.55-1.30) H Estimat Glomerular Filtration Rate 10.5 mL/min (>60) Glucose Level 162 MG/DL (74-106) H Calcium Level 7.6 MG/DL (8.5-10.1) L Total Bilirubin 0.3 MG/DL (0.2-1.0) Aspartate Amino Transf (AST/SGOT) 17 U/L (15-37) Alanine Aminotransferase (ALT/SGPT) 14 U/L (12-78) Alkaline Phosphatase 71 U/L (46-116) Total Protein 5.5 G/DL (6.4-8.2) L Albumin 1.7 G/DL (3.4-5.0) L Globulin 3.8 g/dL Albumin/Globulin Ratio 0.4 (1.0-2.7) L Current Medications Medications (Trade) Dose Ordered Sig/Maria Fernanda Route PRN Reason Start Time Stop Time Status Last Admin Dose Admin Allopurinol (allopurinoL) 300 mg DAILY NG 02/07/20 09:00 03/08/20 08:59 02/10/20 08:39 Barium Sulfate (Varibar Honey) 250 ml NOW PRN MC RAD 02/07/20 12:15 02/10/20 12:12 Barium Sulfate (Varibar [place]) 240 ml NOW PRN MC RAD 02/07/20 12:15 02/10/20 12:12 Barium Sulfate (Varibar Pudding) 230 ml NOW PRN MC RAD 02/07/20 12:15 02/10/20 12:12 Barium Sulfate (Varibar Thin Liquid powder) 148 gm NOW PRN MC RAD 02/07/20 12:15 02/10/20 12:12 Carvedilol (Coreg) 25 mg EVERY 12 HOURS NG 02/06/20 21:00 03/07/20 20:59 02/10/20 08:39 Ceftriaxone Sodium 1 gm/ Dextrose 55 ml @ 110 mls/hr Q24H IVPB 02/06/20 21:00 02/13/20 20:59 02/09/20 21:49 Clonidine HCl (Catapres TTS-3) 1 patch QWEEK TDERMAL 02/09/20 11:00 05/09/20 10:59 02/09/20 10:32 Dextrose (Dextrose 50%) 25 ml Q30M PRN IV Hypoglycemia 02/06/20 14:15 05/06/20 14:14 Dextrose (Dextrose 50%) 50 ml Q30M PRN IV Hypoglycemia 02/06/20 14:15 05/06/20 14:14 Docusate Sodium (Colace) 100 mg TWICE A DAY NG 02/06/20 18:00 03/07/20 17:59 02/10/20 08:39 Epoetin Manoj (Epoetin Manoj-EPBX(NON ESRD)) 10,000 unit FRI-FRI-FRI SUBQ 02/11/20 21:00 05/11/20 20:59 Haloperidol Lactate (Haldol) 5 mg Q6H PRN IM Agitation 02/07/20 23:15 03/23/20 23:14 Hydralazine HCl (Apresoline) 25 mg Q8HR NG 02/08/20 14:00 05/07/20 08:59 02/10/20 05:10 Insulin Aspart (NovoLOG) Q6HR SUBQ 02/06/20 18:00 05/06/20 17:59 02/10/20 05:10 Pantoprazole (Protonix) 40 mg Q12HR IVP 02/08/20 21:00 03/08/20 08:59 02/10/20 08:39 Viet Harper MD Feb 10, 2020 10:48
--- NOTE | 2020-02-10 10:56 | Pulmonology Progress Note ---
Subjective ROS Limited/Unobtainable: Yes Interval Events: None new Constitutional: Denies: fever HEENT: Repors: no symptoms Respiratory: Reports: no symptoms Cardiovascular: Reports: no symptoms Gastrointestinal/Abdominal: Reports: no symptoms Allergies: Coded Allergies: No Known Allergies (Unverified , 02/06/20) Objective Last 24 Hour Vital Signs Date Time Temp Pulse Resp B/P (MAP) Pulse Ox O2 Delivery O2 Flow Rate FiO2 02/10/20 09:00 Room Air 02/10/20 08:39 77 151/83 02/10/20 08:00 98.5 77 19 151/83 (105) 96 02/10/20 05:10 134/76 02/10/20 04:00 97.0 66 22 150/88 (108) 97 02/10/20 00:00 97.4 69 24 134/76 (95) 97 02/09/20 22:14 Room Air 02/09/20 21:49 134/72 02/09/20 21:49 84 134/72 02/09/20 20:00 97.9 83 20 160/100 (120) 97 02/09/20 16:00 98.8 84 20 134/72 (92) 98 02/09/20 12:00 98.9 91 20 168/65 (99) 98 Intake and Output 02/09/20 02/10/20 19:00 07:00 Intake Total 450 ml Output Total 350 ml Balance 100 ml Intake Free Water 120 ml Tube Feeding 330 ml Output Urine Total 350 ml General Appearance: no acute distress HEENT: mucous membranes moist Respiratory: chest wall non-tender, lungs clear Cardiovascular: normal peripheral pulses Abdomen: normal bowel sounds Laboratory Tests 02/09/20 11:51: POC Whole Blood Glucose 169H 02/09/20 18:22: POC Whole Blood Glucose [Pending] 02/10/20 04:00: White Blood Count 6.5, Red Blood Count 3.18L, Hemoglobin 8.7L, Hematocrit 27.9L, Mean Corpuscular Volume 88, Mean Corpuscular Hemoglobin 27.4, Mean Corpuscular Hemoglobin Concent 31.2L, Red Cell Distribution Width 17.5H, Platelet Count 122L , Mean Platelet Volume 6.7, Neutrophils (%) (Auto) , Lymphocytes (%) (Auto) , Monocytes (%) (Auto) , Eosinophils (%) (Auto) , Basophils (%) (Auto) , Neutrophils % (Manual) [Pending], Lymphocytes % (Manual) [Pending], Platelet Estimate [Pending], Platelet Morphology [Pending], Sodium Level 148H, Potassium Level 3.8, Chloride Level 112H, Carbon Dioxide Level 22, Anion Gap 14, Blood Urea Nitrogen 99H, Creatinine 4.1H, Estimat Glomerular Filtration Rate 10.5, Glucose Level 162H, Calcium Level 7.6L, Total Bilirubin 0.3, Aspartate Amino Transf (AST/SGOT) 17, Alanine Aminotransferase (ALT/SGPT) 14, Alkaline Phosphatase 71, Total Protein 5.5L, Albumin 1.7L, Globulin 3.8, Albumin/Globulin Ratio 0.4L Current Medications Medications (Trade) Dose Ordered Sig/Maria Fernanda Route PRN Reason Start Time Stop Time Status Last Admin Dose Admin Allopurinol (allopurinoL) 300 mg DAILY NG 02/07/20 09:00 03/08/20 08:59 02/10/20 08:39 Barium Sulfate (Varibar Honey) 250 ml NOW PRN MC RAD 02/07/20 12:15 02/10/20 12:12 Barium Sulfate (Varibar [place]) 240 ml NOW PRN MC RAD 02/07/20 12:15 02/10/20 12:12 Barium Sulfate (Varibar Pudding) 230 ml NOW PRN MC RAD 02/07/20 12:15 02/10/20 12:12 Barium Sulfate (Varibar Thin Liquid powder) 148 gm NOW PRN MC RAD 02/07/20 12:15 02/10/20 12:12 Carvedilol (Coreg) 25 mg EVERY 12 HOURS NG 02/06/20 21:00 03/07/20 20:59 02/10/20 08:39 Clonidine HCl (Catapres TTS-3) 1 patch QWEEK TDERMAL 02/09/20 11:00 05/09/20 10:59 02/09/20 10:32 Dextrose (Dextrose 50%) 25 ml Q30M PRN IV Hypoglycemia 02/06/20 14:15 05/06/20 14:14 Dextrose (Dextrose 50%) 50 ml Q30M PRN IV Hypoglycemia 02/06/20 14:15 05/06/20 14:14 Docusate Sodium (Colace) 100 mg TWICE A DAY NG 02/06/20 18:00 03/07/20 17:59 02/10/20 08:39 Epoetin Manoj (Epoetin Manoj-EPBX(NON ESRD)) 10,000 unit FRI- SUBQ 02/11/20 21:00 05/11/20 20:59 Haloperidol Lactate (Haldol) 5 mg Q6H PRN IM Agitation 02/07/20 23:15 03/23/20 23:14 Hydralazine HCl (Apresoline) 25 mg Q8HR NG 02/08/20 14:00 05/07/20 08:59 02/10/20 05:10 Insulin Aspart (NovoLOG) Q6HR SUBQ 02/06/20 18:00 05/06/20 17:59 02/10/20 05:10 Pantoprazole (Protonix) 40 mg Q12HR IVP 02/08/20 21:00 03/08/20 08:59 02/10/20 08:39 Assessment/Plan Assessment/Plan IMPRESSION: 1. COVID-19 pneumonia. 2. Cardiomegaly/CHF. 3. Renal failure. DISCUSSION: Continue oxygen via nasal canulae; currently on RA Remdesiver contraindicated due to renal failure Hold off on steroids as minimal hypoxemia I will follow as production designer. Unable to swallow due to poor mentation Will need PEG Delmar Root Omar Syed MD Feb 10, 2020 10:56
--- NOTE | 2020-02-10 10:56 | NUR ---
RD ASSESSMENT & RECOMMENDATIONS SEE CARE ACTIVITY FOR COMPLETE ASSESSMENT DAILY ESTIMATED NEEDS: Needs based on Wounds, DM, ARF/ 53.4kg abw 25-30 kcals/kg 5066-9477 total kcals 0.8-1.3 (increase w/ renal fxn improvement) g protein/kg 42-69 g total protein 25-30 mL/kg 7817-8307 total fluid mLs NUTRITION DIAGNOSIS: * Swallowing difficulty R/T dysphagia, decreased cognitive fxn as evidenced by s/p NGT insertion @ SNF, on NGT feeds, pending BANK TELLER MACHINE MECHANIC eval. * Increased kcal/prot needs R/T wound healing as evidenced by pt admitted w/ multiple wounds, including sacral DTPI partially opened wound, L hip partial thickness wound, and L heel nonblanchable erythema. * Altered nutrition related lab values R/T diabetes, cardiac hx, renal dysfunction as evidenced by elev BGs (162 197), A1C 8.2, BNP 23673, elev creat (4.1-> 3.9-> 4.1), elev BUN (93->90->99). CURRENT TF:Nepro @ 30ml/hr x 24 hrs PO DIET RECOMMENDATIONS: IF SAFE FOR ORAL DIET -> CCHO LOW, LOW NA/ texture per BANK TELLER MACHINE MECHANIC ENTERAL NUTRITION RECOMMENDATIONS: Nepro @ 35ml/hr x 24 hrs to provide 840ml, 1512kcal, 68g prot, 610ml free water * Rec to continue Nepro w/ poor, non-improving renal fxn (creat 4.1) * Increase goal rate to 35ml/hr to better meet needs. * HOB over 30 degrees/ water flush per MD ADDITIONAL RECOMMENDATIONS: * Per SNF: HT=62" GN=290dbj (02/05/20) * Monitor renal fxn and lytes, need to continue renal TF formula (creat 4.1, phos/mag/K wnl at this time) monitor for possible HD * Consider long acting insulin for improved BG control * Wound healing: Add Nephrovite x 1, Vit C 250mg QD ZnSO4 220mg QD x 10 days, Silvano BID * Monitor for oral diet vs TF : BANK TELLER MACHINE MECHANIC re-eval pending
--- NOTE | 2020-02-10 11:38 | NUR ---
NURSE NOTES: spoke to Hillary/PT regarding speech therapy is not available for last few days. Evelina/PT asked [place],medical safety director said one of [facility] employee, Terri is available tomorrow on 02/11/[address] orders[address]notified and is aware.
--- NOTE | 2020-02-10 14:03 | General Progress Note ---
Subjective ROS Limited/Unobtainable: No Allergies: Coded Allergies: No Known Allergies (Unverified , 02/06/20) Objective Last 24 Hour Vital Signs Date Time Temp Pulse Resp B/P (MAP) Pulse Ox O2 Delivery O2 Flow Rate FiO2 02/10/20 12:00 98.3 77 19 144/85 (104) 96 02/10/20 09:00 Room Air 02/10/20 08:39 77 151/83 02/10/20 08:00 98.5 77 19 151/83 (105) 96 02/10/20 05:10 134/76 02/10/20 04:00 97.0 66 22 150/88 (108) 97 02/10/20 00:00 97.4 69 24 134/76 (95) 97 02/09/20 22:14 Room Air 02/09/20 21:49 134/72 02/09/20 21:49 84 134/72 02/09/20 20:00 97.9 83 20 160/100 (120) 97 02/09/20 16:00 98.8 84 20 134/72 (92) 98 Intake and Output 02/09/20 02/10/20 19:00 07:00 Intake Total 450 ml Output Total 350 ml Balance 100 ml Intake Free Water 120 ml Tube Feeding 330 ml Output Urine Total 350 ml Laboratory Tests 02/09/20 18:22: POC Whole Blood Glucose [Pending] 02/10/20 04:00: White Blood Count 6.5, Red Blood Count 3.18L, Hemoglobin 8.7L, Hematocrit 27.9L, Mean Corpuscular Volume 88, Mean Corpuscular Hemoglobin 27.4, Mean Corpuscular Hemoglobin Concent 31.2L, Red Cell Distribution Width 17.5H, Platelet Count 122L , Mean Platelet Volume 6.7, Neutrophils (%) (Auto) , Lymphocytes (%) (Auto) , Monocytes (%) (Auto) , Eosinophils (%) (Auto) , Basophils (%) (Auto) , Differential Total Cells Counted 100, Neutrophils % (Manual) 90H, Lymphocytes % (Manual) 7L, Monocytes % (Manual) 3, Eosinophils % (Manual) 0, Basophils % (Manual) 0, Band Neutrophils 0, Platelet Estimate DecreasedL, Platelet Morphology Normal, Hypochromasia 2+, Anisocytosis 1+, Sodium Level 148H, Potassium Level 3.8, Chloride Level 112H, Carbon Dioxide Level 22, Anion Gap 14, Blood Urea Nitrogen 99H, Creatinine 4.1H, Estimat Glomerular Filtration Rate 10.5, Glucose Level 162H, Calcium Level 7.6L, Total Bilirubin 0.3, Aspartate Amino Transf (AST/SGOT) 17, Alanine Aminotransferase (ALT/SGPT) 14, Alkaline Phosphatase 71, Total Protein 5.5L, Albumin 1.7L, Globulin 3.8, Albumin/Globulin Ratio 0.4L Height (Feet): 5 Height (Inches): 6.00 Weight (Pounds): 160 General Appearance: no apparent distress EENT: normal ENT inspection Neck: supple Cardiovascular: normal rate Respiratory/Chest: decreased breath sounds Abdomen: normal bowel sounds, non tender, soft Extremities: non-tender Assessment/Plan Status: stable Assessment/Plan: DYSPHAGIA Covod positive HTN elevated trop renal insuf swallow eval appreciated, pending repeat for today npo for now NGTF d/w her daughter, plan for peg tomorrow if she fails Gopal Winter MD Feb 10, 2020 14:03
--- NOTE | 2020-02-10 14:21 | Cardiology Progress Note ---
Assessment/Plan Status: stable Assessment/Plan Assessment/Plan Assessment/Plan 1. Elevated troponin, due to the patient's renal failure with BUN of 90 and creatinine of 4.1. Levels are low and flat. The patient is nonverbal and not complained of chest pain. On Coreg 25 mg b.i.d. and Lipitor. Her ejection fraction was 50%. 2. Hypertension, on Coreg 25 mg b.i.d. and p.r.n., hydralazine. 3. Hyperlipidemia, on Lipitor. 4. COVID positive. 5. Dysphagia, status post NG tube placement, 6. UTI. 7. Diabetes. 8. Severe protein malnutrition. Subjective Cardiovascular: Reports: no symptoms Respiratory: Reports: no symptoms Gastrointestinal/Abdominal: Reports: no symptoms Genitourinary: Reports: no symptoms Subjective COVERAGE FOR [place] Objective Last 24 Hour Vital Signs Date Time Temp Pulse Resp B/P (MAP) Pulse Ox O2 Delivery O2 Flow Rate FiO2 02/10/20 14:09 144/85 02/10/20 12:00 98.3 77 19 144/85 (104) 96 02/10/20 09:00 Room Air 02/10/20 08:39 77 151/83 02/10/20 08:00 98.5 77 19 151/83 (105) 96 02/10/20 05:10 134/76 02/10/20 04:00 97.0 66 22 150/88 (108) 97 02/10/20 00:00 97.4 69 24 134/76 (95) 97 02/09/20 22:14 Room Air 02/09/20 21:49 134/72 02/09/20 21:49 84 134/72 02/09/20 20:00 97.9 83 20 160/100 (120) 97 02/09/20 16:00 98.8 84 20 134/72 (92) 98 General Appearance: no apparent distress, alert EENT: PERRL/EOMI, normal ENT inspection, TMs normal, pharynx normal Neck: non-tender, normal alignment, supple, normal inspection, no JVD Rhythm: NSR, PVCs Cardiovascular: normal rate, regular rhythm Respiratory/Chest: normal breath sounds Abdomen: normal bowel sounds, non tender, soft, no organomegaly Extremities: normal range of motion, non-tender, normal inspection Neurologic: assistant service manager II-XII grossly normal, no motor/sensory deficits Intake and Output 02/09/20 02/10/20 19:00 07:00 Intake Total 450 ml Output Total 350 ml Balance 100 ml Intake Free Water 120 ml Tube Feeding 330 ml Output Urine Total 350 ml Laboratory Tests Test 02/09/20 18:22 02/10/20 04:00 POC Whole Blood Glucose Pending White Blood Count 6.5 K/UL (4.8-10.8) Red Blood Count 3.18 M/UL (4.20-5.40) L Hemoglobin 8.7 G/DL (12.0-16.0) L Hematocrit 27.9 % (37.0-47.0) L Mean Corpuscular Volume 88 FL (80-99) Mean Corpuscular Hemoglobin 27.4 PG (27.0-31.0) Mean Corpuscular Hemoglobin Concent 31.2 G/DL (32.0-36.0) L Red Cell Distribution Width 17.5 % (11.6-14.8) H Platelet Count 122 K/UL (150-450) L Mean Platelet Volume 6.7 FL (6.5-10.1) Neutrophils (%) (Auto) % (45.0-75.0) Lymphocytes (%) (Auto) % (20.0-45.0) Monocytes (%) (Auto) % (1.0-10.0) Eosinophils (%) (Auto) % (0.0-3.0) Basophils (%) (Auto) % (0.0-2.0) Differential Total Cells Counted 100 Neutrophils % (Manual) 90 % (45-75) H Lymphocytes % (Manual) 7 % (20-45) L Monocytes % (Manual) 3 % (1-10) Eosinophils % (Manual) 0 % (0-3) Basophils % (Manual) 0 % (0-2) Band Neutrophils 0 % (0-8) Platelet Estimate Decreased L Platelet Morphology Normal Hypochromasia 2+ Anisocytosis 1+ Sodium Level 148 MMOL/L (136-145) H Potassium Level 3.8 MMOL/L (3.5-5.1) Chloride Level 112 MMOL/L (98-107) H Carbon Dioxide Level 22 MMOL/L (21-32) Anion Gap 14 mmol/L (5-15) Blood Urea Nitrogen 99 mg/dL (7-18) H Creatinine 4.1 MG/DL (0.55-1.30) H Estimat Glomerular Filtration Rate 10.5 mL/min (>60) Glucose Level 162 MG/DL (74-106) H Calcium Level 7.6 MG/DL (8.5-10.1) L Total Bilirubin 0.3 MG/DL (0.2-1.0) Aspartate Amino Transf (AST/SGOT) 17 U/L (15-37) Alanine Aminotransferase (ALT/SGPT) 14 U/L (12-78) Alkaline Phosphatase 71 U/L (46-116) Total Protein 5.5 G/DL (6.4-8.2) L Albumin 1.7 G/DL (3.4-5.0) L Globulin 3.8 g/dL Albumin/Globulin Ratio 0.4 (1.0-2.7) L Bennett Barron MD Feb 10, 2020 14:21
--- NOTE | 2020-02-10 15:18 | NUR ---
NURSE NOTES: Spoke to patients daughter Wendie to get consent for EGD and PEG placement per Dr Peña order but daughter refused the procedure. "doesn't want to give her mom more pain"
--- NOTE | 2020-02-10 15:30 | NUR ---
NURSE NOTES: notified regarding patient daughter refuse egd and peg placement. MD is aware.
--- NOTE | 2020-02-10 18:00 | NUR ---
NURSE NOTES: Patient had a loose stool. held colace 100mg/10cc via ng.
--- NOTE | 2020-02-10 19:27 | NUR ---
NURSE HAND-OFF: Important Events on Shift: new order of egd and peg by , daughter refused. Patient Status: weak Diet: nephro via NG @30 Pending Orders: ST swallow eval Pending Results/Labs:n/a Pending MD notification:n/a Latest Vital Signs: Temperature 97.9 , Pulse 73 , B/P 123 /87 , Respiratory Rate 18 , O2 SAT 96 , Room Air, O2 Flow Rate 2.0 . Vital Sign Comment: stable. bp fluctuate sometimes. is aware. Latest Barrett Fall Score: 75 Fall Risk: High Risk Safety Measures: Call light Within Reach, Bed Alarm Zone 2, Side Rails Side Rails x3, Bed position Low and Locked. Fall Precautions: Yellow Socks Report given to BONG Caruso.
--- NOTE | 2020-02-10 19:34 | NUR ---
NURSE NOTES: Patient is in bed, awake, unable to make needs known. On room air with no signs of distress or SOB. IV intact and patent. Flushes well. NG in place, running feeding as ordered with no residual. Cornelius in place and draining to gravity. P200 mattress. HOB elevated. Bed locked and in lowest position. Call light in reach. Will continue plan of care.
--- NOTE | 2020-02-10 20:21 | General Progress Note ---
Subjective ROS Limited/Unobtainable: Yes Allergies: Coded Allergies: No Known Allergies (Unverified , 02/06/20) Objective Last 24 Hour Vital Signs Date Time Temp Pulse Resp B/P (MAP) Pulse Ox O2 Delivery O2 Flow Rate FiO2 02/10/20 16:00 97.9 73 18 123/87 (99) 96 02/10/20 14:09 144/85 02/10/20 12:00 98.3 77 19 144/85 (104) 96 02/10/20 09:00 Room Air 02/10/20 08:39 77 151/83 02/10/20 08:00 98.5 77 19 151/83 (105) 96 02/10/20 05:10 134/76 02/10/20 04:00 97.0 66 22 150/88 (108) 97 02/10/20 00:00 97.4 69 24 134/76 (95) 97 02/09/20 22:14 Room Air 02/09/20 21:49 134/72 02/09/20 21:49 84 134/72 Intake and Output 02/09/20 02/10/20 19:00 07:00 Intake Total 480 ml Output Total 350 ml Balance 130 ml Intake Free Water 120 ml Tube Feeding 360 ml Output Urine Total 350 ml Laboratory Tests 02/10/20 04:00: White Blood Count 6.5, Red Blood Count 3.18L, Hemoglobin 8.7L, Hematocrit 27.9L, Mean Corpuscular Volume 88, Mean Corpuscular Hemoglobin 27.4, Mean Corpuscular Hemoglobin Concent 31.2L, Red Cell Distribution Width 17.5H, Platelet Count 122L , Mean Platelet Volume 6.7, Neutrophils (%) (Auto) , Lymphocytes (%) (Auto) , Monocytes (%) (Auto) , Eosinophils (%) (Auto) , Basophils (%) (Auto) , Differential Total Cells Counted 100, Neutrophils % (Manual) 90H, Lymphocytes % (Manual) 7L, Monocytes % (Manual) 3, Eosinophils % (Manual) 0, Basophils % (Manual) 0, Band Neutrophils 0, Platelet Estimate DecreasedL, Platelet Morphology Normal, Hypochromasia 2+, Anisocytosis 1+, Sodium Level 148H, Potassium Level 3.8, Chloride Level 112H, Carbon Dioxide Level 22, Anion Gap 14, Blood Urea Nitrogen 99H, Creatinine 4.1H, Estimat Glomerular Filtration Rate 10.5, Glucose Level 162H, Calcium Level 7.6L, Total Bilirubin 0.3, Aspartate Amino Transf (AST/SGOT) 17, Alanine Aminotransferase (ALT/SGPT) 14, Alkaline Phosphatase 71, Total Protein 5.5L, Albumin 1.7L, Globulin 3.8, Albumin/Globulin Ratio 0.4L Height (Feet): 5 Height (Inches): 6.00 Weight (Pounds): 160 Assessment/Plan Problem List: (1) Congestive heart failure ICD Codes: I50.9 - Heart failure, unspecified SNOMED: 23023987 (2) Anemia ICD Codes: D64.9 - Anemia, unspecified SNOMED: 707716363 (3) Diabetic nephropathy ICD Codes: E11.21 - Type 2 diabetes mellitus with diabetic nephropathy SNOMED: 15756304, 210812382 (4) Renal failure ICD Codes: N19 - Unspecified kidney failure SNOMED: 42724440 Qualifiers: Qualified Codes: N19 - Unspecified kidney failure (5) Failure to thrive SNOMED: 42410572 Qualifiers: Qualified Codes: R62.7 - Adult failure to thrive (6) Pneumonia ICD Codes: J18.9 - Pneumonia, unspecified organism SNOMED: 147426690 Qualifiers: Qualified Codes: J18.9 - Pneumonia, unspecified organism (7) UTI (urinary tract infection) ICD Codes: N39.0 - Urinary tract infection, site not specified SNOMED: 12293405 Qualifiers: Qualified Codes: N39.0 - Urinary tract infection, site not specified (8) Renal failure (ARF), acute on chronic ICD Codes: N17.9 - Acute kidney failure, unspecified; N18.9 - Chronic kidney disease, unspecified SNOMED: 336143578 Status: stable Assessment/Plan: apparently daughter wants to do comfort care worsening renal function anemia malnutrtion obs reviewed chart and labs Janes Faust MD Feb 10, 2020 20:21
[2020-02-11] MEDS: NovoLOG Insulin Flexpen SUBQ SCH ×4 (00:55→18:27)
[2020-02-11 04:00] VITALS: BP 158/77
[2020-02-11] MEDS: HydrALAZINE 25mg tab NG SCH ×3 (06:35→22:25)
--- NOTE | 2020-02-11 07:03 | NUR ---
NURSE HAND-OFF: Important Events on Shift: N/A Patient Status: Stable Diet: Nephro/NPO midnight 02/10 Pending Orders: EGD/PEG placement scheduled for 02/10 Pending Results/Labs: No labs Pending MD notification: N/A Latest Vital Signs: Temperature 97.2 , Pulse 66 , B/P 158 /77 , Respiratory Rate 22 , O2 SAT 94 , Room Air, O2 Flow Rate 2.0 . Vital Sign Comment: Latest Barrett Fall Score: 75 Fall Risk: High Risk Safety Measures: Call light Within Reach, Bed Alarm Zone 2, Side Rails Side Rails x3, Bed position Low and Locked. Fall Precautions: Yellow Socks Addendum: 02/11/20 at 0721 by RADHIKA PLEITEZ RN Report given to BONG Mclaughlin
[2020-02-11 08:00] VITALS: BP 165/85
--- NOTE | 2020-02-11 08:00 | NUR ---
NURSE NOTES: pt is in the bed awake. respiration is even and unlabored on room air. no facial grimacing for pain noted. HOB elevated, remains on NPO pending swallow study, no acute distress noted at this time, will continue to monitor.
[2020-02-11] MEDS: Carvedilol 25mg Tab NG SCH ×2 (09:35→22:24)
[2020-02-11] MEDS: Docusate 100mg/10ml Liq NG SCH ×2 (09:36→18:05)
--- NOTE | 2020-02-11 10:39 | Nephrology Progress Note ---
Assessment/Plan Problem List: (1) Renal failure (ARF), acute on chronic (2) COVID-19 (3) UTI (urinary tract infection) (4) Congestive heart failure (5) Anemia (6) Diabetic nephropathy Assessment Renal failure, etiology unclear. Most likely secondary to heart failure. And or diabetes Patient has history of diabetes mellitus since she is receiving metformin and oral hypoglycemic agents Pneumonia UTI Mild anemia Plan February 10: No chemistry panel today. Patient has NG tube. Patient remains full code on the record. However it appears that the family are not agreeable with any tubing or invasive measures. r d manager and social work assistant to follow- up with family regarding further treatment plan. Not much to add from renal standpoint in view of family's decision at this time. February 09: Labs reviewed. I received another message from which I shared with primary physician and the consultants indicating that the family does not want dialysis or invasive tubes and they are seeking comfort care and hospice. At this point there is not much to add from renal standpoint to view. Case management and discharge planning consultation and coordination with PMD. February 08: Labs were reviewed. Medication list reviewed. Yesterday I received a call from Dr. Recinos the patient's primary physician who opposes initiating dialysis on the patient due to her multiple medical problems and dementia. Later on I received a text from him that the daughter is talking to family about home hospice. At this time we will continue her supportive noninvasive care. Will start the patient off clonidine patch for high blood pressure. February 07: Discussed with BONG Javier. Labs reviewed. 2D echo indicates LV function and ejection fraction in mid 50s. Renal parameters unchanged. Calculated GFR between 10-11. We will continue to optimize cardiac status. In my opinion the patient requires dialysis treatment and ultrafiltration if agg ressive approach is our plan based on patient being full code. I will discuss the matter with the patient's daughter. Will also discuss with PMD Dr. Riojas. February 06: Continue to monitor renal parameters. 2D echocardiogram results and kidney ultrasound results are pending. Hemoglobin A1c results suggestive of diabetes mellitus [id number]. Will continue to optimize cardiac status. Hydralazine as an afterload reduction ordered. Allopurinol for high uric acid ordered. February 05: Cornelius 2D echo Urine studies Avoid nephrotoxic's Antibiotics Per orders KIDNEY OMARI: * Mildly increased renal echogenicity. Findings are concerning for intrinsic/medical renal disease. * No evidence of hydronephrosis bilaterally. * Bilateral simple appearing renal cysts. * Additional 2 cm hypoechoic possible cyst versus mass in the left kidney. Periventricular evaluation with MRI of the abdomen, ideally without and with contrast. * Bladder decompressed by Cornelius catheter, precluding its evaluation. * Trace ascites incidentally identified. * Cholelithiasis incidentally identified. Subjective ROS Limited/Unobtainable: Yes Objective Objective Last 24 Hour Vital Signs Date Time Temp Pulse Resp B/P (MAP) Pulse Ox O2 Delivery O2 Flow Rate FiO2 02/11/20 09:35 69 165/85 02/11/20 08:00 98.4 69 20 165/85 (111) 94 02/11/20 06:35 158/77 02/11/20 04:00 97.2 66 22 158/77 (104) 94 02/10/20 23:56 98.3 78 21 158/70 (99) 96 02/10/20 21:30 170/68 02/10/20 21:30 67 170/68 02/10/20 21:00 Room Air 02/10/20 20:00 97.5 67 21 170/68 (102) 95 02/10/20 16:00 97.9 73 18 123/87 (99) 96 02/10/20 14:09 144/85 02/10/20 12:00 98.3 77 19 144/85 (104) 96 Intake and Output 02/10/20 02/11/20 19:00 07:00 Intake Total 510 ml Output Total 350 ml 500 ml Balance 160 ml -500 ml Intake Free Water 150 ml Tube Feeding 360 ml Output Urine Total 350 ml 500 ml # Voids 1 # Bowel Movements 1 No chemistry panel today Height (Feet): 5 Height (Inches): 6.00 Weight (Pounds): 160 General Appearance: no apparent distress, lethargic Cardiovascular: normal rate Respiratory/Chest: decreased breath sounds Abdomen: soft Objective No change Quirino Cormier MD Feb 11, 2020 10:39
--- NOTE | 2020-02-11 10:55 | Pulmonology Progress Note ---
Subjective ROS Limited/Unobtainable: Yes Interval Events: None new Constitutional: Denies: fever HEENT: Repors: no symptoms Respiratory: Reports: no symptoms Cardiovascular: Reports: no symptoms Gastrointestinal/Abdominal: Reports: no symptoms Allergies: Coded Allergies: No Known Allergies (Unverified , 02/06/20) Objective Last 24 Hour Vital Signs Date Time Temp Pulse Resp B/P (MAP) Pulse Ox O2 Delivery O2 Flow Rate FiO2 02/11/20 09:35 69 165/85 02/11/20 08:00 98.4 69 20 165/85 (111) 94 02/11/20 06:35 158/77 02/11/20 04:00 97.2 66 22 158/77 (104) 94 02/10/20 23:56 98.3 78 21 158/70 (99) 96 02/10/20 21:30 170/68 02/10/20 21:30 67 170/68 02/10/20 21:00 Room Air 02/10/20 20:00 97.5 67 21 170/68 (102) 95 02/10/20 16:00 97.9 73 18 123/87 (99) 96 02/10/20 14:09 144/85 02/10/20 12:00 98.3 77 19 144/85 (104) 96 Intake and Output 02/10/20 02/11/20 19:00 07:00 Intake Total 510 ml Output Total 350 ml 500 ml Balance 160 ml -500 ml Intake Free Water 150 ml Tube Feeding 360 ml Output Urine Total 350 ml 500 ml # Voids 1 # Bowel Movements 1 General Appearance: no acute distress HEENT: mucous membranes moist Respiratory: chest wall non-tender, lungs clear Cardiovascular: normal peripheral pulses Abdomen: normal bowel sounds Current Medications Medications (Trade) Dose Ordered Sig/Maria Fernanda Route PRN Reason Start Time Stop Time Status Last Admin Dose Admin Allopurinol (allopurinoL) 300 mg DAILY NG 02/07/20 09:00 03/08/20 08:59 02/11/20 09:35 Carvedilol (Coreg) 25 mg EVERY 12 HOURS NG 02/06/20 21:00 03/07/20 20:59 02/11/20 09:35 Clonidine HCl (Catapres TTS-3) 1 patch QWEEK TDERMAL 02/09/20 11:00 05/09/20 10:59 02/09/20 10:32 Dextrose (Dextrose 50%) 25 ml Q30M PRN IV Hypoglycemia 02/06/20 14:15 05/06/20 14:14 Dextrose (Dextrose 50%) 50 ml Q30M PRN IV Hypoglycemia 02/06/20 14:15 05/06/20 14:14 Docusate Sodium (Colace) 100 mg TWICE A DAY NG 02/06/20 18:00 03/07/20 17:59 02/11/20 09:36 Epoetin Manoj (Epoetin Manoj-EPBX(NON ESRD)) 10,000 unit FRI-FRI-FRI SUBQ 02/11/20 21:00 05/11/20 20:59 Famotidine (Pepcid) 20 mg BID ORAL 02/10/20 18:00 05/10/20 17:59 02/11/20 09:36 Haloperidol Lactate (Haldol) 5 mg Q6H PRN IM Agitation 02/07/20 23:15 03/23/20 23:14 Hydralazine HCl (Apresoline) 25 mg Q8HR NG 02/08/20 14:00 05/07/20 08:59 02/11/20 06:35 Insulin Aspart (NovoLOG) Q6HR SUBQ 02/06/20 18:00 05/06/20 17:59 02/10/20 18:00 Assessment/Plan Assessment/Plan IMPRESSION: 1. COVID-19 pneumonia. 2. Cardiomegaly/CHF. 3. Renal failure. DISCUSSION: Continue oxygen via nasal canulae; currently on RA Remdesiver contraindicated due to renal failure Hold off on steroids as minimal hypoxemia I will follow as staff consultant. Unable to swallow due to poor mentation Will need PEG Family requesting home hospice Delmar Root Omar Syed MD Feb 11, 2020 10:55
--- NOTE | 2020-02-11 11:51 | Surgery Progress Note ---
Surgery Progress Note Subjective Additional Comments ill appearing Objective Last 24 Hour Vital Signs Date Time Temp Pulse Resp B/P (MAP) Pulse Ox O2 Delivery O2 Flow Rate FiO2 02/11/20 09:35 69 165/85 02/11/20 08:00 98.4 69 20 165/85 (111) 94 02/11/20 06:35 158/77 02/11/20 04:00 97.2 66 22 158/77 (104) 94 02/10/20 23:56 98.3 78 21 158/70 (99) 96 02/10/20 21:30 170/68 02/10/20 21:30 67 170/68 02/10/20 21:00 Room Air 02/10/20 20:00 97.5 67 21 170/68 (102) 95 02/10/20 16:00 97.9 73 18 123/87 (99) 96 02/10/20 14:09 144/85 02/10/20 12:00 98.3 77 19 144/85 (104) 96 I&O Intake and Output 02/10/20 02/11/20 19:00 07:00 Intake Total 510 ml Output Total 350 ml 500 ml Balance 160 ml -500 ml Intake Free Water 150 ml Tube Feeding 360 ml Output Urine Total 350 ml 500 ml # Voids 1 # Bowel Movements 1 Dressing: other Wound: other Cardiovascular: RSR Respiratory: decreased breath sounds Abdomen: soft, non-tender, present bowel sounds Extremities: no tenderness, no cyanosis Plan Problems: (1) UTI (urinary tract infection) (2) Renal failure (ARF), acute on chronic (3) COVID-19 Assessment & Plan: ++ abx as per ID will follow with recs Lungs: Subsegmental atelectasis versus infiltrates in bilateral lung bases. Pulmonary vascular congestion. Pleural space: Small bilateral pleural effusions. Heart: Cardiomegaly. Mediastinum: Unremarkable. Bones/joints: Degenerative changes throughout the visualized spine and shoulder joints. Vasculature: Atherosclerotic calcifications within the aortic arch. Tubes, lines and devices: Telemetry leads overlie the thorax. IMPRESSION: 1. Findings concerning for CHF. Cardiomegaly with pulmonary vascular congestion and small bilateral pleural effusions. 2. Subsegmental atelectasis versus infiltrates in bilateral lung bases. (4) Congestive heart failure (5) Anemia (6) Diabetic nephropathy (7) Failure to thrive Assessment & Plan: DAILY ESTIMATED NEEDS: Needs based on Wounds, DM, ARF/ 53.4kg abw 25-30 kcals/kg 6462-3113 total kcals 1-1.5 (increase w/ renal fxn improvement) g protein/kg 53-80 g total protein 25-30 mL/kg 5912-7312 total fluid mLs NUTRITION DIAGNOSIS: * Swallowing difficulty R/T dysphagia, decreased cognitive fxn as evidenced by s/p NGT insertion @ SNF, on NGT feeds, pending [facility] eval. * Increased kcal/prot needs R/T wound healing as evidenced by pt admitted w/ multiple wound per photos, pending eval * Altered nutrition related lab values R/T diabetes, cardiac hx, renal dysfunction as evidenced by elev BGs (230, 228), A1C 8.2, BNP 23802, elev creat (4.1-> 3.9), elev BUN (93->90). CURRENT TF:Nepro @ 30ml/hr x 24 hrs PO DIET RECOMMENDATIONS: IF SAFE FOR ORAL DIET -> CCHO LOW, LOW NA/ texture per [facility] ENTERAL NUTRITION RECOMMENDATIONS: Glucerna 1.5 @ 40ml/hr x 24 hrs to provide 960ml, 1440kcal, 79g prot, 728ml free water * W/ improving renal fxn and lytes wnl, rec TF change to Glucerna 1.5 * Initiate GLucerna 1.5 @20ml/hr x 4hrs, advance 10ml q 4 hrs as tolerated to goal : will provide 100% est kcal/prot needs @ goal * HOB over 30 degrees/ water flush per MD ADDITIONAL RECOMMENDATIONS: * Per SNF: HT=62" TA=104eht (02/05/20) * Monitor renal fxn and lytes, need for renal TF formula (creat trending down, K, phos, mag wnl) * Consider long acting insulin for improved BG control * Wound healing: Add Vit C 250mg QD + Silvano BID f/up w/ WC eval * Monitor for oral diet vs TF : [facility] eval pending (8) Renal failure (9) Pneumonia (10) Deep tissue injury Assessment & Plan: Patient identified on admission to have a large sacral deep tissue injury non-blanchable erythema blistering epidermis intact no drainage. Unknown duration. Tenderness difficult to a certain based on clinical examinations patient's history. Labs noted. Patient high risk for decubitus ulcer formation worsening condition. NG tube in place currently. Nutritional optimization. Turn every 2 hours. Offload pressure with pillows. OPTi foam dressing to sacrum. Care plan initiated. Thank you will follow with recommendations Pt presented on admission with multiple Pressure Injuries, Fx L Hip. Large contusion noted to L Hip/ Lateral L Femur. Sacral DTPI partially opened and is 75% necrotic, 25% moist erythematous and clear skin flap that is loose.(L)5.5cm x (W)9cm. Small amt serous exudate noted. Non-Blanchable erythema periwound. Partial thickness wound noted to L Hip. Base of wound is moist and viable. edges adherent to base of wound(L)3cm x (W)2.5cm. L Heel is boggy with non-Blanchable erythema with delineated margins. L heel is boggy with non-blanchable erythema. Tx.Plan: Cleanse Sacral wound with Saline. Apply Therahoney. Apply Moisture Barrier Paste periwound. Cover with Optifoam drsg. Change every 3 days and prn. Apply Moisture Barrier Paste to L Hip wound. Cover with Optifoam drsg. Change every 3 days and prn Apply Cavilon Skin Barrier to both heels. Cover each heel with Optifoam drsg. Change every 7 days and prn. Reposition at least every 2hours or as tolerated. Off-load heels with pillow. APM/CHE Mattress overlay. Chris Lei Feb 11, 2020 11:51
[2020-02-11 12:00] VITALS: BP 154/73
--- NOTE | 2020-02-11 12:40 | General Progress Note ---
Subjective ROS Limited/Unobtainable: No Allergies: Coded Allergies: No Known Allergies (Unverified , 02/06/20) Objective Last 24 Hour Vital Signs Date Time Temp Pulse Resp B/P (MAP) Pulse Ox O2 Delivery O2 Flow Rate FiO2 02/11/20 09:35 69 165/85 02/11/20 09:00 Room Air 02/11/20 08:00 98.4 69 20 165/85 (111) 94 02/11/20 06:35 158/77 02/11/20 04:00 97.2 66 22 158/77 (104) 94 02/10/20 23:56 98.3 78 21 158/70 (99) 96 02/10/20 21:30 170/68 02/10/20 21:30 67 170/68 02/10/20 21:00 Room Air 02/10/20 20:00 97.5 67 21 170/68 (102) 95 02/10/20 16:00 97.9 73 18 123/87 (99) 96 02/10/20 14:09 144/85 Intake and Output 02/10/20 02/11/20 19:00 07:00 Intake Total 510 ml Output Total 350 ml 500 ml Balance 160 ml -500 ml Intake Free Water 150 ml Tube Feeding 360 ml Output Urine Total 350 ml 500 ml # Voids 1 # Bowel Movements 1 Height (Feet): 5 Height (Inches): 6.00 Weight (Pounds): 160 General Appearance: alert EENT: normal ENT inspection Neck: supple Cardiovascular: normal rate Respiratory/Chest: decreased breath sounds Abdomen: normal bowel sounds, non tender, soft Extremities: non-tender Assessment/Plan Status: stable Assessment/Plan: DYSPHAGIA Covod positive HTN elevated trop renal insuf family refused peg ? hospice care will fu Gopal Winter MD Feb 11, 2020 12:40
--- NOTE | 2020-02-11 12:54 | Infectious Diseases Prog Note ---
Assessment/Plan Assessment/Plan IMPRESSION: COVID-19 pneumonia, positive since 01/18 pyuria, VRE bacteruria CHF, Failure to thrive, Severe protein malnutrition, Diabetes mellitus, Acute renal failure. 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 RECOMMENDATION: Family refused HD & PEG placement Observe off antibiotic Family is considering hospice Subjective ROS Limited/Unobtainable: Yes Respiratory: Reports: dry cough Neurologic: Reports: confusion, other - on restraint Allergies: Coded Allergies: No Known Allergies (Unverified , 02/06/20) Objective Last 24 Hour Vital Signs Date Time Temp Pulse Resp B/P (MAP) Pulse Ox O2 Delivery O2 Flow Rate FiO2 02/11/20 09:35 69 165/85 02/11/20 09:00 Room Air 02/11/20 08:00 98.4 69 20 165/85 (111) 94 02/11/20 06:35 158/77 02/11/20 04:00 97.2 66 22 158/77 (104) 94 02/10/20 23:56 98.3 78 21 158/70 (99) 96 02/10/20 21:30 170/68 02/10/20 21:30 67 170/68 02/10/20 21:00 Room Air 02/10/20 20:00 97.5 67 21 170/68 (102) 95 02/10/20 16:00 97.9 73 18 123/87 (99) 96 02/10/20 14:09 144/85 Height (Feet): 5 Height (Inches): 6.00 Weight (Pounds): 160 General Appearance: no acute distress HEENT: mucous membranes moist Respiratory/Chest: lungs clear Cardiovascular: normal rate Abdomen: soft, non tender, other - NG tube Extremities: no edema Neurologic/Psychiatric: disoriented Current Medications Medications (Trade) Dose Ordered Sig/Maria Fernanda Route PRN Reason Start Time Stop Time Status Last Admin Dose Admin Allopurinol (allopurinoL) 300 mg DAILY NG 02/07/20 09:00 03/08/20 08:59 02/11/20 09:35 Carvedilol (Coreg) 25 mg EVERY 12 HOURS NG 02/06/20 21:00 03/07/20 20:59 02/11/20 09:35 Clonidine HCl (Catapres TTS-3) 1 patch QWEEK TDERMAL 02/09/20 11:00 05/09/20 10:59 02/09/20 10:32 Dextrose (Dextrose 50%) 25 ml Q30M PRN IV Hypoglycemia 02/06/20 14:15 05/06/20 14:14 Dextrose (Dextrose 50%) 50 ml Q30M PRN IV Hypoglycemia 02/06/20 14:15 05/06/20 14:14 Docusate Sodium (Colace) 100 mg TWICE A DAY NG 02/06/20 18:00 03/07/20 17:59 02/11/20 09:36 Epoetin Manoj (Epoetin Manoj-EPBX(NON ESRD)) 10,000 unit SUBQ 02/11/20 21:00 05/11/20 20:59 Famotidine (Pepcid) 20 mg BID ORAL 02/10/20 18:00 05/10/20 17:59 02/11/20 09:36 Haloperidol Lactate (Haldol) 5 mg Q6H PRN IM Agitation 02/07/20 23:15 03/23/20 23:14 Hydralazine HCl (Apresoline) 25 mg Q8HR NG 02/08/20 14:00 05/07/20 08:59 02/11/20 06:35 Insulin Aspart (NovoLOG) Q6HR SUBQ 02/06/20 18:00 05/06/20 17:59 02/10/20 18:00 Viet Harper MD Feb 11, 2020 12:54
--- NOTE | 2020-02-11 13:05 | Cardiology Progress Note ---
Assessment/Plan Assessment/Plan Assessment/Plan Assessment/Plan 1. Elevated troponin, due to the patient's renal failure with BUN of 90 and creatinine of 4.1. Levels are low and flat. The patient is nonverbal and not complained of chest pain. On Coreg 25 mg b.i.d. and Lipitor. Her ejection fraction was 50%. 2. Hypertension, on Coreg 25 mg b.i.d. and p.r.n., hydralazine. 3. Hyperlipidemia, on Lipitor. 4. COVID positive. 5. Dysphagia, status post NG tube placement, 6. UTI. 7. Diabetes. 8. Severe protein malnutrition. Subjective Cardiovascular: Reports: no symptoms Respiratory: Reports: no symptoms Gastrointestinal/Abdominal: Reports: no symptoms Genitourinary: Reports: no symptoms Subjective COVERAGE FOR [employer] Objective Last 24 Hour Vital Signs Date Time Temp Pulse Resp B/P (MAP) Pulse Ox O2 Delivery O2 Flow Rate FiO2 02/11/20 09:35 69 165/85 02/11/20 09:00 Room Air 02/11/20 08:00 98.4 69 20 165/85 (111) 94 02/11/20 06:35 158/77 02/11/20 04:00 97.2 66 22 158/77 (104) 94 02/10/20 23:56 98.3 78 21 158/70 (99) 96 02/10/20 21:30 170/68 02/10/20 21:30 67 170/68 02/10/20 21:00 Room Air 02/10/20 20:00 97.5 67 21 170/68 (102) 95 02/10/20 16:00 97.9 73 18 123/87 (99) 96 02/10/20 14:09 144/85 Intake and Output 02/10/20 02/11/20 19:00 07:00 Intake Total 510 ml Output Total 350 ml 500 ml Balance 160 ml -500 ml Intake Free Water 150 ml Tube Feeding 360 ml Output Urine Total 350 ml 500 ml # Voids 1 # Bowel Movements 1 Bennett Barron MD Feb 11, 2020 13:04
--- NOTE | 2020-02-11 14:22 | NUR ---
CASE MANAGEMENT:REVIEW SI;COVID PNA. CHF. RENAL FAILURE. S/P PEG PLACEMENT TODAY 98.4 72 22 165/85 94% ON RA IS;HYDRALAZINE Q8 COREG Q12 PEPCID BID MED SURG STATUS DCP;FROM [facility]
[2020-02-11 16:00] VITALS: BP 151/78
--- NOTE | 2020-02-11 19:24 | NUR ---
HAND-OFF: Report given to RAND.
--- NOTE | 2020-02-11 19:57 | NUR ---
NURSE NOTES: RECEIVED PATIENT LYING IN BED, EYES OPEN, NON VERBAL, ALL NEEDS ANTICIPATED AND MET BY NURSING STAFF, ASPIRATION PRECAUTIONS OBSERVED AT ALL TIMES. NO SIGNS AND SYMPTOMS OF ACUTE CARDIO RESPIRATORY DISTRESS/SHORTNESS OF BREATH, BILATERAL UPPER EXTREMITIES EDEMATOUS. BILATERAL WRIST RESTRAINT INTACT TO PREVENT PATIENT FROM REMOVING TUBINGS. ABDOMEN SOFT/AUDIBLE BOWEL SOUNDS, NO REPORT OF N/V/D. NGT IN RIGHT NARE, TOLERATING FEEDING. DRESSINGS DRY AND INTACT TO SACRAL/HIPS/ELBOWS/HEELS/ANKLES, REPOSITIONED FOR COMFORT/PRESSURE RELIEF, TOLERATED WELL. SIDE RAILS UP X3/BED IN LOWEST POSITION FOR SAFETY/FREQUENT ROUNDING FOR SAFETY/NEEDS. ISOLATION PRECAUTIONS OBSERVED AT ALL TIMES. CONTINUE WITH CURRENT PLAN OF CARE. NAD.
[2020-02-11 20:00] VITALS: BP 142/93
[2020-02-11] MEDS ORDERED: Epoetin Alfa-EPBX (NON ESRD)10,000 unit/ml vial SUBQ SCH (21:00)
--- NOTE | 2020-02-11 22:05 | General Progress Note ---
Subjective ROS Limited/Unobtainable: Yes Allergies: Coded Allergies: No Known Allergies (Unverified , 02/06/20) Objective Last 24 Hour Vital Signs Date Time Temp Pulse Resp B/P (MAP) Pulse Ox O2 Delivery O2 Flow Rate FiO2 02/11/20 16:00 97.5 71 20 151/78 (102) 96 02/11/20 14:27 154/73 02/11/20 12:00 98.2 72 20 154/73 (100) 95 02/11/20 09:35 69 165/85 02/11/20 09:00 Room Air 02/11/20 08:00 98.4 69 20 165/85 (111) 94 02/11/20 06:35 158/77 02/11/20 04:00 97.2 66 22 158/77 (104) 94 02/10/20 23:56 98.3 78 21 158/70 (99) 96 Intake and Output 02/10/20 02/11/20 19:00 07:00 Intake Total 510 ml Output Total 350 ml 500 ml Balance 160 ml -500 ml Intake Free Water 150 ml Tube Feeding 360 ml Output Urine Total 350 ml 500 ml # Voids 1 # Bowel Movements 1 Height (Feet): 5 Height (Inches): 6.00 Weight (Pounds): 160 Assessment/Plan Problem List: (1) Congestive heart failure ICD Codes: I50.9 - Heart failure, unspecified SNOMED: 30792360 (2) Anemia ICD Codes: D64.9 - Anemia, unspecified SNOMED: 125675459 (3) Diabetic nephropathy ICD Codes: E11.21 - Type 2 diabetes mellitus with diabetic nephropathy SNOMED: 30079818, 698521084 (4) Renal failure ICD Codes: N19 - Unspecified kidney failure SNOMED: 51161180 Qualifiers: Qualified Codes: N19 - Unspecified kidney failure (5) Failure to thrive SNOMED: 65415684 Qualifiers: Qualified Codes: R62.7 - Adult failure to thrive (6) Pneumonia ICD Codes: J18.9 - Pneumonia, unspecified organism SNOMED: 468685014 Qualifiers: Qualified Codes: J18.9 - Pneumonia, unspecified organism (7) UTI (urinary tract infection) ICD Codes: N39.0 - Urinary tract infection, site not specified SNOMED: 41948905 Qualifiers: Qualified Codes: N39.0 - Urinary tract infection, site not specified (8) Renal failure (ARF), acute on chronic ICD Codes: N17.9 - Acute kidney failure, unspecified; N18.9 - Chronic kidney disease, unspecified SNOMED: 305321555 Status: stable, progressing Assessment/Plan: dysphagia pna resp insuff esrd obs comfort care malnutrition afebrile will follow daughter requests Janes Fuast MD Feb 11, 2020 22:05
--- NOTE | 2020-02-11 23:33 | Psych Consult Progress Note ---
Psychiatry Progress Note Psychiatry Progress Note Subjective cont to have episodes of agitation the pt is not violent Medications Current Medications Medications (Trade) Dose Ordered Sig/Maria Fernanda Route PRN Reason Start Time Stop Time Status Last Admin Dose Admin Allopurinol (allopurinoL) 300 mg DAILY NG 02/07/20 09:00 03/08/20 08:59 02/11/20 09:35 Carvedilol (Coreg) 25 mg EVERY 12 HOURS NG 02/06/20 21:00 03/07/20 20:59 02/11/20 22:24 Clonidine HCl (Catapres TTS-3) 1 patch QWEEK TDERMAL 02/09/20 11:00 05/09/20 10:59 02/09/20 10:32 Dextrose (Dextrose 50%) 25 ml Q30M PRN IV Hypoglycemia 02/06/20 14:15 05/06/20 14:14 Dextrose (Dextrose 50%) 50 ml Q30M PRN IV Hypoglycemia 02/06/20 14:15 05/06/20 14:14 Docusate Sodium (Colace) 100 mg TWICE A DAY NG 02/06/20 18:00 03/07/20 17:59 02/11/20 18:05 Epoetin Manoj (Epoetin Manoj-EPBX(NON ESRD)) 10,000 unit FRI-FRI-FRI SUBQ 02/11/20 21:00 05/11/20 20:59 02/11/20 22:24 Famotidine (Pepcid) 20 mg BID ORAL 02/10/20 18:00 05/10/20 17:59 02/11/20 18:05 Haloperidol Lactate (Haldol) 5 mg Q6H PRN IM Agitation 02/07/20 23:15 03/23/20 23:14 Hydralazine HCl (Apresoline) 25 mg Q8HR NG 02/08/20 14:00 05/07/20 08:59 02/11/20 22:25 Insulin Aspart (NovoLOG) Q6HR SUBQ 02/06/20 18:00 05/06/20 17:59 02/11/20 18:27 Neurological/Psychiatric: Reports: anxiety, depressed, emotional problems Allergies: Coded Allergies: No Known Allergies (Unverified , 02/06/20) Objective Data Height (Feet): 5 Height (Inches): 6.00 Weight (Pounds): 160 General Appearance: alert Additional Comments: awake, disoriented. Mood is agitated. Affect is flat. Thought process, there is a paucity of thought content. Thought content, no suicidal or homicidal ideation. Cognition is impaired. Insight and judgment impaired. Assessment/Plan [place] I: ASSESSMENT: [place] I Dementia with behavior disturbance. [place] II Deferred. [place] III As above. [place] IV Moderate. [place] V 20. PLAN: 1. Haldol as needed. 2. Bilateral self-restraints. Status: stable, progressing Status Narrative ASSESSMENT: [place] I Dementia with behavior disturbance. [place] II Deferred. [place] III As above. [place] IV Moderate. [place] V 20. PLAN: 1. Haldol as needed. 2. Bilateral self-restraints. Assessment/Plan: ASSESSMENT: [place] I Dementia with behavior disturbance. [place] II Deferred. [place] III As above. [place] IV Moderate. [place] V 20. PLAN: 1. Haldol as needed. 2. Bilateral self-restraints. Eboni Thomas MD Feb 11, 2020 23:33
[2020-02-12] VITALS: BP 136/89
[2020-02-12] MEDS: NovoLOG Insulin Flexpen SUBQ SCH ×6 (01:03→23:56)
[2020-02-12 04:00] VITALS: BP 145/76
[2020-02-12] MEDS: HydrALAZINE 25mg tab NG SCH ×3 (06:20→22:00)
--- NOTE | 2020-02-12 07:40 | NUR ---
NURSE HAND-OFF: Important Events on Shift:[NGT RIGHT NARE-SWALLOW EVAL ON FRIDAY] Patient Status: [STABLE] Diet: [NEPRO 30ML/HR] Pending Orders: [SWALLOW EVAL ON FRIDAY] Pending Results/Labs:[N/A] Pending MD notification:[N/A] Latest Vital Signs: Temperature 97.5 , Pulse 81 , B/P 141 /78 , Respiratory Rate 18 , O2 SAT 94 , Room Air, O2 Flow Rate 2.0 . Vital Sign Comment: [STABLE, AFEBRILE] Latest Barrett Fall Score: 75 Fall Risk: High Risk Safety Measures: Call light Within Reach, Bed Alarm Zone 2, Side Rails Side Rails x3, Bed position Low and Locked. Fall Precautions: Yellow Socks Report given to [BONG CONTRERAS].
--- NOTE | 2020-02-12 07:49 | NUR ---
NURSE NOTES: Recevived report from SONAL Raymundo. Patient observed to be awake, alert, and oriented x1. Responsive when called by name. Patient seen lying in bed with HOB elevated, currently on room air. No s/sx of SOB/Distress, no s/sx of pain observed. Currently placed on contact and droplet precaution for (+) COVID. NGT placed on right nare, inplace, intact and tolerating feeding well. Cornelisu catheter inplace, intact, and running well. IV site located on LAC g20 sl. Asymptomatic, inplace and intact. Patient on bilateral wrist restraints good circulation present, pulses palpable, skin intact, and extremities with good range of motion. Bed placed on lowest and locked position, call light placed within reach and will continue to monitor.
[2020-02-12 08:00] VITALS: BP 157/78
[2020-02-12] MEDS: Carvedilol 25mg Tab NG SCH ×2 (08:18→20:59)
[2020-02-12] MEDS: Docusate 100mg/10ml Liq NG SCH ×2 (08:18→18:00)
--- NOTE | 2020-02-12 10:56 | Cardiology Progress Note ---
Assessment/Plan Status: stable Assessment/Plan Assessment/Plan Assessment/Plan 1. Elevated troponin, due to the patient's renal failure with BUN of 90 and creatinine of 4.1. Levels are low and flat. The patient is nonverbal and not complained of chest pain. On Coreg 25 mg b.i.d. and Lipitor. Her ejection fraction was 50%. 2. Hypertension, on Coreg 25 mg b.i.d. and p.r.n., hydralazine. 3. Hyperlipidemia, on Lipitor. 4. COVID positive. 5. Dysphagia, status post NG tube placement, 6. UTI. 7. Diabetes. 8. Severe protein malnutrition. Subjective Cardiovascular: Reports: no symptoms Respiratory: Reports: no symptoms Gastrointestinal/Abdominal: Reports: no symptoms Genitourinary: Reports: no symptoms Subjective C[employer] FOR [employer] Objective Last 24 Hour Vital Signs Date Time Temp Pulse Resp B/P (MAP) Pulse Ox O2 Delivery O2 Flow Rate FiO2 02/12/20 09:00 Room Air 02/12/20 08:18 81 157/78 02/12/20 08:00 97.0 81 19 157/78 (104) 94 02/12/20 06:20 141/78 02/12/20 04:00 97.5 81 18 145/76 (99) 94 02/12/20 00:00 97.5 86 20 136/89 (105) 94 02/11/20 22:25 136/89 02/11/20 22:24 86 136/89 02/11/20 21:00 Room Air 02/11/20 20:00 98.6 68 20 142/93 (109) 95 02/11/20 16:00 97.5 71 20 151/78 (102) 96 02/11/20 14:27 154/73 02/11/20 12:00 98.2 72 20 154/73 (100) 95 General Appearance: no apparent distress, alert EENT: PERRL/EOMI, normal ENT inspection, TMs normal, pharynx normal Neck: non-tender, normal alignment, supple, normal inspection, no JVD Rhythm: NSR Cardiovascular: normal peripheral pulses, normal rate Respiratory/Chest: chest wall non-tender, lungs clear, normal breath sounds Abdomen: normal bowel sounds, non tender, soft, no organomegaly Extremities: normal range of motion, non-tender, normal inspection, no calf tenderness, no swelling Neurologic: floor hand II-XII grossly normal, no motor/sensory deficits Intake and Output 02/11/20 02/12/20 19:00 07:00 Intake Total 300 ml Output Total 600 ml 500 ml Balance -600 ml -200 ml Intake Free Water 30 ml Tube Feeding 270 ml Output Urine Total 600 ml 500 ml # Voids 1 # Bowel Movements 1 Bennett Barron MD Feb 12, 2020 10:56
--- NOTE | 2020-02-12 11:55 | Pulmonology Progress Note ---
Subjective ROS Limited/Unobtainable: Yes Interval Events: None new Constitutional: Denies: fever HEENT: Repors: no symptoms Respiratory: Reports: no symptoms Cardiovascular: Reports: no symptoms Gastrointestinal/Abdominal: Reports: no symptoms Allergies: Coded Allergies: No Known Allergies (Unverified , 02/06/20) Objective Last 24 Hour Vital Signs Date Time Temp Pulse Resp B/P (MAP) Pulse Ox O2 Delivery O2 Flow Rate FiO2 02/12/20 09:00 Room Air 02/12/20 08:18 81 157/78 02/12/20 08:00 97.0 81 19 157/78 (104) 94 02/12/20 06:20 141/78 02/12/20 04:00 97.5 81 18 145/76 (99) 94 02/12/20 00:00 97.5 86 20 136/89 (105) 94 02/11/20 22:25 136/89 02/11/20 22:24 86 136/89 02/11/20 21:00 Room Air 02/11/20 20:00 98.6 68 20 142/93 (109) 95 02/11/20 16:00 97.5 71 20 151/78 (102) 96 02/11/20 14:27 154/73 02/11/20 12:00 98.2 72 20 154/73 (100) 95 Intake and Output 02/11/20 02/12/20 19:00 07:00 Intake Total 300 ml Output Total 600 ml 500 ml Balance -600 ml -200 ml Intake Free Water 30 ml Tube Feeding 270 ml Output Urine Total 600 ml 500 ml # Voids 1 # Bowel Movements 1 General Appearance: no acute distress HEENT: mucous membranes moist Respiratory: chest wall non-tender, lungs clear Cardiovascular: normal peripheral pulses Abdomen: normal bowel sounds Current Medications Medications (Trade) Dose Ordered Sig/Maria Fernanda Route PRN Reason Start Time Stop Time Status Last Admin Dose Admin Allopurinol (allopurinoL) 300 mg DAILY NG 02/07/20 09:00 03/08/20 08:59 02/12/20 08:17 Carvedilol (Coreg) 25 mg EVERY 12 HOURS NG 02/06/20 21:00 03/07/20 20:59 02/12/20 08:18 Clonidine HCl (Catapres TTS-3) 1 patch QWEEK TDERMAL 02/09/20 11:00 05/09/20 10:59 02/09/20 10:32 Dextrose (Dextrose 50%) 25 ml Q30M PRN IV Hypoglycemia 02/06/20 14:15 05/06/20 14:14 Dextrose (Dextrose 50%) 50 ml Q30M PRN IV Hypoglycemia 02/06/20 14:15 05/06/20 14:14 Docusate Sodium (Colace) 100 mg TWICE A DAY NG 02/06/20 18:00 03/07/20 17:59 02/12/20 08:18 Epoetin Manoj (Epoetin Manoj-EPBX(NON ESRD)) 10,000 unit FRI- SUBQ 02/11/20 21:00 05/11/20 20:59 02/11/20 22:24 Famotidine (Pepcid) 20 mg BID ORAL 02/10/20 18:00 05/10/20 17:59 02/12/20 08:17 Haloperidol Lactate (Haldol) 5 mg Q6H PRN IM Agitation 02/07/20 23:15 03/23/20 23:14 Hydralazine HCl (Apresoline) 25 mg Q8HR NG 02/08/20 14:00 05/07/20 08:59 02/12/20 06:20 Insulin Aspart (NovoLOG) Q6HR SUBQ 02/06/20 18:00 05/06/20 17:59 02/12/20 06:19 Assessment/Plan Assessment/Plan IMPRESSION: 1. COVID-19 pneumonia. 2. Cardiomegaly/CHF. 3. Renal failure. DISCUSSION: Continue oxygen via nasal canulae; currently on RA Remdesiver contraindicated due to renal failure Hold off on steroids as minimal hypoxemia I will follow as radiology receptionist. Unable to swallow due to poor mentation Will need PEG Family requesting home hospice Delmar Root Omar Syed MD Feb 12, 2020 11:55
[2020-02-12 12:00] VITALS: BP 141/91
--- NOTE | 2020-02-12 13:30 | NUR ---
NURSE NOTES: Patient pulled out NGT despite having restraints. Notified Dr. Winter, still awaiting call back for further orders.
--- NOTE | 2020-02-12 15:00 | Surgery Progress Note ---
Surgery Progress Note Subjective Additional Comments afebrile HD stable labs okay no n/v Objective Last 24 Hour Vital Signs Date Time Temp Pulse Resp B/P (MAP) Pulse Ox O2 Delivery O2 Flow Rate FiO2 02/12/20 14:00 141/91 02/12/20 12:00 98.4 77 19 141/91 (108) 96 02/12/20 09:00 Room Air 02/12/20 08:18 81 157/78 02/12/20 08:00 97.0 81 19 157/78 (104) 94 02/12/20 06:20 141/78 02/12/20 04:00 97.5 81 18 145/76 (99) 94 02/12/20 00:00 97.5 86 20 136/89 (105) 94 02/11/20 22:25 136/89 02/11/20 22:24 86 136/89 02/11/20 21:00 Room Air 02/11/20 20:00 98.6 68 20 142/93 (109) 95 02/11/20 16:00 97.5 71 20 151/78 (102) 96 I&O Intake and Output 02/11/20 02/12/20 19:00 07:00 Intake Total 300 ml Output Total 600 ml 500 ml Balance -600 ml -200 ml Intake Free Water 30 ml Tube Feeding 270 ml Output Urine Total 600 ml 500 ml # Voids 1 # Bowel Movements 1 Dressing: other Wound: other Cardiovascular: RSR Respiratory: decreased breath sounds Abdomen: soft, non-tender, present bowel sounds Extremities: no tenderness, no cyanosis Plan Problems: (1) UTI (urinary tract infection) (2) Renal failure (ARF), acute on chronic (3) COVID-19 Assessment & Plan: ++ abx as per ID will follow with recs Lungs: Subsegmental atelectasis versus infiltrates in bilateral lung bases. Pulmonary vascular congestion. Pleural space: Small bilateral pleural effusions. Heart: Cardiomegaly. Mediastinum: Unremarkable. Bones/joints: Degenerative changes throughout the visualized spine and shoulder joints. Vasculature: Atherosclerotic calcifications within the aortic arch. Tubes, lines and devices: Telemetry leads overlie the thorax. IMPRESSION: 1. Findings concerning for CHF. Cardiomegaly with pulmonary vascular congestion and small bilateral pleural effusions. 2. Subsegmental atelectasis versus infiltrates in bilateral lung bases. (4) Congestive heart failure (5) Anemia (6) Diabetic nephropathy (7) Failure to thrive Assessment & Plan: DAILY ESTIMATED NEEDS: Needs based on Wounds, DM, ARF/ 53.4kg abw 25-30 kcals/kg 5581-2985 total kcals 1-1.5 (increase w/ renal fxn improvement) g protein/kg 53-80 g total protein 25-30 mL/kg 7279-9451 total fluid mLs NUTRITION DIAGNOSIS: * Swallowing difficulty R/T dysphagia, decreased cognitive fxn as evidenced by s/p NGT insertion @ SNF, on NGT feeds, pending [employer] eval. * Increased kcal/prot needs R/T wound healing as evidenced by pt admitted w/ multiple wound per photos, pending eval * Altered nutrition related lab values R/T diabetes, cardiac hx, renal dysfunction as evidenced by elev BGs (230, 228), A1C 8.2, BNP 83536, elev creat (4.1-> 3.9), elev BUN (93->90). CURRENT TF:Nepro @ 30ml/hr x 24 hrs PO DIET RECOMMENDATIONS: IF SAFE FOR ORAL DIET -> CCHO LOW, LOW NA/ texture per [employer] ENTERAL NUTRITION RECOMMENDATIONS: Glucerna 1.5 @ 40ml/hr x 24 hrs to provide 960ml, 1440kcal, 79g prot, 728ml free water * W/ improving renal fxn and lytes wnl, rec TF change to Glucerna 1.5 * Initiate GLucerna 1.5 @20ml/hr x 4hrs, advance 10ml q 4 hrs as tolerated to goal : will provide 100% est kcal/prot needs @ goal * HOB over 30 degrees/ water flush per MD ADDITIONAL RECOMMENDATIONS: * Per SNF: HT=62" [id number] (02/05/20) * Monitor renal fxn and lytes, need for renal TF formula (creat trending down, K, phos, mag wnl) * Consider long acting insulin for improved BG control * Wound healing: Add Vit C 250mg QD + Silvano BID f/up w/ WC eval * Monitor for oral diet vs TF : [employer] eval pending (8) Renal failure (9) Pneumonia (10) Deep tissue injury Assessment & Plan: Patient identified on admission to have a large sacral deep tissue injury non-blanchable erythema blistering epidermis intact no drainage. Unknown duration. Tenderness difficult to a certain based on clinical examinations patient's history. Labs noted. Patient high risk for decubitus ulcer formation worsening condition. NG tube in place currently. Nutritional optimization. Turn every 2 hours. Offload pressure with pillows. OPTi foam dressing to sacrum. Care plan initiated. Thank you will follow with recommendations Pt presented on admission with multiple Pressure Injuries, Fx L Hip. Large contusion noted to L Hip/ Lateral L Femur. Sacral DTPI partially opened and is 75% necrotic, 25% moist erythematous and clear skin flap that is loose.(L)5.5cm x (W)9cm. Small amt serous exudate noted. Non-Blanchable erythema periwound. Partial thickness wound noted to L Hip. Base of wound is moist and viable. edges adherent to base of wound(L)3cm x (W)2.5cm. L Heel is boggy with non-Blanchable erythema with delineated margins. L heel is boggy with non-blanchable erythema. Tx.Plan: Cleanse Sacral wound with Saline. Apply Therahoney. Apply Moisture Barrier Paste periwound. Cover with Optifoam drsg. Change every 3 days and prn. Apply Moisture Barrier Paste to L Hip wound. Cover with Optifoam drsg. Change every 3 days and prn Apply Cavilon Skin Barrier to both heels. Cover each heel with Optifoam drsg. Change every 7 days and prn. Reposition at least every 2hours or as tolerated. Off-load heels with pillow. APM/CHE Mattress overlay. Chris Lei Feb 12, 2020 15:00
--- NOTE | 2020-02-12 15:00 | NUR ---
NURSE NOTES: Notified Dr. Faust regarding patient s/p pulling out NGTube. Per Dr. Faust no reinsertion of NGTube as of the moment and try reaching out to Dr. Winter.
--- NOTE | 2020-02-12 15:11 | Nephrology Progress Note ---
Assessment/Plan Problem List: (1) Renal failure (ARF), acute on chronic (2) COVID-19 (3) UTI (urinary tract infection) (4) Congestive heart failure (5) Anemia (6) Diabetic nephropathy Assessment Renal failure, etiology unclear. Most likely secondary to heart failure. And or diabetes Patient has history of diabetes mellitus since she is receiving metformin and oral hypoglycemic agents Pneumonia UTI Mild anemia Plan February 11: Status quo. Patient pulled out NG tube. Discussed with RN. The daughter request repeat blood work. Patient status remains full code on the records. However during my previous conversations with the daughter and with the patient's PMD Dr. Recinos patient is supposed to be on home hospice at this time. Will defer to case management and socially responsible investment adviser for this matter. February 10: No chemistry panel today. Patient has NG tube. Patient remains full code on the record. However it appears that the family are not agreeable with any tubing or invasive measures. nursing manager and socially responsible investment adviser to follow- up with family regarding further treatment plan. Not much to add from renal standpoint in view of family's decision at this time. February 09: Labs reviewed. I received another message from which I shared with primary physician and the consultants indicating that the family does not want dialysis or invasive tubes and they are seeking comfort care and hospice. At this point there is not much to add from renal standpoint to view. Case management and discharge planning consultation and coordination with PMD. February 08: Labs were reviewed. Medication list reviewed. Yesterday I received a call from Dr. Rceinos the patient's primary physician who opposes initiating dialysis on the patient due to her multiple medical problems and dementia. Later on I received a text from him that the daughter is talking to family about home hospice. At this time we will continue her supportive noninvasive care. Will start the patient off clonidine patch for high blood pressure. February 07: Discussed with BONG Javier. Labs reviewed. 2D echo indicates LV function and ejection fraction in mid 50s. Renal parameters unchanged. Calculated GFR between 10-11. We will continue to optimize cardiac status. In my opinion the patient requires dialysis treatment and ultrafiltration if aggressive approach is our plan based on patient being full code. I will discuss the matter with the patient's daughter. Will also discuss with PMD Dr. Riojas. February 06: Continue to monitor renal parameters. 2D echocardiogram results and kidney ultrasound results are pending. Hemoglobin A1c results suggestive of diabetes mellitus [id number]. Will continue to optimize cardiac status. Hydralazine as an afterload reduction ordered. Allopurinol for high uric acid ordered. February 05: Cornelius 2D echo Urine studies Avoid nephrotoxic's Antibiotics Per orders KIDNEY OMARI: * Mildly increased renal echogenicity. Findings are concerning for intrinsic/medical renal disease. * No evidence of hydronephrosis bilaterally. * Bilateral simple appearing renal cysts. * Additional 2 cm hypoechoic possible cyst versus mass in the left kidney. Periventricular evaluation with MRI of the abdomen, ideally without and with contrast. * Bladder decompressed by Cornelius catheter, precluding its evaluation. * Trace ascites incidentally identified. * Cholelithiasis incidentally identified. Subjective ROS Limited/Unobtainable: Yes Objective Objective Last 24 Hour Vital Signs Date Time Temp Pulse Resp B/P (MAP) Pulse Ox O2 Delivery O2 Flow Rate FiO2 02/12/20 14:00 141/91 02/12/20 12:00 98.4 77 19 141/91 (108) 96 02/12/20 09:00 Room Air 02/12/20 08:18 81 157/78 02/12/20 08:00 97.0 81 19 157/78 (104) 94 02/12/20 06:20 141/78 02/12/20 04:00 97.5 81 18 145/76 (99) 94 02/12/20 00:00 97.5 86 20 136/89 (105) 94 02/11/20 22:25 136/89 02/11/20 22:24 86 136/89 02/11/20 21:00 Room Air 02/11/20 20:00 98.6 68 20 142/93 (109) 95 02/11/20 16:00 97.5 71 20 151/78 (102) 96 Intake and Output 02/11/20 02/12/20 19:00 07:00 Intake Total 300 ml Output Total 600 ml 500 ml Balance -600 ml -200 ml Intake Free Water 30 ml Tube Feeding 270 ml Output Urine Total 600 ml 500 ml # Voids 1 # Bowel Movements 1 No chemistry panel done today Height (Feet): 5 Height (Inches): 6.00 Weight (Pounds): 160 General Appearance: no apparent distress, lethargic Cardiovascular: normal rate Respiratory/Chest: decreased breath sounds Abdomen: distended Objective No change Quirino Cormire MD Feb 12, 2020 15:11
[2020-02-12 16:00] VITALS: BP 139/89
--- NOTE | 2020-02-12 16:05 | NUR ---
NURSE NOTES: Patient observed to be lying in bed with HOB elevated and experiencing labored breathing, rechecked VS BP 143/78, pulse 78 and 02 saturation at 85%. Immediately notified charge nurse, hooked patient on 6L nasal cannula. Checked VS again BP 145/77, pulse 76 and 02 saturation at 96%. Notified Dr. Fasut and redirected to Dr. Junior. Left voicemail for Dr Junior waiting for call back.
--- NOTE | 2020-02-12 16:16 | NUR ---
NURSE NOTES: Charge Nurse called Dr. Junior and left voicemail in regards to patient's condition. Will continue to monitor patient.
--- NOTE | 2020-02-12 17:30 | NUR ---
NURSE NOTES: Notified Dr. Faust that POA/Daughter wanted to speak with him prior to changing code status. Provided Dr Faust with contact number of daughter. No new orders were given at this time.
--- NOTE | 2020-02-12 17:33 | General Progress Note ---
Subjective ROS Limited/Unobtainable: Yes Allergies: Coded Allergies: No Known Allergies (Unverified , 02/06/20) Objective Last 24 Hour Vital Signs Date Time Temp Pulse Resp B/P (MAP) Pulse Ox O2 Delivery O2 Flow Rate FiO2 02/12/20 16:00 98.8 80 18 139/89 (106) 97 02/12/20 14:00 141/91 02/12/20 12:00 98.4 77 19 141/91 (108) 96 02/12/20 09:00 Room Air 02/12/20 08:18 81 157/78 02/12/20 08:00 97.0 81 19 157/78 (104) 94 02/12/20 06:20 141/78 02/12/20 04:00 97.5 81 18 145/76 (99) 94 02/12/20 00:00 97.5 86 20 136/89 (105) 94 02/11/20 22:25 136/89 02/11/20 22:24 86 136/89 02/11/20 21:00 Room Air 02/11/20 20:00 98.6 68 20 142/93 (109) 95 Intake and Output 02/11/20 02/12/20 19:00 07:00 Intake Total 300 ml Output Total 600 ml 500 ml Balance -600 ml -200 ml Intake Free Water 30 ml Tube Feeding 270 ml Output Urine Total 600 ml 500 ml # Voids 1 # Bowel Movements 1 Height (Feet): 5 Height (Inches): 6.00 Weight (Pounds): 160 Assessment/Plan Problem List: (1) Congestive heart failure ICD Codes: I50.9 - Heart failure, unspecified SNOMED: 54659588 (2) Anemia ICD Codes: D64.9 - Anemia, unspecified SNOMED: 709942129 (3) Diabetic nephropathy ICD Codes: E11.21 - Type 2 diabetes mellitus with diabetic nephropathy SNOMED: 11887489, 287931810 (4) Renal failure ICD Codes: N19 - Unspecified kidney failure SNOMED: 23890647 Qualifiers: Qualified Codes: N19 - Unspecified kidney failure (5) Failure to thrive SNOMED: 36281554 Qualifiers: Qualified Codes: R62.7 - Adult failure to thrive (6) Pneumonia ICD Codes: J18.9 - Pneumonia, unspecified organism SNOMED: 381613117 Qualifiers: Qualified Codes: J18.9 - Pneumonia, unspecified organism (7) UTI (urinary tract infection) ICD Codes: N39.0 - Urinary tract infection, site not specified SNOMED: 53037929 Qualifiers: Qualified Codes: N39.0 - Urinary tract infection, site not specified (8) Renal failure (ARF), acute on chronic ICD Codes: N17.9 - Acute kidney failure, unspecified; N18.9 - Chronic kidney disease, unspecified SNOMED: 431231189 Status: stable Assessment/Plan: pulled out ng tube again pna ut afebrile reviewed chart comfort care malnutrition afebrile will follow daughter requests Janes Faust MD Feb 12, 2020 17:33
--- NOTE | 2020-02-12 19:24 | NUR ---
NURSE HAND-OFF: Important Events on Shift:S/P pulled out NGT, episode of desaturation Patient Status: unstable Diet: npo Pending Orders: n/a Pending Results/Labs:n/a Pending MD notification:n/a Latest Vital Signs: Temperature 98.8 , Pulse 80 , B/P 139 /89 , Respiratory Rate 18 , O2 SAT 97 ,via nasal cannula O2 Flow Rate 6.0 . Vital Sign Comment: stable Latest Barrett Fall Score: 75 Fall Risk: High Risk Safety Measures: Call light Within Reach, Bed Alarm Zone 2, Side Rails Side Rails x3, Bed position Low and Locked. Fall Precautions: Yellow Socks Report given to BONG Waller.
--- NOTE | 2020-02-12 19:30 | NUR ---
NURSE NOTES: Patient asleep, easily arousable, and very lethargic. Patient non-verbal at this time. Breathing on 6L O2 via nasal cannula. No crackles and wheezing heard during the auscultation. Received report that patient had a event of pulling out ng tube and episode of desaturation during the dayshift. Dr. Faust made aware during previous shift. Received report that patient's daughter requested to speak with Dr. Faust regards to the code status. Noted no new orders at this time. Patient's current saturation at 98% on 6L oxygen via nasal cannula. No signs of pain or discomfort noted. Patient HOB elevated and bilateral feet elevated. Patient noted with bilateral upper extremity edema, MD aware. Intravenous access noted on left antecubital. On bilateral restraint for pulling out medical devices and patient safety. Pulses present and skin intact. Bed placed at the lowest level with siderails up x 3, brake on, and alarm on. Call light placed within reach. Will continue to monitor.
[2020-02-12 20:00] VITALS: BP 135/79
--- NOTE | 2020-02-12 22:00 | NUR ---
NURSE NOTES: Patient's intravenous access noted to be greater than 72hrs. Removed previous IV and inserted a new 24g IV on left forearm. Asymptomatic, patent, and intact. Explained procedure prior and during the process. Patient tolerated well. No adverse events. Patient has a Cornelius intact and draining on gravity. Cornelius anchor readjusted. Will continue to monitor.
[2020-02-13] VITALS: BP 110/62
[2020-02-13 05:00] VITALS: BP 128/74
[2020-02-13] MEDS: NovoLOG Insulin Flexpen SUBQ SCH ×3 (05:46→17:22)
[2020-02-13] MEDS: HydrALAZINE 25mg tab NG SCH ×3 (05:47→21:07)
--- NOTE | 2020-02-13 06:17 | NUR ---
NURSE NOTES: Unable to obtain a blood sample for ordered morning labs. Endorsed to project hire.
[2020-02-13 07:23] LABS: HEMATOCRIT 30.4 % (37.0-47.0); HEMOGLOBIN 9.3 G/DL (12.0-16.0); MEAN CORPUSCULAR VOLUME 90 FL (80-99); PLATELET COUNT 101 K/UL (150-450); RED BLOOD COUNT 3.38 M/UL (4.20-5.40); RED CELL DISTRIBUTION WIDTH 18.3 % (11.6-14.8); WHITE BLOOD COUNT 6.2 K/UL (4.8-10.8)
--- NOTE | 2020-02-13 07:30 | NUR ---
NURSE NOTES: RECEIVED PATIENT LYING IN BED, EYES OPEN, NON VERBAL, HOB ELEVATED FOR ASPIRATION PRECAUTIONS. NO SIGNS AND SYMPTOMS OF ACUTE CARDIO-RESPIRATORY DISTRESS/SHORTNESS OF BREATH, BILATERAL UPPER EXTREMITIES EDEMATOUS. ELEVATED WITH PILLOWS. BILATERAL SOFT WRIST RESTRAINTS DUE TO PREVIOUSLY PULLING DEVICES. NPO X MEDS/ ICE CHIPS. PATIENT APPEARED TO BE LETHERGIC @ THIS MOMENT. ABDOMEN SOFT/AUDIBLE BOWEL SOUNDS, NO REPORT OF N/V NOTED. PIV PATENT AND INTACT. DRESSINGS DRY AND INTACT TO SACRAL/HIPS/ELBOWS/HEELS/ANKLES, REPOSITIONED FOR COMFORT/PRESSURE RELIEF, SIDERAILS UP X3/BED IN LOWEST POSITION FOR SAFETY/FREQUENT ROUNDING FOR SAFETY/NEEDS. DROPLET PRECAUTIONS OBSERVED AT ALL TIMES. CONTINUE WITH CURRENT PLAN OF CARE.
--- NOTE | 2020-02-13 07:39 | NUR ---
NURSE HAND-OFF: Important Events on Shift: No adverse event during the shift. Patient Status: Stable Diet: Nothing by Mouth Pending Orders: None Pending Results/Labs: None Pending MD notification: None Latest Vital Signs: Temperature 96.8 , Pulse 70 , B/P 128 /74 , Respiratory Rate 20 , O2 SAT 99 , Nasal Cannula, O2 Flow Rate 6.0 . Vital Sign Comment: Latest Barrett Fall Score: 85 Fall Risk: High Risk Safety Measures: Call light Within Reach, Bed Alarm Zone 2, Side Rails Side Rails x3, Bed position Low and Locked. Fall Precautions: Yellow Socks Report given to SONAL Mosqueda.
[2020-02-13 07:57] LABS: ALBUMIN 1.7 G/DL (3.4-5.0); ALBUMIN/GLOBULIN RATIO 0.5 (1.0-2.7); BILIRUBIN,TOTAL 0.3 MG/DL (0.2-1.0); CALCIUM 7.9 MG/DL (8.5-10.1); CREATININE 4.2 MG/DL (0.55-1.30); PHOSPHORUS 6.3 MG/DL (2.5-4.9); POTASSIUM 4.1 MMOL/L (3.5-5.1)
[2020-02-13 08:00] VITALS: BP 136/82
[2020-02-13] MEDS: Docusate 100mg/10ml Liq NG SCH ×2 (08:39→17:15)
[2020-02-13] MEDS: Carvedilol 25mg Tab NG SCH ×2 (08:39→21:06)
--- NOTE | 2020-02-13 09:13 | General Progress Note ---
Subjective ROS Limited/Unobtainable: No Allergies: Coded Allergies: No Known Allergies (Unverified , 02/06/20) Objective Last 24 Hour Vital Signs Date Time Temp Pulse Resp B/P (MAP) Pulse Ox O2 Delivery O2 Flow Rate FiO2 02/13/20 08:39 62 136/82 02/13/20 05:47 128/74 02/13/20 05:00 96.8 70 20 128/74 (92) 99 02/13/20 00:00 97.3 72 20 110/62 (78) 99 02/12/20 22:00 153/92 02/12/20 21:00 Nasal Cannula 6.0 02/12/20 20:59 63 135/79 02/12/20 20:00 98.4 63 20 135/79 (97) 97 02/12/20 18:00 Nasal Cannula 6.0 02/12/20 16:00 98.8 80 18 139/89 (106) 97 02/12/20 14:00 141/91 02/12/20 12:00 98.4 77 19 141/91 (108) 96 Intake and Output 02/12/20 02/13/20 19:00 07:00 Intake Total 60 ml Output Total 500 ml 350 ml Balance -440 ml -350 ml Tube Feeding 60 ml Output Urine Total 500 ml 350 ml Laboratory Tests 02/13/20 06:35: White Blood Count 6.2, Red Blood Count 3.38L, Hemoglobin 9.3L, Hematocrit 30.4L, Mean Corpuscular Volume 90, Mean Corpuscular Hemoglobin 27.6, Mean Corpuscular Hemoglobin Concent 30.7L, Red Cell Distribution Width 18.3H, Platelet Count 101L , Mean Platelet Volume 6.3L, Neutrophils (%) (Auto) , Lymphocytes (%) (Auto) , Monocytes (%) (Auto) , Eosinophils (%) (Auto) , Basophils (%) (Auto) , Neutrophils % (Manual) [Pending], Lymphocytes % (Manual) [Pending], Platelet Estimate [Pending], Platelet Morphology [Pending], Sodium Level 150H, Potassium Level 4.1, Chloride Level 115H, Carbon Dioxide Level 25, Anion Gap 10, Blood Urea Nitrogen 105H, Creatinine 4.2H, Estimat Glomerular Filtration Rate 10.2, Glucose Level 166H, Uric Acid 11.2H, Calcium Level 7.9L, Phosphorus Level 6.3H, Total Bilirubin 0.3, Aspartate Amino Transf (AST/SGOT) 14L, Alanine Aminotransferase (ALT/SGPT) 11L, Alkaline Phosphatase 75, Total Protein 5.4L, Albumin 1.7L, Globulin 3.7, Albumin/Globulin Ratio 0.5L Height (Feet): 5 Height (Inches): 6.00 Weight (Pounds): 160 General Appearance: lethargic EENT: normal ENT inspection Neck: supple Cardiovascular: normal rate Respiratory/Chest: decreased breath sounds Abdomen: normal bowel sounds, non tender, soft Extremities: non-tender Assessment/Plan Status: stable Assessment/Plan: DYSPHAGIA Covod positive HTN elevated trop renal insuf family refused peg agreed to NGTF will reinset NGT ? hospice care will Gopal Maguire MD Feb 13, 2020 09:13
--- NOTE | 2020-02-13 11:23 | NUR ---
NURSE NOTES: NGTUBE INSERTED VIA LEFT NARES. PLACEMENT CONFIRMED WITH APURVA SIMMS VIA STETHOSCOPE. KEPT HOB ELEVATED. O2 SAT 985 ON 6L NC. NO S/S OF DISTRESS OR LABORED BREATHING. ORAL CARE RENDERED. ORDERED STAT KUB FOR PLACEMENT CONFIRMATION. WILL CONT THE PLAN OF CARE. Addendum: 02/13/20 at 1132 by SHANNON SCHUMACHER LVN INITIATED IVF PER MD ORDERED. WILL CONT TO MONITOR.
--- NOTE | 2020-02-13 11:36 | Pulmonology Progress Note ---
Subjective ROS Limited/Unobtainable: No Interval Events: Now requiring O2; pulled out NG Constitutional: Denies: fever HEENT: Repors: no symptoms Respiratory: Reports: no symptoms Cardiovascular: Reports: no symptoms Gastrointestinal/Abdominal: Reports: no symptoms Allergies: Coded Allergies: No Known Allergies (Unverified , 02/06/20) Objective Last 24 Hour Vital Signs Date Time Temp Pulse Resp B/P (MAP) Pulse Ox O2 Delivery O2 Flow Rate FiO2 02/13/20 09:42 Nasal Cannula 6.0 02/13/20 08:39 62 136/82 02/13/20 08:00 96.4 62 18 136/82 (100) 100 02/13/20 05:47 128/74 02/13/20 05:00 96.8 70 20 128/74 (92) 99 02/13/20 00:00 97.3 72 20 110/62 (78) 99 02/12/20 22:00 153/92 02/12/20 21:00 Nasal Cannula 6.0 02/12/20 20:59 63 135/79 02/12/20 20:00 98.4 63 20 135/79 (97) 97 02/12/20 18:00 Nasal Cannula 6.0 02/12/20 16:00 98.8 80 18 139/89 (106) 97 02/12/20 14:00 141/91 02/12/20 12:00 98.4 77 19 141/91 (108) 96 Intake and Output 0 02/12/20 02/13/20 19:00 07:00 Intake Total 60 ml Output Total 500 ml 350 ml Balance -440 ml -350 ml Tube Feeding 60 ml Output Urine Total 500 ml 350 ml General Appearance: no acute distress HEENT: mucous membranes moist Respiratory: chest wall non-tender, lungs clear Cardiovascular: normal peripheral pulses Abdomen: normal bowel sounds Laboratory Tests 02/13/20 06:35: White Blood Count 6.2, Red Blood Count 3.38L, Hemoglobin 9.3L, Hematocrit 30.4L, Mean Corpuscular Volume 90, Mean Corpuscular Hemoglobin 27.6, Mean Corpuscular Hemoglobin Concent 30.7L, Red Cell Distribution Width 18.3H, Platelet Count 101L , Mean Platelet Volume 6.3L, Neutrophils (%) (Auto) , Lymphocytes (%) (Auto) , Monocytes (%) (Auto) , Eosinophils (%) (Auto) , Basophils (%) (Auto) , Differential Total Cells Counted 100, Neutrophils % (Manual) 91H, Lymphocytes % (Manual) 8L, Monocytes % (Manual) 1, Eosinophils % (Manual) 0, Basophils % (Manual) 0, Band Neutrophils 0, Platelet Estimate DecreasedL, Platelet Morphology Normal, Hypochromasia 1+, Anisocytosis 1+, Sodium Level 150H, Potassium Level 4.1, Chloride Level 115H, Carbon Dioxide Level 25, Anion Gap 10, Blood Urea Nitrogen 105H, Creatinine 4.2H, Estimat Glomerular Filtration Rate 10.2, Glucose Level 166H, Uric Acid 11.2H, Calcium Level 7.9L, Phosphorus Level 6.3H, Total Bilirubin 0.3, Aspartate Amino Transf (AST/SGOT) 14L, Alanine Aminotransferase (ALT/SGPT) 11L, Alkaline Phosphatase 75, Total Protein 5.4L, Albumin 1.7L, Globulin 3.7, Albumin/Globulin Ratio 0.5L Current Medications Medications (Trade) Dose Ordered Sig/Maria Fernanda Route PRN Reason Start Time Stop Time Status Last Admin Dose Admin Allopurinol (allopurinoL) 300 mg DAILY NG 02/07/20 09:00 03/08/20 08:59 02/13/20 08:39 Carvedilol (Coreg) 25 mg EVERY 12 HOURS NG 02/06/20 21:00 03/07/20 20:59 02/13/20 08:39 Clonidine HCl (Catapres TTS-3) 1 patch QWEEK TDERMAL 02/09/20 11:00 05/09/20 10:59 02/09/20 10:32 Dextrose 1,000 ml @ 50 mls/hr Q20H IV 02/13/20 10:30 03/14/20 10:29 02/13/20 10:30 Dextrose (Dextrose 50%) 25 ml Q30M PRN IV Hypoglycemia 02/06/20 14:15 05/06/20 14:14 Dextrose (Dextrose 50%) 50 ml Q30M PRN IV Hypoglycemia 02/06/20 14:15 05/06/20 14:14 Docusate Sodium (Colace) 100 mg TWICE A DAY NG 02/06/20 18:00 03/07/20 17:59 02/13/20 08:39 Epoetin Manoj (Epoetin Manoj-EPBX(NON ESRD)) 10,000 unit FRI-FRI-FRI SUBQ 02/11/20 21:00 05/11/20 20:59 02/11/20 22:24 Famotidine (Pepcid) 20 mg BID ORAL 02/10/20 18:00 05/10/20 17:59 02/13/20 08:39 Haloperidol Lactate (Haldol) 5 mg Q6H PRN IM Agitation 02/07/20 23:15 03/23/20 23:14 Hydralazine HCl (Apresoline) 25 mg Q8HR NG 02/08/20 14:00 05/07/20 08:59 02/12/20 06:20 Insulin Aspart (NovoLOG) Q6HR SUBQ 02/06/20 18:00 05/06/20 17:59 02/13/20 05:46 Assessment/Plan Assessment/Plan IMPRESSION: 1. COVID-19 pneumonia. 2. Cardiomegaly/CHF. 3. Renal failure. DISCUSSION: Continue oxygen via nasal canulae; Remdesiver contraindicated due to renal failure Hold off on steroids as minimal hypoxemia I will follow as survey data technician. Unable to swallow due to poor mentation Will need PEG Family requesting home hospice Code status still full code? Demlar Root Omar Syed MD Feb 13, 2020 11:35
[2020-02-13 11:57] VITALS: BP 135/87
--- NOTE | 2020-02-13 12:50 | Nephrology Progress Note ---
Assessment/Plan Problem List: (1) Renal failure (ARF), acute on chronic (2) COVID-19 (3) UTI (urinary tract infection) (4) Congestive heart failure (5) Anemia (6) Diabetic nephropathy Assessment Renal failure, etiology unclear. Most likely secondary to heart failure. And or diabetes Patient has history of diabetes mellitus since she is receiving metformin and oral hypoglycemic agents Pneumonia UTI Mild anemia Plan February 12: Patient's condition unchanged. Remains full code despite of my previous conversation with the patient and the patient's primary physician stating that the patient should be on comfort care, yet according to the nurse, the daughter requesting lab works and etc...... not in line comfort care !!!! Will seek help from estate planner and manager social responsibility to clarify the patient's status. I am available for any further discussion or meeting even though it was made clear to me previously that the patient should not have any dialysis treatment, tubing, invasive measures!! February 11: Status quo. Patient pulled out NG tube. Discussed with RN. The daughter request repeat blood work. Patient status remains full code on the records. However during my previous conversations with the daughter and with the patient's PMD Dr. Recinos patient is supposed to be on home hospice at this time. Will defer to case management and manager social responsibility for this matter. February 10: No chemistry panel today. Patient has NG tube. Patient remains full code on the record. However it appears that the family are not agreeable with any tubing or invasive measures. retail branch manager and manager social responsibility to follow- up with family regarding further treatment plan. Not much to add from renal standpoint in view of family's decision at this time. February 09: Labs reviewed. I received another message from which I shared with primary physician and the consultants indicating that the family does not want dialysis or invasive tubes and they are seeking comfort care and hospice. At this point there is not much to add from renal standpoint to view. Case m anagement and discharge planning consultation and coordination with PMD. February 08: Labs were reviewed. Medication list reviewed. Yesterday I received a call from Dr. Recinos the patient's primary physician who opposes initiating dialysis on the patient due to her multiple medical problems and dementia. Later on I received a text from him that the daughter is talking to family about home hospice. At this time we will continue her supportive noninvasive care. Will start the patient off clonidine patch for high blood pressure. February 07: Discussed with BONG Javier. Labs reviewed. 2D echo indicates LV function and ejection fraction in mid 50s. Renal parameters unchanged. Calculated GFR between 10-11. We will continue to optimize cardiac status. In my opinion the patient requires dialysis treatment and ultrafiltration if aggressive approach is our plan based on patient being full code. I will discuss the matter with the patient's daughter. Will also discuss with PMD Dr. Riojas. February 06: Continue to monitor renal parameters. 2D echocardiogram results and kidney ultrasound results are pending. Hemoglobin A1c results suggestive of diabetes mellitus [id number]. Will continue to optimize cardiac status. Hydralazine as an afterload reduction ordered. Allopurinol for high uric acid ordered. February 05: Cornelius 2D echo Urine studies Avoid nephrotoxic's Antibiotics Per orders KIDNEY OMARI: * Mildly increased renal echogenicity. Findings are concerning for intrinsic/medical renal disease. * No evidence of hydronephrosis bilaterally. * Bilateral simple appearing renal cysts. * Additional 2 cm hypoechoic possible cyst versus mass in the left kidney. Periventricular evaluation with MRI of the abdomen, ideally without and with contrast. * Bladder decompressed by Cornelius catheter, precluding its evaluation. * Trace ascites incidentally identified. * Cholelithiasis incidentally identified. Subjective ROS Limited/Unobtainable: Yes Objective Objective Last 24 Hour Vital Signs Date Time Temp Pulse Resp B/P (MAP) Pulse Ox O2 Delivery O2 Flow Rate FiO2 02/13/20 11:57 96.4 73 20 135/87 (103) 96 02/13/20 09:42 Nasal Cannula 6.0 02/13/20 08:39 62 136/82 02/13/20 08:00 96.4 62 18 136/82 (100) 100 02/13/20 05:47 128/74 02/13/20 05:00 96.8 70 20 128/74 (92) 99 02/13/20 00:00 97.3 72 20 110/62 (78) 99 02/12/20 22:00 153/92 02/12/20 21:00 Nasal Cannula 6.0 02/12/20 20:59 63 135/79 02/12/20 20:00 98.4 63 20 135/79 (97) 97 02/12/20 18:00 Nasal Cannula 6.0 02/12/20 16:00 98.8 80 18 139/89 (106) 97 02/12/20 14:00 141/91 Intake and Output 02/12/20 02/13/20 19:00 07:00 Intake Total 60 ml Output Total 500 ml 350 ml Balance -440 ml -350 ml Tube Feeding 60 ml Output Urine Total 500 ml 350 ml Laboratory Tests 02/13/20 06:35: White Blood Count 6.2, Red Blood Count 3.38L, Hemoglobin 9.3L, Hematocrit 30.4L, Mean Corpuscular Volume 90, Mean Corpuscular Hemoglobin 27.6, Mean Corpuscular Hemoglobin Concent 30.7L, Red Cell Distribution Width 18.3H, Platelet Count 101L , Mean Platelet Volume 6.3L, Neutrophils (%) (Auto) , Lymphocytes (%) (Auto) , Monocytes (%) (Auto) , Eosinophils (%) (Auto) , Basophils (%) (Auto) , Differential Total Cells Counted 100, Neutrophils % (Manual) 91H, Lymphocytes % (Manual) 8L, Monocytes % (Manual) 1, Eosinophils % (Manual) 0, Basophils % (Manual) 0, Band Neutrophils 0, Platelet Estimate DecreasedL, Platelet Morphology Normal, Hypochromasia 1+, Anisocytosis 1+, Sodium Level 150H, Potassium Level 4.1, Chloride Level 115H, Carbon Dioxide Level 25, Anion Gap 10, Blood Urea Nitrogen 105H, Creatinine 4.2H, Estimat Glomerular Filtration Rate 10.2, Glucose Level 166H, Uric Acid 11.2H, Calcium Level 7.9L, Phosphorus Level 6.3H, Total Bilirubin 0.3, Aspartate Amino Transf (AST/SGOT) 14L, Alanine Aminotransferase (ALT/SGPT) 11L, Alkaline Phosphatase 75, Total Protein 5.4L, Albumin 1.7L, Globulin 3.7, Albumin/Globulin Ratio 0.5L Height (Feet): 5 Height (Inches): 6.00 Weight (Pounds): 160 General Appearance: no apparent distress, lethargic EENT: other - Now has NG tube Cardiovascular: normal rate Respiratory/Chest: decreased breath sounds Abdomen: distended Objective No change Quirino Cormier MD Feb 13, 2020 12:50
--- NOTE | 2020-02-13 13:14 | Diagnostic Imaging Report ---
EXAM: XR Abdomen, one Views CLINICAL HISTORY: NGT TECHNIQUE: Frontal view of the abdomen/pelvis COMPARISON: KUB 02/09/20 FINDINGS: Lower thorax: Similar small bilateral pleural effusions and bibasilar lung atelectasis and airspace disease. Gastrointestinal tract: Nonspecific gassy small bowel. No bowel obstruction. Bones/joints: Degenerative changes of the spine. Soft tissues: Surgical clips in the pelvis. Tubes, lines and devices: NG tube tip in stomach, good position. IMPRESSION: 1. NG tube tip in stomach, good position. 2. Similar small bilateral pleural effusions and bibasilar lung atelectasis and airspace disease. 3. Nonspecific gassy small bowel. No bowel obstruction.
--- NOTE | 2020-02-13 13:19 | Surgery Progress Note ---
Surgery Progress Note Subjective Symptoms: improved, tolerating diet, passing flatus Objective Last 24 Hour Vital Signs Date Time Temp Pulse Resp B/P (MAP) Pulse Ox O2 Delivery O2 Flow Rate FiO2 02/13/20 11:57 96.4 73 20 135/87 (103) 96 02/13/20 09:42 Nasal Cannula 6.0 02/13/20 08:39 62 136/82 02/13/20 08:00 96.4 62 18 136/82 (100) 100 02/13/20 05:47 128/74 02/13/20 05:00 96.8 70 20 128/74 (92) 99 02/13/20 00:00 97.3 72 20 110/62 (78) 99 02/12/20 22:00 153/92 02/12/20 21:00 Nasal Cannula 6.0 02/12/20 20:59 63 135/79 02/12/20 20:00 98.4 63 20 135/79 (97) 97 02/12/20 18:00 Nasal Cannula 6.0 02/12/20 16:00 98.8 80 18 139/89 (106) 97 02/12/20 14:00 141/91 I&O Intake and Output 02/12/20 02/13/20 19:00 07:00 Intake Total 60 ml Output Total 500 ml 350 ml Balance -440 ml -350 ml Tube Feeding 60 ml Output Urine Total 500 ml 350 ml Dressing: other Wound: other Cardiovascular: RSR Respiratory: decreased breath sounds Abdomen: soft, non-tender, present bowel sounds Extremities: no tenderness, no cyanosis Laboratory Tests Test 02/13/20 06:35 White Blood Count 6.2 K/UL (4.8-10.8) Red Blood Count 3.38 M/UL (4.20-5.40) L Hemoglobin 9.3 G/DL (12.0-16.0) L Hematocrit 30.4 % (37.0-47.0) L Mean Corpuscular Volume 90 FL (80-99) Mean Corpuscular Hemoglobin 27.6 PG (27.0-31.0) Mean Corpuscular Hemoglobin Concent 30.7 G/DL (32.0-36.0) L Red Cell Distribution Width 18.3 % (11.6-14.8) H Platelet Count 101 K/UL (150-450) L Mean Platelet Volume 6.3 FL (6.5-10.1) L Neutrophils (%) (Auto) % (45.0-75.0) Lymphocytes (%) (Auto) % (20.0-45.0) Monocytes (%) (Auto) % (1.0-10.0) Eosinophils (%) (Auto) % (0.0-3.0) Basophils (%) (Auto) % (0.0-2.0) Differential Total Cells Counted 100 Neutrophils % (Manual) 91 % (45-75) H Lymphocytes % (Manual) 8 % (20-45) L Monocytes % (Manual) 1 % (1-10) Eosinophils % (Manual) 0 % (0-3) Basophils % (Manual) 0 % (0-2) Band Neutrophils 0 % (0-8) Platelet Estimate Decreased L Platelet Morphology Normal Hypochromasia 1+ Anisocytosis 1+ Sodium Level 150 MMOL/L (136-145) H Potassium Level 4.1 MMOL/L (3.5-5.1) Chloride Level 115 MMOL/L (98-107) H Carbon Dioxide Level 25 MMOL/L (21-32) Anion Gap 10 mmol/L (5-15) Blood Urea Nitrogen 105 mg/dL (7-18) H Creatinine 4.2 MG/DL (0.55-1.30) H Estimat Glomerular Filtration Rate 10.2 mL/min (>60) Glucose Level 166 MG/DL (74-106) H Uric Acid 11.2 MG/DL (2.6-7.2) H Calcium Level 7.9 MG/DL (8.5-10.1) L Phosphorus Level 6.3 MG/DL (2.5-4.9) H Total Bilirubin 0.3 MG/DL (0.2-1.0) Aspartate Amino Transf (AST/SGOT) 14 U/L (15-37) L Alanine Aminotransferase (ALT/SGPT) 11 U/L (12-78) L Alkaline Phosphatase 75 U/L (46-116) Total Protein 5.4 G/DL (6.4-8.2) L Albumin 1.7 G/DL (3.4-5.0) L Globulin 3.7 g/dL Albumin/Globulin Ratio 0.5 (1.0-2.7) L Plan Problems: (1) UTI (urinary tract infection) (2) Renal failure (ARF), acute on chronic (3) COVID-19 Assessment & Plan: ++ abx as per ID will follow with recs Lungs: Subsegmental atelectasis versus infiltrates in bilateral lung bases. Pulmonary vascular congestion. Pleural space: Small bilateral pleural effusions. Heart: Cardiomegaly. Mediastinum: Unremarkable. Bones/joints: Degenerative changes throughout the visualized spine and shoulder joints. Vasculature: Atherosclerotic calcifications within the aortic arch. Tubes, lines and devices: Telemetry leads overlie the thorax. IMPRESSION: 1. Findings concerning for CHF. Cardiomegaly with pulmonary vascular congestion and small bilateral pleural effusions. 2. Subsegmental atelectasis versus infiltrates in bilateral lung bases. (4) Congestive heart failure (5) Anemia (6) Diabetic nephropathy (7) Failure to thrive Assessment & Plan: DAILY ESTIMATED NEEDS: Needs based on Wounds, DM, ARF/ 53.4kg abw 25-30 kcals/kg 1150-7931 total kcals 1-1.5 (increase w/ renal fxn improvement) g protein/kg 53-80 g total protein 25-30 mL/kg 0550-7057 total fluid mLs NUTRITION DIAGNOSIS: * Swallowing difficulty R/T dysphagia, decreased cognitive fxn as evidenced by s/p NGT insertion @ SNF, on NGT feeds, pending TINTER PHOTOGRAPH eval. * Increased kcal/prot needs R/T wound healing as evidenced by pt admitted w/ multiple wound per photos, pending eval * Altered nutrition related lab values R/T diabetes, cardiac hx, renal dysfunction as evidenced by elev BGs (230, 228), A1C 8.2, BNP 45118, elev creat (4.1-> 3.9), elev BUN (93->90). CURRENT TF:Nepro @ 30ml/hr x 24 hrs PO DIET RECOMMENDATIONS: IF SAFE FOR ORAL DIET -> CCHO LOW, LOW NA/ texture per TINTER PHOTOGRAPH ENTERAL NUTRITION RECOMMENDATIONS: Glucerna 1.5 @ 40ml/hr x 24 hrs to provide 960ml, 1440kcal, 79g prot, 728ml free water * W/ improving renal fxn and lytes wnl, rec TF change to Glucerna 1.5 * Initiate GLucerna 1.5 @20ml/hr x 4hrs, advance 10ml q 4 hrs as tolerated to goal : will provide 100% est kcal/prot needs @ goal * HOB over 30 degrees/ water flush per MD ADDITIONAL RECOMMENDATIONS: * Per SNF: HT=62" SN=483kky (02/05/20) * Monitor renal fxn and lytes, need for renal TF formula (creat trending down, K, phos, mag wnl) * Consider long acting insulin for improved BG control * Wound healing: Add Vit C 250mg QD + Silvano BID f/up w/ WC eval * Monitor for oral diet vs TF : TINTER PHOTOGRAPH eval pending (8) Renal failure (9) Pneumonia (10) Deep tissue injury Assessment & Plan: Patient identified on admission to have a large sacral deep tissue injury non-blanchable erythema blistering epidermis intact no drainage. Unknown duration. Tenderness difficult to a certain based on clinical examinations patient's history. Labs noted. Patient high risk for decubitus ulcer formation worsening condition. NG tube in place currently. Nutritional optimization. Turn every 2 hours. Offload pressure with pillows. OPTi foam dressing to sacrum. Care plan initiated. Thank you will follow with recommendations Pt presented on admission with multiple Pressure Injuries, Fx L Hip. Large contusion noted to L Hip/ Lateral L Femur. Sacral DTPI partially opened and is 75% necrotic, 25% moist erythematous and clear skin flap that is loose.(L)5.5cm x (W)9cm. Small amt serous exudate noted. Non-Blanchable erythema periwound. Partial thickness wound noted to L Hip. Base of wound is moist and viable. edges adherent to base of wound(L)3cm x (W)2.5cm. L Heel is boggy with non-Blanchable erythema with delineated margins. L heel is boggy with non-blanchable erythema. Tx.Plan: Cleanse Sacral wound with Saline. Apply Therahoney. Apply Moisture Barrier Paste periwound. Cover with Optifoam drsg. Change every 3 days and prn. Apply Moisture Barrier Paste to L Hip wound. Cover with Optifoam drsg. Change every 3 days and prn Apply Cavilon Skin Barrier to both heels. Cover each heel with Optifoam drsg. Change every 7 days and prn. Reposition at least every 2hours or as tolerated. Off-load heels with pillow. APM/CHE Mattress overlay. Chris Lei Feb 13, 2020 13:19
--- NOTE | 2020-02-13 15:48 | NUR ---
NURSE NOTES: INITIATED FEEDING NEPRO @ 10CC RATE AND WILL ADVANCE TOLERATED TO GOAL OF 30CC/HR. HOB ELEVATED FOR ASPIRATION PRECAUTION. WILL CONT TO MONITOR.
[2020-02-13 15:56] VITALS: BP 146/87
--- NOTE | 2020-02-13 16:19 | Infectious Diseases Prog Note ---
Assessment/Plan Assessment/Plan IMPRESSION: COVID-19 pneumonia, positive since 01/18 pyuria, VRE bacteruria CHF, Failure to thrive, Severe protein malnutrition, Diabetes mellitus, Acute renal failure. 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 RECOMMENDATION: Family refused HD & PEG placement Observe off antibiotic Family is considering hospice Subjective ROS Limited/Unobtainable: Yes Constitutional: Denies: fever Neurologic: Reports: confusion, other - on restraint Allergies: Coded Allergies: No Known Allergies (Unverified , 02/06/20) Objective Last 24 Hour Vital Signs Date Time Temp Pulse Resp B/P (MAP) Pulse Ox O2 Delivery O2 Flow Rate FiO2 02/13/20 15:56 97.7 79 18 146/87 (106) 99 02/13/20 13:21 135/87 02/13/20 11:57 96.4 73 20 135/87 (103) 96 02/13/20 09:42 Nasal Cannula 6.0 02/13/20 08:39 62 136/82 02/13/20 08:00 96.4 62 18 136/82 (100) 100 02/13/20 05:47 128/74 02/13/20 05:00 96.8 70 20 128/74 (92) 99 02/13/20 00:00 97.3 72 20 110/62 (78) 99 02/12/20 22:00 153/92 02/12/20 21:00 Nasal Cannula 6.0 02/12/20 20:59 63 135/79 02/12/20 20:00 98.4 63 20 135/79 (97) 97 02/12/20 18:00 Nasal Cannula 6.0 Height (Feet): 5 Height (Inches): 6.00 Weight (Pounds): 160 General Appearance: no acute distress Respiratory/Chest: no respiratory distress Cardiovascular: normal rate Abdomen: soft, non tender, other - NG tube Extremities: no edema Neurologic/Psychiatric: unresponsiveness Laboratory Tests Test 02/13/20 06:35 White Blood Count 6.2 K/UL (4.8-10.8) Red Blood Count 3.38 M/UL (4.20-5.40) L Hemoglobin 9.3 G/DL (12.0-16.0) L Hematocrit 30.4 % (37.0-47.0) L Mean Corpuscular Volume 90 FL (80-99) Mean Corpuscular Hemoglobin 27.6 PG (27.0-31.0) Mean Corpuscular Hemoglobin Concent 30.7 G/DL (32.0-36.0) L Red Cell Distribution Width 18.3 % (11.6-14.8) H Platelet Count 101 K/UL (150-450) L Mean Platelet Volume 6.3 FL (6.5-10.1) L Neutrophils (%) (Auto) % (45.0-75.0) Lymphocytes (%) (Auto) % (20.0-45.0) Monocytes (%) (Auto) % (1.0-10.0) Eosinophils (%) (Auto) % (0.0-3.0) Basophils (%) (Auto) % (0.0-2.0) Differential Total Cells Counted 100 Neutrophils % (Manual) 91 % (45-75) H Lymphocytes % (Manual) 8 % (20-45) L Monocytes % (Manual) 1 % (1-10) Eosinophils % (Manual) 0 % (0-3) Basophils % (Manual) 0 % (0-2) Band Neutrophils 0 % (0-8) Platelet Estimate Decreased L Platelet Morphology Normal Hypochromasia 1+ Anisocytosis 1+ Sodium Level 150 MMOL/L (136-145) H Potassium Level 4.1 MMOL/L (3.5-5.1) Chloride Level 115 MMOL/L (98-107) H Carbon Dioxide Level 25 MMOL/L (21-32) Anion Gap 10 mmol/L (5-15) Blood Urea Nitrogen 105 mg/dL (7-18) H Creatinine 4.2 MG/DL (0.55-1.30) H Estimat Glomerular Filtration Rate 10.2 mL/min (>60) Glucose Level 166 MG/DL (74-106) H Uric Acid 11.2 MG/DL (2.6-7.2) H Calcium Level 7.9 MG/DL (8.5-10.1) L Phosphorus Level 6.3 MG/DL (2.5-4.9) H Total Bilirubin 0.3 MG/DL (0.2-1.0) Aspartate Amino Transf (AST/SGOT) 14 U/L (15-37) L Alanine Aminotransferase (ALT/SGPT) 11 U/L (12-78) L Alkaline Phosphatase 75 U/L (46-116) Total Protein 5.4 G/DL (6.4-8.2) L Albumin 1.7 G/DL (3.4-5.0) L Globulin 3.7 g/dL Albumin/Globulin Ratio 0.5 (1.0-2.7) L Current Medications Medications (Trade) Dose Ordered Sig/Maria Fernanda Route PRN Reason Start Time Stop Time Status Last Admin Dose Admin Allopurinol (allopurinoL) 300 mg DAILY NG 02/07/20 09:00 03/08/20 08:59 02/13/20 08:39 Carvedilol (Coreg) 25 mg EVERY 12 HOURS NG 02/06/20 21:00 03/07/20 20:59 02/13/20 08:39 Clonidine HCl (Catapres TTS-3) 1 patch QWEEK TDERMAL 02/09/20 11:00 05/09/20 10:59 02/09/20 10:32 Dextrose 1,000 ml @ 50 mls/hr Q20H IV 02/13/20 10:30 03/14/20 10:29 02/13/20 10:30 Dextrose (Dextrose 50%) 25 ml Q30M PRN IV Hypoglycemia 02/06/20 14:15 05/06/20 14:14 Dextrose (Dextrose 50%) 50 ml Q30M PRN IV Hypoglycemia 02/06/20 14:15 05/06/20 14:14 Docusate Sodium (Colace) 100 mg TWICE A DAY NG 02/06/20 18:00 03/07/20 17:59 02/13/20 08:39 Epoetin Manoj (Epoetin Manoj-EPBX(NON ESRD)) 10,000 unit FRI-FRI-FRI SUBQ 02/11/20 21:00 05/11/20 20:59 02/11/20 22:24 Famotidine (Pepcid) 20 mg BID ORAL 02/10/20 18:00 05/10/20 17:59 02/13/20 08:39 Haloperidol Lactate (Haldol) 5 mg Q6H PRN IM Agitation 02/07/20 23:15 03/23/20 23:14 Hydralazine HCl (Apresoline) 25 mg Q8HR NG 02/08/20 14:00 05/07/20 08:59 02/12/20 06:20 Insulin Aspart (NovoLOG) Q6HR SUBQ 02/06/20 18:00 05/06/20 17:59 02/13/20 05:46 Viet Harper MD Feb 13, 2020 16:19
--- NOTE | 2020-02-13 17:45 | NUR ---
NURSE NOTES: tube feeding is tolerating with no gastric residual noted. rate is on goal of 30cc/hr. kept HOB elevated for aspiration precaution. Patient is more alert and awake. able to follow commands. will cont to monitor.
--- NOTE | 2020-02-13 19:32 | NUR ---
NURSE HAND-OFF: Important Events on Shift:[NGT INSERTION, IVF INFUSING, WOUND CARE, SAFETY] Patient Status: [ON PROGRESS] Diet: [NEPRO @ 30CC/HR] Pending Orders: [AM LABS] Pending Results/Labs:[] Pending MD notification:[] Latest Vital Signs: Temperature 97.7 , Pulse 79 , B/P 146 /87 , Respiratory Rate 18 , O2 SAT 99 , Nasal Cannula, O2 Flow Rate 6.0 . Vital Sign Comment: [] Latest Barrett Fall Score: 85 Fall Risk: High Risk Safety Measures: Call light Within Reach, Bed Alarm Zone 2, Side Rails Side Rails x3, Bed position Low and Locked. Fall Precautions: Yellow Socks Report given to [KARTHIKEYAN].
--- NOTE | 2020-02-13 19:40 | NUR ---
NURSE NOTES: Report received from Jaylin PRUITT. Patient is awake and alert x 1. Patient is noted to be on 5 liters of oxygen via nasal canula with an oxygen saturation of 100 %. Patient is noted to have NG tube inserted via left nare with nepro running at 30 cc / hr. This is the goal rate of the feeding per MD orders. Patient is noted to have left forearm 24 angie IV access with fluids running per MD orders. Patient is noted to have non pitting bilateral upper extremity edema. Patient is noted to be in bilateral soft wrist restraints due to patient pulling at lines. Pules present and patient is able to move extremities. Patient is noted to be on contact and droplet isolation due to testing positive for covid 19 on February 06, 2020. Bed is locked, alarmed, and in lowest position. Will continue to follow plan of care.
[2020-02-13 20:00] VITALS: BP_SYST 135; BP_SYST 141; BP_DIAS 70; BP_DIAS 81
--- NOTE | 2020-02-13 20:20 | General Progress Note ---
Subjective ROS Limited/Unobtainable: Yes Allergies: Coded Allergies: No Known Allergies (Unverified , 02/06/20) Objective Last 24 Hour Vital Signs Date Time Temp Pulse Resp B/P (MAP) Pulse Ox O2 Delivery O2 Flow Rate FiO2 02/13/20 15:56 97.7 79 18 146/87 (106) 99 02/13/20 13:21 135/87 02/13/20 11:57 96.4 73 20 135/87 (103) 96 02/13/20 09:42 Nasal Cannula 6.0 02/13/20 08:39 62 136/82 02/13/20 08:00 96.4 62 18 136/82 (100) 100 02/13/20 05:47 128/74 02/13/20 05:00 96.8 70 20 128/74 (92) 99 02/13/20 00:00 97.3 72 20 110/62 (78) 99 02/12/20 22:00 153/92 02/12/20 21:00 Nasal Cannula 6.0 02/12/20 20:59 63 135/79 Intake and Output 02/12/20 02/13/20 19:00 07:00 Intake Total 60 ml Output Total 500 ml 350 ml Balance -440 ml -350 ml Tube Feeding 60 ml Output Urine Total 500 ml 350 ml Laboratory Tests 02/13/20 06:35: White Blood Count 6.2, Red Blood Count 3.38L, Hemoglobin 9.3L, Hematocrit 30.4L, Mean Corpuscular Volume 90, Mean Corpuscular Hemoglobin 27.6, Mean Corpuscular Hemoglobin Concent 30.7L, Red Cell Distribution Width 18.3H, Platelet Count 101L , Mean Platelet Volume 6.3L, Neutrophils (%) (Auto) , Lymphocytes (%) (Auto) , Monocytes (%) (Auto) , Eosinophils (%) (Auto) , Basophils (%) (Auto) , Differential Total Cells Counted 100, Neutrophils % (Manual) 91H, Lymphocytes % (Manual) 8L, Monocytes % (Manual) 1, Eosinophils % (Manual) 0, Basophils % (Manual) 0, Band Neutrophils 0, Platelet Estimate DecreasedL, Platelet Morphology Normal, Hypochromasia 1+, Anisocytosis 1+, Sodium Level 150H, Potassium Level 4.1, Chloride Level 115H, Carbon Dioxide Level 25, Anion Gap 10, Blood Urea Nitrogen 105H, Creatinine 4.2H, Estimat Glomerular Filtration Rate 10.2, Glucose Level 166H, Uric Acid 11.2H, Calcium Level 7.9L, Phosphorus Level 6.3H, Total Bilirubin 0.3, Aspartate Amino Transf (AST/SGOT) 14L, Alanine Aminotransferase (ALT/SGPT) 11L, Alkaline Phosphatase 75, Total Protein 5.4L, Albumin 1.7L, Globulin 3.7, Albumin/Globulin Ratio 0.5L Height (Feet): 5 Height (Inches): 6.00 Weight (Pounds): 160 Assessment/Plan Problem List: (1) Congestive heart failure ICD Codes: I50.9 - Heart failure, unspecified SNOMED: 75877861 (2) Anemia ICD Codes: D64.9 - Anemia, unspecified SNOMED: 521521622 (3) Diabetic nephropathy ICD Codes: E11.21 - Type 2 diabetes mellitus with diabetic nephropathy SNOMED: 04981051, 865585839 (4) Renal failure ICD Codes: N19 - Unspecified kidney failure SNOMED: 35288594 Qualifiers: Qualified Codes: N19 - Unspecified kidney failure (5) Failure to thrive SNOMED: 42324626 Qualifiers: Qualified Codes: R62.7 - Adult failure to thrive (6) Pneumonia ICD Codes: J18.9 - Pneumonia, unspecified organism SNOMED: 684911720 Qualifiers: Qualified Codes: J18.9 - Pneumonia, unspecified organism (7) UTI (urinary tract infection) ICD Codes: N39.0 - Urinary tract infection, site not specified SNOMED: 27536707 Qualifiers: Qualified Codes: N39.0 - Urinary tract infection, site not specified (8) Renal failure (ARF), acute on chronic ICD Codes: N17.9 - Acute kidney failure, unspecified; N18.9 - Chronic kidney disease, unspecified SNOMED: 723394241 Status: stable Assessment/Plan: pulled out ng tube again pna malnutrition covid positive resp insuff afebrile reviewed chart and labs Janes Faust MD Feb 13, 2020 20:20
[2020-02-14] VITALS: BP 130/72
[2020-02-14] MEDS: NovoLOG Insulin Flexpen SUBQ SCH ×4 (00:14→18:00)
[2020-02-14 04:00] VITALS: BP 114/67
[2020-02-14] MEDS: HydrALAZINE 25mg tab NG SCH ×2 (05:50→13:43)
--- NOTE | 2020-02-14 07:10 | NUR ---
NURSE HAND-OFF: Important Events on Shift:Patient slept through most of shift and remained in stable condition. Patient continued to tolerate feeding well. Wound care done. Patient Status: full code Diet: Nepro @ 30 cc / hr Pending Orders: none Pending Results/Labs:none Pending MD notification:none Latest Vital Signs: Temperature 98.1 , Pulse 67 , B/P 114 /67 , Respiratory Rate 20 , O2 SAT 100 , Nasal Cannula, O2 Flow Rate 5.0 . Vital Sign Comment: Titrated patient down to 5 liters from 6 liters of oxygen. Latest Barrett Fall Score: 85 Fall Risk: High Risk Safety Measures: Call light Within Reach, Bed Alarm Zone 2, Side Rails Side Rails x3, Bed position Low and Locked. Fall Precautions: Yellow Socks Report given to Daniela WOODY.
[2020-02-14 08:00] VITALS: BP 115/57
--- NOTE | 2020-02-14 08:01 | NUR ---
NURSE NOTES: Report received from Eliu WOODY. Patient seen on rounds, AXOx1, not in distress, on O2 at 5lpm via NC, FLACC score 0. NGT left nares at 63cm level noted running Nepro @ 30ml/hr, no residuals reported overnight. PIV on left forearm patent and intact. Bilateral wrist restraints noted, good circulation, pulses palpable, range of motion noted. Cornelius secured and draining well. Optifoam dressing noted over sacrum and bilateral heels. Isolation precautions maintained. Bed low and locked, siderails up x2, call light placed within reach, will continue to monitor.
[2020-02-14] MEDS: Docusate 100mg/10ml Liq NG SCH ×2 (09:00→17:57)
[2020-02-14] MEDS: Carvedilol 25mg Tab NG SCH ×2 (09:22→20:31)
--- NOTE | 2020-02-14 09:49 | Surgery Progress Note ---
Surgery Progress Note Subjective Additional Comments afebrile Hd stble NG in place tf at 30cc kinney restrains as trying to pull tube Objective Last 24 Hour Vital Signs Date Time Temp Pulse Resp B/P (MAP) Pulse Ox O2 Delivery O2 Flow Rate FiO2 02/14/20 09:22 67 114/67 02/14/20 05:50 114/67 02/14/20 04:00 98.1 67 20 114/67 (83) 100 02/14/20 00:00 98.0 75 20 130/72 (91) 94 02/13/20 21:07 135/70 02/13/20 21:06 77 135/70 02/13/20 21:00 Nasal Cannula 5.0 02/13/20 20:00 97.0 77 20 135/70 (91) 100 02/13/20 15:56 97.7 79 18 146/87 (106) 99 02/13/20 13:21 135/87 02/13/20 11:57 96.4 73 20 135/87 (103) 96 I&O Intake and Output 02/13/20 02/14/20 19:00 07:00 Intake Total 580 ml 1000 ml Output Total 500 ml 200 ml Balance 80 ml 800 ml Intake Free Water 60 ml 120 ml IV Total 400 ml 550 ml Tube Feeding 120 ml 330 ml Output Urine Total 500 ml 200 ml # Bowel Movements 2 Dressing: other Wound: other Cardiovascular: RSR Respiratory: decreased breath sounds Abdomen: soft, non-tender, present bowel sounds Extremities: no tenderness, no cyanosis Plan Problems: (1) UTI (urinary tract infection) (2) Renal failure (ARF), acute on chronic (3) COVID-19 Assessment & Plan: ++ abx as per ID will follow with recs Lungs: Subsegmental atelectasis versus infiltrates in bilateral lung bases. Pulmonary vascular congestion. Pleural space: Small bilateral pleural effusions. Heart: Cardiomegaly. Mediastinum: Unremarkable. Bones/joints: Degenerative changes throughout the visualized spine and shoulder joints. Vasculature: Atherosclerotic calcifications within the aortic arch. Tubes, lines and devices: Telemetry leads overlie the thorax. IMPRESSION: 1. Findings concerning for CHF. Cardiomegaly with pulmonary vascular congestion and small bilateral pleural effusions. 2. Subsegmental atelectasis versus infiltrates in bilateral lung bases. (4) Congestive heart failure (5) Anemia (6) Diabetic nephropathy (7) Failure to thrive Assessment & Plan: DAILY ESTIMATED NEEDS: Needs based on Wounds, DM, ARF/ 53.4kg abw 25-30 kcals/kg 7907-8459 total kcals 1-1.5 (increase w/ renal fxn improvement) g protein/kg 53-80 g total protein 25-30 mL/kg 6528-5584 total fluid mLs NUTRITION DIAGNOSIS: * Swallowing difficulty R/T dysphagia, decreased cognitive fxn as evidenced by s/p NGT insertion @ SNF, on NGT feeds, pending LINE SERVICE ATTENDANT eval. * Increased kcal/prot needs R/T wound healing as evidenced by pt admitted w/ multiple wound per photos, pending eval * Altered nutrition related lab values R/T diabetes, cardiac hx, renal dysfunction as evidenced by elev BGs (230, 228), A1C 8.2, BNP 51937, elev creat (4.1-> 3.9), elev BUN (93->90). CURRENT TF:Nepro @ 30ml/hr x 24 hrs PO DIET RECOMMENDATIONS: IF SAFE FOR ORAL DIET -> CCHO LOW, LOW NA/ texture per LINE SERVICE ATTENDANT ENTERAL NUTRITION RECOMMENDATIONS: Glucerna 1.5 @ 40ml/hr x 24 hrs to provide 960ml, 1440kcal, 79g prot, 728ml free water * W/ improving renal fxn and lytes wnl, rec TF change to Glucerna 1.5 * Initiate GLucerna 1.5 @20ml/hr x 4hrs, advance 10ml q 4 hrs as tolerated to goal : will provide 100% est kcal/prot needs @ goal * HOB over 30 degrees/ water flush per MD ADDITIONAL RECOMMENDATIONS: * Per SNF: HT=62" KU=[id number] (02/05/20) * Monitor renal fxn and lytes, need for renal TF formula (creat trending down, K, phos, mag wnl) * Consider long acting insulin for improved BG control * Wound healing: Add Vit C 250mg QD + Silvano BID f/up w/ WC eval * Monitor for oral diet vs TF : LINE SERVICE ATTENDANT eval pending (8) Renal failure (9) Pneumonia (10) Deep tissue injury Assessment & Plan: Patient identified on admission to have a large sacral deep tissue injury non-blanchable erythema blistering epidermis intact no drainage. Unknown duration. Tenderness difficult to a certain based on clinical examinations patient's history. Labs noted. Patient high risk for decubitus ulcer formation worsening condition. NG tube in place currently. Nutritional optimization. Turn every 2 hours. Offload pressure with pillows. OPTi foam dressing to sacrum. Care plan initiated. Thank you will follow with recommendations Pt presented on admission with multiple Pressure Injuries, Fx L Hip. Large contusion noted to L Hip/ Lateral L Femur. Sacral DTPI partially opened and is 75% necrotic, 25% moist erythematous and clear skin flap that is loose.(L)5.5cm x (W)9cm. Small amt serous exudate noted. Non-Blanchable erythema periwound. Partial thickness wound noted to L Hip. Base of wound is moist and viable. edges adherent to base of wound(L)3cm x (W)2.5cm. L Heel is boggy with non-Blanchable erythema with delineated margins. L heel is boggy with non-blanchable erythema. Tx.Plan: Cleanse Sacral wound with Saline. Apply Therahoney. Apply Moisture Barrier Paste periwound. Cover with Optifoam drsg. Change every 3 days and prn. Apply Moisture Barrier Paste to L Hip wound. Cover with Optifoam drsg. Change every 3 days and prn Apply Cavilon Skin Barrier to both heels. Cover each heel with Optifoam drsg. Change every 7 days and prn. Reposition at least every 2hours or as tolerated. Off-load heels with pillow. APM/CHE Mattress overlay. Chris Lei Feb 14, 2020 09:49
--- NOTE | 2020-02-14 10:15 | General Progress Note ---
Subjective ROS Limited/Unobtainable: No Allergies: Coded Allergies: No Known Allergies (Unverified , 02/06/20) Objective Last 24 Hour Vital Signs Date Time Temp Pulse Resp B/P (MAP) Pulse Ox O2 Delivery O2 Flow Rate FiO2 02/14/20 09:22 67 114/67 02/14/20 09:00 Nasal Cannula 5.0 02/14/20 08:00 96.4 73 19 115/57 (76) 97 02/14/20 05:50 114/67 02/14/20 04:00 98.1 67 20 114/67 (83) 100 02/14/20 00:00 98.0 75 20 130/72 (91) 94 02/13/20 21:07 135/70 02/13/20 21:06 77 135/70 02/13/20 21:00 Nasal Cannula 5.0 02/13/20 20:00 97.0 77 20 135/70 (91) 100 02/13/20 15:56 97.7 79 18 146/87 (106) 99 02/13/20 13:21 135/87 02/13/20 11:57 96.4 73 20 135/87 (103) 96 Intake and Output 02/13/20 02/14/20 19:00 07:00 Intake Total 580 ml 1000 ml Output Total 500 ml 200 ml Balance 80 ml 800 ml Intake Free Water 60 ml 120 ml IV Total 400 ml 550 ml Tube Feeding 120 ml 330 ml Output Urine Total 500 ml 200 ml # Bowel Movements 2 Height (Feet): 5 Height (Inches): 6.00 Weight (Pounds): 160 General Appearance: no apparent distress EENT: PERRL/EOMI Neck: supple Cardiovascular: normal rate Respiratory/Chest: decreased breath sounds Abdomen: normal bowel sounds, non tender, soft Extremities: non-tender Assessment/Plan Status: stable Assessment/Plan: DYSPHAGIA Covod positive HTN elevated trop renal insuf family refused peg NGTF ? hospice care will fu Gopal Winter MD Feb 14, 2020 10:15
--- NOTE | 2020-02-14 10:23 | Pulmonology Progress Note ---
Subjective ROS Limited/Unobtainable: No Interval Events: Now requiring O2; pulled out NG Constitutional: Denies: fever HEENT: Repors: no symptoms Respiratory: Reports: no symptoms Cardiovascular: Reports: no symptoms Gastrointestinal/Abdominal: Reports: no symptoms Allergies: Coded Allergies: No Known Allergies (Unverified , 02/06/20) Objective Last 24 Hour Vital Signs Date Time Temp Pulse Resp B/P (MAP) Pulse Ox O2 Delivery O2 Flow Rate FiO2 02/14/20 09:22 67 114/67 02/14/20 09:00 Nasal Cannula 5.0 02/14/20 08:00 96.4 73 19 115/57 (76) 97 02/14/20 05:50 114/67 02/14/20 04:00 98.1 67 20 114/67 (83) 100 02/14/20 00:00 98.0 75 20 130/72 (91) 94 02/13/20 21:07 135/70 02/13/20 21:06 77 135/70 02/13/20 21:00 Nasal Cannula 5.0 02/13/20 20:00 97.0 77 20 135/70 (91) 100 02/13/20 15:56 97.7 79 18 146/87 (106) 99 02/13/20 13:21 135/87 02/13/20 11:57 96.4 73 20 135/87 (103) 96 Intake and Output 02/13/20 02/14/20 19:00 07:00 Intake Total 580 ml 1000 ml Output Total 500 ml 200 ml Balance 80 ml 800 ml Intake Free Water 60 ml 120 ml IV Total 400 ml 550 ml Tube Feeding 120 ml 330 ml Output Urine Total 500 ml 200 ml # Bowel Movements 2 General Appearance: no acute distress HEENT: mucous membranes moist Respiratory: chest wall non-tender, lungs clear Cardiovascular: normal peripheral pulses Abdomen: normal bowel sounds Current Medications Medications (Trade) Dose Ordered Sig/Maria Fernanda Route PRN Reason Start Time Stop Time Status Last Admin Dose Admin Allopurinol (allopurinoL) 300 mg DAILY NG 02/07/20 09:00 03/08/20 08:59 02/14/20 09:22 Carvedilol (Coreg) 25 mg EVERY 12 HOURS NG 02/06/20 21:00 03/07/20 20:59 02/14/20 09:22 Clonidine HCl (Catapres TTS-3) 1 patch QWEEK TDERMAL 02/09/20 11:00 05/09/20 10:59 02/09/20 10:32 Dextrose 1,000 ml @ 50 mls/hr Q20H IV 02/13/20 10:30 03/14/20 10:29 02/14/20 05:50 Dextrose (Dextrose 50%) 25 ml Q30M PRN IV Hypoglycemia 02/06/20 14:15 05/06/20 14:14 Dextrose (Dextrose 50%) 50 ml Q30M PRN IV Hypoglycemia 02/06/20 14:15 05/06/20 14:14 Docusate Sodium (Colace) 100 mg TWICE A DAY NG 02/06/20 18:00 03/07/20 17:59 02/13/20 17:15 Epoetin Manoj (Epoetin Manoj-EPBX(NON ESRD)) 10,000 unit FRI-FRI-FRI SUBQ 02/11/20 21:00 05/11/20 20:59 02/11/20 22:24 Famotidine (Pepcid) 20 mg BID ORAL 02/10/20 18:00 05/10/20 17:59 02/14/20 09:22 Haloperidol Lactate (Haldol) 5 mg Q6H PRN IM Agitation 02/07/20 23:15 03/23/20 23:14 Hydralazine HCl (Apresoline) 25 mg Q8HR NG 02/08/20 14:00 05/07/20 08:59 02/13/20 21:07 Insulin Aspart (NovoLOG) Q6HR SUBQ 02/06/20 18:00 05/06/20 17:59 02/14/20 05:51 Assessment/Plan Assessment/Plan IMPRESSION: 1. COVID-19 pneumonia. 2. Cardiomegaly/CHF. 3. Renal failure. DISCUSSION: Continue oxygen via nasal canulae; Remdesiver contraindicated due to renal failure Hold off on steroids as minimal hypoxemia I will follow as urgent care physician assistant. Unable to swallow due to poor mentation Will need PEG Family requesting home hospice Code status still full code? Will request attending to clarify code status Delmar Root Omar Syed MD Feb 14, 2020 10:23
--- NOTE | 2020-02-14 10:34 | Cardiology Progress Note ---
Assessment/Plan Status: stable Assessment/Plan Assessment/Plan Assessment/Plan 1. Elevated troponin, due to the patient's renal failure with BUN of 90 and creatinine of 4.1. Levels are low and flat. The patient is nonverbal and not complained of chest pain. On Coreg 25 mg b.i.d. and Lipitor. Her ejection fraction was 50%. 2. Hypertension, on Coreg 25 mg b.i.d. and p.r.n., hydralazine. 3. Hyperlipidemia, on Lipitor. 4. COVID positive. 5. Dysphagia, status post NG tube placement, 6. UTI. 7. Diabetes. 8. Severe protein malnutrition. Subjective Cardiovascular: Reports: no symptoms Respiratory: Reports: no symptoms Gastrointestinal/Abdominal: Reports: no symptoms Genitourinary: Reports: no symptoms Subjective [employer] [place] Objective Last 24 Hour Vital Signs Date Time Temp Pulse Resp B/P (MAP) Pulse Ox O2 Delivery O2 Flow Rate FiO2 02/14/20 09:22 67 114/67 02/14/20 09:00 Nasal Cannula 5.0 02/14/20 08:00 96.4 73 19 115/57 (76) 97 02/14/20 05:50 114/67 02/14/20 04:00 98.1 67 20 114/67 (83) 100 02/14/20 00:00 98.0 75 20 130/72 (91) 94 02/13/20 21:07 135/70 02/13/20 21:06 77 135/70 02/13/20 21:00 Nasal Cannula 5.0 02/13/20 20:00 97.0 77 20 135/70 (91) 100 02/13/20 15:56 97.7 79 18 146/87 (106) 99 02/13/20 13:21 135/87 02/13/20 11:57 96.4 73 20 135/87 (103) 96 General Appearance: no apparent distress, alert EENT: PERRL/EOMI, normal ENT inspection, TMs normal Neck: non-tender, normal alignment, supple Rhythm: NSR Cardiovascular: normal peripheral pulses, normal rate Respiratory/Chest: chest wall non-tender, lungs clear, no respiratory distress Abdomen: normal bowel sounds, non tender, soft Extremities: normal range of motion, non-tender Neurologic: clinical rehab liaison II-XII grossly normal, no motor/sensory deficits Intake and Output 02/13/20 02/14/20 19:00 07:00 Intake Total 580 ml 1000 ml Output Total 500 ml 200 ml Balance 80 ml 800 ml Intake Free Water 60 ml 120 ml IV Total 400 ml 550 ml Tube Feeding 120 ml 330 ml Output Urine Total 500 ml 200 ml # Bowel Movements 2 FilsoBennett butler MD Feb 14, 2020 10:34
--- NOTE | 2020-02-14 10:37 | NUR ---
NURSE NOTES: Received orders from Dr. Winter to increase NGT feeding to 35ml/hr. Orders noted and carried out.
[2020-02-14 12:00] VITALS: BP 125/63
--- NOTE | 2020-02-14 12:50 | Infectious Diseases Prog Note ---
Assessment/Plan Assessment/Plan IMPRESSION: COVID-19 pneumonia, positive since 01/18 pyuria, VRE bacteruria CHF, Failure to thrive, Severe protein malnutrition, Diabetes mellitus, Acute renal failure. 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 RECOMMENDATION: Family refused HD & PEG placement Observe off antibiotic Family is considering hospice Subjective ROS Limited/Unobtainable: Yes Neurologic: Reports: confusion, other - on restraint Allergies: Coded Allergies: No Known Allergies (Unverified , 02/06/20) Objective Last 24 Hour Vital Signs Date Time Temp Pulse Resp B/P (MAP) Pulse Ox O2 Delivery O2 Flow Rate FiO2 02/14/20 12:00 97.0 75 19 125/63 (83) 99 02/14/20 09:22 67 114/67 02/14/20 09:00 Nasal Cannula 5.0 02/14/20 08:00 96.4 73 19 115/57 (76) 97 02/14/20 05:50 114/67 02/14/20 04:00 98.1 67 20 114/67 (83) 100 02/14/20 00:00 98.0 75 20 130/72 (91) 94 02/13/20 21:07 135/70 02/13/20 21:06 77 135/70 02/13/20 21:00 Nasal Cannula 5.0 02/13/20 20:00 97.0 77 20 135/70 (91) 100 02/13/20 15:56 97.7 79 18 146/87 (106) 99 02/13/20 13:21 135/87 Height (Feet): 5 Height (Inches): 6.00 Weight (Pounds): 160 HEENT: mucous membranes moist Respiratory/Chest: no respiratory distress Cardiovascular: normal rate Abdomen: soft, non tender, other - NG tube feeding Extremities: no edema Neurologic/Psychiatric: disoriented Current Medications Medications (Trade) Dose Ordered Sig/Maria Fernanda Route PRN Reason Start Time Stop Time Status Last Admin Dose Admin Allopurinol (allopurinoL) 300 mg DAILY NG 02/07/20 09:00 03/08/20 08:59 02/14/20 09:22 Carvedilol (Coreg) 25 mg EVERY 12 HOURS NG 02/06/20 21:00 03/07/20 20:59 02/14/20 09:22 Clonidine HCl (Catapres TTS-3) 1 patch QWEEK TDERMAL 02/09/20 11:00 05/09/20 10:59 02/09/20 10:32 Dextrose 1,000 ml @ 50 mls/hr Q20H IV 02/13/20 10:30 03/14/20 10:29 02/14/20 05:50 Dextrose (Dextrose 50%) 25 ml Q30M PRN IV Hypoglycemia 02/06/20 14:15 05/06/20 14:14 Dextrose (Dextrose 50%) 50 ml Q30M PRN IV Hypoglycemia 02/06/20 14:15 05/06/20 14:14 Docusate Sodium (Colace) 100 mg TWICE A DAY NG 02/06/20 18:00 03/07/20 17:59 02/13/20 17:15 Epoetin Manoj (Epoetin Manoj-EPBX(NON ESRD)) 10,000 unit FRI-FRI-FRI SUBQ 02/11/20 21:00 05/11/20 20:59 02/11/20 22:24 Famotidine (Pepcid) 20 mg BID ORAL 02/10/20 18:00 05/10/20 17:59 02/14/20 09:22 Haloperidol Lactate (Haldol) 5 mg Q6H PRN IM Agitation 02/07/20 23:15 03/23/20 23:14 Hydralazine HCl (Apresoline) 25 mg Q8HR NG 02/08/20 14:00 05/07/20 08:59 02/13/20 21:07 Insulin Aspart (NovoLOG) Q6HR SUBQ 02/06/20 18:00 05/06/20 17:59 02/14/20 05:51 Viet Harper MD Feb 14, 2020 12:50
--- NOTE | 2020-02-14 13:07 | Nephrology Progress Note ---
Assessment/Plan Problem List: (1) Renal failure (ARF), acute on chronic (2) COVID-19 (3) UTI (urinary tract infection) (4) Congestive heart failure (5) Anemia (6) Diabetic nephropathy Assessment Renal failure, etiology unclear. Most likely secondary to heart failure. And or diabetes Patient has history of diabetes mellitus since she is receiving metformin and oral hypoglycemic agents Pneumonia UTI Mild anemia Plan February 13: Family remains indecisive regarding the CODE STATUS at this time. They still declined dialysis treatment. Patient on NG tube feeding. ticket worker and case picker to confirm with the family. February 12: Patient's condition unchanged. Remains full code despite of my previous conversation with the patient and the patient's primary physician stating that the patient should be on comfort care, yet according to the nurse, the daughter requesting lab works and etc...... not in line comfort care !!!! Will seek help from demand planner and mental health social worker to clarify the patient's status. I am available for any further discussion or meeting even though it was made clear to me previously that the patient should not have any dialysis treatment, tubing, invasive measures!! February 11: Status quo. Patient pulled out NG tube. Discussed with RN. The daughter request repeat blood work. Patient status remains full code on the records. However during my previous conversations with the daughter and with the patient's PMD Dr. Recinos patient is supposed to be on home hospice at this time. Will defer to case management and mental health social worker for this matter. February 10: No chemistry panel today. Patient has NG tube. Patient remains full code on the record. However it appears that the family are not agreeable with any tubing or invasive measures. clinical operations manager and mental health social worker to follow- up with family regarding further treatment plan. Not much to add from renal standpoint in view of family's decision at this time. February 09: Labs reviewed. I received another message from which I shared with primary physician and the consultants indicating that the family does not want dialysis or invasive tubes and they are seeking comfort care and hospice. At this point there is not much to add from renal standpoint to view. Case management and discharge planning consultation and coordination with PMD. February 08: Labs were reviewed. Medication list reviewed. Yesterday I received a call from Dr. Recinos the patient's primary physician who opposes initiating dialysis on the patient due to her multiple medical problems and dementia. Later on I received a text from him that the daughter is talking to family about home hospice. At this time we will continue her supportive noninvasive care. Will start the patient off clonidine patch for high blood pressure. February 07: Discussed with BONG Javier. Labs reviewed. 2D echo indicates LV function and ejection fraction in mid 50s. Renal parameters unchanged. Calculated GFR between 10-11. We will continue to optimize cardiac status. In my opinion the patient requires dialysis treatment and ultrafiltration if aggressive approach is our plan based on patient being full code. I will discuss the matter with the patient's daughter. Will also discuss with PMD Dr. Riojas. February 06: Continue to monitor renal parameters. 2D echocardiogram results and kidney ultrasound results are pending. Hemoglobin A1c results suggestive of diabetes mellitus [id number]. Will continue to optimize cardiac status. Hydralazine as an afterload reduction ordered. Allopurinol for high uric acid ordered. February 05: Cornelius 2D echo Urine studies Avoid nephrotoxic's Antibiotics Per orders KIDNEY OMARI: * Mildly increased renal echogenicity. Findings are concerning for intrinsic/medical renal disease. * No evidence of hydronephrosis bilaterally. * Bilateral simple appearing renal cysts. * Additional 2 cm hypoechoic possible cyst versus mass in the left kidney. Periventricular evaluation with MRI of the abdomen, ideally without and with contrast. * Bladder decompressed by Cornelius catheter, precluding its evaluation. * Trace ascites incidentally identified. * Cholelithiasis incidentally identified. Subjective ROS Limited/Unobtainable: Yes Objective Objective Last 24 Hour Vital Signs Date Time Temp Pulse Resp B/P (MAP) Pulse Ox O2 Delivery O2 Flow Rate FiO2 02/14/20 12:00 97.0 75 19 125/63 (83) 99 02/14/20 09:22 67 114/67 02/14/20 09:00 Nasal Cannula 5.0 02/14/20 08:00 96.4 73 19 115/57 (76) 97 02/14/20 05:50 114/67 02/14/20 04:00 98.1 67 20 114/67 (83) 100 02/14/20 00:00 98.0 75 20 130/72 (91) 94 02/13/20 21:07 135/70 02/13/20 21:06 77 135/70 02/13/20 21:00 Nasal Cannula 5.0 02/13/20 20:00 97.0 77 20 135/70 (91) 100 02/13/20 15:56 97.7 79 18 146/87 (106) 99 02/13/20 13:21 135/87 Intake and Output 02/13/20 02/14/20 19:00 07:00 Intake Total 580 ml 1000 ml Output Total 500 ml 200 ml Balance 80 ml 800 ml Intake Free Water 60 ml 120 ml IV Total 400 ml 550 ml Tube Feeding 120 ml 330 ml Output Urine Total 500 ml 200 ml # Bowel Movements 2 Height (Feet): 5 Height (Inches): 6.00 Weight (Pounds): 160 General Appearance: no apparent distress EENT: other - Has NG tube Cardiovascular: normal rate Respiratory/Chest: decreased breath sounds Abdomen: distended Objective No change Quirino Cormier MD Feb 14, 2020 13:07
--- NOTE | 2020-02-14 14:06 | NUR ---
Social Work This SW followed up with daughter, Margy @ [phone] who is requesting DNR/DNI, and agreeable with discharge to SNF (with Hospice). Daughter aware positive COVID and will need SNF that will accept. Daughter expressing her concerns regarding not being able to visit patient. This SW informed Nursing, Fransico RN, CM Jewel Stringer. Addendum: 02/14/20 at 1409 by MELISA ROSSI Emotional support provided to daughter.
[2020-02-14 16:00] VITALS: BP 101/66
--- NOTE | 2020-02-14 17:12 | NUR ---
*-*DISCHARGE PLANNED*-* PATIENT HAS BEEN ACCEPTED AND WILL BE DISCHARGED TO: [facility] P: [phone] FOR NURSE TO NURSE REPORT ROOM#12.A [facility] TRANSPORTATION SET FOR 6:30PM S/W BARB[facility] [id number] S/W PATIENTS DAUGHTER SUE CARRIZALES, WHO IS IN AGREEMENT WITH DISCHARGE PLAN.
--- NOTE | 2020-02-14 19:30 | NUR ---
NURSE NOTES: Patient in bed, on O2 @ 5LPM via nasal cannula, with NG tube on left nares, intact. With IV access on the left forearm. For discharge to [facility], picker packer time is 7:30pm. Call light in reach, bed in lowest, lock engaged and alarm on. Will follow up picker packer accordingly.
--- NOTE | 2020-02-14 19:56 | NUR ---
NURSE HAND-OFF: Important Events on Shift: Code status changed to DNR, pt pending pickup for DC to SNF, report given to Macrina WOODY. D/C with home meds, NGT and Abel kinney IV access. Patient Status: DNR Diet: NGT Pending Orders: None Pending Results/Labs:N Pending MD notification:N Latest Vital Signs: Temperature 97.8 , Pulse 75 , B/P 101 /66 , Respiratory Rate 20 , O2 SAT 99 , Nasal Cannula, O2 Flow Rate 5.0 . Vital Sign Comment: Latest Barrett Fall Score: 85 Fall Risk: High Risk Safety Measures: Call light Within Reach, Bed Alarm Zone 2, Side Rails Side Rails x3, Bed position Low and Locked. Fall Precautions: Yellow Socks Report given to Darwin WOODY.
[2020-02-14 20:00] VITALS: BP 105/62
--- NOTE | 2020-02-14 20:15 | Psych Consult Progress Note ---
Psychiatry Progress Note Psychiatry Progress Note Subjective the pt is the same cont to have episodes of agitation Medications Current Medications Medications (Trade) Dose Ordered Sig/Maria Fernanda Route PRN Reason Start Time Stop Time Status Last Admin Dose Admin Allopurinol (allopurinoL) 300 mg DAILY NG 02/07/20 09:00 03/08/20 08:59 02/14/20 09:22 Carvedilol (Coreg) 25 mg EVERY 12 HOURS NG 02/06/20 21:00 03/07/20 20:59 02/14/20 09:22 Clonidine HCl (Catapres TTS-3) 1 patch QWEEK TDERMAL 02/09/20 11:00 05/09/20 10:59 02/09/20 10:32 Dextrose 1,000 ml @ 50 mls/hr Q20H IV 02/13/20 10:30 03/14/20 10:29 02/14/20 05:50 Dextrose (Dextrose 50%) 25 ml Q30M PRN IV Hypoglycemia 02/06/20 14:15 05/06/20 14:14 Dextrose (Dextrose 50%) 50 ml Q30M PRN IV Hypoglycemia 02/06/20 14:15 05/06/20 14:14 Docusate Sodium (Colace) 100 mg TWICE A DAY NG 02/06/20 18:00 03/07/20 17:59 02/13/20 17:15 Epoetin Manoj (Epoetin Manoj-EPBX(NON ESRD)) 10,000 unit FRI-FRI-FRI SUBQ 02/11/20 21:00 05/11/20 20:59 02/11/20 22:24 Famotidine (Pepcid) 20 mg BID ORAL 02/10/20 18:00 05/10/20 17:59 02/14/20 18:00 Haloperidol Lactate (Haldol) 5 mg Q6H PRN IM Agitation 02/07/20 23:15 03/23/20 23:14 Hydralazine HCl (Apresoline) 25 mg Q8HR NG 02/08/20 14:00 05/07/20 08:59 02/14/20 13:43 Insulin Aspart (NovoLOG) Q6HR SUBQ 02/06/20 18:00 05/06/20 17:59 02/14/20 18:00 Neurological/Psychiatric: Reports: anxiety, depressed, emotional problems Allergies: Coded Allergies: No Known Allergies (Unverified , 02/06/20) Objective Data Height (Feet): 5 Height (Inches): 6.00 Weight (Pounds): 160 General Appearance: no apparent distress Additional Comments: awake, disoriented. Mood is agitated. Affect is flat. Thought process, there is a paucity of thought content. Thought content, no suicidal or homicidal ideation. Cognition is impaired. Insight and judgment impaired. Assessment/Plan [place] I: ASSESSMENT: [place] I Dementia with behavior disturbance. [place] II Deferred. [place] III As above. [place] IV Moderate. [place] V 20. PLAN: 1. Haldol as needed. 2. Bilateral self-restraints. Status: stable Status Narrative ASSESSMENT: [place] I Dementia with behavior disturbance. [place] II Deferred. [place] III As above. [place] IV Moderate. [place] V 20. PLAN: 1. Haldol as needed. 2. Bilateral self-restraints. Assessment/Plan: ASSESSMENT: [place] I Dementia with behavior disturbance. [place] II Deferred. [place] III As above. [place] IV Moderate. [place] V 20. PLAN: 1. Haldol as needed. 2. Bilateral self-restraints. Eboni Thomas MD Feb 14, 2020 20:15
--- NOTE | 2020-02-14 20:15 | NUR ---
NURSE NOTES: Called [facility] to follow up. Per dispatcher, transport is almost close and ETA is about 10mins.
--- NOTE | 2020-02-14 21:10 | NUR ---
NURSE NOTES: IV access removed. Report given to [facility] staff. Discharged patient stable.
--- NOTE | 2020-02-14 21:33 | General Progress Note ---
Subjective ROS Limited/Unobtainable: Yes Allergies: Coded Allergies: No Known Allergies (Unverified , 02/06/20) Objective Last 24 Hour Vital Signs Date Time Temp Pulse Resp B/P (MAP) Pulse Ox O2 Delivery O2 Flow Rate FiO2 02/14/20 20:00 97.6 68 17 105/62 (76) 98 02/14/20 16:00 97.8 75 20 101/66 (78) 99 02/14/20 13:43 125/63 02/14/20 12:00 97.0 75 19 125/63 (83) 99 02/14/20 09:22 67 114/67 02/14/20 09:00 Nasal Cannula 5.0 02/14/20 08:00 96.4 73 19 115/57 (76) 97 02/14/20 05:50 114/67 02/14/20 04:00 98.1 67 20 114/67 (83) 100 02/14/20 00:00 98.0 75 20 130/72 (91) 94 Intake and Output 02/13/20 02/14/20 19:00 07:00 Intake Total 580 ml 1000 ml Output Total 500 ml 200 ml Balance 80 ml 800 ml Intake Free Water 60 ml 120 ml IV Total 400 ml 550 ml Tube Feeding 120 ml 330 ml Output Urine Total 500 ml 200 ml # Bowel Movements 2 Height (Feet): 5 Height (Inches): 6.00 Weight (Pounds): 160 Assessment/Plan Problem List: (1) Congestive heart failure ICD Codes: I50.9 - Heart failure, unspecified SNOMED: 36494367 (2) Anemia ICD Codes: D64.9 - Anemia, unspecified SNOMED: 709623093 (3) Diabetic nephropathy ICD Codes: E11.21 - Type 2 diabetes mellitus with diabetic nephropathy SNOMED: 72960819, 078824236 (4) Renal failure ICD Codes: N19 - Unspecified kidney failure SNOMED: 02546008 Qualifiers: Qualified Codes: N19 - Unspecified kidney failure (5) Failure to thrive SNOMED: 97577997 Qualifiers: Qualified Codes: R62.7 - Adult failure to thrive (6) Pneumonia ICD Codes: J18.9 - Pneumonia, unspecified organism SNOMED: 948428159 Qualifiers: Qualified Codes: J18.9 - Pneumonia, unspecified organism (7) UTI (urinary tract infection) ICD Codes: N39.0 - Urinary tract infection, site not specified SNOMED: 78592633 Qualifiers: Qualified Codes: N39.0 - Urinary tract infection, site not specified (8) Renal failure (ARF), acute on chronic ICD Codes: N17.9 - Acute kidney failure, unspecified; N18.9 - Chronic kidney disease, unspecified SNOMED: 216848668 Status: stable, progressing Assessment/Plan: daughter wants dnr and no diaylsis and no feeding tube ng tube replaced malnutrtion daughter wants comfort care covid positive resp insuff afebrile reviewed chart and labs Janes Faust MD Feb 14, 2020 21:33
--- NOTE | 2020-02-16 10:50 | Discharge Summary ---
Discharge Summary Discharge Summary _ DATE OF ADMISSION: 02/06/2020 DATE OF DISCHARGE: 02/14/2020 DISCHARGED BY: Dr. Faust REASON FOR ADMISSION: 79 years old female, resident of senior care facility, with past medical history of hypertension, CHF, hyperlipidemia, diabetes mellitus type 2, apparently pulled her feeding tube/NGT and was brought for further evaluation. Patient had prior history of COVID , diagnosed 01/18. Patient nonverbal and unable to provide any history Upon evaluation she was hypoxic and required supplemental oxygen via nasal cannula. Patient was afebrile. Laboratory work-up revealed no leukocytosis, hemoglobin 11.6, hematocrit 37.2, platelet counts 185. Lactic acid 1.2. Stable electrolytes. BUN 93, creatinine 4.1. CRP 4.8, ProBNP 14630. Albumin 1.8. EKG revealed atrial fibrillation with controlled ventricular rate. Chest x-ray demonstrated findings concerning for CHF. Cardiomegaly with pulmonary vascular congestion and small bilateral pleurl effusion. Subsegmental atelectasis versus infiltrate in bilateral lung bases. Rapid COVID-19 was positive Urinalysis revealed +2 protein ,pyuria, moderate bacteria, and yeast In emergency department patient received IV fluids, pancultured and started on broad-spectrum antibiotic. Patient admitted for further management due to renal failure, failure to thrive, UTI, possible pneumonia. CONSULTANTS: career placement specialist Dr. Ventura pulmonary Dr. Junior ID specialist Dr. Viet Harper GI specialist Dr. Winter novelty chain maker rhea Cormier surgery Dr. Lei psychiatrist [facility] COURSE: Patient admitted to isolation room. Patient started on empiric antibiotics The next day troponin elevated 0.1 Echocardiogram demonstrated mild left ventricular hypertrophy with basal to mid septal wall hypokinesia; left ventricular ejection fraction estimated to be 50%. Right ventricular systolic pressure of 67 consistent with severe pulmonary hypertension. Moderate mitral and severe tricuspid regurgitation. Second troponin trended down to 0.088. According to career placement specialist , elevated troponin was most likely due to renal failure Patient nonverbal and unable to be assessed for the chest pain. Patient was on beta blockage and statin. Blood pressure was managed with beta-gina and hydralazine. Lipid panel stable. TSH within normal limits. Supplemental oxygen provided and titrated to keep pulse oximetry above 92%. Steroids were hold due to minimal hypoxemia. Remdesivir was contraindicated due to renal failure. Patient was unable to swallow due to poor mentation . Patient had NG tube for nutrition. Protein supplements provided as per registered dietitian recommendation. Family declined PEG placement. Iv Therapy Nurse closely followed. Renal ultrasound demonstrated mildly increased renal echogenicity , concerning for medical renal disease. No evidence of hydronephrosis. Additional 2 cm hypoechoic possible cyst versus mass in the left kidney. Nephrotoxic's were avoided . Urine studies were done Creatinine did not change , prior to discharge 4.2. Family declined dialysis treatment, as recommended by novelty chain maker. Antibiotic provided as per ID recommendation. Blood cultures were negative. Urine culture revealed enterococci VRE. Patient presented with large sacral deep tissue injury. Wound care provided as per surgeon recommendation , continue wound care at the facility. Patient was followed up by psychiatrist. Psychiatric medication regimen was optimized. Blood sugar was managed with sliding scale of insulin. hemoglobin A1c 8.2. GI prophylaxis provided. Hemoglobin and hematocrit were closely monitored with goal to keep hemoglobin above 7. Patient was on Epogen. Anemia work-up was consistent with anemia of chronic disease; ferritin above 2000; most likely due to chronic kidney disease. Prior to discharge hemoglobin 9.3, hematocrit 30.4. Supportive care provided Bowel regimen instituted As mentioned above , family refused dialysis and PEG placement. Family decided on hospice services. CODE STATUS was changed to DNR/DNI 921. Patient was discharged to the senior care facility with further plan for hospice services. FINAL DIAGNOSES: COVID-19 pneumonia , positive since 01/18 Renal failure ,acute on chronic Elevated troponin, likely due to renal failure Dysphagia Pyuria, VRE bacteriuria Severe protein calorie malnutrition Hypertension Hyperlipidemia CHF Deep tissue injury present on admission sacral area Diabetic nephropathy Anemia Dementia with behavioral disturbances DISCHARGE MEDICATIONS: See Medication Reconciliation list. DISCHARGE INSTRUCTIONS: Patient was discharged to the senior care facility. Follow up with medical doctor at the facility. I have been assigned to dictate discharge summary for this account. I was not involved in the patient's management. Jennifer Waters NP Feb 16, 2020 10:50
== END 2020-02-14 21:10 | DRG 177 ==
LOC: EDBD 08:03 → EMR 08:34 → 4E 09:01 → EDBEDREQ 09:06
DX: U07.1 COVID-19 (principal); J12.89 Other viral pneumonia; E43 Unspecified severe protein-calorie malnutrition; N39.0 Urinary tract infection, site not specified; F03.91 Unspecified dementia, unspecified severity, with behavioral disturbance; N17.9 Acute kidney failure, unspecified; I13.0 Hypertensive heart and chronic kidney disease with heart failure and stage 1 through stage 4 chronic kidney disease, or unspecified chronic kidney disease; Z51.5 Encounter for palliative care; I50.9 Heart failure, unspecified; R62.7 Adult failure to thrive; Z68.25 Body mass index [BMI] 25.0-25.9, adult; E78.5 Hyperlipidemia, unspecified; E11.21 Type 2 diabetes mellitus with diabetic nephropathy; N18.9 Chronic kidney disease, unspecified; L89.156 Pressure-induced deep tissue damage of sacral region; Z22.39 Carrier of other specified bacterial diseases; R13.10 Dysphagia, unspecified; Z66 Do not resuscitate; I27.20 Pulmonary hypertension, unspecified; I34.0 Nonrheumatic mitral (valve) insufficiency; I36.1 Nonrheumatic tricuspid (valve) insufficiency
CPT/HCPCS: 36415; 71045; 74018; 76770; 80053; 80061; 81003; 82550; 82607; 82728; 82746; 82962; 82977; 83036; 83540; 83550; 83605; 83735; 83880; 84100; 84300; 84443; 84484; 84550; 85007; 85025; 85610; 85730; 86140; 86850; 86900; 86901; 87040; 87081; 87086; 87181; 92610; 93005; 93306; 96361; 96365; 96368; 96375; 99285; J1815; J7030; U0002

== ENCOUNTER 2020-02-17 07:56 | Inpatient (IN) | payer MEDICARE, MEDICAID ==
[~2020-02-17] VITALS: Ht 165.1 cm; Wt 87.2 kg
[~2020-02-17 07:56] MED LIST: ACETAMINOPHEN325 M1 NGT; ATORVASTATIN CA20 MG NGT; BICITRA30 ML GT; BISACODYL10 M1 RC; CARVEDILOL25 MG PO; DOCUSATE SODIU100 MG GT; FERROUS SULFAT325 MG GT; FLEET ENEMA133 ML RECTAL; FOLIC ACID1 MG GT; GABAPENTIN100 MG ORAL; GABAPENTIN400 MG NG; GLIPIZIDE5 MG GT; GLUCERNA1 EACH GT; HEPARIN SO5000 UNIT2 SUBQ; HYDRALAZINE HCL10 MG PO; LANTUS SOL100 UNIT/1 SUBQ; METFORMIN HCL1000 M1 ORAL; MILK OF MA400 MG/51 GT; MYLANTA TONIGH355 ML GT; NORCO 5-325 TA1 EAC1 NGT; NOVOLOG100 UNIT/5 SQ; PANTOPRAZOLE SO40 MG GT; ZOFRAN4 M3 GT; ZOSYN 3.373.375 GM/1 IVPB
[2020-02-17 08:00] VITALS: BP 154/87
--- NOTE | 2020-02-17 08:00 | NUR ---
ED Nurse Note: Pt VANNA RA58 from [facility] c/o weakness and hypoglycemia. Per EMS, pt is weaker than usual, BS at the scene was 75, Glucagon IM was given. Pt AAOx1, verbally responsive. No SOB, on room air. Noted with cough. Pt was tested positive last 02/06/20. Afebrile. Isolation precaution observed. Pt placed on utilization specialist. ERMD at bedside.
--- NOTE | 2020-02-17 08:02 | NUR ---
ED Nurse Note: IV line established. Blood and urine specimen, Covid swab collected and sent to lab.
--- NOTE | 2020-02-17 08:20 | NUR ---
ED Nurse Note: FC 16fr replaced per ERMD order.
[2020-02-17 08:25] LABS: APPEARANCE,URINE SLIGHTLY CLOUDY; BILIRUBIN, URINE NEGATIVE (NEGATIVE); COLOR,URINE YELLOW; GLUCOSE, URINE (UA) NEGATIVE (NEGATIVE); KETONES,URINE NEGATIVE (NEGATIVE); LEUKOCYTE ESTERASE ,URINE 3+ (NEGATIVE); NITRITE,URINE NEGATIVE (NEGATIVE); PH,URINE 5 (4.5-8.0); PROTEIN,URINE 2+ (NEGATIVE); UROBILINOGEN,URINE NORMAL MG/DL (0.0-1.0)
[2020-02-17 08:25] LABS: HEMATOCRIT 33.4 % (37.0-47.0); HEMOGLOBIN 10.3 G/DL (12.0-16.0); MEAN CORPUSCULAR VOLUME 90 FL (80-99); PLATELET COUNT 93 K/UL (150-450); RED BLOOD COUNT 3.69 M/UL (4.20-5.40); WHITE BLOOD COUNT 5.2 K/UL (4.8-10.8)
--- NOTE | 2020-02-17 08:43 | Emergency Room Report ---
History of Present Illness General Chief Complaint: Generalized Weakness Source: Medical Record, EMS Present Illness HPI Patient's primary care physician is Dr. Janes Lenz. Patient is a care home patient. Patient is from [facility]. Patient was last seen in our hospital just a few days ago and discharged a few days ago. Patient was noted to have pneumonia at the time. Patient was also COVID positive prior to arrival. Patient presents today because of hypoglycemia noted with blood sugar in the 50s. Patient received glucagon and blood sugar was reported to improve to the high 70s to 80s. Patient was presented here for further evaluation. Patient d oes have a history of a NG tube that was placed. Apparently the family refused a PEG tube or a dialysis treatment. Patient apparently dislodged the NG tube. No other complaints are noted. Patient does have a mild cough. Patient is nonverbal. All history was obtained from medical records paramedics. Symptoms noted to be moderate to severe. Patient was noted to be weak this morning which is what prompted the Accu-Chek. Of note nurses informed me that she had taken care of patient on the last visit and noticed at the time she did have some evidence of left lower extremity deformity. Uncertain if this was worked up or chronic in character. Therefore I will work this up at this time. There is only a small amount of bruising compared to last visit where apparently there was more bruising on the left side. No other modifying factors. No other associated signs and symptoms. No other complaints were noted. Allergies: Coded Allergies: No Known Allergies (Unverified , 02/06/20) COVID-19 Screening Contact w/high risk pt: Yes Experienced COVID-19 symptoms?: Yes COVID-19 symptoms experienced: Shortness of Breath COVID-19 Testing performed TECHNICIANS AND TRADES WORKERS: Yes COVID-19 Screening: Positive COVID-19 COVID-19 Testing Source: nasal Patient History Past Medical History: DM, HTN, CAD, pneumonia, renal disease, other - Failure to thrive, UTI Past Surgical History: unable to obtain Pertinent Family History: unable to obtain Social History Narrative Patient currently stays at a care home no history alcohol drug or tobacco use. Reviewed Nursing Documentation: PMH: Agreed; PSxH: Agreed Nursing Documentation-PMH Past Medical History: No History, Except For Hx Cardiac Problems: Yes - CHF, Afib, hyperlipidemia Hx Hypertension: Yes Hx Asthma: Yes Hx Diabetes: Yes - type 2 Hx Cancer: No Hx Gastrointestinal Problems: No Hx Neurological Problems: No Review of Systems All Other Systems: negative except mentioned in HPI - Unable to obtain full review of systems due to patient's poor underlying mental status. Physical Exam Vital Signs Date Time Temp Pulse Resp B/P (MAP) Pulse Ox O2 Delivery O2 Flow Rate FiO2 02/17/20 07:54 98.8 90 18 154/87 (109) 98 Room Air Sp02 EP Interpretation: reviewed, normal General Appearance: alert, other - Appears weak., Chronically Ill Head: atraumatic Eyes: bilateral eye normal inspection ENT: normal ENT inspection, hearing grossly normal, normal voice Neck: normal inspection, full range of motion, supple, no bony tend Respiratory: no respiratory distress, no retraction, crackles - Basilar Cardiovascular #1: regular rate, rhythm, no edema Gastrointestinal: normal inspection, normal bowel sounds, non tender, soft, no hernia Genitourinary: no CVA tenderness Musculoskeletal: other - Lower leg mild deformity and some evidence of bruising. Neurologic: alert, responsive, speech normal, normal inspection Psychiatric: depressed affect Skin: other - Reported sacral wound. Medical Decision Making Diagnostic Impression: Primary Impression: CHF (congestive heart failure) Additional Impressions: Hypoglycemia Hip fracture, left Failure to thrive UTI (urinary tract infection) ER Course Patient presents emergency department today with hypoglycemia. Differential considerations include acute electrolyte abnormality, acute coronary syndrome, acute left hip fracture just name a few. Given the severity of the patient's presentation I felt this is a highly complex patient. This patient required extensive workup. Patient's laboratory work-up is not impressive. X-ray however shows evidence of chronic CHF. X-ray also shows evidence of left hip fracture. Laboratory work- up showed evidence of UTI. Will start patient on antibiotics. Case was discussed with Dr. Janes Lenz. Will admit the patient further evaluation mikhail atment and work-up. Labs Test 02/17/20 07:55 02/17/20 08:07 White Blood Count 5.2 K/UL (4.8-10.8) Red Blood Count 3.69 M/UL (4.20-5.40) Hemoglobin 10.3 G/DL (12.0-16.0) Hematocrit 33.4 % (37.0-47.0) Mean Corpuscular Volume 90 FL (80-99) Mean Corpuscular Hemoglobin 27.9 PG (27.0-31.0) Mean Corpuscular Hemoglobin Concent 30.8 G/DL (32.0-36.0) Red Cell Distribution Width 19.0 % (11.6-14.8) Platelet Count 93 K/UL (150-450) Mean Platelet Volume 8.0 FL (6.5-10.1) Neutrophils (%) (Auto) % (45.0-75.0) Lymphocytes (%) (Auto) % (20.0-45.0) Monocytes (%) (Auto) % (1.0-10.0) Eosinophils (%) (Auto) % (0.0-3.0) Basophils (%) (Auto) % (0.0-2.0) Differential Total Cells Counted 100 Neutrophils % (Manual) 88 % (45-75) Lymphocytes % (Manual) 9 % (20-45) Monocytes % (Manual) 3 % (1-10) Eosinophils % (Manual) 0 % (0-3) Basophils % (Manual) 0 % (0-2) Band Neutrophils 0 % (0-8) Platelet Estimate Decreased Platelet Morphology Normal Hypochromasia 1+ Anisocytosis 2+ Sodium Level 145 MMOL/L (136-145) Potassium Level 4.2 MMOL/L (3.5-5.1) Chloride Level 110 MMOL/L (98-107) Carbon Dioxide Level 25 MMOL/L (21-32) Anion Gap 10 mmol/L (5-15) Blood Urea Nitrogen 127 mg/dL (7-18) Creatinine 4.3 MG/DL (0.55-1.30) Estimat Glomerular Filtration Rate 9.9 mL/min (>60) Glucose Level 82 MG/DL (74-106) Lactic Acid Level 1.10 mmol/L (0.4-2.0) Calcium Level 8.1 MG/DL (8.5-10.1) Total Bilirubin 0.3 MG/DL (0.2-1.0) Aspartate Amino Transf (AST/SGOT) 35 U/L (15-37) Alanine Aminotransferase (ALT/SGPT) 22 U/L (12-78) Alkaline Phosphatase 93 U/L (46-116) Total Creatine Kinase 42 U/L (26-308) Troponin I 0.067 ng/mL (0.000-0.056) Total Protein 5.2 G/DL (6.4-8.2) Albumin 1.7 G/DL (3.4-5.0) Globulin 3.5 g/dL Albumin/Globulin Ratio 0.5 (1.0-2.7) Lipase 309 U/L (73-393) Urine Color Yellow Urine Appearance Slightly cloudy Urine pH 5 (4.5-8.0) Urine Specific Gracey 1.015 (1.005-1.035) Urine Protein 2+ (NEGATIVE) Urine Glucose (UA) Negative (NEGATIVE) Urine Ketones Negative (NEGATIVE) Urine Blood 5+ (NEGATIVE) Urine Nitrite Negative (NEGATIVE) Urine Bilirubin Negative (NEGATIVE) Urine Urobilinogen Normal MG/DL (0.0-1.0) Urine Leukocyte Esterase 3+ (NEGATIVE) Urine RBC 5-10 /HPF (0 - 2) Urine WBC 2-4 /HPF (0 - 2) Urine Squamous Epithelial Cells None /LPF (NONE/OCC) Urine Bacteria Occasional /HPF (NONE) Urine Yeast Many /HPF (NONE) EKG Diagnostic Results Rate: normal Rhythm: other - Atrial fibrillation. No evidence of PVCs. ST Segments: no acute changes Rhythm Strip Diag. Results EP Interpretation: yes Rate: 56 Rhythm: no PVC's, other - Atrial fibrillation. No ST segment elevation. Chest X-Ray Diagnostic Results Chest X-Ray Diagnostic Results : Chest X-Ray Ordered: Yes # of Views/Limited/Complete: 1 View Indication: Chest Pain EP Interpretation: Yes Interpretation: no consolidation, no pneumothorax, other - Pulmonary congestion. Bilateral pleural effusion. Cardiomegaly. Impression: Other - CHF with pleural effusion Electronically Signed by: Electronically signed by Stefan Brannon MD Other X-Ray Diagnostic Results Other X-Ray Diagnostic Results : # of Views/Limited Vs Complete: 2 View Indication: Pain EP Interpretation: Yes Interpretation: no dislocation, nonspecific bowel gas, other - Left hip fracture. With mild displacement. Surgical clips in the pelvis. No evidence of pelvis fracture. Impression: Other - Left hip fracture Electronically Signed by: Electronically signed by Stefan Brannon MD Last Vital Signs Date Time Temp Pulse Resp B/P (MAP) Pulse Ox O2 Delivery O2 Flow Rate FiO2 02/17/20 07:54 98.8 90 18 154/87 (109) 98 Room Air Status: improved Disposition: PLACE IN OBSERVATION Condition: Serious Charlie Brannonrey MD Feb 17, 2020 08:43
[2020-02-17] MEDS ORDERED: cefTRIAXone 1 GM in NS 55 ML IVPB ONE (08:45)
[2020-02-17] MEDS ORDERED: D5 1/2NS w/KCl 20mEq 1,000 ML IV SCH (08:45)
[2020-02-17 08:55] LABS: ANION GAP 10 mmol/L (5-15); BLOOD UREA NITROGEN 127 mg/dL (7-18); CALCIUM 8.1 MG/DL (8.5-10.1); CARBON DIOXIDE 25 MMOL/L (21-32); CHLORIDE 110 MMOL/L (98-107); CREATININE 4.3 MG/DL (0.55-1.30); POTASSIUM 4.2 MMOL/L (3.5-5.1); SODIUM 145 MMOL/L (136-145)
[2020-02-17 09:00] LABS: ALANINE AMINOTRANSFERASE 22 U/L (12-78); ALBUMIN 1.7 G/DL (3.4-5.0); ALBUMIN/GLOBULIN RATIO 0.5 (1.0-2.7); ALKALINE PHOSPHATASE 93 U/L (46-116); ASPARTATE AMINO TRANSFERASE 35 U/L (15-37); BILIRUBIN,TOTAL 0.3 MG/DL (0.2-1.0); CREATINE KINASE 42 U/L (26-308)
--- NOTE | 2020-02-17 09:00 | NUR ---
ED Nurse Note: NG tube 16fr, 60cm inserted per ERMD order.
--- NOTE | 2020-02-17 09:15 | NUR ---
ED Nurse Note: Xray at bedside.
[2020-02-17] MEDS ORDERED: Oseltamivir 75mg cap ORAL ONE (10:00)
--- NOTE | 2020-02-17 10:02 | NUR ---
ED Nurse Note: Skin assessment initiated. Noted with 1 pressure sore on sacrococcyx, 1 pressure sore on right lower leg.
--- NOTE | 2020-02-17 10:42 | NUR ---
ED Nurse Note: Report given to Jorge WOODY.
[2020-02-17 10:47] VITALS: BP 137/71
--- NOTE | 2020-02-17 11:10 | NUR ---
TRANSFER TO FLOOR: Patient transferred to [facility] via gurney accompanied by a tech. Pt AAOx2, on room air. no SOB. IV line on left AC 22g patent and intact. On D5 1/2 NS with KCL 20meq @125ml/hr patent and infusing well.Pt does not have any belongings. Family member aware of the transfer.
--- NOTE | 2020-02-17 11:40 | NUR ---
NURSE NOTES: Received patient from ER @ 11:30 AM. Patient transported via gurney, transferred to bed with 3 person assist. pt AOx0, non-verbal, pupils reactive to light, lungs sound clear bilaterally, on room air. no SOB. IV line on left AC 22g patent and intact. On D5 1/2 NS with KCL 20meq @125ml/hr patent and infusing well. Pt does not have any belongings. patient has un-stageable sacral wound, bilateral heel DTI. Optifoam applied and pictures taken. Patient has 16 maori NG tube placed today, and 16french Cornelius cath exchanged today, draining light yellow urine. patient will be monitored for safety.
--- NOTE | 2020-02-17 13:48 | General Progress Note ---
Subjective ROS Limited/Unobtainable: No Allergies: Coded Allergies: No Known Allergies (Unverified , 02/06/20) Objective Last 24 Hour Vital Signs Date Time Temp Pulse Resp B/P (MAP) Pulse Ox O2 Delivery O2 Flow Rate FiO2 02/17/20 11:10 98.4 68 15 137/71 100 Room Air 02/17/20 10:47 98.4 68 15 137/71 100 Room Air 02/17/20 08:00 98.8 90 18 154/87 98 Room Air 02/17/20 08:00 90 18 Room Air 02/17/20 07:54 98.8 90 18 154/87 (109) 98 Room Air Laboratory Tests 02/17/20 07:55: White Blood Count 5.2, Red Blood Count 3.69L, Hemoglobin 10.3L, Hematocrit 33.4L , Mean Corpuscular Volume 90, Mean Corpuscular Hemoglobin 27.9, Mean Corpuscular Hemoglobin Concent 30.8L, Red Cell Distribution Width 19.0H, Platelet Count 93L, Mean Platelet Volume 8.0, Neutrophils (%) (Auto) , Lymphocytes (%) (Auto) , Monocytes (%) (Auto) , Eosinophils (%) (Auto) , Basophils (%) (Auto) , Differential Total Cells Counted 100, Neutrophils % (Manual) 88H, Lymphocytes % (Manual) 9L, Monocytes % (Manual) 3, Eosinophils % (Manual) 0, Basophils % (Manual) 0, Band Neutrophils 0, Platelet Estimate DecreasedL, Platelet Morphology Normal, Hypochromasia 1+, Anisocytosis 2+, Sodium Level 145, Potassium Level 4.2, Chloride Level 110H, Carbon Dioxide Level 25, Anion Gap 10, Blood Urea Nitrogen 127H, Creatinine 4.3H, Estimat Glomerular Filtration Rate 9.9, Glucose Level 82, Lactic Acid Level 1.10, Calcium Level 8.1L, Total Bilirubin 0.3, Aspartate Amino Transf (AST/SGOT) 35, Alanine Aminotransferase (ALT/SGPT) 22, Alkaline Phosphatase 93, Total Creatine Kinase 42, Troponin I 0.067H, Total Protein 5.2L, Albumin 1.7L, Globulin 3.5, Albumin/Globulin Ratio 0.5L, Lipase 309 02/17/20 08:07: Urine Color Yellow, Urine Appearance Slightly cloudy, Urine pH 5, Urine Specific Valentines 1.015, Urine Protein 2+H, Urine Glucose (UA) Negative, Urine Ketones Negative, Urine Blood 5+H, Urine Nitrite Negative, Urine Bilirubin Negative, Urine Urobilinogen Normal, Urine Leukocyte Esterase 3+H, Urine RBC 5-10H, Urine WBC 2-4, Urine Squamous Epithelial Cells None, Urine Bacteria Occasional, Urine Yeast ManyH Height (Feet): 5 Height (Inches): 2.00 Weight (Pounds): 150 General Appearance: no apparent distress EENT: normal ENT inspection Neck: supple Cardiovascular: normal rate Respiratory/Chest: decreased breath sounds Abdomen: normal bowel sounds, non tender, soft Extremities: non-tender Assessment/Plan Problem List: (1) Failure to thrive SNOMED: 37894856 (2) Renal failure ICD Codes: N19 - Unspecified kidney failure SNOMED: 95392386 (3) Anemia ICD Codes: D64.9 - Anemia, unspecified SNOMED: 112838901 (4) COVID-19 ICD Codes: U07.1 - COVID-19 SNOMED: 222899215 Assessment/Plan: DYSPHAGIA Covod positive last admission HTN elevated trop renal insuf family refused peg NGTF swallow eval PEG if family agrees will Gopal Maguire MD Feb 17, 2020 13:48
--- NOTE | 2020-02-17 13:59 | NUR ---
PERSONNEL SECURITY SPECIALIST NOTE ROSENDO received a consult for end of life discussion. Pt was [place] [facility] [place]02/14/2020. Per chart review, ENID Bartlett spoke w/ the daughter Charisse [phone] and confirmed DNR and DNI w/ hospice care. However, the daughter declined dialysis and g tube placement. Pt returned to SNF on 02/14/2020. ROSENDO was informed that the daughter now agrees w/ dialysis and g tube placement. SW spoke w/ Charisse [phone], confirmed that she spoke w/ MD and agreed w/ dialysis and g tube placement. Charisse expresses she wants DNI only. Addendum: 02/17/20 at 1405 by WYATT ROBBINS SW endorsed information to the assigned RN. No other concern/needs at this time.
[2020-02-17] MEDS ORDERED: Varibar Nectar 240ml MC PRN (14:00)
[2020-02-17] MEDS ORDERED: Varibar Pudding 230ml MC PRN (14:00)
[2020-02-17] MEDS ORDERED: Varibar Honey 250ml MC PRN (14:00)
[2020-02-17] MEDS ORDERED: Varibar Thin Liquid powder 148gm MC PRN (14:00)
--- NOTE | 2020-02-17 14:12 | Consultation ---
Consult Note Consult Note I am asked to evaluate the patient at the request of Dr. Riojas for management of renal failure. Patient was here at [facility] last week, the daughter refused and declined dialysis treatment. Patient's primary physician also Dr. Recinos communicated with me and suggested comfort care. Patient however was brought into emergency room today. The daughter who called me at this time would like her mother to receive dialysis trial. ER: Patient's primary care physician is Dr. Janes Lenz. Patient is a senior care patient. Patient is from [facility]. Patient was last seen in our hospital just a few days ago and discharged a few days ago. Patient was noted to have pneumonia at the time. Patient was also COVID positive prior to arrival. Patient presents today because of hypoglycemia noted with blood sugar in the 50s. Patient received glucagon and blood sugar was reported to improve to the high 70s to 80s. Patient was presented here for further evaluation. Patient does have a history of a NG tube that was placed. Apparently the family refused a PEG tube or a dialysis treatment. Patient apparently dislodged the NG tube. No other complaints are noted. Patient does have a mild cough. Patient is nonverbal. All history was obtained from medical records paramedics. Symptoms noted to be moderate to severe. Patient was noted to be weak this morning which is what prompted the Accu-Chek. Of note nurses informed me that she had taken care of patient on the last visit and noticed at the time she did have some evidence of left lower extremity deformity. Uncertain if this was worked up or chronic in character. Therefore I will work this up at this time. There is only a small amount of bruising compared to last visit where apparently there was more bruising on the left side. No other modifying factors. No other associated signs and symptoms. No other complaints were noted. 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 Reviewed Nursing Documentation: PMH: Agreed; PSxH: Agreed Past Medical History: No History, Except For Hx Cardiac Problems: Yes - CHF, Afib, hyperlipidemia Hx Hypertension: Yes Hx Asthma: Yes Hx Diabetes: Yes - type 2 GENERAL APPEARANCE: Lethargic HEAD AND NECK: Had NG tube. HEART: Normal. LUNGS: Clear. Slightly decreased sound. Dull bases ABDOMEN: Soft. distended EXTREMITIES: Edema, especially in upper extremities. NEUROLOGIC: Poorly responsive. LABORATORY AND DIAGNOSTIC DATA: WBC 5.2, hemoglobin 10.3, hematocrit 33.4, platelet 93. Sodium 145, potassium 4.2, chloride 110, carbon dioxide 25, BUN 127, creatinine 4.3, glucose is 82. Troponin 0.067. Albumin is 1.7. COVID-19 test was negative, but influenza A test was positive. . Assessment/Plan Imp: 1) Renal failure (ARF), acute on chronic (2) COVID-19 (3) UTI (urinary tract infection) (4) Congestive heart failure (5) Anemia (6) Diabetic nephropathy Plan: Per orders Consent for insertion of dialysis catheter as per my conversation with the daughter who now desires dialysis NG feeding with Nepro Dialysis cath, followed by Quirino Simon MD Feb 17, 2020 14:12
--- NOTE | 2020-02-17 14:17 | Consultation ---
History of Present Illness General Date patient seen: Feb 17, 2020 Chief Complaint: Generalized Weakness Present Illness HPI This is a 79-year-old female known to me from recent admission when she was discharged a few days ago to her care facility returns with hypoglycemia abnormal labs. Patient identified also to have abnormal extremity flexion and identified to have a hip fracture on imaging. Prior was recommended for feeding tube given her nutritional status but family refused. NG tube is in place and tube feeds have been initiated. Patient with decubitus ulcers abnormal labs. Surgery called to evaluate and assist with care. Patient seen, patient daniel walton, chart reviewed. No nausea vomiting fever chills. Of note prior admission was COVID positive Allergies: Coded Allergies: No Known Allergies (Unverified , 02/06/20) Medication History Scheduled Atorvastatin Calcium* (Atorvastatin Calcium*), 20 MG NGT BEDTIME, (Reported) Carvedilol* (Carvedilol*), 25 MG NGT EVERY 12 HOURS, (Reported) Docusate Sodium* (Docusate Sodium*), 100 MG GT DAILY, (Reported) Ferrous Sulfate* (Ferrous Sulfate*), 325 MG GT DAILY, (Reported) Folic Acid* (Folic Acid*), 1 MG GT DAILY, (Reported) Gabapentin* (Gabapentin*), 300 MG ORAL BID, (Reported) Glipizide* (Glipizide*), 10 MG GT BIDAC, (Reported) Heparin Sod (Porcine) (Heparin Sodium*), 5,000 UNITS SUBQ EVERY 12 HOURS, (Reported) Nut.tx.glucose Intolerance,Soy (Glucerna), 1 EACH GT LUNCHTIME, (Reported) Pantoprazole* (Pantoprazole*), 40 MG GT EVERY 12 HOURS, (Reported) Fmkdafipmrbc-Mlpf-Vvzjmuzf,Iso (Zosyn 3.375 Gm Pre Mix-Bag), 3.375 GM IVPB EVERY 12 HOURS, (Reported) Sodium Citrate (Sod Citrate-Citric Acid Soln), 30 ML GT BID, (Reported) Scheduled PRN Acetaminophen* (Acetaminophen 325MG Tablet*), 650 MG NGT Q6H PRN for Mild Pain (Pain Scale 1-3), (Reported) Bisacodyl (Bisacodyl), 10 MG RC for Constipation, (Reported) Calcium Carb/Mag Hydrox/Simeth (Mylanta Tonight 800-270-80/10), 30 ML GT Q6HR PRN for GASTRITIS, (Reported) Hydralazine Hcl* (Hydralazine Hcl*), 10 MG GT for SBP>160, (Reported) Hydrocodone Bit/Acetaminophen 5-325* ([place] 5-325 Tablet*), 1 TAB NGT Q4H PRN for Moderate Pain (Pain Scale 4-6), (Reported) Magnesium Hydroxide* (Milk Of Magnesia*), 30 ML GT Q6HR PRN for GASTRITIS, (Reported) Na Phos,M-B/Na Phos,Di-Ba* (Fleet Enema*), 133 ML RECTAL for Constipation, (Reported) Ondansetron* (Zofran*), 4 MG GT Q12HR PRN for Nausea & Vomiting, (Reported) Miscellaneous Medications Insulin Aspart (Novolog), UNITS SQ, (Reported) Patient History Limited by: medical condition History Provided By: Medical Record, PMD Healthcare decision maker Resuscitation status Advanced Directive on File Past Medical/Surgical History Past Medical/Surgical History: (1) Congestive heart failure (2) Diabetic nephropathy (3) Pneumonia (4) Deep tissue injury (5) CHF (congestive heart failure) (6) Hip fracture, left (7) Hypoglycemia (8) UTI (urinary tract infection) (9) Renal failure (ARF), acute on chronic (10) Pressure injury of sacral region, unstageable (11) Anemia (12) Failure to thrive (13) Renal failure (14) COVID-19 Review of Systems All Other Systems: negative except mentioned in HPI ROS Narrative limited given medical condition Physical Exam General Appearance: no apparent distress, alert Lines, tubes and drains: peripheral HEENT: atraumatic, anicteric, mucous membranes moist Neck: supple, normal inspection Respiratory/Chest: no respiratory distress, no accessory muscle use, decreased breath sounds Cardiovascular/Chest: normal peripheral pulses, normal rate Abdomen: soft, no organomegaly, no mass, other Genitourinary/Rectal: normal rectal exam Extremities: non-pitting, inflammation, slow capillary refill, other Skin Exam: warm/dry Neurologic: alert Last 24 Hour Vital Signs Date Time Temp Pulse Resp B/P (MAP) Pulse Ox O2 Delivery O2 Flow Rate FiO2 02/17/20 11:10 98.4 68 15 137/71 100 Room Air 02/17/20 10:47 98.4 68 15 137/71 100 Room Air 02/17/20 08:00 98.8 90 18 154/87 98 Room Air 02/17/20 08:00 90 18 Room Air 02/17/20 07:54 98.8 90 18 154/87 (109) 98 Room Air Laboratory Tests Test 02/17/20 07:55 02/17/20 08:07 White Blood Count 5.2 K/UL (4.8-10.8) Red Blood Count 3.69 M/UL (4.20-5.40) L Hemoglobin 10.3 G/DL (12.0-16.0) L Hematocrit 33.4 % (37.0-47.0) L Mean Corpuscular Volume 90 FL (80-99) Mean Corpuscular Hemoglobin 27.9 PG (27.0-31.0) Mean Corpuscular Hemoglobin Concent 30.8 G/DL (32.0-36.0) L Red Cell Distribution Width 19.0 % (11.6-14.8) H Platelet Count 93 K/UL (150-450) L Mean Platelet Volume 8.0 FL (6.5-10.1) Neutrophils (%) (Auto) % (45.0-75.0) Lymphocytes (%) (Auto) % (20.0-45.0) Monocytes (%) (Auto) % (1.0-10.0) Eosinophils (%) (Auto) % (0.0-3.0) Basophils (%) (Auto) % (0.0-2.0) Differential Total Cells Counted 100 Neutrophils % (Manual) 88 % (45-75) H Lymphocytes % (Manual) 9 % (20-45) L Monocytes % (Manual) 3 % (1-10) Eosinophils % (Manual) 0 % (0-3) Basophils % (Manual) 0 % (0-2) Band Neutrophils 0 % (0-8) Platelet Estimate Decreased L Platelet Morphology Normal Hypochromasia 1+ Anisocytosis 2+ Sodium Level 145 MMOL/L (136-145) Potassium Level 4.2 MMOL/L (3.5-5.1) Chloride Level 110 MMOL/L (98-107) H Carbon Dioxide Level 25 MMOL/L (21-32) Anion Gap 10 mmol/L (5-15) Blood Urea Nitrogen 127 mg/dL (7-18) H Creatinine 4.3 MG/DL (0.55-1.30) H Estimat Glomerular Filtration Rate 9.9 mL/min (>60) Glucose Level 82 MG/DL (74-106) Lactic Acid Level 1.10 mmol/L (0.4-2.0) Calcium Level 8.1 MG/DL (8.5-10.1) L Total Bilirubin 0.3 MG/DL (0.2-1.0) Aspartate Amino Transf (AST/SGOT) 35 U/L (15-37) Alanine Aminotransferase (ALT/SGPT) 22 U/L (12-78) Alkaline Phosphatase 93 U/L (46-116) Total Creatine Kinase 42 U/L (26-308) Troponin I 0.067 ng/mL (0.000-0.056) Total Protein 5.2 G/DL (6.4-8.2) L Albumin 1.7 G/DL (3.4-5.0) L Globulin 3.5 g/dL Albumin/Globulin Ratio 0.5 (1.0-2.7) L Lipase 309 U/L (73-393) Urine Color Yellow Urine Appearance Slightly cloudy Urine pH 5 (4.5-8.0) Urine Specific [place]ck[place] 1.015 (1.005-1.035) Urine Protein 2+ (NEGATIVE) H Urine Glucose (UA) Negative (NEGATIVE) Urine Ketones Negative (NEGATIVE) Urine Blood 5+ (NEGATIVE) H Urine Nitrite Negative (NEGATIVE) Urine Bilirubin Negative (NEGATIVE) Urine Urobilinogen Normal MG/DL (0.0-1.0) Urine Leukocyte Esterase 3+ (NEGATIVE) H Urine RBC 5-10 /HPF (0 - 2) H Urine WBC 2-4 /HPF (0 - 2) Urine Squamous Epithelial Cells None /LPF (NONE/OCC) Urine Bacteria Occasional /HPF (NONE) Urine Yeast Many /HPF (NONE) H Microbiology Date/Time Source Procedure Growth Status 02/17/20 09:06 Nasal Nares - Final Complete 02/17/20 09:06 Nasal Nares - Final Complete 02/17/20 00:00 Nasopharynx SARS-CoV-2 RdRp Gene Assay - Final Complete Height (Feet): 5 Height (Inches): 2.00 Weight (Pounds): 150 Medications Current Medications Medications (Trade) Dose Ordered Sig/Maria Fernanda Route PRN Reason Start Time Stop Time Status Last Admin Dose Admin Acetaminophen (Tylenol) 500 mg Q6H PRN NG Mild Pain (Pain Scale 1-3) 02/17/20 12:45 03/18/20 12:44 Barium Sulfate (Varibar Honey) 250 ml NOW PRN MC RAD 02/17/20 14:00 02/20/20 13:55 Barium Sulfate (Varibar [place]) 240 ml NOW PRN MC RAD 02/17/20 14:00 02/20/20 13:55 Barium Sulfate (Varibar Pudding) 230 ml NOW PRN MC RAD 02/17/20 14:00 02/20/20 13:55 Barium Sulfate (Varibar Thin Liquid powder) 148 gm NOW PRN MC RAD 02/17/20 14:00 02/20/20 13:55 Dextrose/ Electrolytes 1,000 ml @ 125 mls/hr Q8H IV 02/17/20 08:45 03/18/20 08:44 02/17/20 08:40 Oseltamivir Phosphate (Tamiflu) 30 mg DAILY ORAL 02/18/20 09:00 02/21/20 09:01 Assessment/Plan Problem List: (1) CHF (congestive heart failure) ICD Codes: I50.9 - Heart failure, unspecified SNOMED: 58952065 (2) Hip fracture, left Assessment & Plan: noted. bruising see above ortho eval ICD Codes: S72.002A - Fracture of unspecified part of neck of left femur, initial encounter for closed fracture SNOMED: 061623903, 40234644927297208 (3) Anemia ICD Codes: D64.9 - Anemia, unspecified SNOMED: 053704031 (4) Failure to thrive Assessment & Plan: Nutritional optimization. NG tube for now start tube feeds start meds SNOMED: 00953464 (5) Renal failure ICD Codes: N19 - Unspecified kidney failure SNOMED: 74503952 (6) COVID-19 Assessment & Plan: prior positive now negative this admission ICD Codes: U07.1 - COVID-19 SNOMED: 576504540 (7) Congestive heart failure ICD Codes: I50.9 - Heart failure, unspecified SNOMED: 74272016 (8) Hypoglycemia ICD Codes: E16.2 - Hypoglycemia, unspecified SNOMED: 430366302 (9) UTI (urinary tract infection) ICD Codes: N39.0 - Urinary tract infection, site not specified SNOMED: 08466283 (10) Diabetic nephropathy ICD Codes: E11.21 - Type 2 diabetes mellitus with diabetic nephropathy SNOMED: 35190592, 162233151 (11) Pneumonia ICD Codes: J18.9 - Pneumonia, unspecified organism SNOMED: 004425920 (12) Renal failure (ARF), acute on chronic ICD Codes: N17.9 - Acute kidney failure, unspecified; N18.9 - Chronic kidney disease, unspecified SNOMED: 496288607 (13) Deep tissue injury Assessment & Plan: see below ICD Codes: T14.8XXA - Other injury of unspecified body region, initial encounter SNOMED: 645071658 (14) Pressure injury of sacral region, unstageable Assessment & Plan: Patient identified on admission to have a large sacral deep tissue injury non-blanchable erythema blistering epidermis intact no drainage. Unknown duration but present on prior admission and noted to be high risk for breakdown given overall condition and status. Tenderness difficult to a certain based on clinical examinations patient's history. Labs noted. Patient high risk for decubitus ulcer formation worsening condition. NG tube in place currently. Nutritional optimization. Turn every 2 hours. Offload pressure with pillows. OPTi foam dressing to sacrum. Care plan initiated. T marli you will follow with recommendations Pt presented on admission with multiple Pressure Injuries, Fx L Hip. Large contusion noted to L Hip/ Lateral L Femur noted on prior admission and preset still. Sacral DTPI partially opened and is 75% necrotic, 25% moist erythematous and clear skin flap that is loose.(L)5.5cm x (W)9cm. Small amt serous exudate noted. Non-Blanchable erythema periwound. Partial thickness wound noted to L Hip. Base of wound is moist and viable. edges adherent to base of wound(L)3cm x (W)2.5cm. L Heel is boggy with non-Blanchable erythema with delineated margins. L heel is boggy with non-blanchable erythema. Tx.Plan: Cleanse Sacral wound with Saline. Apply Therahoney. Apply Moisture Barrier Paste periwound. Cover with Optifoam drsg. Change every 3 days and prn. Apply Moisture Barrier Paste to L Hip wound. Cover with Optifoam drsg. Change every 3 days and prn Apply Cavilon Skin Barrier to both heels. Cover each heel with Optifoam drsg. Change every 7 days and prn. Reposition at least every 2hours or as tolerated. Off-load heels with pillow. APM/CHE Mattress overlay. ICD Codes: L89.150 - Pressure ulcer of sacral region, unstageable SNOMED: 342807560 Chris Lei Feb 17, 2020 14:17
[2020-02-17] MEDS ORDERED: D5 1/2NS 1,000 ML IV SCH (14:30)
[2020-02-17] MEDS ORDERED: Docusate 250mg cap ORAL SCH (14:30)
--- NOTE | 2020-02-17 14:49 | Diagnostic Imaging Report ---
Indication: Cough Technique: One view of the chest Comparison: 02/06/2020 Findings: Again demonstrated are bilateral pleural effusions, basilar atelectatic changes, and mild interstitial congestion. There is a nasogastric tube in place. Impression: Bilateral pleural effusions and interstitial congestive changes, similar to previous study 02/06/2020 Nasogastric tube
--- NOTE | 2020-02-17 14:52 | Diagnostic Imaging Report ---
Indication: Post nasogastric tube placement Technique: Supine view of the abdomen Comparison: 02/13/2020 Findings: There is a nasogastric tube in place, tip of which projects at the level gastric body fundus junction. Bowel gas pattern is unremarkable. Surgical clips and a Cornelius catheter seen in the pelvis. Included lower thorax demonstrates bilateral pleural fluid and parenchymal consolidation. The edge of the intertrochanteric fracture demonstrated on pelvic radiograph is also visualized Impression: Satisfactory nasogastric intubation Other findings as noted
--- NOTE | 2020-02-17 14:53 | Diagnostic Imaging Report ---
Indication: Left hip pain Technique: 2 views of the left hip, one view of the pelvis Comparison: none Findings: There is an intertrochanteric fracture of the left hip. This is comminuted and angulated. There is a Cornelius catheter in place. There are surgical clips in the pelvis. Impression: Positive for left hip intertrochanteric fracture
[2020-02-17] MEDS: Docusate 100mg/10ml Liq NG SCH (18:00)
--- NOTE | 2020-02-17 18:33 | Diagnostic Imaging Report ---
EXAM: XR Abdomen, 2 Views CLINICAL HISTORY: NGT TECHNIQUE: Frontal view of the abdomen/pelvis with upright view of the abdomen. COMPARISON: Compared to previous study of 02/17/2020. FINDINGS: Lower thorax: Moderate right pleural effusion appeared Intraperitoneal space: No free air. Gastrointestinal tract: Unremarkable. No dilation. Bones/joints: Osteopenia. Tubes, lines and devices: NG tube is noted in place with its tip well below the diaphragm, in good position. IMPRESSION: NG tube is noted in place in good position.
--- NOTE | 2020-02-17 19:14 | Consultation ---
DATE OF CONSULTATION: 02/17/2020 INFECTIOUS DISEASE CONSULT PRIMARY ATTENDING PHYSICIAN: Janes Faust M.D. REASON FOR CONSULT: Influenza A. HISTORY OF PRESENT ILLNESS: This is an 79-year-old white female admitted today from a correction facility because of hypoglycemia. The patient was just recently discharged from [facility] on February 14, 2020. In the past admission, she had COVID. PAST MEDICAL HISTORY: Significant for: 1. End-stage renal disease, family refused hemodialysis on the previous admission. 2. Dysphagia, family refused G-tube placement. 3. Diabetes mellitus. 4. Dementia. 5. History of right hip fracture. ALLERGIES: No known drug allergies. MEDICATIONS: Got a dose of ceftriaxone and Tamiflu in the ER. Getting Tylenol. SOCIAL HISTORY: intermediate resident. Single. Code status is full code. REVIEW OF SYSTEMS: Unobtainable. PHYSICAL EXAMINATION: VITAL SIGNS: Temperature is 98.4, pulse 68, blood pressure 137/71. GENERAL APPEARANCE: . HEAD AND NECK: Had NG tube. HEART: Normal. LUNGS: Clear. Slightly decreased sound. ABDOMEN: Soft. EXTREMITIES: Edema, especially in upper extremities. NEUROLOGIC: Poorly responsive. LABORATORY AND DIAGNOSTIC DATA: WBC 5.2, hemoglobin 10.3, hematocrit 33.4, platelet 93. Sodium 145, potassium 4.2, chloride 110, carbon dioxide 25, BUN 127, creatinine 4.3, glucose is 82. Troponin 0.067. Albumin is 1.7. COVID-19 test was negative, but influenza A test was positive. IMPRESSION: 1. Influenza A. 2. Recent COVID-19. 3. Diabetes mellitus with hypoglycemia. 4. End-stage renal disease, on hemodialysis. 5. Dysphagia, failure to thrive. 6. Anemia. 7. Thrombocytopenia. RECOMMENDATIONS: We will continue Tamiflu for 4 more days. We will follow up on the chest x-ray and cultures. At the end of my exam, I thank Dr. Faust for involving me in the care of this patient. Viet Harper M.D. DR: OSCAR JOB#: [id number] CC:
--- NOTE | 2020-02-17 19:35 | NUR ---
NURSE HAND-OFF: Important Events on Shift:New admission. NG tube. Restraints. Patient Status: weak. stable Diet: Nephro@40/hr Pending Orders: n/a Pending Results/Labs:n/a Pending MD notification:n/a Latest Vital Signs: Temperature 98.4 , Pulse 68 , B/P 137 /71 , Respiratory Rate 15 , O2 SAT 100 , Room Air, O2 Flow Rate . Vital Sign Comment: stable Latest Barrett Fall Score: 85 Fall Risk: Safety Measures: Call light , Bed Alarm , Side Rails , Bed position . Fall Precautions: Report given to BONG David.
--- NOTE | 2020-02-17 19:35 | NUR ---
NURSE NOTES: Received pt on the bed awake and non-verbal. pt has no sob,fever, pain and cough at the moment. Iv is intact and asymptomatic. pt is on Bilateral restrain. pt has Cornelius cath inserted on the adm. Bed is in the lowest position,locked and alarm on. call light within reach. We will keep monitoring the pt.
[2020-02-17 20:00] VITALS: BP 151/86
--- NOTE | 2020-02-17 20:42 | Consultation ---
Consult Note Consult Note DATE OF CONSULTATION: 02/17/2020 PULMONARY CONSULTATION CONSULTING PHYSICIAN: Brady Junior MD REFERRING PHYSICIAN: Janes Faust MD REASON FOR CONSULTATION: Pneumonia. HISTORY OF PRESENT ILLNESS: This is an 79-year-old female brought to the hospital from a alf. Patient is unable to provide any further history. She was tested previously and found to be COVID positive. No other history available. Patient was seen in the emergency room. She has been seen by Nephrology as well. Patient is nonverbal. She is saturating well on nasal oxygen. She is now found to be positive for influnza A MEDICATIONS: Patient's home medications include Lipitor, Coreg, Protonix. She is also on broad-spectrum antibiotics. REVIEW OF SYSTEMS: Unobtainable. PHYSICAL EXAMINATION: GENERAL: An elderly female. VITAL SIGNS: O2 saturation 98% on 2 L oxygen, blood pressure 104/70, heart rate 81, respirations 18, she is afebrile. HEENT: Unremarkable. NG tube is in place. LUNGS: Clear breath sounds bilaterally. ABDOMEN: Soft. EXTREMITIES: There is no edema. LABORATORY TESTING: Reviewed IMAGING STUDIES: Patient underwent a chest x-ray, which showed cardiomegaly with pulmonary vascular congestion and atelectasis bilaterally. IMPRESSION: 1. Previous COVID-19 pneumonia. 2. Cardiomegaly/CHF. 3. Renal failure. 4. Influenza A 5. Hyperlipidemia. DISCUSSION: Tamiflu per ID Continue O2 Will follow Brady Junior M.D. Brady Junior MD Feb 17, 2020 20:42
[2020-02-17] MEDS: Pantoprazole Inj IVP SCH (21:12)
[2020-02-18] VITALS (11 sets, daily range): BP systolic 131–173; BP diastolic 63–90
--- NOTE | 2020-02-18 01:16 | NUR ---
NURSE NOTES: Frame Table Operator nurse noticed pt restrain order is only for RW but the Dr order and the report i got from previous nurse is bilateral restrain. I edited it to bilateral restrain.
--- NOTE | 2020-02-18 01:29 | History and Physical Report ---
DATE OF ADMISSION: 02/17/2020 The patient was discharged recently and came back. This is just an addendum to the last H and P that I dictated recently. The patient was just out for a short time and then came back. On the last admission, the daughter did not want the patient to be dialyzed and did not want a feeding tube. Apparently, now, she has changed her mind and might be willing to do dialysis and possibly G-tube, so we need to talk to the daughter again. The patient's renal failure is getting worse, but on my last conversation with the daughter, the patient's daughter wanted DNR. The patient also is COVID positive, unable to get more further history from the patient due to dementia. PAST MEDICAL HISTORY: 1. COVID Positive. 2. Dementia. 3. Hyperlipidemia. 4. Constipation. 5. Iron-deficiency anemia. 6. Hypertension. 7. NIDDM. 8. Acute renal failure on top of chronic renal failure. 9. GERD. 10. Dysphagia. 11. Diabetic nephropathy. 12. CHF. 13. History of hypoglycemia. 14. History of hip fracture. PAST SURGICAL HISTORY: Unable to obtain. ALLERGIES: No known allergies. MEDICATIONS: Bisacodyl, Lipitor, ferrous sulfate, docusate, glipizide, insulin, and Protonix. FAMILY HISTORY: Noncontributory. SOCIAL HISTORY: Unable to obtain. REVIEW OF SYSTEMS: Unable to obtain. Poor historian. PHYSICAL EXAMINATION: VITAL SIGNS: Temperature is 98.8, pulse is 90, blood pressure 154/87. HEENT: PERRLA. CHEST: Clear to auscultation. CARDIOVASCULAR: Regular rate and rhythm. No murmurs. GASTROINTESTINAL: Soft. Positive bowel sounds. No organomegaly. EXTREMITIES: 1+ edema. NEUROLOGIC: Does not follow neurological exam, which is her baseline. LABORATORY DATA: WBC of 5.2, hemoglobin 10.3, and platelets of 93,000. Sodium 144, potassium 4.2, BUN of 127, creatinine 4.3, glucose of 82. Troponin 0.067. ASSESSMENT AND PLAN: 1. Acute renal failure on top of chronic renal failure. 2. COVID positive. 3. History of hip fracture. The patient is also being admitted for UTI as well as for hypoglycemia episode and worsening renal failure . I have consulted Dr. Echevarria, Dr. Winter, Dr. Viet Harper, Dr. Cormier, Dr. Brady Junior for the above-mentioned abnormalities, abnormal symptoms, abnormal findings, and abnormal labs. Janes Faust M.D. DR: FIOR JOB#: [id number] CC:
--- NOTE | 2020-02-18 03:00 | NUR ---
NURSE NOTES: Pramod from [facility] lab called and notified me blood culture result, pt has Gram negative rods . Called Dr Harper and he ordered Cefepime 1gm daily. order noted and carried out.
--- NOTE | 2020-02-18 04:00 | NUR ---
NURSE NOTES: Pt has Redness (looks like a bruise) on the left thigh. I took a picture and uploaded it.
--- NOTE | 2020-02-18 06:31 | NUR ---
NURSE HAND-OFF: Important Events on Shift: pt has gram neg rods.Called Dr. Harper and he ordered cefepime 1gm daily. pt has redness on the left thigh, took a picture and upload it. Patient Status: stable Diet: nep 40cc Pending Orders: Pending Results/Labs: Pending MD notification: Latest Vital Signs: Temperature 98.8 , Pulse 86 , B/P 150 /81 , Respiratory Rate 18 , O2 SAT 94 , Room Air, O2 Flow Rate . Vital Sign Comment: Latest Barrett Fall Score: 55 Fall Risk: High Risk Safety Measures: Call light Within Reach, Bed Alarm Zone 2, Side Rails Side Rails x3, Bed position Low and Locked. Fall Precautions: Yellow Socks Yellow Gown Door Sign Patient Fall Education
[2020-02-18 06:32] LABS: INR 1.4 (0.9-1.1)
[2020-02-18 06:34] LABS: HEMATOCRIT 28.8 % (37.0-47.0); MEAN CORPUSCULAR VOLUME 90 FL (80-99); PLATELET COUNT 105 K/UL (150-450); RED BLOOD COUNT 3.22 M/UL (4.20-5.40); RED CELL DISTRIBUTION WIDTH 18.9 % (11.6-14.8); WHITE BLOOD COUNT 6.8 K/UL (4.8-10.8)
[2020-02-18 06:53] LABS: ALBUMIN 2.2 G/DL (3.4-5.0); ALBUMIN/GLOBULIN RATIO 0.7 (1.0-2.7); BILIRUBIN,TOTAL 0.4 MG/DL (0.2-1.0); CALCIUM 8.1 MG/DL (8.5-10.1); CREATININE 4.1 MG/DL (0.55-1.30); POTASSIUM 3.9 MMOL/L (3.5-5.1)
--- NOTE | 2020-02-18 07:02 | Pulmonology Progress Note ---
Subjective ROS Limited/Unobtainable: No Interval Events: None new Constitutional: Reports: no symptoms HEENT: Repors: no symptoms Respiratory: Reports: no symptoms Cardiovascular: Reports: no symptoms Allergies: Coded Allergies: No Known Allergies (Unverified , 02/06/20) Objective Last 24 Hour Vital Signs Date Time Temp Pulse Resp B/P (MAP) Pulse Ox O2 Delivery O2 Flow Rate FiO2 02/18/20 04:00 98.8 86 18 150/81 (104) 94 02/18/20 01:43 Room Air 02/18/20 00:00 98.0 81 18 159/76 (103) 94 02/17/20 20:21 Room Air 02/17/20 20:00 97.6 74 18 151/86 (107) 95 02/17/20 11:10 98.4 68 15 137/71 100 Room Air 02/17/20 10:47 98.4 68 15 137/71 100 Room Air 02/17/20 08:00 98.8 90 18 154/87 98 Room Air 02/17/20 08:00 90 18 Room Air 02/17/20 07:54 98.8 90 18 154/87 (109) 98 Room Air Intake and Output 02/17/20 02/18/20 19:00 07:00 Intake Total 305 ml 590 ml Output Total 100 ml Balance 205 ml 590 ml Intake Free Water 100 ml IV Total 305 ml 450 ml Tube Feeding 40 ml Output Urine Total 100 ml General Appearance: no acute distress HEENT: normocephalic Respiratory: chest wall non-tender, lungs clear Cardiovascular: normal peripheral pulses Abdomen: normal bowel sounds Microbiology Date/Time Source Procedure Growth Status 02/17/20 09:06 Nasal Nares - Final Complete 02/17/20 09:06 Nasal Nares - Final Complete 02/17/20 08:07 Blood Blood Culture - Preliminary Resulted 02/17/20 07:55 Blood Blood Culture - Preliminary Resulted 02/17/20 00:00 Nasopharynx SARS-CoV-2 RdRp Gene Assay - Final Complete Laboratory Tests 02/17/20 07:55: White Blood Count 5.2, Red Blood Count 3.69L, Hemoglobin 10.3L, Hematocrit 33.4L , Mean Corpuscular Volume 90, Mean Corpuscular Hemoglobin 27.9, Mean Corpuscular Hemoglobin Concent 30.8L, Red Cell Distribution Width 19.0H, Platelet Count 93L, Mean Platelet Volume 8.0, Neutrophils (%) (Auto) , Lymphocytes (%) (Auto) , Monocytes (%) (Auto) , Eosinophils (%) (Auto) , Basophils (%) (Auto) , Differential Total Cells Counted 100, Neutrophils % (Manual) 88H, Lymphocytes % (Manual) 9L, Monocytes % (Manual) 3, Eosinophils % (Manual) 0, Basophils % (Manual) 0, Band Neutrophils 0, Platelet Estimate DecreasedL, Platelet Morphology Normal, Hypochromasia 1+, Anisocytosis 2+, Sodium Level 145, Potassium Level 4.2, Chloride Level 110H, Carbon Dioxide Level 25, Anion Gap 10, Blood Urea Nitrogen 127H, Creatinine 4.3H, Estimat Glomerular Filtration Rate 9.9, Glucose Level 82, Lactic Acid Level 1.10, Calcium Level 8.1L, Total Bilirubin 0.3, Aspartate Amino Transf (AST/SGOT) 35, Alanine Aminotransferase (ALT/SGPT) 22, Alkaline Phosphatase 93, Total Creatine Kinase 42, Troponin I 0.067H, Total Protein 5.2L, Albumin 1.7L, Globulin 3.5, Albumin/Globulin Ratio 0.5L, Lipase 309 02/17/20 08:07: Urine Color Yellow, Urine Appearance Slightly cloudy, Urine pH 5, Urine Specific [place] 1.015, Urine Protein 2+H, Urine Glucose (UA) Negative, Urine Ketones Negative, Urine Blood 5+H, Urine Nitrite Negative, Urine Bilirubin Negative, Urine Urobilinogen Normal, Urine Leukocyte Esterase 3+H, Urine RBC 5-10H, Urine WBC 2-4, Urine Squamous Epithelial Cells None, Urine Bacteria Occasional, Urine Yeast ManyH 02/17/20 13:02: POC Whole Blood Glucose 107H 02/17/20 18:45: Urine Random Sodium 28 02/18/20 05:45: White Blood Count [Pending], Red Blood Count [Pending], Hemoglobin [Pending], Hematocrit [Pending], Mean Corpuscular Volume [Pending], Mean Corpuscular Hemoglobin [Pending], Mean Corpuscular Hemoglobin Concent [Pending], Red Cell Distribution Width [Pending], Platelet Count [Pending], Mean Platelet Volume [Pending], Neutrophils (%) (Auto) [Pending], Lymphocytes (%) (Auto) [Pending], Monocytes (%) (Auto) [Pending], Eosinophils (%) (Auto) [Pending], Basophils (%) (Auto) [Pending], Erythrocyte Sedimentation Rate [Pending], Prothrombin Time 15.4H, Prothromb Time International Ratio 1.4H, Activated Partial Thromboplast Time 29, Sodium Level 145, Potassium Level 3.9, Chloride Level 109H, Carbon Dioxide Level 23, Anion Gap 13, Blood Urea Nitrogen 126H, Creatinine 4.1H, Estimat Glomerular Filtration Rate 10.5, Glucose Level 217#H, Hemoglobin A1c [Pending], Uric Acid [Pending], Calcium Level 8.1L, Phosphorus Level [Pending], Magnesium Level [Pending], Total Bilirubin 0.4, Aspartate Amino Transf (AST/SGOT) 24, Alanine Aminotransferase (ALT/SGPT) 23, Alkaline Phosphatase 95, C-Reactive Protein, Quantitative 7.0H, Total Protein 5.3L, Albumin 2.2L, Globulin 3.1, Albumin/Globulin Ratio 0.7L, Amylase Level 85 Current Medications Medications (Trade) Dose Ordered Sig/Maria Fernanda Route PRN Reason Start Time Stop Time Status Last Admin Dose Admin Acetaminophen (Tylenol) 500 mg Q6H PRN NG Mild Pain (Pain Scale 1-3) 02/17/20 12:45 03/18/20 12:44 Barium Sulfate (Varibar Honey) 250 ml NOW PRN MC RAD 02/17/20 14:00 02/20/20 13:55 Barium Sulfate (Varibar [place]) 240 ml NOW PRN MC RAD 02/17/20 14:00 02/20/20 13:55 Barium Sulfate (Varibar Pudding) 230 ml NOW PRN MC RAD 02/17/20 14:00 02/20/20 13:55 Barium Sulfate (Varibar Thin Liquid powder) 148 gm NOW PRN MC RAD 02/17/20 14:00 02/20/20 13:55 Cefepime HCl 1 gm/ Dextrose 55 ml @ 110 mls/hr Q24H IVPB 02/18/20 09:00 02/25/20 08:59 Dextrose (Dextrose 50%) 25 ml Q30M PRN IV Hypoglycemia 02/18/20 06:45 05/18/20 06:44 Dextrose (Dextrose 50%) 50 ml Q30M PRN IV Hypoglycemia 02/18/20 06:45 05/18/20 06:44 Dextrose/Sodium Chloride 1,000 ml @ 50 mls/hr Q20H IV 02/17/20 14:30 03/18/20 14:29 02/17/20 16:09 Docusate Sodium (Colace) 100 mg THREE TIMES A DAY NG 02/17/20 18:00 03/18/20 17:59 Oseltamivir Phosphate (Tamiflu) 30 mg DAILY ORAL 02/18/20 09:00 02/21/20 09:01 Pantoprazole (Protonix) 40 mg EVERY 12 HOURS IVP 02/17/20 21:00 03/18/20 20:59 02/17/20 21:12 Assessment/Plan Assessment/Plan IMPRESSION: 1. Previous COVID-19 pneumonia. 2. Cardiomegaly/CHF. 3. Renal failure. 4. Influenza A 5. Hyperlipidemia. DISCUSSION: Tamiflu per ID Continue O2 Currently saturating well on RA Will follow Delmar Root Omar Syed MD Feb 18, 2020 07:02
[2020-02-18 07:19] LABS: PHOSPHORUS 4.5 MG/DL (2.5-4.9)
--- NOTE | 2020-02-18 07:25 | NUR ---
HAND-OFF: Report given to ABBI.
--- NOTE | 2020-02-18 08:46 | NUR ---
NURSE NOTES: Received report from BONG Solis. pt is bed bound, AOx0, non-verbal but makes grunting noises, pupils reactive to light, lungs sounds diminished, satting 88% on RA so was placed on 2 Liter O2 NC. IV line on left AC 22g patent and intact. On D5 1/2 NS with KCL 20meq @125ml/hr patent and infusing well. Pt does not have any belongings. patient has un-stageable sacral wound, bilateral heel DTI. Patient has 16 croatian NG tube, receiving Nepro at 40 cc/hr. and 16french Cornelius cath exchanged today, draining light yellow urine. patient will be monitored for safety.
[2020-02-18] MEDS: Docusate 100mg/10ml Liq NG SCH ×3 (09:03→17:04)
[2020-02-18] MEDS: Pantoprazole Inj IVP SCH ×2 (09:03→21:12)
[2020-02-18] MEDS: Cefepime HCl 1 GM in D5W 55 ML IVPB SCH (09:03)
[2020-02-18] MEDS ORDERED: Lidocaine 1% Plain 30 ml INJ PRN (09:16)
[2020-02-18] MEDS ORDERED: Heparin1,000 units/500ml Premix(Conc:2 units/ml) INJ PRN (09:16)
--- NOTE | 2020-02-18 09:56 | NUR ---
NURSE NOTES: Wound assessment:Sacral wound stage IV 4.1x9.0x0.7 with 50% dry black eschar 50% yellow and green slough no granulation noted, moderate serosanguineous drainage no odor.Thera Honey applied and skin protectant to kaley wound redness .Bilateral heels skin intact with dryness noted, optifoam dressings applied and offloaded with pillows. The rest of her body skin intact.Patient expresses groaning when turned and wound cleaned.Recommended wound consult and air mattress overlay .Report given to charge Nurse Samira.
--- NOTE | 2020-02-18 10:00 | NUR ---
NURSE NOTES: seen by Dr. Cormier. notified doctor regarding patient has swelling arms and fluctuate blood pressure. received order DC IV fluid and no medication order for blood pressure. MD said BP will be controlled after dialysis.
--- NOTE | 2020-02-18 10:23 | Nephrology Progress Note ---
Assessment/Plan Problem List: (1) Renal failure (ARF), acute on chronic (2) Diabetic nephropathy (3) CHF (congestive heart failure) (4) Anemia Assessment 1) Renal failure (ARF), acute on chronic (2) COVID-19 (3) UTI (urinary tract infection) (4) Congestive heart failure (5) Anemia (6) Diabetic nephropathy Plan February 17: Patient due for dialysis catheter today and subsequent dialysis treatment. Patient is edematous. Patient has an NG tube on feeding. Will discontinue IV fluid. Continue per consultants. Discussed with RN. Previously: Consent for insertion of dialysis catheter as per my conversation with the daughter who now desires dialysis NG feeding with Nepro Dialysis cath, followed by dialysis Subjective ROS Limited/Unobtainable: Yes Constitutional: Reports: malaise Objective Objective Last 24 Hour Vital Signs Date Time Temp Pulse Resp B/P (MAP) Pulse Ox O2 Delivery O2 Flow Rate FiO2 02/18/20 09:26 98.0 104 18 150/87 (108) 95 02/18/20 08:00 97.9 109 18 173/74 (107) 92 02/18/20 04:00 98.8 86 18 150/81 (104) 94 02/18/20 01:43 Room Air 02/18/20 00:00 98.0 81 18 159/76 (103) 94 02/17/20 20:21 Room Air 02/17/20 20:00 97.6 74 18 151/86 (107) 95 02/17/20 11:10 98.4 68 15 137/71 100 Room Air 02/17/20 10:47 98.4 68 15 137/71 100 Room Air Intake and Output 02/17/20 02/18/20 18:59 06:59 Intake Total 255 ml 640 ml Output Total 100 ml Balance 155 ml 640 ml Intake Free Water 100 ml IV Total 255 ml 500 ml Tube Feeding 40 ml Output Urine Total 100 ml Current Medications Medications (Trade) Dose Ordered Sig/Maria Fernanda Route PRN Reason Start Time Stop Time Status Last Admin Dose Admin Acetaminophen (Tylenol) 500 mg Q6H PRN NG Mild Pain (Pain Scale 1-3) 02/17/20 12:45 03/18/20 12:44 Barium Sulfate (Varibar Honey) 250 ml NOW PRN MC RAD 02/17/20 14:00 02/20/20 13:55 Barium Sulfate (Varibar [place]) 240 ml NOW PRN MC RAD 02/17/20 14:00 02/20/20 13:55 Barium Sulfate (Varibar Pudding) 230 ml NOW PRN MC RAD 02/17/20 14:00 02/20/20 13:55 Barium Sulfate (Varibar Thin Liquid powder) 148 gm NOW PRN MC RAD 02/17/20 14:00 02/20/20 13:55 Cefepime HCl 1 gm/ Dextrose 55 ml @ 110 mls/hr Q24H IVPB 02/18/20 09:00 02/25/20 08:59 02/18/20 09:03 Dextrose (Dextrose 50%) 25 ml Q30M PRN IV Hypoglycemia 02/18/20 06:45 05/18/20 06:44 Dextrose (Dextrose 50%) 50 ml Q30M PRN IV Hypoglycemia 02/18/20 06:45 05/18/20 06:44 Docusate Sodium (Colace) 100 mg THREE TIMES A DAY NG 02/17/20 18:00 03/18/20 17:59 02/18/20 09:03 Heparin Sodium/ Sodium Chloride (Heparin 1000 units/500ml Premix) 1,000 unit ONCE PRN INJ PROCEDURE 02/18/20 09:16 02/18/20 23:59 Lidocaine HCl (Xylocaine 1% 30ml) 30 ml ONCE PRN INJ PROCEDURE 02/18/20 09:16 02/18/20 23:59 Oseltamivir Phosphate (Tamiflu) 30 mg DAILY ORAL 02/18/20 09:00 02/21/20 09:01 02/18/20 09:03 Pantoprazole (Protonix) 40 mg EVERY 12 HOURS IVP 02/17/20 21:00 03/18/20 20:59 02/18/20 09:03 Laboratory Tests 02/17/20 13:02: POC Whole Blood Glucose 107H 02/17/20 18:45: Urine Random Sodium 28 02/18/20 05:45: White Blood Count 6.8, Red Blood Count 3.22L, Hemoglobin 9.0L, Hematocrit 28.8L, Mean Corpuscular Volume 90, Mean Corpuscular Hemoglobin 27.9, Mean Corpuscular Hemoglobin Concent 31.1L, Red Cell Distribution Width 18.9H, Platelet Count 105L , Mean Platelet Volume 6.8, Neutrophils (%) (Auto) , Lymphocytes (%) (Auto) , Monocytes (%) (Auto) , Eosinophils (%) (Auto) , Basophils (%) (Auto) , Neutrophils % (Manual) [Pending], Lymphocytes % (Manual) [Pending], Platelet Estimate [Pending], Platelet Morphology [Pending], Erythrocyte Sedimentation Rate 46H, Prothrombin Time 15.4H, Prothromb Time International Ratio 1.4H, Activated Partial Thromboplast Time 29, Sodium Level 145, Potassium Level 3.9, Chloride Level 109H, Carbon Dioxide Level 23, Anion Gap 13, Blood Urea Nitrogen 126H, Creatinine 4.1H, Estimat Glomerular Filtration Rate 10.5, Glucose Level 217#H, Hemoglobin A1c 6.7H, Uric Acid 9.7H, Calcium Level 8.1L, Phosphorus Level 4.5, Magnesium Level 2.1, Total Bilirubin 0.4, Aspartate Amino Transf (AST/SGOT) 24, Alanine Aminotransferase (ALT/SGPT) 23, Alkaline Phosphatase 95, C-Reactive Protein, Quantitative 7.0H, Total Protein 5.3L, Albumin 2.2L, Globulin 3.1, Albumin/Globulin Ratio 0.7L, Amylase Level 85 Height (Feet): 5 Height (Inches): 2.00 Weight (Pounds): 150 General Appearance: no apparent distress, lethargic EENT: other - NG tube in place Cardiovascular: tachycardia Respiratory/Chest: decreased breath sounds Abdomen: distended Extremities: other - Edematous all extremities Quirino Cormier MD Feb 18, 2020 10:23
--- NOTE | 2020-02-18 10:47 | Infectious Diseases Prog Note ---
Assessment/Plan Assessment/Plan IMPRESSION: 1. Influenza A. 2. Recent COVID-19. 3. Diabetes mellitus with hypoglycemia. 4. End-stage renal disease, on hemodialysis. 5. Dysphagia, failure to thrive. 6. Anemia. 7. Thrombocytopenia. 8. Gram negative sepsis RECOMMENDATIONS: We will continue Tamiflu Started on Cefepime Will f/u cultures Subjective ROS Limited/Unobtainable: Yes Constitutional: Reports: other - looks better Neurologic: Reports: confusion, other - on restraint Allergies: Coded Allergies: No Known Allergies (Unverified , 02/06/20) Objective Last 24 Hour Vital Signs Date Time Temp Pulse Resp B/P (MAP) Pulse Ox O2 Delivery O2 Flow Rate FiO2 02/18/20 09:26 98.0 104 18 150/87 (108) 95 02/18/20 09:00 Nasal Cannula 2.0 02/18/20 08:00 97.9 109 18 173/74 (107) 92 02/18/20 04:00 98.8 86 18 150/81 (104) 94 02/18/20 01:43 Room Air 02/18/20 00:00 98.0 81 18 159/76 (103) 94 02/17/20 20:21 Room Air 02/17/20 20:00 97.6 74 18 151/86 (107) 95 02/17/20 11:10 98.4 68 15 137/71 100 Room Air 02/17/20 10:47 98.4 68 15 137/71 100 Room Air Height (Feet): 5 Height (Inches): 2.00 Weight (Pounds): 150 HEENT: mucous membranes moist Respiratory/Chest: lungs clear Cardiovascular: tachycardia Abdomen: soft, non tender, other - NG tube Extremities: other - edema Skin: other - bruises Neurologic/Psychiatric: alert, responsive, disoriented Microbiology Date/Time Source Procedure Growth Status 02/17/20 09:06 Nasal Nares - Final Complete 02/17/20 09:06 Nasal Nares - Final Complete 02/17/20 08:07 Blood Blood Culture - Preliminary Resulted 02/17/20 07:55 Blood Blood Culture - Preliminary Resulted 02/17/20 00:00 Nasopharynx SARS-CoV-2 RdRp Gene Assay - Final Complete Laboratory Tests Test 02/17/20 13:02 02/17/20 18:45 02/18/20 05:45 POC Whole Blood Glucose 107 MG/DL (74-106) H Urine Random Sodium 28 mmol/L (20-110) White Blood Count 6.8 K/UL (4.8-10.8) Red Blood Count 3.22 M/UL (4.20-5.40) L Hemoglobin 9.0 G/DL (12.0-16.0) L Hematocrit 28.8 % (37.0-47.0) L Mean Corpuscular Volume 90 FL (80-99) Mean Corpuscular Hemoglobin 27.9 PG (27.0-31.0) Mean Corpuscular Hemoglobin Concent 31.1 G/DL (32.0-36.0) L Red Cell Distribution Width 18.9 % (11.6-14.8) H Platelet Count 105 K/UL (150-450) L Mean Platelet Volume 6.8 FL (6.5-10.1) Neutrophils (%) (Auto) % (45.0-75.0) Lymphocytes (%) (Auto) % (20.0-45.0) Monocytes (%) (Auto) % (1.0-10.0) Eosinophils (%) (Auto) % (0.0-3.0) Basophils (%) (Auto) % (0.0-2.0) Differential Total Cells Counted 100 Neutrophils % (Manual) 92 % (45-75) H Lymphocytes % (Manual) 4 % (20-45) L Monocytes % (Manual) 4 % (1-10) Eosinophils % (Manual) 0 % (0-3) Basophils % (Manual) 0 % (0-2) Band Neutrophils 0 % (0-8) Platelet Estimate Decreased L Platelet Morphology Normal Hypochromasia 2+ Anisocytosis 2+ Erythrocyte Sedimentation Rate 46 MM/HR (0-30) H Prothrombin Time 15.4 SEC (9.30-11.50) H Prothromb Time International Ratio 1.4 (0.9-1.1) H Activated Partial Thromboplast Time 29 SEC (23-33) Sodium Level 145 MMOL/L (136-145) Potassium Level 3.9 MMOL/L (3.5-5.1) Chloride Level 109 MMOL/L (98-107) H Carbon Dioxide Level 23 MMOL/L (21-32) Anion Gap 13 mmol/L (5-15) Blood Urea Nitrogen 126 mg/dL (7-18) H Creatinine 4.1 MG/DL (0.55-1.30) H Estimat Glomerular Filtration Rate 10.5 mL/min (>60) Glucose Level 217 MG/DL (74-106) #H Hemoglobin A1c 6.7 % (4.3-6.0) H Uric Acid 9.7 MG/DL (2.6-7.2) H Calcium Level 8.1 MG/DL (8.5-10.1) L Phosphorus Level 4.5 MG/DL (2.5-4.9) Magnesium Level 2.1 MG/DL (1.8-2.4) Total Bilirubin 0.4 MG/DL (0.2-1.0) Aspartate Amino Transf (AST/SGOT) 24 U/L (15-37) Alanine Aminotransferase (ALT/SGPT) 23 U/L (12-78) Alkaline Phosphatase 95 U/L (46-116) C-Reactive Protein, Quantitative 7.0 mg/dL (0.00-0.90) H Total Protein 5.3 G/DL (6.4-8.2) L Albumin 2.2 G/DL (3.4-5.0) L Globulin 3.1 g/dL Albumin/Globulin Ratio 0.7 (1.0-2.7) L Amylase Level 85 U/L (25-115) Current Medications Medications (Trade) Dose Ordered Sig/Maria Fernanda Route PRN Reason Start Time Stop Time Status Last Admin Dose Admin Acetaminophen (Tylenol) 500 mg Q6H PRN NG Mild Pain (Pain Scale 1-3) 02/17/20 12:45 03/18/20 12:44 Barium Sulfate (Varibar [place]) 250 ml NOW PRN MC RAD 02/17/20 14:00 02/20/20 13:55 Barium Sulfate (Varibar [place]) 240 ml NOW PRN MC RAD 02/17/20 14:00 02/20/20 13:55 Barium Sulfate (Varibar Pudding) 230 ml NOW PRN RAD 02/17/20 14:00 02/20/20 13:55 Barium Sulfate (Varibar Thin Liquid powder) 148 gm NOW PRN MC RAD 02/17/20 14:00 02/20/20 13:55 Cefepime HCl 1 gm/ Dextrose 55 ml @ 110 mls/hr Q24H IVPB 02/18/20 09:00 02/25/20 08:59 02/18/20 09:03 Dextrose (Dextrose 50%) 25 ml Q30M PRN IV Hypoglycemia 02/18/20 06:45 05/18/20 06:44 Dextrose (Dextrose 50%) 50 ml Q30M PRN IV Hypoglycemia 02/18/20 06:45 05/18/20 06:44 Docusate Sodium (Colace) 100 mg THREE TIMES A DAY NG 02/17/20 18:00 03/18/20 17:59 02/18/20 09:03 Heparin Sodium/ Sodium Chloride (Heparin 1000 units/500ml Premix) 1,000 unit ONCE PRN INJ PROCEDURE 02/18/20 09:16 02/18/20 23:59 Lidocaine HCl (Xylocaine 1% 30ml) 30 ml ONCE PRN INJ PROCEDURE 02/18/20 09:16 02/18/20 23:59 Oseltamivir Phosphate (Tamiflu) 30 mg DAILY ORAL 02/18/20 09:00 02/21/20 09:01 02/18/20 09:03 Pantoprazole (Protonix) 40 mg EVERY 12 HOURS IVP 02/17/20 21:00 03/18/20 20:59 02/18/20 09:03 Viet Harper MD Feb 18, 2020 10:47
--- NOTE | 2020-02-18 11:45 | Consultation ---
DATE OF CONSULTATION: 02/18/2020 ENDOCRINOLOGY CONSULTATION CONSULTING PHYSICIAN: Adalberto Echevarria MD. REFERRING PHYSICIAN: Janes Faust MD. REASON FOR CONSULTATION: Hypoglycemia. HISTORY OF PRESENT ILLNESS: It is important to note that history was obtained from the review of the chart and medical records since the patient is unable to provide any meaningful history. The patient is an 79-year-old female, [facility], who had the recent admission to [facility] with COVID. The patient presented to the hospital with hypoglycemia, glucose in the 50s received Glucagon, which raised the glucose to 70s and 80s. She was admitted for further evaluation, was noted to have pneumonia. Influenza A is positive. NG tube was placed and the patient's family refused PEG placement or dialysis treatment in the past. She has history of renal failure. The NG tube was dislodged and the patient was not receiving any feeding. The patient is nonverbal at the baseline and admitted for further observation and treatment. PAST MEDICAL HISTORY: 1. Diabetes. 2. Hypertension. 3. Coronary artery disease. 4. Pneumonia. 5. COVID. 6. Renal disease. 7. Failure to thrive. 8. UTI. PAST SURGICAL HISTORY: None. FAMILY HISTORY: Noncontributory. SOCIAL HISTORY: Currently staying in a nursing facility. No smoking, alcohol, or drug use. REVIEW OF SYSTEMS: Unobtainable. LABORATORY DATA: Sodium 145, potassium 4.2, chloride 110, bicarb 25, BUN 127, creatinine 4.3, glucose of 82. MEDICATIONS: Reviewed and reconciled. PHYSICAL EXAMINATION: GENERAL: The patient is nonverbal. VITAL SIGNS: Temperature 98, respiratory rate 18, pulse rate 86, blood pressure 150/81. HEENT: Pupils are equal and reactive to light. Sclerae anicteric. NECK: No JVD. HEART: Regular. LUNGS: Crackles. ABDOMEN: Positive bowel sounds. EXTREMITIES: Positive for edema. DIAGNOSES: 1. Diabetes. 2. Hypoglycemia. 3. Influenza A. 4. Pneumonia. 5. Nonverbal. DISCUSSION: 1. Glucose monitoring four times a day. 2. No insulin coverage. 3. Hypoglycemic protocol is in order. 4. Further adjustment according to blood glucose values. I will follow the patient closely during hospital stay. Thank you, Dr. Faust, for the courtesy of this consultation. Adalberto Echevarria M.D. DR: CHUY JOB#: [id number] CC: LALO
--- NOTE | 2020-02-18 12:03 | NUR ---
CAPACITY PLANNING ANALYST SWALLOW EVALUATION PATIENT REFERRED TO CAPACITY PLANNING ANALYST BY DR. CAICEDO. DYSPHAGIA RISK FACTORS FOR THIS 79 Y.O. [place] SPEAKING FEMALE: ACUTE: DM, hypoglycemia, Influenza A, PNA, nonverbal, End-stage renal disease, on hemodialysis., Dysphagia, failure to thrive, Anemia, Thrombocytopenia, Gram negative sepsis. H/O: (The following Dx are from Pt's prior admission 02/06/20 to 02/14/20 at [facility] [place]: COVID-19 pneumonia, acute renal failure, PNA, UTI, CHF, FTT, severe protein malnutrition, DM, recent left hip fracture. The patient's NG-tube was replaced at the emergency room.) Failure to thrive, urinary tract infection, renal failure, hypercholesterolemia, hypertension, anemia, diabetes. PLOF: Pt's daughter reports that Pt consume thin liquids and soft-puree like food at home. VITALS ON 2 L NASAL CANNULA: HR: 83; RR: 19; SP02 97% Pt seem at bedside, has bilateral soft wrist restraints, is on NC 2 L, has NGT and is NPO. Pt repositioned, oral cavity is dry with mucosa appearing parched. Pt provide oral care, Pt was unable to follow directions for oral motor examination, unable to consistently maintian open eyes during trails or sustain attention. Is saying 'water' repetitively. INITIAL IMPRESSIONS: Moderately severe oropharyngeal dysphagia compounded by Influenza A, end stage renal disease, and exacerbated by h/o dysphagia and h/o Dementia, Pt is a high risk for aspiration. Pt's oral phase during PO trials characterized by poor labial seal, poor bolus control with thin liquids (slightly improved with nectar thick liquids), mild oral residuals in oral cavity, Pt unable to follow cues for second swallow. Pt's laryngeal elevation is inconsistent in timing, mild to moderately delayed, and appears incomplete in elevation upon palpation. Overt aspiration signs and symptoms with all PO trials of thin liquids via teaspoon and nectar thick liquids via teaspoon, as trials continued Pt presenting with increasing wet and gurgled vocal quality. Therefore, trials were aborted. PATIENT IS A HIGH RISK FOR ASPIRATION DUE TO DYSPHAGIA, COGNITIVE BEHAVIORAL DEFICITS (H/O DEMENTIA, CONFUSED), AND POOR SWALLOW EFFICIENCY. RECOMMENDATIONS: 1. NPO, CONTINUE NGT, STRICT ORAL CARE TIB +MOISTURE 2. MD TO CONSIDER GI REFERRAL FOR PEG, PT'S PROGNOSIS FOR SAFETY WITH PO FOR ORAL GRATIFICATION S/P CAPACITY PLANNING ANALYST DYSPHAGIA THERAPY IS QUESTIONABLE TO [facility]. 3. CAPACITY PLANNING ANALYST PLANS TO F/U WITH PT 1-3X PER WEEK FOR DYSPHAGIA TX AND MANAGEMENT. 4. MONITOR FOR ABILITY TO BE TRANSFERRED TO RADIOLOGY FOR MBSS (DROPLET PRECAUTIONS) CAPACITY PLANNING ANALYST spoke with RN regarding results and recommendations. CAPACITY PLANNING ANALYST will f/u PER POC. Thank you for this referral!
--- NOTE | 2020-02-18 12:24 | NUR ---
NURSE NOTES: blood sugar was 278@1130. notified and received order novolog sensitive Q6 per sliding scale and levemir 8unit daily. order noted and carried out.
--- NOTE | 2020-02-18 13:31 | NUR ---
RD ASSESSMENT & RECOMMENDATIONS SEE CARE ACTIVITY FOR COMPLETE ASSESSMENT DAILY ESTIMATED NEEDS: Needs based on Wounds, DM, ARF +HD / 53.4kg abw 25-33 kcals/kg [id number] total kcals w/ HD 1.25-1.8 g protein/kg 66-96 g total protein Fluids per MD mL/kg . total fluid mLs NUTRITION DIAGNOSIS: * Swallowing difficulty R/T dysphagia as evidenced by on NGT feeds at this time, pending PEG placement. * Increased kcal/prot needs R/T wound healing and HD needs as evidenced by pt admitted w/ multiple wounds, inculding sacral DTPI partially opened wound, L hip partial thickness wound, and L heel nonblanchable erythema, w/ an order for cath placement, pending HD. CURRENT TF:Nepro @ 40ml/hr x 24 hrs ENTERAL NUTRITION RECOMMENDATIONS: Nepro @ 40ml/hr x 24 hrs to provide 960ml, 1728kcal, 78g prot, 698ml free water * Maintain current TF order * HOB over 30 degrees/ water flush per MD ADDITIONAL RECOMMENDATIONS: * Per SNF: HT=62" [id number] (02/05/20), rec daily calibrated bedscale wt * Monitor for continuity of HD * Monitor renal fxn and lytes * Wound healing: Add Nephrovite x 1 ZnSO4 220mg QD x 10 days, + Silvano BID * Monitor BGs, need for insulin adjustment .
--- NOTE | 2020-02-18 14:02 | General Progress Note ---
Subjective ROS Limited/Unobtainable: No Allergies: Coded Allergies: No Known Allergies (Unverified , 02/06/20) Objective Last 24 Hour Vital Signs Date Time Temp Pulse Resp B/P (MAP) Pulse Ox O2 Delivery O2 Flow Rate FiO2 02/18/20 12:00 99.0 97 20 158/90 (112) 96 02/18/20 09:26 98.0 104 18 150/87 (108) 95 02/18/20 09:00 Nasal Cannula 2.0 02/18/20 08:00 97.9 109 18 173/74 (107) 92 02/18/20 04:00 98.8 86 18 150/81 (104) 94 02/18/20 01:43 Room Air 02/18/20 00:00 98.0 81 18 159/76 (103) 94 02/17/20 20:21 Room Air 02/17/20 20:00 97.6 74 18 151/86 (107) 95 Intake and Output 02/17/20 02/18/20 19:00 07:00 Intake Total 305 ml 630 ml Output Total 100 ml Balance 205 ml 630 ml Intake Free Water 100 ml IV Total 305 ml 450 ml Tube Feeding 80 ml Output Urine Total 100 ml Laboratory Tests 02/17/20 18:45: Urine Random Sodium 28 02/18/20 05:45: White Blood Count 6.8, Red Blood Count 3.22L, Hemoglobin 9.0L, Hematocrit 28.8L, Mean Corpuscular Volume 90, Mean Corpuscular Hemoglobin 27.9, Mean Corpuscular Hemoglobin Concent 31.1L, Red Cell Distribution Width 18.9H, Platelet Count 105L , Mean Platelet Volume 6.8, Neutrophils (%) (Auto) , Lymphocytes (%) (Auto) , Monocytes (%) (Auto) , Eosinophils (%) (Auto) , Basophils (%) (Auto) , Differential Total Cells Counted 100, Neutrophils % (Manual) 92H, Lymphocytes % (Manual) 4L, Monocytes % (Manual) 4, Eosinophils % (Manual) 0, Basophils % (Manual) 0, Band Neutrophils 0, Platelet Estimate DecreasedL, Platelet Morphology Normal, Hypochromasia 2+, Anisocytosis 2+, Erythrocyte Sedimentation Rate 46H, Prothrombin Time 15.4H, Prothromb Time International Ratio 1.4H, Activated Partial Thromboplast Time 29, Sodium Level 145, Potassium Level 3.9, Chloride Level 109H, Carbon Dioxide Level 23, Anion Gap 13, Blood Urea Nitrogen 126H, Creatinine 4.1H, Estimat Glomerular Filtration Rate 10.5, Glucose Level 217#H, Hemoglobin A1c 6.7H, Uric Acid 9.7H, Calcium Level 8.1L, Phosphorus Level 4.5, Magnesium Level 2.1, Total Bilirubin 0.4, Aspartate Amino Transf (AST/SGOT) 24, Alanine Aminotransferase (ALT/SGPT) 23, Alkaline Phosphatase 95, C-Reactive Protein, Quantitative 7.0H, Total Protein 5.3L, Albumin 2.2L, Globulin 3.1, Albumin/Globulin Ratio 0.7L, Amylase Level 85, Hepatitis B Surface Antigen [Pending] 02/18/20 11:38: POC Whole Blood Glucose 285H Height (Feet): 5 Height (Inches): 2.00 Weight (Pounds): 150 General Appearance: no apparent distress EENT: normal ENT inspection Neck: supple Cardiovascular: normal rate Respiratory/Chest: decreased breath sounds Abdomen: normal bowel sounds, non tender, soft Extremities: non-tender Assessment/Plan Problem List: (1) Failure to thrive in adult ICD Codes: R62.7 - Failure to thrive in adult SNOMED: 728581800 (2) Renal failure ICD Codes: N19 - Unspecified kidney failure SNOMED: 32701958 (3) Anemia ICD Codes: D64.9 - Anemia, unspecified SNOMED: 071252947 (4) COVID-19 ICD Codes: U07.1 - COVID-19 SNOMED: 043897353 Assessment/Plan: DYSPHAGIA Covod positive last admission HTN elevated trop renal failure NGTF possible PEG next week pending HD will Gopal Maguire MD Feb 18, 2020 14:02
[2020-02-18] MEDS ORDERED: ELIQUIS5 MG PO (14:31)
[2020-02-18] MEDS ORDERED: LOSARTAN POTAS100 MG ORAL (14:31)
[2020-02-18] MEDS ORDERED: FUROSEMIDE40 MG ORAL (14:31)
[2020-02-18] MEDS ORDERED: NEURONTIN300 MG ORAL (14:31)
[2020-02-18] MEDS ORDERED: VITAMIN D3 COM1 EACH PO (14:31)
--- NOTE | 2020-02-18 14:59 | NUR ---
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 98.8 HR 90 RR 18 B/P 154/87 BUN 127 CR. 4.3 TROP 0.067 CXR= Bilateral pleural effusions and interstitial congestive changes, similar to previous study 02/06/2020. left hip x-ray= intertrochanteric fracture IS: ROCEPHIN IV IVF D51/2 NS W/20MEQ KCL @ 125ML/HR ADMITTED TO MED/SURG @ 1110 MED/SURG STATUS DCP RETURN TO [facility]
--- NOTE | 2020-02-18 15:05 | Pre-Procedure Note/Attestation ---
Pre-Procedure Note/Attestation Complete Prior to Procedure Planned Procedure: not applicable Procedure Narrative: usha catheter Indications for Procedure Pre-Operative Diagnosis: renal failure Attestation I attest that I discussed the nature of the procedure; its benefits; risks and complications; and alternatives (and the risks and benefits of such alternatives), prior to the procedure, with the patient (or the patient's legal agricultural sales representative). I attest that, if there was a reasonable possibility of needing a blood transfusion, the patient (or the patient's legal agricultural sales representative) was given the [facility] standardized written summary, pursuant to the Dru Génesis Blood Safety Act ([place] Health and Safety Code # 1645, as amended). I attest that I re-evaluated the patient just prior to the surgery and that there has been no change in the patient's H&P, except as documented below: Lucho Matthews MD Feb 18, 2020 15:05
--- NOTE | 2020-02-18 15:36 | Surgery Progress Note ---
Surgery Progress Note Subjective Additional Comments ng in good position no n/v labs noted Objective Last 24 Hour Vital Signs Date Time Temp Pulse Resp B/P (MAP) Pulse Ox O2 Delivery O2 Flow Rate FiO2 02/18/20 15:30 98.3 91 23 165/76 (105) 100 02/18/20 15:25 98.5 97 21 166/63 (97) 100 02/18/20 15:20 98.5 91 24 173/89 (117) 100 02/18/20 15:01 88 17 2.0 02/18/20 12:00 99.0 97 20 158/90 (112) 96 02/18/20 09:26 98.0 104 18 150/87 (108) 95 02/18/20 09:00 Nasal Cannula 2.0 02/18/20 08:00 97.9 109 18 173/74 (107) 92 02/18/20 04:00 98.8 86 18 150/81 (104) 94 02/18/20 01:43 Room Air 02/18/20 00:00 98.0 81 18 159/76 (103) 94 02/17/20 20:21 Room Air 02/17/20 20:00 97.6 74 18 151/86 (107) 95 I&O Intake and Output 02/17/20 02/18/20 19:00 07:00 Intake Total 305 ml 630 ml Output Total 100 ml Balance 205 ml 630 ml Intake Free Water 100 ml IV Total 305 ml 450 ml Tube Feeding 80 ml Output Urine Total 100 ml Dressing: saturated Cardiovascular: RSR Respiratory: decreased breath sounds Abdomen: non-tender, present bowel sounds Extremities: no tenderness, no cyanosis, other Laboratory Tests Test 02/17/20 18:45 02/18/20 05:45 02/18/20 11:38 Urine Random Sodium 28 mmol/L (20-110) White Blood Count 6.8 K/UL (4.8-10.8) Red Blood Count 3.22 M/UL (4.20-5.40) L Hemoglobin 9.0 G/DL (12.0-16.0) L Hematocrit 28.8 % (37.0-47.0) L Mean Corpuscular Volume 90 FL (80-99) Mean Corpuscular Hemoglobin 27.9 PG (27.0-31.0) Mean Corpuscular Hemoglobin Concent 31.1 G/DL (32.0-36.0) L Red Cell Distribution Width 18.9 % (11.6-14.8) H Platelet Count 105 K/UL (150-450) L Mean Platelet Volume 6.8 FL (6.5-10.1) Neutrophils (%) (Auto) % (45.0-75.0) Lymphocytes (%) (Auto) % (20.0-45.0) Monocytes (%) (Auto) % (1.0-10.0) Eosinophils (%) (Auto) % (0.0-3.0) Basophils (%) (Auto) % (0.0-2.0) Differential Total Cells Counted 100 Neutrophils % (Manual) 92 % (45-75) H Lymphocytes % (Manual) 4 % (20-45) L Monocytes % (Manual) 4 % (1-10) Eosinophils % (Manual) 0 % (0-3) Basophils % (Manual) 0 % (0-2) Band Neutrophils 0 % (0-8) Platelet Estimate Decreased L Platelet Morphology Normal Hypochromasia 2+ Anisocytosis 2+ Erythrocyte Sedimentation Rate 46 MM/HR (0-30) H Prothrombin Time 15.4 SEC (9.30-11.50) H Prothromb Time International Ratio 1.4 (0.9-1.1) H Activated Partial Thromboplast Time 29 SEC (23-33) Sodium Level 145 MMOL/L (136-145) Potassium Level 3.9 MMOL/L (3.5-5.1) Chloride Level 109 MMOL/L (98-107) H Carbon Dioxide Level 23 MMOL/L (21-32) Anion Gap 13 mmol/L (5-15) Blood Urea Nitrogen 126 mg/dL (7-18) H Creatinine 4.1 MG/DL (0.55-1.30) H Estimat Glomerular Filtration Rate 10.5 mL/min (>60) Glucose Level 217 MG/DL (74-106) #H Hemoglobin A1c 6.7 % (4.3-6.0) H Uric Acid 9.7 MG/DL (2.6-7.2) H Calcium Level 8.1 MG/DL (8.5-10.1) L Phosphorus Level 4.5 MG/DL (2.5-4.9) Magnesium Level 2.1 MG/DL (1.8-2.4) Total Bilirubin 0.4 MG/DL (0.2-1.0) Aspartate Amino Transf (AST/SGOT) 24 U/L (15-37) Alanine Aminotransferase (ALT/SGPT) 23 U/L (12-78) Alkaline Phosphatase 95 U/L (46-116) C-Reactive Protein, Quantitative 7.0 mg/dL (0.00-0.90) H Total Protein 5.3 G/DL (6.4-8.2) L Albumin 2.2 G/DL (3.4-5.0) L Globulin 3.1 g/dL Albumin/Globulin Ratio 0.7 (1.0-2.7) L Amylase Level 85 U/L (25-115) Hepatitis B Surface Antigen Pending POC Whole Blood Glucose 285 MG/DL (74-106) H Plan Problems: (1) CHF (congestive heart failure) (2) Hip fracture, left Assessment & Plan: noted. bruising see above ortho eval (3) Anemia (4) Failure to thrive in adult Assessment & Plan: Nutritional optimization. NG tube for now start tube feeds start meds (5) Renal failure (6) COVID-19 Assessment & Plan: prior positive now negative this admission (7) Congestive heart failure (8) Hypoglycemia (9) UTI (urinary tract infection) (10) Diabetic nephropathy (11) Pneumonia (12) Renal failure (ARF), acute on chronic (13) Deep tissue injury Assessment & Plan: see below (14) Pressure injury of sacral region, unstageable Assessment & Plan: Patient identified on admission to have a large sacral deep tissue injury non-blanchable erythema blistering epidermis intact no drainage. Unknown duration but present on prior admission and noted to be high risk for breakdown given overall condition and status. Tenderness difficult to a certain based on clinical examinations patient's history. Labs noted. Patient high risk for decubitus ulcer formation worsening condition. NG tube in place currently. Nutritional optimization. Turn every 2 hours. Offload pressure with pillows. OPTi foam dressing to sacrum. Care plan initiated. T marli you will follow with recommendations Pt presented on admission with multiple Pressure Injuries, Fx L Hip. Large contusion noted to L Hip/ Lateral L Femur noted on prior admission and preset still. Sacral DTPI partially opened and is 75% necrotic, 25% moist erythematous and clear skin flap that is loose.(L)5.5cm x (W)9cm. Small amt serous exudate noted. Non-Blanchable erythema periwound. Partial thickness wound noted to L Hip. Base of wound is moist and viable. edges adherent to base of wound(L)3cm x (W)2.5cm. L Heel is boggy with non-Blanchable erythema with delineated margins. L heel is boggy with non-blanchable erythema. Tx.Plan: Cleanse Sacral wound with Saline. Apply Therahoney. Apply Moisture Barrier Paste periwound. Cover with Optifoam drsg. Change every 3 days and prn. Apply Moisture Barrier Paste to L Hip wound. Cover with Optifoam drsg. Change every 3 days and prn Apply Cavilon Skin Barrier to both heels. Cover each heel with Optifoam drsg. Change every 7 days and prn. Reposition at least every 2hours or as tolerated. Off-load heels with pillow. APM/CHE Mattress overlay. Chris Lei Feb 18, 2020 15:36
[2020-02-18] MEDS ORDERED: NovoLOG Insulin Flexpen SUBQ SCH (16:30)
--- NOTE | 2020-02-18 16:37 | Brief Operative Note ---
Immediate Post Operative Note Operative Note Pre-op Diagnosis: renal failure Procedure: R YEYN kerr Post-op Diagnosis: same as pre-op Surgeon: Min Matthews Anesthesia: local Specimen: none Complications: none Fluids: none Implant(s) used?: No Lucho Matthews MD Feb 18, 2020 16:37
[2020-02-18] MEDS: NovoLOG Insulin Flexpen SUBQ SCH ×2 (18:14→23:48)
--- NOTE | 2020-02-18 19:17 | NUR ---
NURSE HAND-OFF: Important Events on Shift: pt fail ST eval, right IJ placement, put patient on P200 mattress Patient Status: stable Diet: nepro @ 40 cc/hr Pending Orders: dialysis tonight Pending Results/Labs:labs scheduled for tomorrow morning Pending MD notification:n/a Latest Vital Signs: Temperature 98.6 , Pulse 94 , B/P 131 /65 , Respiratory Rate 20 , O2 SAT 92 , Nasal Cannula, O2 Flow Rate 2.0 . Vital Sign Comment: stable Latest Barrett Fall Score: 55 Fall Risk: High Risk Safety Measures: Call light Within Reach, Bed Alarm Zone 2, Side Rails Side Rails x2, Bed position Low and Locked. Fall Precautions: Yellow Socks Door Sign Report given to BONG Solis.
--- NOTE | 2020-02-18 19:18 | NUR ---
NURSE NOTES: Received pt on the bed awake and non-verbal. pt has no sob,fever, pain and cough at the moment. Iv is intact and asymptomatic. pt is on Bilateral restrain. pt has Cornelius cath inserted on the adm. pt is on a special mattress. Bed is in the lowest position,locked and alarm on. call light within reach. We will keep monitoring the pt.
--- NOTE | 2020-02-18 19:40 | NUR ---
RADIOLOGY NOTE: RIJ 3L YULIYA PLACED.
--- NOTE | 2020-02-18 19:42 | Diagnostic Imaging Report ---
Indication:Needs dialysis access Technique: Procedural timeout performed. Informed consent obtained prior to commencement of the procedure.. Ultrasound confirms patent compressible right internal jugular vein. Total sterile technique, including sterile probe cover and sterile gel, sterile gloves, hand hygiene, hat, mask, sterile gown, large sterile drape, and preparation with 2% chlorhexidine utilized.Local anesthesia with 1% lidocaine. Under real-time ultrasound guidance, puncture right internal jugular vein using 18-gauge needle, Passage 0.018 guidewire, insertion 4 Greek micropuncture introducer, passage 0.035 guidewire, over which was passed serial dilators and then a 15 cm long triple-lumen temporary dialysis catheter, under fluoroscopic supervision. Completion stored digital radiograph obtained, demonstrating catheter tip position at the mid superior vena cava The patient tolerated the procedure well, without immediate complication. Fluoroscopy time 8.3 seconds Dose Area Product [id number] Impression: Successful placement of right jugular temporary dialysis catheter, as described.
--- NOTE | 2020-02-18 21:43 | General Progress Note ---
Subjective ROS Limited/Unobtainable: Yes Allergies: Coded Allergies: No Known Allergies (Unverified , 02/06/20) Objective Last 24 Hour Vital Signs Date Time Temp Pulse Resp B/P (MAP) Pulse Ox O2 Delivery O2 Flow Rate FiO2 02/18/20 21:31 Nasal Cannula 2.0 02/18/20 16:00 98.6 94 20 131/65 (87) 92 02/18/20 15:30 98.3 91 23 165/76 (105) 100 02/18/20 15:25 98.5 97 21 166/63 (97) 100 02/18/20 15:20 98.5 91 24 173/89 (117) 100 02/18/20 15:01 88 17 2.0 02/18/20 12:00 99.0 97 20 158/90 (112) 96 02/18/20 09:26 98.0 104 18 150/87 (108) 95 02/18/20 09:00 Nasal Cannula 2.0 02/18/20 08:00 97.9 109 18 173/74 (107) 92 02/18/20 04:00 98.8 86 18 150/81 (104) 94 02/18/20 01:43 Room Air 02/18/20 00:00 98.0 81 18 159/76 (103) 94 Intake and Output 02/17/20 02/18/20 19:00 07:00 Intake Total 305 ml 630 ml Output Total 100 ml Balance 205 ml 630 ml Intake Free Water 100 ml IV Total 305 ml 450 ml Tube Feeding 80 ml Output Urine Total 100 ml Laboratory Tests 02/18/20 05:45: White Blood Count 6.8, Red Blood Count 3.22L, Hemoglobin 9.0L, Hematocrit 28.8L, Mean Corpuscular Volume 90, Mean Corpuscular Hemoglobin 27.9, Mean Corpuscular Hemoglobin Concent 31.1L, Red Cell Distribution Width 18.9H, Platelet Count 105L , Mean Platelet Volume 6.8, Neutrophils (%) (Auto) , Lymphocytes (%) (Auto) , Monocytes (%) (Auto) , Eosinophils (%) (Auto) , Basophils (%) (Auto) , Differential Total Cells Counted 100, Neutrophils % (Manual) 92H, Lymphocytes % (Manual) 4L, Monocytes % (Manual) 4, Eosinophils % (Manual) 0, Basophils % (Manual) 0, Band Neutrophils 0, Platelet Estimate DecreasedL, Platelet Morphology Normal, Hypochromasia 2+, Anisocytosis 2+, Erythrocyte Sedimentation Rate 46H, Prothrombin Time 15.4H, Prothromb Time International Ratio 1.4H, Activated Partial Thromboplast Time 29, Sodium Level 145, Potassium Level 3.9, Chloride Level 109H, Carbon Dioxide Level 23, Anion Gap 13, Blood Urea Nitrogen 126H, Creatinine 4.1H, Estimat Glomerular Filtration Rate 10.5, Glucose Level 217#H, Hemoglobin A1c 6.7H, Uric Acid 9.7H, Calcium Level 8.1L, Phosphorus Level 4.5, Magnesium Level 2.1, Total Bilirubin 0.4, Aspartate Amino Transf (AST/SGOT) 24, Alanine Aminotransferase (ALT/SGPT) 23, Alkaline Phosphatase 95, C-Reactive Protein, Quantitative 7.0H, Total Protein 5.3L, Albumin 2.2L, Globulin 3.1, Albumin/Globulin Ratio 0.7L, Amylase Level 85, Hepatitis B Surface Antigen [Pending] 02/18/20 11:38: POC Whole Blood Glucose 285H Height (Feet): 5 Height (Inches): 2.00 Weight (Pounds): 150 Assessment/Plan Problem List: (1) COVID-19 ICD Codes: U07.1 - COVID-19 SNOMED: 635741362 (2) Renal failure ICD Codes: N19 - Unspecified kidney failure SNOMED: 71967390 (3) Anemia ICD Codes: D64.9 - Anemia, unspecified SNOMED: 074467348 (4) Hypoglycemia ICD Codes: E16.2 - Hypoglycemia, unspecified SNOMED: 384625690 (5) Congestive heart failure ICD Codes: I50.9 - Heart failure, unspecified SNOMED: 57043898 (6) UTI (urinary tract infection) ICD Codes: N39.0 - Urinary tract infection, site not specified SNOMED: 93132445 (7) Diabetic nephropathy ICD Codes: E11.21 - Type 2 diabetes mellitus with diabetic nephropathy SNOMED: 81577315, 103237287 (8) Renal failure (ARF), acute on chronic ICD Codes: N17.9 - Acute kidney failure, unspecified; N18.9 - Chronic kidney disease, unspecified SNOMED: 972614180 (9) Pressure injury of sacral region, unstageable ICD Codes: L89.150 - Pressure ulcer of sacral region, unstageable SNOMED: 952873237 Status: progressing Assessment/Plan: afebrile arf on top of cri chf uti afebrile vitals stable malnutrition bositive blood cx hd per dr benton peg per Janes Lind MD Feb 18, 2020 21:43
--- NOTE | 2020-02-18 23:32 | NUR ---
NURSE NOTES: First dialysis done. 2.5L is out. pt is in stable condition; bp 114/63 p 85 RR 21 O2 96 temp 98.5.
[2020-02-19] VITALS: BP 151/88
[2020-02-19 04:00] VITALS: BP 135/84
[2020-02-19] MEDS: NovoLOG Insulin Flexpen SUBQ SCH ×3 (05:34→17:33)
--- NOTE | 2020-02-19 07:28 | NUR ---
NURSE NOTES: joshua busch called and notified pt has [place] on the nares and VRE rectum. Called Dr. Andrew Murcia and no new order
--- NOTE | 2020-02-19 07:32 | NUR ---
NURSE HAND-OFF: Important Events on Shift: pt got her first dialysis and 2.5 L out. Mrsa nares and vre rectum found Patient Status: stable Diet: nepro 40 cc Pending Orders: Pending Results/Labs: Pending MD notification: Latest Vital Signs: Temperature 98.9 , Pulse 94 , B/P 135 /84 , Respiratory Rate 18 , O2 SAT 96 , Nasal Cannula, O2 Flow Rate 2.0 . Vital Sign Comment: Latest Barrett Fall Score: 55 Fall Risk: High Risk Safety Measures: Call light Within Reach, Bed Alarm Zone 2, Side Rails Side Rails x2, Bed position Low and Locked. Fall Precautions: Yellow Socks Door Sign Report given to BONG Dixon.
--- NOTE | 2020-02-19 07:57 | NUR ---
NURSE NOTES: Patient awake, non-verbal; on Nasal cannula 2 Liters, no sing of distress and shortness of breath; no sing of chest pain; IV Left AC flushes well; Cornelius in place, collects yellow urine; NG Tube on the Left Nare, running Nephro 40cc, no residual, head of the bed elevated for aspiration percussion; bilateral extremities for upper and lower swollen; patient on Bilateral Soft restrain, skin warm to touch and good circulation; side rials up x2, breaks engaged, bed at lowest position, bed alarm on; call light within reach; will keep monitoring.
[2020-02-19 08:00] VITALS: BP 140/79
[2020-02-19] MEDS: Docusate 100mg/10ml Liq NG SCH ×3 (08:58→17:33)
[2020-02-19] MEDS: Pantoprazole Inj IVP SCH ×2 (08:58→20:50)
[2020-02-19] MEDS: Cefepime HCl 1 GM in D5W 55 ML IVPB SCH (08:59)
[2020-02-19] MEDS ORDERED: Levemir Flexpen SUBQ SCH (09:00)
--- NOTE | 2020-02-19 09:30 | Nephrology Progress Note ---
Assessment/Plan Problem List: (1) Renal failure (ARF), acute on chronic (2) Diabetic nephropathy (3) CHF (congestive heart failure) (4) Anemia Assessment 1) Renal failure (ARF), acute on chronic (2) COVID-19 (3) UTI (urinary tract infection) (4) Congestive heart failure (5) Anemia (6) Diabetic nephropathy Plan February 18: Patient was dialyzed yesterday. Patient less edematous today. Patient appears more responsive today. Plan to dialyze and ultrafiltrate again tomorrow. Medication list reviewed. Today's labs pending. February 17: Patient due for dialysis catheter today and subsequent dialysis treatment. Patient is edematous. Patient has an NG tube on feeding. Will disc ontinue IV fluid. Continue per consultants. Discussed with RN. Previously: Consent for insertion of dialysis catheter as per my conversation with the daughter who now desires dialysis NG feeding with Nepro Dialysis cath, followed by dialysis Subjective ROS Limited/Unobtainable: Yes Constitutional: Reports: other - Appears more responsive Objective Objective Last 24 Hour Vital Signs Date Time Temp Pulse Resp B/P (MAP) Pulse Ox O2 Delivery O2 Flow Rate FiO2 02/19/20 08:00 97.5 74 18 140/79 (99) 97 02/19/20 04:00 98.9 94 18 135/84 (101) 96 02/19/20 00:00 99.1 87 20 151/88 (109) 96 02/18/20 21:31 Nasal Cannula 2.0 02/18/20 20:00 98.9 87 20 156/81 (106) 95 02/18/20 16:00 98.6 94 20 131/65 (87) 92 02/18/20 15:30 98.3 91 23 165/76 (105) 100 02/18/20 15:25 98.5 97 21 166/63 (97) 100 02/18/20 15:20 98.5 91 24 173/89 (117) 100 02/18/20 15:01 88 17 2.0 02/18/20 12:00 99.0 97 20 158/90 (112) 96 Intake and Output 02/18/20 02/19/20 19:00 07:00 Intake Total 640 ml Output Total 400 ml 300 ml Balance 240 ml -300 ml Intake Free Water 200 ml Tube Feeding 440 ml Output Urine Total 400 ml 300 ml # Voids 1 No chemistry panel drawn yet today Laboratory Tests 02/18/20 11:38: POC Whole Blood Glucose 285H Height (Feet): 5 Height (Inches): 2.00 Weight (Pounds): 150 General Appearance: no apparent distress, other - Patient on nasal cannula Cardiovascular: normal rate Respiratory/Chest: decreased breath sounds Abdomen: distended Quirino Cormier MD Feb 19, 2020 09:30
--- NOTE | 2020-02-19 09:36 | General Progress Note ---
Subjective ROS Limited/Unobtainable: Yes Allergies: Coded Allergies: No Known Allergies (Unverified , 02/06/20) Subjective events noted interval notes reviewed on continuous NGT feeding - tolerated glucose values on higher side Item Value Date Time Bedside Blood Glucose 218 mg/dl H 02/19/20 0900 Bedside Blood Glucose 218 mg/dl H 02/19/20 0557 Bedside Blood Glucose 169 mg/dl H 02/19/20 0000 Bedside Blood Glucose 323 mg/dl H 02/18/20 1814 Bedside Blood Glucose 278 mg/dl H 02/18/20 1200 Objective Last 24 Hour Vital Signs Date Time Temp Pulse Resp B/P (MAP) Pulse Ox O2 Delivery O2 Flow Rate FiO2 02/19/20 08:00 97.5 74 18 140/79 (99) 97 02/19/20 04:00 98.9 94 18 135/84 (101) 96 02/19/20 00:00 99.1 87 20 151/88 (109) 96 02/18/20 21:31 Nasal Cannula 2.0 02/18/20 20:00 98.9 87 20 156/81 (106) 95 02/18/20 16:00 98.6 94 20 131/65 (87) 92 02/18/20 15:30 98.3 91 23 165/76 (105) 100 02/18/20 15:25 98.5 97 21 166/63 (97) 100 02/18/20 15:20 98.5 91 24 173/89 (117) 100 02/18/20 15:01 88 17 2.0 02/18/20 12:00 99.0 97 20 158/90 (112) 96 Intake and Output 02/18/20 02/19/20 19:00 07:00 Intake Total 640 ml Output Total 400 ml 300 ml Balance 240 ml -300 ml Intake Free Water 200 ml Tube Feeding 440 ml Output Urine Total 400 ml 300 ml # Voids 1 Laboratory Tests 02/18/20 11:38: POC Whole Blood Glucose 285H Height (Feet): 5 Height (Inches): 2.00 Weight (Pounds): 150 General Appearance: no apparent distress EENT: other - NGT Neck: normal alignment Cardiovascular: normal rate Respiratory/Chest: lungs clear Abdomen: normal bowel sounds Objective Current Medications Medications (Trade) Dose Ordered Sig/Maria Fernanda Route PRN Reason Start Time Stop Time Status Last Admin Dose Admin Acetaminophen (Tylenol) 500 mg Q6H PRN NG Mild Pain (Pain Scale 1-3) 02/17/20 12:45 03/18/20 12:44 Barium Sulfate (Varibar Honey) 250 ml NOW PRN RAD 02/17/20 14:00 02/20/20 13:55 Barium Sulfate (Varibar Burton) 240 ml NOW PRN RAD 02/17/20 14:00 02/20/20 13:55 Barium Sulfate (Varibar Pudding) 230 ml NOW PRN RAD 02/17/20 14:00 02/20/20 13:55 Barium Sulfate (Varibar Thin Liquid powder) 148 gm NOW PRN RAD 02/17/20 14:00 02/20/20 13:55 Cefepime HCl 1 gm/ Dextrose 55 ml @ 110 mls/hr Q24H IVPB 02/18/20 09:00 02/25/20 08:59 02/19/20 08:59 Dextrose (Dextrose 50%) 25 ml Q30M PRN IV Hypoglycemia 02/18/20 12:15 05/18/20 12:14 Dextrose (Dextrose 50%) 50 ml Q30M PRN IV Hypoglycemia 02/18/20 12:15 05/18/20 12:14 Docusate Sodium (Colace) 100 mg THREE TIMES A DAY NG 02/17/20 18:00 03/18/20 17:59 02/19/20 08:58 Epoetin Manoj (Epoetin Manoj(ESRD on dialysis)) 10,000 unit FRI-FRI-FRI SUBQ 02/21/20 21:00 05/21/20 20:59 Insulin Aspart (NovoLOG) Q6HR SUBQ 02/18/20 18:00 05/18/20 16:29 02/19/20 05:34 Insulin Detemir (Levemir) 8 units DAILY SUBQ 02/19/20 09:00 05/19/20 08:59 02/19/20 09:00 Oseltamivir Phosphate (Tamiflu) 30 mg DAILY ORAL 02/18/20 09:00 02/21/20 09:01 02/19/20 08:59 Pantoprazole (Protonix) 40 mg EVERY 12 HOURS IVP 02/17/20 21:00 03/18/20 20:59 02/19/20 08:58 Assessment/Plan Problem List: (1) Hypoglycemia ICD Codes: E16.2 - Hypoglycemia, unspecified SNOMED: 690859377 (2) UTI (urinary tract infection) ICD Codes: N39.0 - Urinary tract infection, site not specified SNOMED: 27006974 (3) CHF (congestive heart failure) ICD Codes: I50.9 - Heart failure, unspecified SNOMED: 97285752 (4) Failure to thrive in adult ICD Codes: R62.7 - Failure to thrive in adult SNOMED: 528873972 Status: progressing Assessment/Plan: increase Levemir to 8 units bid continue Novolog sliding scale every 6 hours plan for PEG next week noted Adalberto Echevarria MD Feb 19, 2020 09:36
--- NOTE | 2020-02-19 09:44 | NUR ---
NURSE NOTES: Contacted Mani at [facility] for HD order for patient on 02/19 per MD Cormier order.
[2020-02-19 10:08] LABS: HEMATOCRIT 25.5 % (37.0-47.0); HEMOGLOBIN 8.1 G/DL (12.0-16.0); MEAN CORPUSCULAR VOLUME 88 FL (80-99); PLATELET COUNT 94 K/UL (150-450); RED BLOOD COUNT 2.89 M/UL (4.20-5.40); RED CELL DISTRIBUTION WIDTH 18.4 % (11.6-14.8); WHITE BLOOD COUNT 6.7 K/UL (4.8-10.8)
[2020-02-19 10:41] LABS: ALANINE AMINOTRANSFERASE 21 U/L (12-78); ALBUMIN 1.9 G/DL (3.4-5.0); ALBUMIN/GLOBULIN RATIO 0.6 (1.0-2.7); ALKALINE PHOSPHATASE 88 U/L (46-116); ANION GAP 7 mmol/L (5-15); ASPARTATE AMINO TRANSFERASE 18 U/L (15-37); BILIRUBIN,TOTAL 0.5 MG/DL (0.2-1.0); BLOOD UREA NITROGEN 75 mg/dL (7-18); CALCIUM 7.7 MG/DL (8.5-10.1); CARBON DIOXIDE 28 MMOL/L (21-32); CHLORIDE 100 MMOL/L (98-107); CHOLESTEROL 106 MG/DL (< 200); CREATININE 2.8 MG/DL (0.55-1.30); HDL CHOLESTEROL 25 MG/DL (40-60); PHOSPHORUS 2.6 MG/DL (2.5-4.9); POTASSIUM 3.4 MMOL/L (3.5-5.1); SODIUM 135 MMOL/L (136-145); TRIGLYCERIDES 99 MG/DL (30-150)
--- NOTE | 2020-02-19 10:53 | Pulmonology Progress Note ---
Subjective ROS Limited/Unobtainable: Yes Interval Events: None new Constitutional: Reports: other - looks better HEENT: Repors: no symptoms Respiratory: Reports: no symptoms Cardiovascular: Reports: no symptoms Allergies: Coded Allergies: No Known Allergies (Unverified , 02/06/20) Subjective care noted Objective Last 24 Hour Vital Signs Date Time Temp Pulse Resp B/P (MAP) Pulse Ox O2 Delivery O2 Flow Rate FiO2 02/19/20 09:00 Nasal Cannula 2.0 02/19/20 08:00 97.5 74 18 140/79 (99) 97 02/19/20 04:00 98.9 94 18 135/84 (101) 96 02/19/20 00:00 99.1 87 20 151/88 (109) 96 02/18/20 21:31 Nasal Cannula 2.0 02/18/20 20:00 98.9 87 20 156/81 (106) 95 02/18/20 16:00 98.6 94 20 131/65 (87) 92 02/18/20 15:30 98.3 91 23 165/76 (105) 100 02/18/20 15:25 98.5 97 21 166/63 (97) 100 02/18/20 15:20 98.5 91 24 173/89 (117) 100 02/18/20 15:01 88 17 2.0 02/18/20 12:00 99.0 97 20 158/90 (112) 96 Intake and Output 02/18/20 02/19/20 19:00 07:00 Intake Total 640 ml Output Total 400 ml 300 ml Balance 240 ml -300 ml Intake Free Water 200 ml Tube Feeding 440 ml Output Urine Total 400 ml 300 ml # Voids 1 General Appearance: no acute distress HEENT: normocephalic Respiratory: chest wall non-tender, lungs clear Cardiovascular: normal peripheral pulses Abdomen: normal bowel sounds Microbiology Date/Time Source Procedure Growth Status 02/17/20 09:06 Nasal Nares - Final Complete 02/17/20 09:06 Nasal Nares - Final Complete 02/17/20 08:07 Rectum - Final NO CARBAPENEM-RESISTANT ENTEROBACTERI... Complete 02/17/20 08:07 Rectum VRE Culture - Final Enterococcus Faecium - Vre Complete 02/17/20 08:07 Nasal Nares MRSA Culture - Final Staphylococcus Aureus - Mrsa Complete 02/17/20 08:07 Blood Blood Culture - Preliminary Gram Negative Nahid Resulted 02/17/20 07:55 Blood Blood Culture - Preliminary Gram Negative Nahid Resulted 02/17/20 00:00 Nasopharynx SARS-CoV-2 RdRp Gene Assay - Final Complete Laboratory Tests 02/18/20 11:38: POC Whole Blood Glucose 285H 02/19/20 09:00: White Blood Count 6.7, Red Blood Count 2.89L, Hemoglobin 8.1L, Hematocrit 25.5L, Mean Corpuscular Volume 88, Mean Corpuscular Hemoglobin 28.2, Mean Corpuscular Hemoglobin Concent 31.9L, Red Cell Distribution Width 18.4H, Platelet Count 94L, Mean Platelet Volume 7.8, Neutrophils (%) (Auto) , Lymphocytes (%) (Auto) , Monocytes (%) (Auto) , Eosinophils (%) (Auto) , Basophils (%) (Auto) , Neutrophils % (Manual) [Pending], Lymphocytes % (Manual) [Pending], Platelet Estimate [Pending], Platelet Morphology [Pending], Sodium Level 135L, Potassium Level 3.4L, Chloride Level 100, Carbon Dioxide Level 28, Anion Gap 7, Blood Urea Nitrogen 75H, Creatinine 2.8H, Estimat Glomerular Filtration Rate 16.2, Glucose Level 232H, Uric Acid 5.3, Calcium Level 7.7L, Phosphorus Level 2.6, Magnesium Level 1.8, Total Bilirubin 0.5, Aspartate Amino Transf (AST/SGOT) 18, Alanine Aminotransferase (ALT/SGPT) 21, Alkaline Phosphatase 88, C-Reactive Protein, Quantitative 5.7H, Pro-B-Type Natriuretic Peptide 29640X, Total Protein 4.9L, Albumin 1.9L, Globulin 3.0, Albumin/Globulin Ratio 0.6L, Triglycerides Level 99, Cholesterol Level 106, LDL Cholesterol 68, HDL Cholesterol 25L, Cholesterol/HDL Ratio 4.2, Thyroid Stimulating Hormone (TSH) 1.414 Current Medications Medications (Trade) Dose Ordered Sig/Maria Fernanda Route PRN Reason Start Time Stop Time Status Last Admin Dose Admin Acetaminophen (Tylenol) 500 mg Q6H PRN NG Mild Pain (Pain Scale 1-3) 02/17/20 12:45 03/18/20 12:44 Barium Sulfate (Varibar Honey) 250 ml NOW PRN MC RAD 02/17/20 14:00 02/20/20 13:55 Barium Sulfate (Varibar Turpin) 240 ml NOW PRN MC RAD 02/17/20 14:00 02/20/20 13:55 Barium Sulfate (Varibar Pudding) 230 ml NOW PRN MC RAD 02/17/20 14:00 02/20/20 13:55 Barium Sulfate (Varibar Thin Liquid powder) 148 gm NOW PRN MC RAD 02/17/20 14:00 02/20/20 13:55 Cefepime HCl 1 gm/ Dextrose 55 ml @ 110 mls/hr Q24H IVPB 02/18/20 09:00 02/25/20 08:59 02/19/20 08:59 Dextrose (Dextrose 50%) 25 ml Q30M PRN IV Hypoglycemia 02/18/20 12:15 05/18/20 12:14 Dextrose (Dextrose 50%) 50 ml Q30M PRN IV Hypoglycemia 02/18/20 12:15 05/18/20 12:14 Docusate Sodium (Colace) 100 mg THREE TIMES A DAY NG 02/17/20 18:00 03/18/20 17:59 02/19/20 08:58 Epoetin Manoj (Epoetin Manoj(ESRD on dialysis)) 10,000 unit MON-FRI-FRI SUBQ 02/21/20 21:00 05/21/20 20:59 Insulin Aspart (NovoLOG) Q6HR SUBQ 02/18/20 18:00 05/18/20 16:29 02/19/20 05:34 Insulin Detemir (Levemir) 8 units BID SUBQ 02/19/20 18:00 05/19/20 08:59 Oseltamivir Phosphate (Tamiflu) 30 mg DAILY ORAL 02/18/20 09:00 02/21/20 09:01 02/19/20 08:59 Pantoprazole (Protonix) 40 mg EVERY 12 HOURS IVP 02/17/20 21:00 03/18/20 20:59 02/19/20 08:58 Assessment/Plan Assessment/Plan IMPRESSION: 1. Previous COVID-19 pneumonia. 2. Cardiomegaly/CHF. 3. Renal failure. 4. Influenza A 5. Hyperlipidemia. DISCUSSION: stable currently Tamiflu per ID Continue O2 Currently saturating well on RA Will follow impression, plan, and exam edited and reviewed in detail care discussed with Heber Mars MD Feb 19, 2020 10:53
[2020-02-19 12:00] VITALS: BP 131/81
[2020-02-19 16:00] VITALS: BP 129/83
--- NOTE | 2020-02-19 16:49 | General Progress Note ---
Subjective Allergies: Coded Allergies: No Known Allergies (Unverified , 02/06/20) Subjective Above noted d/w hospital staff pharmacist Tolerating TF no residuals Objective Last 24 Hour Vital Signs Date Time Temp Pulse Resp B/P (MAP) Pulse Ox O2 Delivery O2 Flow Rate FiO2 02/19/20 12:00 98.1 81 17 131/81 (98) 97 02/19/20 09:00 Nasal Cannula 2.0 02/19/20 08:00 97.5 74 18 140/79 (99) 97 02/19/20 04:00 98.9 94 18 135/84 (101) 96 02/19/20 00:00 99.1 87 20 151/88 (109) 96 02/18/20 21:31 Nasal Cannula 2.0 02/18/20 20:00 98.9 87 20 156/81 (106) 95 Intake and Output 02/18/20 02/19/20 19:00 07:00 Intake Total 640 ml 140 ml Output Total 400 ml 2800 ml Balance 240 ml -2660 ml Intake Free Water 200 ml 100 ml Tube Feeding 440 ml 40 ml Output Urine Total 400 ml 300 ml Hemodialysis UF 2500 ml # Voids 1 Laboratory Tests 02/19/20 09:00: White Blood Count 6.7, Red Blood Count 2.89L, Hemoglobin 8.1L, Hematocrit 25.5L, Mean Corpuscular Volume 88, Mean Corpuscular Hemoglobin 28.2, Mean Corpuscular Hemoglobin Concent 31.9L, Red Cell Distribution Width 18.4H, Platelet Count 94L, Mean Platelet Volume 7.8, Neutrophils (%) (Auto) , Lymphocytes (%) (Auto) , Monocytes (%) (Auto) , Eosinophils (%) (Auto) , Basophils (%) (Auto) , Differential Total Cells Counted 100, Neutrophils % (Manual) 79H, Lymphocytes % (Manual) 10L, Monocytes % (Manual) 7, Eosinophils % (Manual) 2, Basophils % (Manual) 2, Band Neutrophils 0, Platelet Estimate DecreasedL, Platelet Morphology Normal, Hypochromasia 2+, Anisocytosis 2+, Sodium Level 135L, Potassium Level 3.4L, Chloride Level 100, Carbon Dioxide Level 28, Anion Gap 7, Blood Urea Nitrogen 75H, Creatinine 2.8H, Estimat Glomerular Filtration Rate 16.2, Glucose Level 232H, Uric Acid 5.3, Calcium Level 7.7L, Phosphorus Level 2.6, Magnesium Level 1.8, Total Bilirubin 0.5, Aspartate Amino Transf (AST/SGOT) 18, Alanine Aminotransferase (ALT/SGPT) 21, Alkaline Phosphatase 88, C-Reactive Protein, Quantitative 5.7H, Pro-B-Type Natriuretic Peptide 85107D, Total Protein 4.9L, Albumin 1.9L, Globulin 3.0, Albumin/Globulin Ratio 0.6L, Triglycerides Level 99, Cholesterol Level 106, LDL Cholesterol 68, HDL Cholesterol 25L, Cholesterol/HDL Ratio 4.2, Thyroid Stimulating Hormone (TSH) 1.414 Height (Feet): 5 Height (Inches): 2.00 Weight (Pounds): 150 Objective NCAT, (+) NGT supple Chest scattered ronchi RR Abd Soft No edema Assessment/Plan Status: progressing Assessment/Plan: Assessment/Plan: Dysphagia --> NGT Covod positive last admission Now Influenza (+) HTN elevated trop renal failure Recommendations NGTF Monitor Residuals possible PEG next week pending HD will Sofie Vargas MD Feb 19, 2020 16:49
[2020-02-19] MEDS: Levemir Flexpen SUBQ SCH (17:34)
--- NOTE | 2020-02-19 19:14 | NUR ---
HAND-OFF: Report given to BONG Garcia. Patient's Cornelius, Left Nasal nares and bilateral soft reststrain in place;
--- NOTE | 2020-02-19 19:59 | Surgery Progress Note ---
Surgery Progress Note Subjective Additional Comments bruise left hip stable comfortable in bed no n/v ng in place Objective Last 24 Hour Vital Signs Date Time Temp Pulse Resp B/P (MAP) Pulse Ox O2 Delivery O2 Flow Rate FiO2 02/19/20 16:00 98.6 91 18 129/83 (98) 98 02/19/20 12:00 98.1 81 17 131/81 (98) 97 02/19/20 09:00 Nasal Cannula 2.0 02/19/20 08:00 97.5 74 18 140/79 (99) 97 02/19/20 04:00 98.9 94 18 135/84 (101) 96 02/19/20 00:00 99.1 87 20 151/88 (109) 96 02/18/20 21:31 Nasal Cannula 2.0 02/18/20 20:00 98.9 87 20 156/81 (106) 95 I&O Intake and Output 02/18/20 02/19/20 18:59 06:59 Intake Total 640 ml 40 ml Output Total 400 ml 2800 ml Balance 240 ml -2760 ml Intake Free Water 200 ml Tube Feeding 440 ml 40 ml Output Urine Total 400 ml 300 ml Hemodialysis UF 2500 ml # Voids 1 Dressing: other Wound: other Cardiovascular: RSR Respiratory: decreased breath sounds Abdomen: soft, non-tender, present bowel sounds Extremities: edema, no tenderness, no cyanosis Laboratory Tests Test 02/19/20 09:00 White Blood Count 6.7 K/UL (4.8-10.8) Red Blood Count 2.89 M/UL (4.20-5.40) L Hemoglobin 8.1 G/DL (12.0-16.0) L Hematocrit 25.5 % (37.0-47.0) L Mean Corpuscular Volume 88 FL (80-99) Mean Corpuscular Hemoglobin 28.2 PG (27.0-31.0) Mean Corpuscular Hemoglobin Concent 31.9 G/DL (32.0-36.0) L Red Cell Distribution Width 18.4 % (11.6-14.8) H Platelet Count 94 K/UL (150-450) L Mean Platelet Volume 7.8 FL (6.5-10.1) Neutrophils (%) (Auto) % (45.0-75.0) Lymphocytes (%) (Auto) % (20.0-45.0) Monocytes (%) (Auto) % (1.0-10.0) Eosinophils (%) (Auto) % (0.0-3.0) Basophils (%) (Auto) % (0.0-2.0) Differential Total Cells Counted 100 Neutrophils % (Manual) 79 % (45-75) H Lymphocytes % (Manual) 10 % (20-45) L Monocytes % (Manual) 7 % (1-10) Eosinophils % (Manual) 2 % (0-3) Basophils % (Manual) 2 % (0-2) Band Neutrophils 0 % (0-8) Platelet Estimate Decreased L Platelet Morphology Normal Hypochromasia 2+ Anisocytosis 2+ Sodium Level 135 MMOL/L (136-145) L Potassium Level 3.4 MMOL/L (3.5-5.1) L Chloride Level 100 MMOL/L (98-107) Carbon Dioxide Level 28 MMOL/L (21-32) Anion Gap 7 mmol/L (5-15) Blood Urea Nitrogen 75 mg/dL (7-18) H Creatinine 2.8 MG/DL (0.55-1.30) H Estimat Glomerular Filtration Rate 16.2 mL/min (>60) Glucose Level 232 MG/DL (74-106) H Uric Acid 5.3 MG/DL (2.6-7.2) Calcium Level 7.7 MG/DL (8.5-10.1) L Phosphorus Level 2.6 MG/DL (2.5-4.9) Magnesium Level 1.8 MG/DL (1.8-2.4) Total Bilirubin 0.5 MG/DL (0.2-1.0) Aspartate Amino Transf (AST/SGOT) 18 U/L (15-37) Alanine Aminotransferase (ALT/SGPT) 21 U/L (12-78) Alkaline Phosphatase 88 U/L (46-116) C-Reactive Protein, Quantitative 5.7 mg/dL (0.00-0.90) H Pro-B-Type Natriuretic Peptide 26244 pg/mL (0-125) H Total Protein 4.9 G/DL (6.4-8.2) L Albumin 1.9 G/DL (3.4-5.0) L Globulin 3.0 g/dL Albumin/Globulin Ratio 0.6 (1.0-2.7) L Triglycerides Level 99 MG/DL (30-150) Cholesterol Level 106 MG/DL (< 200) LDL Cholesterol 68 mg/dL (<100) HDL Cholesterol 25 MG/DL (40-60) L Cholesterol/HDL Ratio 4.2 (3.3-4.4) Thyroid Stimulating Hormone (TSH) 1.414 uiU/mL (0.358-3.740) Plan Problems: (1) CHF (congestive heart failure) (2) Hip fracture, left Assessment & Plan: noted. bruising see above ortho eval (3) Anemia (4) Failure to thrive in adult Assessment & Plan: Nutritional optimization. NG tube for now start tube feeds start meds (5) Renal failure (6) COVID-19 Assessment & Plan: prior positive now negative this admission (7) Congestive heart failure (8) Hypoglycemia (9) UTI (urinary tract infection) (10) Diabetic nephropathy (11) Pneumonia (12) Renal failure (ARF), acute on chronic (13) Deep tissue injury Assessment & Plan: see below (14) Pressure injury of sacral region, unstageable Assessment & Plan: Patient identified on admission to have a large sacral deep tissue injury non-blanchable erythema blistering epidermis intact no drainage. Unknown duration but present on prior admission and noted to be high risk for breakdown given overall condition and status. Tenderness difficult to a certain based on clinical examinations patient's history. Labs noted. Patient high risk for decubitus ulcer formation worsening condition. NG tube in place currently. Nutritional optimization. Turn every 2 hours. Offload pressure with pillows. OPTi foam dressing to sacrum. Care plan initiated. T marli you will follow with recommendations Pt presented on admission with multiple Pressure Injuries, Fx L Hip. Large contusion noted to L Hip/ Lateral L Femur noted on prior admission and preset still. Sacral DTPI partially opened and is 75% necrotic, 25% moist erythematous and cl ear skin flap that is loose.(L)5.5cm x (W)9cm. Small amt serous exudate noted. Non-Blanchable erythema periwound. Partial thickness wound noted to L Hip. Base of wound is moist and viable. edges adherent to base of wound(L)3cm x (W)2.5cm. L Heel is boggy with non-Blanchable erythema with delineated margins. L heel is boggy with non-blanchable erythema. Tx.Plan: Cleanse Sacral wound with Saline. Apply Therahoney. Apply Moisture Barrier Paste periwound. Cover with Optifoam drsg. Change every 3 days and prn. Apply Moisture Barrier Paste to L Hip wound. Cover with Optifoam drsg. Change every 3 days and prn Apply Cavilon Skin Barrier to both heels. Cover each heel with Optifoam drsg. Change every 7 days and prn. Reposition at least every 2hours or as tolerated. Off-load heels with pillow. APM/CHE Mattress overlay. Chris Lei Feb 19, 2020 19:59
[2020-02-19 20:00] VITALS: BP 138/73
--- NOTE | 2020-02-19 21:39 | General Progress Note ---
Subjective ROS Limited/Unobtainable: Yes Allergies: Coded Allergies: No Known Allergies (Unverified , 02/06/20) Objective Last 24 Hour Vital Signs Date Time Temp Pulse Resp B/P (MAP) Pulse Ox O2 Delivery O2 Flow Rate FiO2 02/19/20 16:00 98.6 91 18 129/83 (98) 98 02/19/20 12:00 98.1 81 17 131/81 (98) 97 02/19/20 09:00 Nasal Cannula 2.0 02/19/20 08:00 97.5 74 18 140/79 (99) 97 02/19/20 04:00 98.9 94 18 135/84 (101) 96 02/19/20 00:00 99.1 87 20 151/88 (109) 96 Intake and Output 02/18/20 02/19/20 19:00 07:00 Intake Total 640 ml 140 ml Output Total 400 ml 2800 ml Balance 240 ml -2660 ml Intake Free Water 200 ml 100 ml Tube Feeding 440 ml 40 ml Output Urine Total 400 ml 300 ml Hemodialysis UF 2500 ml # Voids 1 Laboratory Tests 02/19/20 09:00: White Blood Count 6.7, Red Blood Count 2.89L, Hemoglobin 8.1L, Hematocrit 25.5L, Mean Corpuscular Volume 88, Mean Corpuscular Hemoglobin 28.2, Mean Corpuscular Hemoglobin Concent 31.9L, Red Cell Distribution Width 18.4H, Platelet Count 94L, Mean Platelet Volume 7.8, Neutrophils (%) (Auto) , Lymphocytes (%) (Auto) , Monocytes (%) (Auto) , Eosinophils (%) (Auto) , Basophils (%) (Auto) , Differential Total Cells Counted 100, Neutrophils % (Manual) 79H, Lymphocytes % (Manual) 10L, Monocytes % (Manual) 7, Eosinophils % (Manual) 2, Basophils % (Manual) 2, Band Neutrophils 0, Platelet Estimate DecreasedL, Platelet Morphology Normal, Hypochromasia 2+, Anisocytosis 2+, Sodium Level 135L, Potassium Level 3.4L, Chloride Level 100, Carbon Dioxide Level 28, Anion Gap 7, Blood Urea Nitrogen 75H, Creatinine 2.8H, Estimat Glomerular Filtration Rate 16.2, Glucose Level 232H, Uric Acid 5.3, Calcium Level 7.7L, Phosphorus Level 2.6, Magnesium Level 1.8, Total Bilirubin 0.5, Aspartate Amino Transf (AST/SGOT) 18, Alanine Aminotransferase (ALT/SGPT) 21, Alkaline Phosphatase 88, C-Reactive Protein, Quantitative 5.7H, Pro-B-Type Natriuretic Peptide 16079G, Total Protein 4.9L, Albumin 1.9L, Globulin 3.0, Albumin/Globulin Ratio 0.6L, Triglycerides Level 99, Cholesterol Level 106, LDL Cholesterol 68, HDL Cholesterol 25L, Cholesterol/HDL Ratio 4.2, Thyroid Stimulating Hormone (TSH) 1.414 Height (Feet): 5 Height (Inches): 2.00 Weight (Pounds): 150 Assessment/Plan Problem List: (1) COVID-19 ICD Codes: U07.1 - COVID-19 SNOMED: 089433552 (2) Renal failure ICD Codes: N19 - Unspecified kidney failure SNOMED: 58798930 (3) Anemia ICD Codes: D64.9 - Anemia, unspecified SNOMED: 265644168 (4) Hypoglycemia ICD Codes: E16.2 - Hypoglycemia, unspecified SNOMED: 598622452 (5) Congestive heart failure ICD Codes: I50.9 - Heart failure, unspecified SNOMED: 25462998 (6) UTI (urinary tract infection) ICD Codes: N39.0 - Urinary tract infection, site not specified SNOMED: 78860620 (7) Diabetic nephropathy ICD Codes: E11.21 - Type 2 diabetes mellitus with diabetic nephropathy SNOMED: 71601581, 397680361 (8) Renal failure (ARF), acute on chronic ICD Codes: N17.9 - Acute kidney failure, unspecified; N18.9 - Chronic kidney disease, unspecified SNOMED: 351828249 (9) Pressure injury of sacral region, unstageable ICD Codes: L89.150 - Pressure ulcer of sacral region, unstageable SNOMED: 709729630 Status: progressing Assessment/Plan: poor historian resp insuff covid positive favor conservative rx diaylsis per dr benton arf on top of cri chf uti a malnutrition bositive blood cx Janes Faust MD Feb 19, 2020 21:39
[2020-02-20] VITALS: BP 139/70
[2020-02-20 04:00] VITALS: BP 135/72
[2020-02-20] MEDS: NovoLOG Insulin Flexpen SUBQ SCH ×5 (05:52→23:09)
--- NOTE | 2020-02-20 06:25 | NUR ---
NURSE NOTES: joshua busch called and notified pt has ESBL in the blood. Called Dr. Andrew Murcia and no new order
--- NOTE | 2020-02-20 06:26 | NUR ---
NURSE HAND-OFF: Important Events on Shift: wound dressing change and picture taken. Found esbl in the blood, notified dr Morales. Twin and no new order Patient Status: stable Diet: nepro 40cc Pending Orders: Pending Results/Labs:cbc,cmp Pending MD notification: Latest Vital Signs: Temperature 98.3 , Pulse 83 , B/P 135 /72 , Respiratory Rate 22 , O2 SAT 94 , Nasal Cannula, O2 Flow Rate 2.0 . Vital Sign Comment: Latest Barrett Fall Score: 55 Fall Risk: High Risk Safety Measures: Call light Within Reach, Bed Alarm Zone 2, Side Rails Side Rails x2, Bed position Low and Locked. Fall Precautions: Yellow Socks Door Sign .
--- NOTE | 2020-02-20 07:00 | NUR ---
HAND-OFF: Report given to BONG Dixon.
--- NOTE | 2020-02-20 07:57 | NUR ---
NURSE NOTES: Patient non-verbal; on Nasal Cannula 2 Liters, no sign of distress and shortness of breath; no sing of chest pain; Iv Left AC flushes well; Hemodialysis access at right perm-cath double lumen, patient scheduled for Hemodialysis for today, Hemodialysis nurse is aware; NG-tube on and left Nare in place, Nephro running at 40cc, no residual at this time; head of the bed elevated for aspiration percussion, side rails up x2, bed at lowest position; Cornelius in place, collects yellow urine; SCD on; bilateral extremities edematous on upper and lower; will keep monitoring.
[2020-02-20 08:00] VITALS: BP 150/86
--- NOTE | 2020-02-20 08:07 | Surgery Progress Note ---
Surgery Progress Note Subjective Additional Comments ill appearing in restraints ng in place Objective Last 24 Hour Vital Signs Date Time Temp Pulse Resp B/P (MAP) Pulse Ox O2 Delivery O2 Flow Rate FiO2 02/20/20 04:00 98.3 83 22 135/72 (93) 94 02/20/20 00:00 98.4 67 22 139/70 (93) 96 02/19/20 21:40 Nasal Cannula 2.0 02/19/20 20:00 98.1 80 21 138/73 (94) 96 02/19/20 16:00 98.6 91 18 129/83 (98) 98 02/19/20 12:00 98.1 81 17 131/81 (98) 97 02/19/20 09:00 Nasal Cannula 2.0 I&O Intake and Output 02/19/20 02/20/20 18:59 06:59 Intake Total 790 ml 140 ml Output Total 250 ml Balance 790 ml -110 ml Intake Free Water 200 ml 100 ml IV Total 110 ml Tube Feeding 480 ml 40 ml Output Urine Total 250 ml Dressing: other Wound: other Cardiovascular: RSR Respiratory: decreased breath sounds Abdomen: soft, non-tender, present bowel sounds Extremities: no tenderness, no cyanosis Laboratory Tests Test 02/19/20 09:00 White Blood Count 6.7 K/UL (4.8-10.8) Red Blood Count 2.89 M/UL (4.20-5.40) L Hemoglobin 8.1 G/DL (12.0-16.0) L Hematocrit 25.5 % (37.0-47.0) L Mean Corpuscular Volume 88 FL (80-99) Mean Corpuscular Hemoglobin 28.2 PG (27.0-31.0) Mean Corpuscular Hemoglobin Concent 31.9 G/DL (32.0-36.0) L Red Cell Distribution Width 18.4 % (11.6-14.8) H Platelet Count 94 K/UL (150-450) L Mean Platelet Volume 7.8 FL (6.5-10.1) Neutrophils (%) (Auto) % (45.0-75.0) Lymphocytes (%) (Auto) % (20.0-45.0) Monocytes (%) (Auto) % (1.0-10.0) Eosinophils (%) (Auto) % (0.0-3.0) Basophils (%) (Auto) % (0.0-2.0) Differential Total Cells Counted 100 Neutrophils % (Manual) 79 % (45-75) H Lymphocytes % (Manual) 10 % (20-45) L Monocytes % (Manual) 7 % (1-10) Eosinophils % (Manual) 2 % (0-3) Basophils % (Manual) 2 % (0-2) Band Neutrophils 0 % (0-8) Platelet Estimate Decreased L Platelet Morphology Normal Hypochromasia 2+ Anisocytosis 2+ Sodium Level 135 MMOL/L (136-145) L Potassium Level 3.4 MMOL/L (3.5-5.1) L Chloride Level 100 MMOL/L (98-107) Carbon Dioxide Level 28 MMOL/L (21-32) Anion Gap 7 mmol/L (5-15) Blood Urea Nitrogen 75 mg/dL (7-18) H Creatinine 2.8 MG/DL (0.55-1.30) H Estimat Glomerular Filtration Rate 16.2 mL/min (>60) Glucose Level 232 MG/DL (74-106) H Uric Acid 5.3 MG/DL (2.6-7.2) Calcium Level 7.7 MG/DL (8.5-10.1) L Phosphorus Level 2.6 MG/DL (2.5-4.9) Magnesium Level 1.8 MG/DL (1.8-2.4) Total Bilirubin 0.5 MG/DL (0.2-1.0) Aspartate Amino Transf (AST/SGOT) 18 U/L (15-37) Alanine Aminotransferase (ALT/SGPT) 21 U/L (12-78) Alkaline Phosphatase 88 U/L (46-116) C-Reactive Protein, Quantitative 5.7 mg/dL (0.00-0.90) H Pro-B-Type Natriuretic Peptide 69843 pg/mL (0-125) H Total Protein 4.9 G/DL (6.4-8.2) L Albumin 1.9 G/DL (3.4-5.0) L Globulin 3.0 g/dL Albumin/Globulin Ratio 0.6 (1.0-2.7) L Triglycerides Level 99 MG/DL (30-150) Cholesterol Level 106 MG/DL (< 200) LDL Cholesterol 68 mg/dL (<100) HDL Cholesterol 25 MG/DL (40-60) L Cholesterol/HDL Ratio 4.2 (3.3-4.4) Thyroid Stimulating Hormone (TSH) 1.414 uiU/mL (0.358-3.740) Plan Problems: (1) CHF (congestive heart failure) (2) Hip fracture, left Assessment & Plan: noted. bruising see above ortho eval (3) Anemia (4) Failure to thrive in adult Assessment & Plan: Nutritional optimization. NG tube for now start tube feeds start meds (5) Renal failure (6) COVID-19 Assessment & Plan: prior positive now negative this admission (7) Congestive heart failure (8) Hypoglycemia (9) UTI (urinary tract infection) (10) Diabetic nephropathy (11) Pneumonia (12) Renal failure (ARF), acute on chronic (13) Deep tissue injury Assessment & Plan: see below (14) Pressure injury of sacral region, unstageable Assessment & Plan: Patient identified on admission to have a large sacral deep tissue injury non-blanchable erythema blistering epidermis intact no drainage. Unknown duration but present on prior admission and noted to be high risk for breakdown given overall condition and status. Tenderness difficult to a certain based on clinical examinations patient's history. Labs noted. Patient high risk for decubitus ulcer formation worsening condition. NG tube in place currently. Nutritional optimization. Turn every 2 hours. Offload pressure with pillows. OPTi foam dressing to sacrum. Care plan initiated. T marli you will follow with recommendations Pt presented on admission with multiple Pressure Injuries, Fx L Hip. Large contusion noted to L Hip/ Lateral L Femur noted on prior admission and preset still. Sacral DTPI partially opened and is 75% necrotic, 25% moist erythematous and clear skin flap that is loose.(L)5.5cm x (W)9cm. Small amt serous exudate noted. Non-Blanchable erythema periwound. Partial thickness wound noted to L Hip. Base of wound is moist and viable. edges adherent to base of wound(L)3cm x (W)2.5cm. L Heel is boggy with non-Blanchable erythema with delineated margins. L heel is boggy with non-blanchable erythema. Tx.Plan: Cleanse Sacral wound with Saline. Apply Therahoney. Apply Moisture Barrier Paste periwound. Cover with Optifoam jihang. Change every 3 days and prn. Apply Moisture Barrier Paste to L Hip wound. Cover with Optifoam drsg. Change every 3 days and prn Apply Cavilon Skin Barrier to both heels. Cover each heel with Optifoam drsg. Change every 7 days and prn. Reposition at least every 2hours or as tolerated. Off-load heels with pillow. APM/CHE Mattress overlay. Chris Lei Feb 20, 2020 08:07
[2020-02-20] MEDS: Docusate 100mg/10ml Liq NG SCH ×3 (08:41→17:07)
[2020-02-20] MEDS: Pantoprazole Inj IVP SCH ×2 (08:41→20:26)
[2020-02-20] MEDS: Levemir Flexpen SUBQ SCH (08:44)
[2020-02-20] MEDS: Meropenem 500 MG in NS 55 ML IVPB SCH (09:40)
--- NOTE | 2020-02-20 10:04 | Pulmonology Progress Note ---
Subjective ROS Limited/Unobtainable: Yes Constitutional: Reports: other - looks better HEENT: Repors: no symptoms Respiratory: Reports: no symptoms Cardiovascular: Reports: no symptoms Allergies: Coded Allergies: No Known Allergies (Unverified , 02/06/20) Subjective care noted Objective Last 24 Hour Vital Signs Date Time Temp Pulse Resp B/P (MAP) Pulse Ox O2 Delivery O2 Flow Rate FiO2 02/20/20 09:00 Nasal Cannula 2.0 02/20/20 08:00 97.5 75 18 150/86 (107) 99 02/20/20 04:00 98.3 83 22 135/72 (93) 94 02/20/20 00:00 98.4 67 22 139/70 (93) 96 02/19/20 21:40 Nasal Cannula 2.0 02/19/20 20:00 98.1 80 21 138/73 (94) 96 02/19/20 16:00 98.6 91 18 129/83 (98) 98 02/19/20 12:00 98.1 81 17 131/81 (98) 97 Intake and Output 02/19/20 02/20/20 19:00 07:00 Intake Total 790 ml Output Total 250 ml Balance 790 ml -250 ml Intake Free Water 200 ml IV Total 110 ml Tube Feeding 480 ml Output Urine Total 250 ml General Appearance: WD/WN, no acute distress HEENT: normocephalic Respiratory: chest wall non-tender, normal breath sounds, no respiratory distress, decreased breath sounds Cardiovascular: normal peripheral pulses, normal rate, regular rhythm Abdomen: normal bowel sounds, soft, non tender Extremities: no cyanosis, no clubbing Skin: no rash Current Medications Medications (Trade) Dose Ordered Sig/Maria Fernanda Route PRN Reason Start Time Stop Time Status Last Admin Dose Admin Acetaminophen (Tylenol) 500 mg Q6H PRN NG Mild Pain (Pain Scale 1-3) 02/17/20 12:45 03/18/20 12:44 Barium Sulfate (Varibar Honey) 250 ml NOW PRN MC RAD 02/17/20 14:00 02/20/20 13:55 Barium Sulfate (Varibar [place]) 240 ml NOW PRN MC RAD 02/17/20 14:00 02/20/20 13:55 Barium Sulfate (Varibar Pudding) 230 ml NOW PRN MC RAD 02/17/20 14:00 02/20/20 13:55 Barium Sulfate (Varibar Thin Liquid powder) 148 gm NOW PRN MC RAD 02/17/20 14:00 02/20/20 13:55 Dextrose (Dextrose 50%) 25 ml Q30M PRN IV Hypoglycemia 02/18/20 12:15 05/18/20 12:14 Dextrose (Dextrose 50%) 50 ml Q30M PRN IV Hypoglycemia 02/18/20 12:15 05/18/20 12:14 Docusate Sodium (Colace) 100 mg THREE TIMES A DAY NG 02/17/20 18:00 03/18/20 17:59 02/20/20 08:41 Epoetin Manoj (Epoetin Manoj(ESRD on dialysis)) 10,000 unit FRI-FRI-FRI SUBQ 02/21/20 21:00 05/21/20 20:59 Insulin Aspart (NovoLOG) Q6HR SUBQ 02/18/20 18:00 05/18/20 16:29 02/19/20 12:40 Insulin Detemir (Levemir) 8 units BID SUBQ 02/19/20 18:00 05/19/20 08:59 02/20/20 08:44 Meropenem 500 mg/ Sodium Chloride 55 ml @ 110 mls/hr Q24H IVPB 02/20/20 09:00 02/25/20 08:59 02/20/20 09:40 Oseltamivir Phosphate (Tamiflu) 30 mg DAILY ORAL 02/18/20 09:00 02/21/20 09:01 02/20/20 08:41 Pantoprazole (Protonix) 40 mg EVERY 12 HOURS IVP 02/17/20 21:00 03/18/20 20:59 02/20/20 08:41 Assessment/Plan Assessment/Plan IMPRESSION: 1. Previous COVID-19 pneumonia. 2. Cardiomegaly/CHF. 3. Renal failure. 4. Influenza A 5. Hyperlipidemia. 6. Bilateral pleural effusions 7. thrombocytopenia and anemia DISCUSSION: cannot give SQ heparin with low platelets stable currently ID noted repeat CXR Currently saturating well on RA Will follow dc planning DNR impression, plan, and exam edited and reviewed in detail care discussed with Heber Mars MD Feb 20, 2020 10:04
[2020-02-20 12:00] VITALS: BP 146/93
--- NOTE | 2020-02-20 13:06 | Nephrology Progress Note ---
Assessment/Plan Problem List: (1) Renal failure (ARF), acute on chronic (2) Diabetic nephropathy (3) CHF (congestive heart failure) (4) Anemia Assessment 1) Renal failure (ARF), acute on chronic (2) COVID-19 (3) UTI (urinary tract infection) (4) Congestive heart failure (5) Anemia (6) Diabetic nephropathy Plan February 19: First dialysis February 17. Second dialysis will be done today. Labs reviewed. Medication list reviewed. Continue per consultants. February 18: Patient was dialyzed yesterday. Patient less edematous today. Patient appears more responsive today. Plan to dialyze and ultrafiltrate again tomorrow. Medication list reviewed. Today's labs pending. February 17: Patient due for dialysis catheter today and subsequent dialysis treatment. Patient is edematous. Patient has an NG tube on feeding. Will discontinue IV fluid. Continue per consultants. Discussed with RN. Previously: Consent for insertion of dialysis catheter as per my conversation with the daughter who now desires dialysis NG feeding with Nepro Dialysis cath, followed by dialysis Subjective ROS Limited/Unobtainable: No Constitutional: Reports: malaise Objective Objective Last 24 Hour Vital Signs Date Time Temp Pulse Resp B/P (MAP) Pulse Ox O2 Delivery O2 Flow Rate FiO2 02/20/20 09:00 Nasal Cannula 2.0 02/20/20 08:00 97.5 75 18 150/86 (107) 99 02/20/20 04:00 98.3 83 22 135/72 (93) 94 02/20/20 00:00 98.4 67 22 139/70 (93) 96 02/19/20 21:40 Nasal Cannula 2.0 02/19/20 20:00 98.1 80 21 138/73 (94) 96 02/19/20 16:00 98.6 91 18 129/83 (98) 98 Intake and Output 02/19/20 02/20/20 19:00 07:00 Intake Total 790 ml 140 ml Output Total 250 ml Balance 790 ml -110 ml Intake Free Water 200 ml 100 ml IV Total 110 ml Tube Feeding 480 ml 40 ml Output Urine Total 250 ml No chemistry panel today Height (Feet): 5 Height (Inches): 2.00 Weight (Pounds): 150 General Appearance: no apparent distress EENT: other - NGT in place Cardiovascular: normal rate Respiratory/Chest: decreased breath sounds Abdomen: distended Quirino Cormier MD Feb 20, 2020 13:06
--- NOTE | 2020-02-20 13:36 | Infectious Diseases Prog Note ---
Assessment/Plan Assessment/Plan IMPRESSION: 1. Influenza A. 2. Recent COVID-19. 3. Diabetes mellitus with hypoglycemia. 4. End-stage renal disease, on hemodialysis. 5. Dysphagia, failure to thrive. 6. Anemia. 7. Thrombocytopenia. 8. 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 RECOMMENDATIONS: We will continue Tamiflu X 1 day Continue Meropenem Will f/u cultures Subjective ROS Limited/Unobtainable: Yes Constitutional: Denies: fever Respiratory: Reports: productive cough Allergies: Coded Allergies: No Known Allergies (Unverified , 02/06/20) Objective Last 24 Hour Vital Signs Date Time Temp Pulse Resp B/P (MAP) Pulse Ox O2 Delivery O2 Flow Rate FiO2 02/20/20 09:00 Nasal Cannula 2.0 02/20/20 08:00 97.5 75 18 150/86 (107) 99 02/20/20 04:00 98.3 83 22 135/72 (93) 94 02/20/20 00:00 98.4 67 22 139/70 (93) 96 02/19/20 21:40 Nasal Cannula 2.0 02/19/20 20:00 98.1 80 21 138/73 (94) 96 02/19/20 16:00 98.6 91 18 129/83 (98) 98 Height (Feet): 5 Height (Inches): 2.00 Weight (Pounds): 150 HEENT: other - dry mouth Respiratory/Chest: lungs clear Cardiovascular: normal rate, other - RIJ HD Abdomen: soft, non tender Extremities: other - hands edema Neurologic/Psychiatric: disoriented, other - opens eyes Current Medications Medications (Trade) Dose Ordered Sig/Maria Fernanda Route PRN Reason Start Time Stop Time Status Last Admin Dose Admin Acetaminophen (Tylenol) 500 mg Q6H PRN NG Mild Pain (Pain Scale 1-3) 02/17/20 12:45 03/18/20 12:44 Barium Sulfate (Varibar Honey) 250 ml NOW PRN MC RAD 02/17/20 14:00 02/20/20 13:55 Barium Sulfate (Varibar [place]) 240 ml NOW PRN MC RAD 02/17/20 14:00 02/20/20 13:55 Barium Sulfate (Varibar Pudding) 230 ml NOW PRN MC RAD 02/17/20 14:00 02/20/20 13:55 Barium Sulfate (Varibar Thin Liquid powder) 148 gm NOW PRN MC RAD 02/17/20 14:00 02/20/20 13:55 Dextrose (Dextrose 50%) 25 ml Q30M PRN IV Hypoglycemia 02/18/20 12:15 05/18/20 12:14 Dextrose (Dextrose 50%) 50 ml Q30M PRN IV Hypoglycemia 02/18/20 12:15 05/18/20 12:14 Docusate Sodium (Colace) 100 mg THREE TIMES A DAY NG 02/17/20 18:00 03/18/20 17:59 02/20/20 12:51 Epoetin Manoj (Epoetin Manoj(ESRD on dialysis)) 10,000 unit FRI-FRI-FRI SUBQ 02/21/20 21:00 05/21/20 20:59 Insulin Aspart (NovoLOG) Q6HR SUBQ 02/18/20 18:00 05/18/20 16:29 02/19/20 12:40 Insulin Detemir (Levemir) 8 units BID SUBQ 02/19/20 18:00 05/19/20 08:59 02/20/20 08:44 Meropenem 500 mg/ Sodium Chloride 55 ml @ 110 mls/hr Q24H IVPB 02/20/20 09:00 02/25/20 08:59 02/20/20 09:40 Oseltamivir Phosphate (Tamiflu) 30 mg DAILY ORAL 02/18/20 09:00 02/21/20 09:01 02/20/20 08:41 Pantoprazole (Protonix) 40 mg EVERY 12 HOURS IVP 02/17/20 21:00 03/18/20 20:59 02/20/20 08:41 Viet Harper MD Feb 20, 2020 13:35
--- NOTE | 2020-02-20 13:46 | General Progress Note ---
Subjective Allergies: Coded Allergies: No Known Allergies (Unverified , 02/06/20) All Systems: reviewed and negative except above Subjective events noted interval notes reviewed glucose values on low normal side TF with Nepro tolerated at target rate of 45 mL/hour Item Value Date Time Bedside Blood Glucose 116 mg/dl 02/20/20 1200 Bedside Blood Glucose 97 mg/dl 02/20/20 0844 Bedside Blood Glucose 97 mg/dl 02/20/20 0552 Bedside Blood Glucose 72 mg/dl 02/20/20 0000 Bedside Blood Glucose 127 mg/dl H 02/19/20 1800 Bedside Blood Glucose 174 mg/dl H 02/19/20 1240 Objective Last 24 Hour Vital Signs Date Time Temp Pulse Resp B/P (MAP) Pulse Ox O2 Delivery O2 Flow Rate FiO2 02/20/20 09:00 Nasal Cannula 2.0 02/20/20 08:00 97.5 75 18 150/86 (107) 99 02/20/20 04:00 98.3 83 22 135/72 (93) 94 02/20/20 00:00 98.4 67 22 139/70 (93) 96 02/19/20 21:40 Nasal Cannula 2.0 02/19/20 20:00 98.1 80 21 138/73 (94) 96 02/19/20 16:00 98.6 91 18 129/83 (98) 98 Intake and Output 02/19/20 02/20/20 19:00 07:00 Intake Total 790 ml 140 ml Output Total 250 ml Balance 790 ml -110 ml Intake Free Water 200 ml 100 ml IV Total 110 ml Tube Feeding 480 ml 40 ml Output Urine Total 250 ml Height (Feet): 5 Height (Inches): 2.00 Weight (Pounds): 150 General Appearance: no apparent distress Neck: normal alignment, other - NGT Cardiovascular: normal rate Respiratory/Chest: lungs clear Abdomen: normal bowel sounds Objective Current Medications Medications (Trade) Dose Ordered Sig/Maria Fernanda Route PRN Reason Start Time Stop Time Status Last Admin Dose Admin Acetaminophen (Tylenol) 500 mg Q6H PRN NG Mild Pain (Pain Scale 1-3) 02/17/20 12:45 03/18/20 12:44 Barium Sulfate (Varibar Honey) 250 ml NOW PRN MC RAD 02/17/20 14:00 02/20/20 13:55 Barium Sulfate (Varibar [place]) 240 ml NOW PRN RAD 02/17/20 14:00 02/20/20 13:55 Barium Sulfate (Varibar Pudding) 230 ml NOW PRN RAD 02/17/20 14:00 02/20/20 13:55 Barium Sulfate (Varibar Thin Liquid powder) 148 gm NOW PRN RAD 02/17/20 14:00 02/20/20 13:55 Dextrose (Dextrose 50%) 25 ml Q30M PRN IV Hypoglycemia 02/18/20 12:15 05/18/20 12:14 Dextrose (Dextrose 50%) 50 ml Q30M PRN IV Hypoglycemia 02/18/20 12:15 05/18/20 12:14 Docusate Sodium (Colace) 100 mg THREE TIMES A DAY NG 02/17/20 18:00 03/18/20 17:59 02/20/20 12:51 Epoetin Manoj (Epoetin Manoj(ESRD on dialysis)) 10,000 unit FRI-FRI-FRI SUBQ 02/21/20 21:00 05/21/20 20:59 Insulin Aspart (NovoLOG) Q6HR SUBQ 02/18/20 18:00 05/18/20 16:29 02/19/20 12:40 Insulin Detemir (Levemir) 8 units BID SUBQ 02/19/20 18:00 05/19/20 08:59 02/20/20 08:44 Meropenem 500 mg/ Sodium Chloride 55 ml @ 110 mls/hr Q24H IVPB 02/20/20 09:00 02/25/20 08:59 02/20/20 09:40 Oseltamivir Phosphate (Tamiflu) 30 mg DAILY ORAL 02/18/20 09:00 02/21/20 09:01 02/20/20 08:41 Pantoprazole (Protonix) 40 mg EVERY 12 HOURS IVP 02/17/20 21:00 03/18/20 20:59 02/20/20 08:41 Assessment/Plan Problem List: (1) Hypoglycemia ICD Codes: E16.2 - Hypoglycemia, unspecified SNOMED: 403564500 (2) UTI (urinary tract infection) ICD Codes: N39.0 - Urinary tract infection, site not specified SNOMED: 80490533 (3) CHF (congestive heart failure) ICD Codes: I50.9 - Heart failure, unspecified SNOMED: 44660114 (4) Failure to thrive in adult ICD Codes: R62.7 - Failure to thrive in adult SNOMED: 450992678 Status: progressing Assessment/Plan: reduce Levemir to 8 units daily continue Novolog sliding scale every 6 hours plan for PEG next week noted Adalberto Echevarria MD Feb 20, 2020 13:46
--- NOTE | 2020-02-20 15:11 | Cardiology Report ---
APPROVED REPORT EKG Measurement Heart [id number] <Conclusion> Atrial fibrillation with slow ventricular response Anterior infarct, age undetermined Abnormal ECG
[2020-02-20 16:00] VITALS: BP 100/54
--- NOTE | 2020-02-20 17:46 | NUR ---
NURSE NOTES: Per Hemodialysis nurse, after dialysis 1 Liter fluid removed;
--- NOTE | 2020-02-20 18:07 | General Progress Note ---
Subjective Allergies: Coded Allergies: No Known Allergies (Unverified , 02/06/20) Subjective Above noted d/w staff forester Tolerating TF no residuals Objective Last 24 Hour Vital Signs Date Time Temp Pulse Resp B/P (MAP) Pulse Ox O2 Delivery O2 Flow Rate FiO2 02/20/20 16:00 98.0 76 18 100/54 (69) 96 02/20/20 12:00 97.2 69 18 146/93 (110) 97 02/20/20 09:00 Nasal Cannula 2.0 02/20/20 08:00 97.5 75 18 150/86 (107) 99 02/20/20 04:00 98.3 83 22 135/72 (93) 94 02/20/20 00:00 98.4 67 22 139/70 (93) 96 02/19/20 21:40 Nasal Cannula 2.0 02/19/20 20:00 98.1 80 21 138/73 (94) 96 Intake and Output 02/19/20 02/20/20 19:00 07:00 Intake Total 790 ml 140 ml Output Total 250 ml Balance 790 ml -110 ml Intake Free Water 200 ml 100 ml IV Total 110 ml Tube Feeding 480 ml 40 ml Output Urine Total 250 ml Height (Feet): 5 Height (Inches): 2.00 Weight (Pounds): 150 Assessment/Plan Status: progressing Assessment/Plan: Assessment/Plan: Dysphagia --> NGT Covod positive last admission Now Influenza (+) HTN elevated trop renal failure Recommendations NGTF Monitor Residuals possible PEG next week pending HD will Sofie Vargas MD Feb 20, 2020 18:07
--- NOTE | 2020-02-20 19:13 | NUR ---
HAND-OFF: Report given to BONG Pickens. Fole and NG tube in place; pateint resting; stable at this time;
--- NOTE | 2020-02-20 19:37 | NUR ---
NURSE NOTES: Received report from BONG Elmore. Pt awake, non verbal, on NC 2L. Pt has edema bilateral upper extremities. Soft wrists restraints in place. IV intact and patent. NGT on L nostril and running tube feeding. HOB elevated. Isolation maintained. CX and ST eval scheduled 02/20. Cornelius intact and secured to the leg. Bed locked, lowest position, alarm on, side rails up, call light within reach. Will continue to monitor.
[2020-02-20 20:00] VITALS: BP 127/73
--- NOTE | 2020-02-20 20:43 | General Progress Note ---
Subjective ROS Limited/Unobtainable: Yes Allergies: Coded Allergies: No Known Allergies (Unverified , 02/06/20) Objective Last 24 Hour Vital Signs Date Time Temp Pulse Resp B/P (MAP) Pulse Ox O2 Delivery O2 Flow Rate FiO2 02/20/20 20:00 97.9 72 19 127/73 (91) 98 02/20/20 16:00 98.0 76 18 100/54 (69) 96 02/20/20 12:00 97.2 69 18 146/93 (110) 97 02/20/20 09:00 Nasal Cannula 2.0 02/20/20 08:00 97.5 75 18 150/86 (107) 99 02/20/20 04:00 98.3 83 22 135/72 (93) 94 02/20/20 00:00 98.4 67 22 139/70 (93) 96 02/19/20 21:40 Nasal Cannula 2.0 Intake and Output 02/19/20 02/20/20 18:59 06:59 Intake Total 790 ml 140 ml Output Total 250 ml Balance 790 ml -110 ml Intake Free Water 200 ml 100 ml IV Total 110 ml Tube Feeding 480 ml 40 ml Output Urine Total 250 ml Height (Feet): 5 Height (Inches): 2.00 Weight (Pounds): 150 Assessment/Plan Problem List: (1) COVID-19 ICD Codes: U07.1 - COVID-19 SNOMED: 774781413 (2) Renal failure ICD Codes: N19 - Unspecified kidney failure SNOMED: 19548206 (3) Anemia ICD Codes: D64.9 - Anemia, unspecified SNOMED: 200996151 (4) Hypoglycemia ICD Codes: E16.2 - Hypoglycemia, unspecified SNOMED: 937510432 (5) Congestive heart failure ICD Codes: I50.9 - Heart failure, unspecified SNOMED: 58349000 (6) UTI (urinary tract infection) ICD Codes: N39.0 - Urinary tract infection, site not specified SNOMED: 52711576 (7) Diabetic nephropathy ICD Codes: E11.21 - Type 2 diabetes mellitus with diabetic nephropathy SNOMED: 66562876, 566930212 (8) Renal failure (ARF), acute on chronic ICD Codes: N17.9 - Acute kidney failure, unspecified; N18.9 - Chronic kidney disease, unspecified SNOMED: 594256354 (9) Pressure injury of sacral region, unstageable ICD Codes: L89.150 - Pressure ulcer of sacral region, unstageable SNOMED: 593460780 Status: progressing Assessment/Plan: covid positive prn oxygen obs poor historian diaylsis per dr benton arf on top of cri chf sepsis Janes Faust MD Feb 20, 2020 20:43
[2020-02-21] VITALS: BP 144/76
--- NOTE | 2020-02-21 01:15 | NUR ---
NURSE NOTES: 72hr restraints renewed. Marek. soft wrists restraints in place and skin intact. Sensation and pulse present.
[2020-02-21 04:00] VITALS: BP 135/78
[2020-02-21] MEDS: NovoLOG Insulin Flexpen SUBQ SCH ×4 (05:09→23:59)
--- NOTE | 2020-02-21 06:19 | NUR ---
NURSE HAND-OFF: Important Events on Shift:NGT feeding, Cornelius, restraints Patient Status: stable Diet: Nepro 40cc/hr Pending Orders: CX and ST eval 02/20 Pending Results/Labs:AM labs Pending MD notification: Latest Vital Signs: Temperature 98.2 , Pulse 68 , B/P 135 /78 , Respiratory Rate 19 , O2 SAT 98 , Nasal Cannula, O2 Flow Rate 2.0 . Vital Sign Comment: Latest Barrett Fall Score: 55 Fall Risk: High Risk Safety Measures: Call light Within Reach, Bed Alarm Zone 1, Side Rails Side Rails x2, Bed position Low and Locked. Fall Precautions: Yellow Socks Door Sign Addendum: 02/21/20 at 0734 by TR LEWIS RN RN HAND-OFF: Report given to Daniela.
--- NOTE | 2020-02-21 07:05 | General Progress Note ---
Subjective ROS Limited/Unobtainable: Yes Allergies: Coded Allergies: No Known Allergies (Unverified , 02/06/20) Subjective events noted interval notes reviewed glucose values are stable Item Value Date Time Bedside Blood Glucose 134 mg/dl H 02/21/20 0509 Bedside Blood Glucose 89 mg/dl 02/20/20 2309 Bedside Blood Glucose 95 mg/dl 02/20/20 1800 Bedside Blood Glucose 116 mg/dl 02/20/20 1200 Bedside Blood Glucose 97 mg/dl 02/20/20 0844 Bedside Blood Glucose 97 mg/dl 02/20/20 0552 Bedside Blood Glucose 72 mg/dl 02/20/20 0000 Objective Last 24 Hour Vital Signs Date Time Temp Pulse Resp B/P (MAP) Pulse Ox O2 Delivery O2 Flow Rate FiO2 02/21/20 04:00 98.2 68 19 135/78 (97) 98 02/21/20 00:00 98.1 75 18 144/76 (98) 98 02/20/20 21:00 Nasal Cannula 2.0 02/20/20 20:00 97.9 72 19 127/73 (91) 98 02/20/20 16:00 98.0 76 18 100/54 (69) 96 02/20/20 12:00 97.2 69 18 146/93 (110) 97 02/20/20 09:00 Nasal Cannula 2.0 02/20/20 08:00 97.5 75 18 150/86 (107) 99 Intake and Output 02/20/20 02/21/20 19:00 07:00 Intake Total 830 ml 640 ml Output Total 1000 ml 900 ml Balance -170 ml -260 ml Intake Free Water 200 ml 200 ml IV Total 110 ml Tube Feeding 520 ml 440 ml Output Urine Total 900 ml Hemodialysis UF 1000 ml # Voids 1 Laboratory Tests 02/21/20 06:10: White Blood Count [Pending], Red Blood Count [Pending], Hemoglobin [Pending], Hematocrit [Pending], Mean Corpuscular Volume [Pending], Mean Corpuscular Hemoglobin [Pending], Mean Corpuscular Hemoglobin Concent [Pending], Red Cell Distribution Width [Pending], Platelet Count [Pending], Mean Platelet Volume [Pending], Neutrophils (%) (Auto) [Pending], Lymphocytes (%) (Auto) [Pending], Monocytes (%) (Auto) [Pending], Eosinophils (%) (Auto) [Pending], Basophils (%) (Auto) [Pending], Sodium Level [Pending], Potassium Level [Pending], Chloride Level [Pending], Carbon Dioxide Level [Pending], Blood Urea Nitrogen [Pending], Creatinine [Pending], Estimat Glomerular Filtration Rate [Pending], Glucose Level [Pending], Uric Acid [Pending], Calcium Level [Pending], Phosphorus Level [Pending], Magnesium Level [Pending], Total Bilirubin [Pending], Aspartate Amino Transf (AST/SGOT) [Pending], Alanine Aminotransferase (ALT/SGPT) [Pending], Alkaline Phosphatase [Pending], C-Reactive Protein, Quantitative [Pending], Pro-B-Type Natriuretic Peptide [Pending], Total Protein [Pending], Albumin [Pending], Globulin [Pending] Height (Feet): 5 Height (Inches): 2.00 Weight (Pounds): 150 General Appearance: no apparent distress Neck: normal alignment Cardiovascular: normal rate Respiratory/Chest: decreased breath sounds Abdomen: normal bowel sounds Pelvis: normal external exam Objective Current Medications Medications (Trade) Dose Ordered Sig/Maria Fernanda Route PRN Reason Start Time Stop Time Status Last Admin Dose Admin Acetaminophen (Tylenol) 500 mg Q6H PRN NG Mild Pain (Pain Scale 1-3) 02/17/20 12:45 03/18/20 12:44 Dextrose (Dextrose 50%) 25 ml Q30M PRN IV Hypoglycemia 02/18/20 12:15 05/18/20 12:14 Dextrose (Dextrose 50%) 50 ml Q30M PRN IV Hypoglycemia 02/18/20 12:15 05/18/20 12:14 Docusate Sodium (Colace) 100 mg THREE TIMES A DAY NG 02/17/20 18:00 03/18/20 17:59 02/20/20 17:07 Epoetin Manoj (Epoetin Manoj(ESRD on dialysis)) 10,000 unit FRI-FRI-FRI SUBQ 02/21/20 21:00 05/21/20 20:59 Insulin Aspart (NovoLOG) Q6HR SUBQ 02/18/20 18:00 05/18/20 16:29 02/19/20 12:40 Insulin Detemir (Levemir) 8 units DAILY SUBQ 02/21/20 09:00 05/19/20 08:59 Meropenem 500 mg/ Sodium Chloride 55 ml @ 110 mls/hr Q24H IVPB 02/20/20 09:00 02/25/20 08:59 02/20/20 09:40 Oseltamivir Phosphate (Tamiflu) 30 mg DAILY ORAL 02/18/20 09:00 02/21/20 09:01 02/20/20 08:41 Pantoprazole (Protonix) 40 mg EVERY 12 HOURS IVP 02/17/20 21:00 03/18/20 20:59 02/20/20 20:26 Assessment/Plan Problem List: (1) Hypoglycemia ICD Codes: E16.2 - Hypoglycemia, unspecified SNOMED: 872450175 (2) UTI (urinary tract infection) ICD Codes: N39.0 - Urinary tract infection, site not specified SNOMED: 44462129 (3) CHF (congestive heart failure) ICD Codes: I50.9 - Heart failure, unspecified SNOMED: 62999040 (4) Failure to thrive in adult ICD Codes: R62.7 - Failure to thrive in adult SNOMED: 781625468 Status: progressing Assessment/Plan: continue Levemir 8 units daily continue Novolog sliding scale every 6 hours hypoglycemia protocol in order Adalberto Echevarria MD Feb 21, 2020 07:05
[2020-02-21 07:32] LABS: HEMATOCRIT 26.9 % (37.0-47.0); HEMOGLOBIN 8.6 G/DL (12.0-16.0); MEAN CORPUSCULAR VOLUME 89 FL (80-99); PLATELET COUNT 77 K/UL (150-450); RED BLOOD COUNT 3.01 M/UL (4.20-5.40); RED CELL DISTRIBUTION WIDTH 18.1 % (11.6-14.8); WHITE BLOOD COUNT 4.9 K/UL (4.8-10.8)
--- NOTE | 2020-02-21 07:51 | NUR ---
NURSE NOTES: Report received from Park WOODY. Patient seen on rounds, AxOx1, Farsi-speaking, not in distress, no complaints of pain, currently tolerating room air. NGT over left nares at 65cm patent and intact infusing Nepro @ 40ml/hr. PIV on left AC patent and intact. Bilateral wrist restraints noted, good circulation, pulses palpable. Cornelius cath secured and draining well. Optifoam over sacral area and bilateral heels for prophylaxis. Bed low and locked, siderails up x2, zone alarms on 1. Will continue to monitor.
[2020-02-21 07:58] LABS: ALBUMIN 1.8 G/DL (3.4-5.0); ALBUMIN/GLOBULIN RATIO 0.5 (1.0-2.7); BILIRUBIN,TOTAL 0.5 MG/DL (0.2-1.0); CALCIUM 6.7 MG/DL (8.5-10.1); CREATININE 2.2 MG/DL (0.55-1.30); PHOSPHORUS 2.5 MG/DL (2.5-4.9)
[2020-02-21 08:00] VITALS: BP 151/89
[2020-02-21] MEDS: Docusate 100mg/10ml Liq NG SCH ×3 (08:27→18:20)
[2020-02-21] MEDS: Meropenem 500 MG in NS 55 ML IVPB SCH (08:27)
[2020-02-21] MEDS: Pantoprazole Inj IVP SCH (08:28)
[2020-02-21] MEDS: Levemir Flexpen SUBQ SCH (08:30)
--- NOTE | 2020-02-21 11:35 | Nephrology Progress Note ---
Assessment/Plan Problem List: (1) Renal failure (ARF), acute on chronic (2) Diabetic nephropathy (3) CHF (congestive heart failure) (4) Anemia Assessment 1) Renal failure (ARF), acute on chronic (2) COVID-19 (3) UTI (urinary tract infection) (4) Congestive heart failure (5) Anemia (6) Diabetic nephropathy Plan February 20: Patient received 2 dialysis so far. Appears more responsive. Labs reviewed. Medication list reviewed. Vitamin D supplement ordered. Next dialysis tomorrow. Will discuss with the daughter regarding continuation of dialysis if agreeable. February 19: First dialysis February 17. Second dialysis will be done today. Labs reviewed. Medication list reviewed. Continue per consultants. February 18: Patient was dialyzed yesterday. Patient less edematous today. Patient appears more responsive today. Plan to dialyze and ultrafiltrate again tomorrow. Medication list reviewed. Today's labs pending. February 17: Patient due for dialysis catheter today and subsequent dialysis treatment. Patient is edematous. Patient has an NG tube on feeding. Will discontinue IV fluid. Continue per consultants. Discussed with RN. Previously: Consent for insertion of dialysis catheter as per my conversation with the daughter who now desires dialysis NG feeding with Nepro Dialysis cath, followed by dialysis Subjective ROS Limited/Unobtainable: Yes Objective Objective Last 24 Hour Vital Signs Date Time Temp Pulse Resp B/P (MAP) Pulse Ox O2 Delivery O2 Flow Rate FiO2 02/21/20 09:00 Nasal Cannula 2.0 02/21/20 08:00 98.8 73 17 151/89 (109) 97 02/21/20 04:00 98.2 68 19 135/78 (97) 98 02/21/20 00:00 98.1 75 18 144/76 (98) 98 02/20/20 21:00 Nasal Cannula 2.0 02/20/20 20:00 97.9 72 19 127/73 (91) 98 02/20/20 16:00 98.0 76 18 100/54 (69) 96 02/20/20 12:00 97.2 69 18 146/93 (110) 97 Intake and Output 02/20/20 02/21/20 19:00 07:00 Intake Total 830 ml 640 ml Output Total 1000 ml 900 ml Balance -170 ml -260 ml Intake Free Water 200 ml 200 ml IV Total 110 ml Tube Feeding 520 ml 440 ml Output Urine Total 900 ml Hemodialysis UF 1000 ml # Voids 1 Laboratory Tests 02/21/20 06:10: White Blood Count 4.9, Red Blood Count 3.01L, Hemoglobin 8.6L, Hematocrit 26.9L, Mean Corpuscular Volume 89, Mean Corpuscular Hemoglobin 28.5, Mean Corpuscular Hemoglobin Concent 31.9L, Red Cell Distribution Width 18.1H, Platelet Count 77L, Mean Platelet Volume 8.0, Neutrophils (%) (Auto) , Lymphocytes (%) (Auto) , Monocytes (%) (Auto) , Eosinophils (%) (Auto) , Basophils (%) (Auto) , Differential Total Cells Counted 100, Neutrophils % (Manual) 83H, Lymphocytes % (Manual) 10L, Monocytes % (Manual) 5, Eosinophils % (Manual) 2, Basophils % (Manual) 0, Band Neutrophils 0, Platelet Estimate DecreasedL, Platelet Morphology Normal, Hypochromasia 1+, Anisocytosis 1+, Sodium Level 138, Potassium Level 4.0, Chloride Level 99, Carbon Dioxide Level 31, Anion Gap 8, Blood Urea Nitrogen 57H, Creatinine 2.2H, Estimat Glomerular Filtration Rate 21.4, Glucose Level 141H, Uric Acid 3.7, Calcium Level 6.7L, Phosphorus Level 2.5, Magnesium Level 1.8, Total Bilirubin 0.5, Aspartate Amino Transf (AST/SGOT) 20, Alanine Aminotransferase (ALT/SGPT) 14, Alkaline Phosphatase 87, C-Reactive Protein, Quantitative 4.6H, Pro-B-Type Natriuretic Peptide 46695H, Total Protein 5.3L, Albumin 1.8L, Globulin 3.5, Albumin/Globulin Ratio 0.5L Height (Feet): 5 Height (Inches): 2.00 Weight (Pounds): 150 General Appearance: no apparent distress Cardiovascular: normal rate Respiratory/Chest: decreased breath sounds Abdomen: soft Extremities: moderate edema Quirino Cormier MD Feb 21, 2020 11:35
--- NOTE | 2020-02-21 11:40 | Infectious Diseases Prog Note ---
Assessment/Plan Assessment/Plan antibiotics : meropenem, tamiflu A 1. e.coli sepsis 2. influenza A URI s/p rx 3. renal failure on HD 4. recent COVID 19 5. diabetes mellitus P 1. continue meropenem 2. d/c tamiflu 3. will follow up cultures Subjective ROS Limited/Unobtainable: Yes Allergies: Coded Allergies: No Known Allergies (Unverified , 02/06/20) Objective Last 24 Hour Vital Signs Date Time Temp Pulse Resp B/P (MAP) Pulse Ox O2 Delivery O2 Flow Rate FiO2 02/21/20 09:00 Nasal Cannula 2.0 02/21/20 08:00 98.8 73 17 151/89 (109) 97 02/21/20 04:00 98.2 68 19 135/78 (97) 98 02/21/20 00:00 98.1 75 18 144/76 (98) 98 02/20/20 21:00 Nasal Cannula 2.0 02/20/20 20:00 97.9 72 19 127/73 (91) 98 02/20/20 16:00 98.0 76 18 100/54 (69) 96 02/20/20 12:00 97.2 69 18 146/93 (110) 97 Height (Feet): 5 Height (Inches): 2.00 Weight (Pounds): 150 Respiratory/Chest: lungs clear Cardiovascular: normal rate, regular rhythm, no gallop/murmur Abdomen: soft, non tender Extremities: no edema Laboratory Tests Test 02/21/20 06:10 White Blood Count 4.9 K/UL (4.8-10.8) Red Blood Count 3.01 M/UL (4.20-5.40) L Hemoglobin 8.6 G/DL (12.0-16.0) L Hematocrit 26.9 % (37.0-47.0) L Mean Corpuscular Volume 89 FL (80-99) Mean Corpuscular Hemoglobin 28.5 PG (27.0-31.0) Mean Corpuscular Hemoglobin Concent 31.9 G/DL (32.0-36.0) L Red Cell Distribution Width 18.1 % (11.6-14.8) H Platelet Count 77 K/UL (150-450) L Mean Platelet Volume 8.0 FL (6.5-10.1) Neutrophils (%) (Auto) % (45.0-75.0) Lymphocytes (%) (Auto) % (20.0-45.0) Monocytes (%) (Auto) % (1.0-10.0) Eosinophils (%) (Auto) % (0.0-3.0) Basophils (%) (Auto) % (0.0-2.0) Differential Total Cells Counted 100 Neutrophils % (Manual) 83 % (45-75) H Lymphocytes % (Manual) 10 % (20-45) L Monocytes % (Manual) 5 % (1-10) Eosinophils % (Manual) 2 % (0-3) Basophils % (Manual) 0 % (0-2) Band Neutrophils 0 % (0-8) Platelet Estimate Decreased L Platelet Morphology Normal Hypochromasia 1+ Anisocytosis 1+ Sodium Level 138 MMOL/L (136-145) Potassium Level 4.0 MMOL/L (3.5-5.1) Chloride Level 99 MMOL/L (98-107) Carbon Dioxide Level 31 MMOL/L (21-32) Anion Gap 8 mmol/L (5-15) Blood Urea Nitrogen 57 mg/dL (7-18) H Creatinine 2.2 MG/DL (0.55-1.30) H Estimat Glomerular Filtration Rate 21.4 mL/min (>60) Glucose Level 141 MG/DL (74-106) H Uric Acid 3.7 MG/DL (2.6-7.2) Calcium Level 6.7 MG/DL (8.5-10.1) L Phosphorus Level 2.5 MG/DL (2.5-4.9) Magnesium Level 1.8 MG/DL (1.8-2.4) Total Bilirubin 0.5 MG/DL (0.2-1.0) Aspartate Amino Transf (AST/SGOT) 20 U/L (15-37) Alanine Aminotransferase (ALT/SGPT) 14 U/L (12-78) Alkaline Phosphatase 87 U/L (46-116) C-Reactive Protein, Quantitative 4.6 mg/dL (0.00-0.90) H Pro-B-Type Natriuretic Peptide 77000 pg/mL (0-125) H Total Protein 5.3 G/DL (6.4-8.2) L Albumin 1.8 G/DL (3.4-5.0) L Globulin 3.5 g/dL Albumin/Globulin Ratio 0.5 (1.0-2.7) L Current Medications Medications (Trade) Dose Ordered Sig/Maria Fernanda Route PRN Reason Start Time Stop Time Status Last Admin Dose Admin Acetaminophen (Tylenol) 500 mg Q6H PRN NG Mild Pain (Pain Scale 1-3) 02/17/20 12:45 03/18/20 12:44 Calcitriol (Rocaltrol) 0.5 mcg DAILY ORAL 02/21/20 11:45 05/21/20 11:44 UNV Dextrose (Dextrose 50%) 25 ml Q30M PRN IV Hypoglycemia 02/18/20 12:15 05/18/20 12:14 Dextrose (Dextrose 50%) 50 ml Q30M PRN IV Hypoglycemia 02/18/20 12:15 05/18/20 12:14 Docusate Sodium (Colace) 100 mg THREE TIMES A DAY NG 02/17/20 18:00 03/18/20 17:59 02/21/20 08:27 Epoetin Manoj (Epoetin Manoj(ESRD on dialysis)) 10,000 unit FRI-FRI-FRI SUBQ 02/21/20 21:00 05/21/20 20:59 Insulin Aspart (NovoLOG) Q6HR SUBQ 02/18/20 18:00 05/18/20 16:29 02/19/20 12:40 Insulin Detemir (Levemir) 8 units DAILY SUBQ 02/21/20 09:00 05/19/20 08:59 02/21/20 08:30 Lansoprazole (Prevacid) 30 mg BID NG 02/21/20 18:00 03/22/20 17:59 UNV Meropenem 500 mg/ Sodium Chloride 55 ml @ 110 mls/hr Q24H IVPB 02/20/20 09:00 02/25/20 08:59 02/21/20 08:27 Vitamin D (Vitamin D) 5,000 intlu DAILY GT 02/21/20 11:45 03/22/20 11:44 UNV Ita Dang MD Feb 21, 2020 11:40
[2020-02-21] MEDS: Calcitriol 0.5mcg Cap ORAL SCH (11:54)
[2020-02-21] MEDS: Vitamin D 1000 IU Tab GT SCH (11:55)
[2020-02-21 12:00] VITALS: BP 146/80
--- NOTE | 2020-02-21 12:37 | Pulmonology Progress Note ---
Subjective ROS Limited/Unobtainable: Yes Constitutional: Denies: fever HEENT: Repors: no symptoms Respiratory: Reports: no symptoms Cardiovascular: Reports: no symptoms Allergies: Coded Allergies: No Known Allergies (Unverified , 02/06/20) All Systems: reviewed and negative except above Objective Last 24 Hour Vital Signs Date Time Temp Pulse Resp B/P (MAP) Pulse Ox O2 Delivery O2 Flow Rate FiO2 02/21/20 12:00 98.8 69 19 146/80 (102) 98 02/21/20 09:00 Nasal Cannula 2.0 02/21/20 08:00 98.8 73 17 151/89 (109) 97 02/21/20 04:00 98.2 68 19 135/78 (97) 98 02/21/20 00:00 98.1 75 18 144/76 (98) 98 02/20/20 21:00 Nasal Cannula 2.0 02/20/20 20:00 97.9 72 19 127/73 (91) 98 02/20/20 16:00 98.0 76 18 100/54 (69) 96 Intake and Output 02/20/20 02/21/20 18:59 06:59 Intake Total 790 ml 820 ml Output Total 1000 ml 900 ml Balance -210 ml -80 ml Intake Free Water 200 ml 300 ml IV Total 110 ml Tube Feeding 480 ml 520 ml Output Urine Total 900 ml Hemodialysis UF 1000 ml # Voids 1 General Appearance: WD/WN, no acute distress HEENT: normocephalic Respiratory: chest wall non-tender, normal breath sounds, no respiratory distress, decreased breath sounds Cardiovascular: normal peripheral pulses, normal rate, regular rhythm Abdomen: normal bowel sounds, soft, non tender Extremities: no cyanosis, no clubbing Skin: no rash Laboratory Tests 02/21/20 06:10: White Blood Count 4.9, Red Blood Count 3.01L, Hemoglobin 8.6L, Hematocrit 26.9L, Mean Corpuscular Volume 89, Mean Corpuscular Hemoglobin 28.5, Mean Corpuscular Hemoglobin Concent 31.9L, Red Cell Distribution Width 18.1H, Platelet Count 77L, Mean Platelet Volume 8.0, Neutrophils (%) (Auto) , Lymphocytes (%) (Auto) , Monocytes (%) (Auto) , Eosinophils (%) (Auto) , Basophils (%) (Auto) , Differential Total Cells Counted 100, Neutrophils % (Manual) 83H, Lymphocytes % (Manual) 10L, Monocytes % (Manual) 5, Eosinophils % (Manual) 2, Basophils % (Manual) 0, Band Neutrophils 0, Platelet Estimate DecreasedL, Platelet Morphology Normal, Hypochromasia 1+, Anisocytosis 1+, Sodium Level 138, Potassium Level 4.0, Chloride Level 99, Carbon Dioxide Level 31, Anion Gap 8, B lood Urea Nitrogen 57H, Creatinine 2.2H, Estimat Glomerular Filtration Rate 21.4, Glucose Level 141H, Uric Acid 3.7, Calcium Level 6.7L, Phosphorus Level 2.5, Magnesium Level 1.8, Total Bilirubin 0.5, Aspartate Amino Transf (AST/SGOT) 20, Alanine Aminotransferase (ALT/SGPT) 14, Alkaline Phosphatase 87, C-Reactive Protein, Quantitative 4.6H, Pro-B-Type Natriuretic Peptide 54240S, Total Protein 5.3L, Albumin 1.8L, Globulin 3.5, Albumin/Globulin Ratio 0.5L Current Medications Medications (Trade) Dose Ordered Sig/Maria Fernanda Route PRN Reason Start Time Stop Time Status Last Admin Dose Admin Acetaminophen (Tylenol) 500 mg Q6H PRN NG Mild Pain (Pain Scale 1-3) 02/17/20 12:45 03/18/20 12:44 Calcitriol (Rocaltrol) 0.5 mcg DAILY ORAL 02/21/20 12:30 05/21/20 12:29 02/21/20 11:54 Dextrose (Dextrose 50%) 25 ml Q30M PRN IV Hypoglycemia 02/18/20 12:15 05/18/20 12:14 Dextrose (Dextrose 50%) 50 ml Q30M PRN IV Hypoglycemia 02/18/20 12:15 05/18/20 12:14 Docusate Sodium (Colace) 100 mg THREE TIMES A DAY NG 02/17/20 18:00 03/18/20 17:59 02/21/20 12:04 Epoetin Manoj (Epoetin Manoj(ESRD on dialysis)) 10,000 unit FRI-FRI-FRI SUBQ 02/21/20 21:00 05/21/20 20:59 Insulin Aspart (NovoLOG) Q6HR SUBQ 02/18/20 18:00 05/18/20 16:29 02/21/20 11:51 Insulin Detemir (Levemir) 8 units DAILY SUBQ 02/21/20 09:00 05/19/20 08:59 02/21/20 08:30 Lansoprazole (Prevacid) 30 mg BID NG 02/21/20 18:00 03/22/20 17:59 Meropenem 500 mg/ Sodium Chloride 55 ml @ 110 mls/hr Q24H IVPB 02/20/20 09:00 02/25/20 08:59 02/21/20 08:27 Vitamin D (Vitamin D) 5,000 intlu DAILY GT 02/21/20 12:30 03/22/20 12:29 02/21/20 11:55 Assessment/Plan Assessment/Plan Pulmonary Progress Note Subjective ROS Limited/Unobtainable: Yes Constitutional: Reports: other - looks better HEENT: Repors: no symptoms Respiratory: Reports: no symptoms Cardiovascular: Reports: no symptoms Allergies: Coded Allergies: No Known Allergies (Unverified , 02/06/20) Subjective care noted Objective Vital Signs noted General Appearance: WD/WN, no acute distress HEENT: normocephalic Respiratory: chest wall non-tender, normal breath sounds, no respiratory distress, decreased breath sounds Cardiovascular: normal peripheral pulses, normal rate, regular rhythm Abdomen: normal bowel sounds, soft, non tender Extremities: no cyanosis, no clubbing Skin: no rash Assessment/Plan IMPRESSION: 1. Previous COVID-19 pneumonia. 2. Cardiomegaly/CHF. 3. Renal failure. 4. Influenza A 5. Hyperlipidemia. 6. Bilateral pleural effusions 7. thrombocytopenia and anemia DISCUSSION: cannot give SQ heparin with low platelets stable currently ID noted repeat CXR Currently saturating well on RA Will follow dc planning DNR impression, plan, and exam edited and reviewed in detail care discussed with Bennett Cain MD Feb 21, 2020 12:37
--- NOTE | 2020-02-21 14:33 | NUR ---
REPROGRAPHICS ASSOCIATE DYSPHAGIA TX NOTE Pt seen at bedside for ongoing dysphagia therapy. COVID-19 NEG now; Influenza A & B positive. Pt has NGT, is on nasal cannula, noted with white debris stuck to blade of tongue. Oral hygiene/care completed. Pt re-positioned upright, noted with LUE swelling. Given PO trials of nectar thick liquids, honey thick liquids, thin liquids, and puree solids. Oral phase characterized by improving labial seal around the spoon and ability to maintain during swallow, prolonged oral phase worse with thickened liquids versus thin, moderately delayed initiate of swallow, laryngeal elevation appears incomplete upon palpation. All PO trials resulted in wet, congested coughing episodes. Thickened liquid trials (honey thick and nectar thick) result in Pt wincing and moaning 'ew.' Pt's swallowing function appears to be slowly improving, only presenting with moderate oropharyngeal dysphagia today (moderately severe oropharyngeal dysphagia on initial evaluation). At this time, Pt continues to benefit from REPROGR[employer] ASSOCIATE f/u for ongoing assessment of Pt's swallow safety and ability to maintain adequate PO via nutrition/hydration. RECOMMENDATIONS: 1. Pt continues to present with overt aspiration signs and symptoms across all trials. Suspected Pt's dysphagia is exacerbated by cognitive status. Continue to recommend NPO. RE[employer] ASSOCI[facility] plans to f/u tomorrow and Friday in hope that as dialysis continues, Pt's cognitive status will slowly improve. Will continue to f/u and update on swallowing status and recs. 2. CONTINUE STRICT ORAL CARE TIB +MOISTURE REPROGRAPHICS ASSOCIATE spoke with RN regarding results and recommendations. REPROGRAPHICS ASSOCIATE will f/u PER POC. RE[employer]GR[employer]ICS ASSOCIATE [phone]
--- NOTE | 2020-02-21 15:21 | NUR ---
NURSE NOTES: Spoke with Behzad from [facility] dialysis to schedule appt for patient's dialysis susi 02/21. Also spoke personally with Spencer Johnson, dialysis nurse to inform her of MD's order for dialysis.
--- NOTE | 2020-02-21 15:23 | NUR ---
CASE MANAGEMENT:REVIEW SI;SEPSIS. INFLUENZA A. RENAL FAILURE on HD. 98.8 75 19 151/89 97% 2L NC H/H 8.6/26.9 PLT 77 BUN 57 CR 2.2 BG 141 CRP 4.6 BNP [id number] IS;MEROPENEM IV Q24 PROTONIX IV Q12 TAMIFLU PO QD INSULIN NOVOLOG Q6 INSULIN LEVEMIR SUBQ QD MED SURG STATUS DCP;FROM [facility]
[2020-02-21 16:00] VITALS: BP 139/83
--- NOTE | 2020-02-21 16:36 | NUR ---
NURSE NOTES: Wound dressing changed over sacral area.
--- NOTE | 2020-02-21 17:16 | Diagnostic Imaging Report ---
Indication: Shortness of breath Technique: One view of the chest Comparison: 02/17/2020 Findings: Interim placement right jugular dialysis catheter. Bilateral interstitial and airspace congestion are again demonstrated, similar to previous exam. There appears to be slightly decreased pleural fluid bilaterally. Heart remains enlarged. There is a nasogastric tube in place. Impression: Slightly improved bilateral pleural effusions, over 4 days Stable interstitial and airspace edema
--- NOTE | 2020-02-21 19:22 | NUR ---
NURSE NOTES: Received report from BONG Suarez. Pt awake, non verbal, on NC 2L. Pt has edema bilateral upper and lower extremities. Soft wrists restraints in place. Skin intact and pulse present. IV intact and patent. NGT on L nostril and running tube feeding. Tolerating well without residual and HOB elevated. Isolation maintained. Cornelius intact and secured to the leg. Wound dressings d/i/c. Bed locked, lowest position, alarm on, side rails up, call light within reach. Will continue to monitor.
--- NOTE | 2020-02-21 19:27 | NUR ---
NURSE HAND-OFF: Important Events on Shift: Wound dressing changed, ST eval done see notes Patient Status: Stable Diet: Nepro at 40ml/hr Pending Orders: None Pending Results/Labs: None Pending MD notification: None Latest Vital Signs: Temperature 98.5 , Pulse 79 , B/P 139 /83 , Respiratory Rate 18 , O2 SAT 98 , Nasal Cannula, O2 Flow Rate 2.0 . Vital Sign Comment: Latest Barrett Fall Score: 55 Fall Risk: High Risk Safety Measures: Call light Within Reach, Bed Alarm Zone 1, Side Rails Side Rails x2, Bed position Low and Locked. Fall Precautions: Yellow Socks Door Sign Report given to Park WOODY.
[2020-02-21 20:00] VITALS: BP 141/85
[2020-02-21] MEDS: Epoetin Alfa-EPBX(ESRD on dialysis)10,000 unit/ml vial SUBQ SCH (20:52)
--- NOTE | 2020-02-21 21:08 | General Progress Note ---
Subjective ROS Limited/Unobtainable: Yes Allergies: Coded Allergies: No Known Allergies (Unverified , 02/06/20) Objective Last 24 Hour Vital Signs Date Time Temp Pulse Resp B/P (MAP) Pulse Ox O2 Delivery O2 Flow Rate FiO2 02/21/20 20:00 98.6 89 19 141/85 (103) 97 02/21/20 18:34 Nasal Cannula 2.0 02/21/20 16:00 98.5 79 18 139/83 (101) 98 02/21/20 12:00 98.8 69 19 146/80 (102) 98 02/21/20 09:00 Nasal Cannula 2.0 02/21/20 08:00 98.8 73 17 151/89 (109) 97 02/21/20 04:00 98.2 68 19 135/78 (97) 98 02/21/20 00:00 98.1 75 18 144/76 (98) 98 Intake and Output 02/20/20 02/21/20 19:00 07:00 Intake Total 830 ml 680 ml Output Total 1000 ml 900 ml Balance -170 ml -220 ml Intake Free Water 200 ml 200 ml IV Total 110 ml Tube Feeding 520 ml 480 ml Output Urine Total 900 ml Hemodialysis UF 1000 ml # Voids 1 Laboratory Tests 02/21/20 06:10: White Blood Count 4.9, Red Blood Count 3.01L, Hemoglobin 8.6L, Hematocrit 26.9L, Mean Corpuscular Volume 89, Mean Corpuscular Hemoglobin 28.5, Mean Corpuscular Hemoglobin Concent 31.9L, Red Cell Distribution Width 18.1H, Platelet Count 77L, Mean Platelet Volume 8.0, Neutrophils (%) (Auto) , Lymphocytes (%) (Auto) , Monocytes (%) (Auto) , Eosinophils (%) (Auto) , Basophils (%) (Auto) , Differential Total Cells Counted 100, Neutrophils % (Manual) 83H, Lymphocytes % (Manual) 10L, Monocytes % (Manual) 5, Eosinophils % (Manual) 2, Basophils % (Manual) 0, Band Neutrophils 0, Platelet Estimate DecreasedL, Platelet Morphology Normal, Hypochromasia 1+, Anisocytosis 1+, Sodium Level 138, Potassium Level 4.0, Chloride Level 99, Carbon Dioxide Level 31, Anion Gap 8, Blood Urea Nitrogen 57H, Creatinine 2.2H, Estimat Glomerular Filtration Rate 21.4, Glucose Level 141H, Uric Acid 3.7, Calcium Level 6.7L, Phosphorus Level 2.5, Magnesium Level 1.8, Total Bilirubin 0.5, Aspartate Amino Transf (AST/SGOT) 20, Alanine Aminotransferase (ALT/SGPT) 14, Alkaline Phosphatase 87, C-Reactive Protein, Quantitative 4.6H, Pro-B-Type Natriuretic Peptide 52547V, Total Protein 5.3L, Albumin 1.8L, Globulin 3.5, Albumin/Globulin Ratio 0.5L Height (Feet): 5 Height (Inches): 2.00 Weight (Pounds): 150 Assessment/Plan Problem List: (1) COVID-19 ICD Codes: U07.1 - COVID-19 SNOMED: 581154778 (2) Renal failure ICD Codes: N19 - Unspecified kidney failure SNOMED: 35435243 (3) Anemia ICD Codes: D64.9 - Anemia, unspecified SNOMED: 983180446 (4) Hypoglycemia ICD Codes: E16.2 - Hypoglycemia, unspecified SNOMED: 624736767 (5) Congestive heart failure ICD Codes: I50.9 - Heart failure, unspecified SNOMED: 81236554 (6) UTI (urinary tract infection) ICD Codes: N39.0 - Urinary tract infection, site not specified SNOMED: 90986660 (7) Diabetic nephropathy ICD Codes: E11.21 - Type 2 diabetes mellitus with diabetic nephropathy SNOMED: 87246850, 907242038 (8) Renal failure (ARF), acute on chronic ICD Codes: N17.9 - Acute kidney failure, unspecified; N18.9 - Chronic kidney disease, unspecified SNOMED: 879006745 (9) Pressure injury of sacral region, unstageable ICD Codes: L89.150 - Pressure ulcer of sacral region, unstageable SNOMED: 892263723 Status: progressing Assessment/Plan: prn oxygen malnutrtion no change reviewed chart diaylsis per dr benton arf on top of cri chf sepsis Janes Faust MD Feb 21, 2020 21:08
--- NOTE | 2020-02-21 21:11 | Surgery Progress Note ---
Surgery Progress Note Subjective Symptoms: improved, pain absent, tolerating diet Objective Last 24 Hour Vital Signs Date Time Temp Pulse Resp B/P (MAP) Pulse Ox O2 Delivery O2 Flow Rate FiO2 02/21/20 20:00 98.6 89 19 141/85 (103) 97 02/21/20 18:34 Nasal Cannula 2.0 02/21/20 16:00 98.5 79 18 139/83 (101) 98 02/21/20 12:00 98.8 69 19 146/80 (102) 98 02/21/20 09:00 Nasal Cannula 2.0 02/21/20 08:00 98.8 73 17 151/89 (109) 97 02/21/20 04:00 98.2 68 19 135/78 (97) 98 02/21/20 00:00 98.1 75 18 144/76 (98) 98 I&O Intake and Output 02/20/20 02/21/20 19:00 07:00 Intake Total 830 ml 680 ml Output Total 1000 ml 900 ml Balance -170 ml -220 ml Intake Free Water 200 ml 200 ml IV Total 110 ml Tube Feeding 520 ml 480 ml Output Urine Total 900 ml Hemodialysis UF 1000 ml # Voids 1 Cardiovascular: RSR Respiratory: decreased breath sounds Abdomen: non-tender, present bowel sounds Extremities: no tenderness, no cyanosis Laboratory Tests Test 02/21/20 06:10 White Blood Count 4.9 K/UL (4.8-10.8) Red Blood Count 3.01 M/UL (4.20-5.40) L Hemoglobin 8.6 G/DL (12.0-16.0) L Hematocrit 26.9 % (37.0-47.0) L Mean Corpuscular Volume 89 FL (80-99) Mean Corpuscular Hemoglobin 28.5 PG (27.0-31.0) Mean Corpuscular Hemoglobin Concent 31.9 G/DL (32.0-36.0) L Red Cell Distribution Width 18.1 % (11.6-14.8) H Platelet Count 77 K/UL (150-450) L Mean Platelet Volume 8.0 FL (6.5-10.1) Neutrophils (%) (Auto) % (45.0-75.0) Lymphocytes (%) (Auto) % (20.0-45.0) Monocytes (%) (Auto) % (1.0-10.0) Eosinophils (%) (Auto) % (0.0-3.0) Basophils (%) (Auto) % (0.0-2.0) Differential Total Cells Counted 100 Neutrophils % (Manual) 83 % (45-75) H Lymphocytes % (Manual) 10 % (20-45) L Monocytes % (Manual) 5 % (1-10) Eosinophils % (Manual) 2 % (0-3) Basophils % (Manual) 0 % (0-2) Band Neutrophils 0 % (0-8) Platelet Estimate Decreased L Platelet Morphology Normal Hypochromasia 1+ Anisocytosis 1+ Sodium Level 138 MMOL/L (136-145) Potassium Level 4.0 MMOL/L (3.5-5.1) Chloride Level 99 MMOL/L (98-107) Carbon Dioxide Level 31 MMOL/L (21-32) Anion Gap 8 mmol/L (5-15) Blood Urea Nitrogen 57 mg/dL (7-18) H Creatinine 2.2 MG/DL (0.55-1.30) H Estimat Glomerular Filtration Rate 21.4 mL/min (>60) Glucose Level 141 MG/DL (74-106) H Uric Acid 3.7 MG/DL (2.6-7.2) Calcium Level 6.7 MG/DL (8.5-10.1) L Phosphorus Level 2.5 MG/DL (2.5-4.9) Magnesium Level 1.8 MG/DL (1.8-2.4) Total Bilirubin 0.5 MG/DL (0.2-1.0) Aspartate Amino Transf (AST/SGOT) 20 U/L (15-37) Alanine Aminotransferase (ALT/SGPT) 14 U/L (12-78) Alkaline Phosphatase 87 U/L (46-116) C-Reactive Protein, Quantitative 4.6 mg/dL (0.00-0.90) H Pro-B-Type Natriuretic Peptide 29921 pg/mL (0-125) H Total Protein 5.3 G/DL (6.4-8.2) L Albumin 1.8 G/DL (3.4-5.0) L Globulin 3.5 g/dL Albumin/Globulin Ratio 0.5 (1.0-2.7) L Plan Problems: (1) CHF (congestive heart failure) (2) Hip fracture, left Assessment & Plan: noted. bruising see above ortho eval (3) Anemia (4) Failure to thrive in adult Assessment & Plan: Nutritional optimization. NG tube for now start tube feeds start meds (5) Renal failure (6) COVID-19 Assessment & Plan: prior positive now negative this admission (7) Congestive heart failure (8) Hypoglycemia (9) UTI (urinary tract infection) (10) Diabetic nephropathy (11) Pneumonia (12) Renal failure (ARF), acute on chronic (13) Deep tissue injury Assessment & Plan: see below (14) Pressure injury of sacral region, unstageable Assessment & Plan: Patient identified on admission to have a large sacral deep tissue injury non-blanchable erythema blistering epidermis intact no drainage. Unknown duration but present on prior admission and noted to be high risk for breakdown given overall condition and status. Tenderness difficult to a certain based on clinical examinations patient's history. Labs noted. Patient high risk for decubitus ulcer formation worsening condition. NG tube in place currently. Nutritional optimization. Turn every 2 hours. Offload pressure with pillows. OPTi foam dressing to sacrum. Care plan initiated. T marli you will follow with recommendations Pt presented on admission with multiple Pressure Injuries, Fx L Hip. Large contusion noted to L Hip/ Lateral L Femur noted on prior admission and preset still. Sacral DTPI partially opened and is 75% necrotic, 25% moist erythematous and clear skin flap that is loose.(L)5.5cm x (W)9cm. Small amt serous exudate noted. Non-Blanchable erythema periwound. Partial thickness wound noted to L Hip. Base of wound is moist and viable. edges adherent to base of wound(L)3cm x (W)2.5cm. L Heel is boggy with non-Blanchable erythema with delineated margins. L heel is boggy with non-blanchable erythema. Tx.Plan: Cleanse Sacral wound with Saline. Apply Therahoney. Apply Moisture Barrier Paste periwound. Cover with Optifoam drsg. Change every 3 days and prn. Apply Moisture Barrier Paste to L Hip wound. Cover with Optifoam drsg. Change every 3 days and prn Apply Cavilon Skin Barrier to both heels. Cover each heel with Optifoam drsg. Change every 7 days and prn. Reposition at least every 2hours or as tolerated. Off-load heels with pillow. APM/CHE Mattress overlay. Chris Lei Feb 21, 2020 21:11
--- NOTE | 2020-02-21 21:21 | General Progress Note ---
Subjective Allergies: Coded Allergies: No Known Allergies (Unverified , 02/06/20) Subjective Above noted Tolerating TF Objective Last 24 Hour Vital Signs Date Time Temp Pulse Resp B/P (MAP) Pulse Ox O2 Delivery O2 Flow Rate FiO2 02/21/20 20:00 98.6 89 19 141/85 (103) 97 02/21/20 18:34 Nasal Cannula 2.0 02/21/20 16:00 98.5 79 18 139/83 (101) 98 02/21/20 12:00 98.8 69 19 146/80 (102) 98 02/21/20 09:00 Nasal Cannula 2.0 02/21/20 08:00 98.8 73 17 151/89 (109) 97 02/21/20 04:00 98.2 68 19 135/78 (97) 98 02/21/20 00:00 98.1 75 18 144/76 (98) 98 Intake and Output 02/20/20 02/21/20 19:00 07:00 Intake Total 830 ml 680 ml Output Total 1000 ml 900 ml Balance -170 ml -220 ml Intake Free Water 200 ml 200 ml IV Total 110 ml Tube Feeding 520 ml 480 ml Output Urine Total 900 ml Hemodialysis UF 1000 ml # Voids 1 Laboratory Tests 02/21/20 06:10: White Blood Count 4.9, Red Blood Count 3.01L, Hemoglobin 8.6L, Hematocrit 26.9L, Mean Corpuscular Volume 89, Mean Corpuscular Hemoglobin 28.5, Mean Corpuscular Hemoglobin Concent 31.9L, Red Cell Distribution Width 18.1H, Platelet Count 77L, Mean Platelet Volume 8.0, Neutrophils (%) (Auto) , Lymphocytes (%) (Auto) , Monocytes (%) (Auto) , Eosinophils (%) (Auto) , Basophils (%) (Auto) , Differential Total Cells Counted 100, Neutrophils % (Manual) 83H, Lymphocytes % (Manual) 10L, Monocytes % (Manual) 5, Eosinophils % (Manual) 2, Basophils % (M anual) 0, Band Neutrophils 0, Platelet Estimate DecreasedL, Platelet Morphology Normal, Hypochromasia 1+, Anisocytosis 1+, Sodium Level 138, Potassium Level 4.0, Chloride Level 99, Carbon Dioxide Level 31, Anion Gap 8, Blood Urea Nitrogen 57H, Creatinine 2.2H, Estimat Glomerular Filtration Rate 21.4, Glucose Level 141H, Uric Acid 3.7, Calcium Level 6.7L, Phosphorus Level 2.5, Magnesium Level 1.8, Total Bilirubin 0.5, Aspartate Amino Transf (AST/SGOT) 20, Alanine Aminotransferase (ALT/SGPT) 14, Alkaline Phosphatase 87, C-Reactive Protein, Quantitative 4.6H, Pro-B-Type Natriuretic Peptide 00135V, Total Protein 5.3L, Albumin 1.8L, Globulin 3.5, Albumin/Globulin Ratio 0.5L Height (Feet): 5 Height (Inches): 2.00 Weight (Pounds): 150 Objective NCAT, (+) NGT supple Chest coarse BS RR Abd Soft No edema Assessment/Plan Status: progressing Assessment/Plan: Assessment/Plan: Dysphagia --> NGT Covid positive last admission Now Influenza (+) HTN elevated trop renal failure Recommendations NGTF Monitor Residuals possible PEG once improved will Sofie Vargas MD Feb 21, 2020 21:21
[2020-02-22] VITALS: BP 137/86
[2020-02-22 04:00] VITALS: BP 156/91
[2020-02-22] MEDS: NovoLOG Insulin Flexpen SUBQ SCH ×4 (05:29→23:04)
--- NOTE | 2020-02-22 06:29 | General Progress Note ---
Subjective ROS Limited/Unobtainable: Yes Allergies: Coded Allergies: No Known Allergies (Unverified , 02/06/20) Subjective events noted interval notes reviewed glucose values are stable Item Value Date Time Bedside Blood Glucose 150 mg/dl H 02/22/20 0529 Bedside Blood Glucose 95 mg/dl 02/21/20 2359 Bedside Blood Glucose 83 mg/dl 02/21/20 1800 Bedside Blood Glucose 170 mg/dl H 02/21/20 1200 Bedside Blood Glucose 134 mg/dl H 02/21/20 0830 Bedside Blood Glucose 134 mg/dl H 02/21/20 0509 Objective Last 24 Hour Vital Signs Date Time Temp Pulse Resp B/P (MAP) Pulse Ox O2 Delivery O2 Flow Rate FiO2 02/22/20 04:00 98.6 83 20 156/91 (112) 97 02/22/20 00:00 98.8 92 18 137/86 (103) 97 02/21/20 21:00 Nasal Cannula 2.0 02/21/20 20:00 98.6 89 19 141/85 (103) 97 02/21/20 18:34 Nasal Cannula 2.0 02/21/20 16:00 98.5 79 18 139/83 (101) 98 02/21/20 12:00 98.8 69 19 146/80 (102) 98 02/21/20 09:00 Nasal Cannula 2.0 02/21/20 08:00 98.8 73 17 151/89 (109) 97 Intake and Output 02/21/20 02/22/20 19:00 07:00 Intake Total 570 ml 640 ml Output Total 500 ml Balance 570 ml 140 ml Intake Free Water 100 ml 200 ml IV Total 110 ml Tube Feeding 360 ml 440 ml Output Urine Total 500 ml # Voids 1 # Bowel Movements 1 Height (Feet): 5 Height (Inches): 2.00 Weight (Pounds): 150 General Appearance: no apparent distress Neck: normal alignment Cardiovascular: normal rate Respiratory/Chest: decreased breath sounds Abdomen: normal bowel sounds Objective Current Medications Medications (Trade) Dose Ordered Sig/Maria Fernanda Route PRN Reason Start Time Stop Time Status Last Admin Dose Admin Acetaminophen (Tylenol) 500 mg Q6H PRN NG Mild Pain (Pain Scale 1-3) 02/17/20 12:45 03/18/20 12:44 Calcitriol (Rocaltrol) 0.5 mcg DAILY ORAL 02/21/20 12:30 05/21/20 12:29 02/21/20 11:54 Dextrose (Dextrose 50%) 25 ml Q30M PRN IV Hypoglycemia 02/18/20 12:15 05/18/20 12:14 Dextrose (Dextrose 50%) 50 ml Q30M PRN IV Hypoglycemia 02/18/20 12:15 05/18/20 12:14 Docusate Sodium (Colace) 100 mg THREE TIMES A DAY NG 02/17/20 18:00 03/18/20 17:59 02/21/20 18:20 Epoetin Manoj (Epoetin Manoj(ESRD on dialysis)) 10,000 unit FRI-FRI-FRI SUBQ 02/21/20 21:00 05/21/20 20:59 02/21/20 20:52 Insulin Aspart (NovoLOG) Q6HR SUBQ 02/18/20 18:00 05/18/20 16:29 02/22/20 05:29 Insulin Detemir (Levemir) 8 units DAILY SUBQ 02/21/20 09:00 05/19/20 08:59 02/21/20 08:30 Lansoprazole (Prevacid) 30 mg BID NG 02/21/20 18:00 03/22/20 17:59 02/21/20 18:20 Meropenem 500 mg/ Sodium Chloride 55 ml @ 110 mls/hr Q24H IVPB 02/20/20 09:00 02/25/20 08:59 02/21/20 08:27 Vitamin D (Vitamin D) 5,000 intlu DAILY GT 02/21/20 12:30 03/22/20 12:29 02/21/20 11:55 Assessment/Plan Problem List: (1) Hypoglycemia ICD Codes: E16.2 - Hypoglycemia, unspecified SNOMED: 660968864 (2) UTI (urinary tract infection) ICD Codes: N39.0 - Urinary tract infection, site not specified SNOMED: 60614064 (3) CHF (congestive heart failure) ICD Codes: I50.9 - Heart failure, unspecified SNOMED: 97457998 (4) Failure to thrive in adult ICD Codes: R62.7 - Failure to thrive in adult SNOMED: 092075859 Status: progressing Assessment/Plan: continue Levemir 8 units daily continue Novolog sliding scale every 6 hours hypoglycemia protocol in order Adalberto Echevarria MD Feb 22, 2020 06:29
--- NOTE | 2020-02-22 06:50 | NUR ---
NURSE NOTES: Provided wound care and incontinent care.
--- NOTE | 2020-02-22 06:51 | NUR ---
NURSE HAND-OFF: Important Events on Shift:wound care, NGT feeding, restraints Patient Status: stable Diet: Nepro 40cc/hr Pending Orders: HD 02/21 Pending Results/Labs:N Pending MD notification:N Latest Vital Signs: Temperature 98.6 , Pulse 83 , B/P 156 /91 , Respiratory Rate 20 , O2 SAT 97 , Nasal Cannula, O2 Flow Rate 2.0 . Vital Sign Comment: Latest Barrett Fall Score: 55 Fall Risk: High Risk Safety Measures: Call light Within Reach, Bed Alarm Zone 1, Side Rails Side Rails x2, Bed position Low and Locked. Fall Precautions: Yellow Socks Door Sign Addendum: 02/22/20 at 0715 by TR LEWIS RN RN HAND-OFF: Report given to BONG Castro.
[2020-02-22 08:00] VITALS: BP 161/86
--- NOTE | 2020-02-22 08:04 | NUR ---
NURSE NOTES: Received report from Park WOODY. Patient is AOx0, she is non verbal, pupils reactive to light, patient congested, non productive cough, diminished lung sounds bilaterally, abdominal sounds present on all four quadrants, pedal pulses present. Patient on SCDs, resting comfortably, she has an NG-tube on left nares, receiving Nepro @ 40cc/hr tolerating well with no residue. Patient has hemodialysis catheter on right IJ, dialysis schedules for today. Patient has an IV on Left AC 22G Heparin lock that is patent and dressing is clean. Patient will be monitored for safety.
--- NOTE | 2020-02-22 08:09 | Pulmonology Progress Note ---
Subjective ROS Limited/Unobtainable: Yes Constitutional: Denies: fever HEENT: Repors: no symptoms Respiratory: Reports: no symptoms Cardiovascular: Reports: no symptoms Allergies: Coded Allergies: No Known Allergies (Unverified , 02/06/20) All Systems: reviewed and negative except above Subjective care noted Objective Last 24 Hour Vital Signs Date Time Temp Pulse Resp B/P (MAP) Pulse Ox O2 Delivery O2 Flow Rate FiO2 02/22/20 04:00 98.6 83 20 156/91 (112) 97 02/22/20 00:00 98.8 92 18 137/86 (103) 97 02/21/20 21:00 Nasal Cannula 2.0 02/21/20 20:00 98.6 89 19 141/85 (103) 97 02/21/20 18:34 Nasal Cannula 2.0 02/21/20 16:00 98.5 79 18 139/83 (101) 98 02/21/20 12:00 98.8 69 19 146/80 (102) 98 02/21/20 09:00 Nasal Cannula 2.0 Intake and Output 02/21/20 02/22/20 19:00 07:00 Intake Total 570 ml 640 ml Output Total 500 ml Balance 570 ml 140 ml Intake Free Water 100 ml 200 ml IV Total 110 ml Tube Feeding 360 ml 440 ml Output Urine Total 500 ml # Voids 1 # Bowel Movements 1 General Appearance: WD/WN, no acute distress HEENT: normocephalic Respiratory: chest wall non-tender, normal breath sounds, no respiratory di stress, decreased breath sounds, crackles/rales Cardiovascular: normal peripheral pulses, normal rate, regular rhythm Abdomen: normal bowel sounds, soft, non tender Extremities: no cyanosis, no clubbing, other - edema Skin: no rash Current Medications Medications (Trade) Dose Ordered Sig/Maria Fernanda Route PRN Reason Start Time Stop Time Status Last Admin Dose Admin Acetaminophen (Tylenol) 500 mg Q6H PRN NG Mild Pain (Pain Scale 1-3) 02/17/20 12:45 03/18/20 12:44 Calcitriol (Rocaltrol) 0.5 mcg DAILY ORAL 02/21/20 12:30 05/21/20 12:29 02/21/20 11:54 Dextrose (Dextrose 50%) 25 ml Q30M PRN IV Hypoglycemia 02/18/20 12:15 05/18/20 12:14 Dextrose (Dextrose 50%) 50 ml Q30M PRN IV Hypoglycemia 02/18/20 12:15 05/18/20 12:14 Docusate Sodium (Colace) 100 mg THREE TIMES A DAY NG 02/17/20 18:00 03/18/20 17:59 02/21/20 18:20 Epoetin Manoj (Epoetin Manoj(ESRD on dialysis)) 10,000 unit FRI-FRI-FRI SUBQ 02/21/20 21:00 05/21/20 20:59 02/21/20 20:52 Insulin Aspart (NovoLOG) Q6HR SUBQ 02/18/20 18:00 05/18/20 16:29 02/22/20 05:29 Insulin Detemir (Levemir) 8 units DAILY SUBQ 02/21/20 09:00 05/19/20 08:59 02/21/20 08:30 Lansoprazole (Prevacid) 30 mg BID NG 02/21/20 18:00 03/22/20 17:59 02/21/20 18:20 Meropenem 500 mg/ Sodium Chloride 55 ml @ 110 mls/hr Q24H IVPB 02/20/20 09:00 02/25/20 08:59 02/21/20 08:27 Vitamin D (Vitamin D) 5,000 intlu DAILY GT 02/21/20 12:30 03/22/20 12:29 02/21/20 11:55 Assessment/Plan Assessment/Plan IMPRESSION: 1. Previous COVID-19 pneumonia. 2. Cardiomegaly/CHF. 3. Renal failure. 4. Influenza A 5. Hyperlipidemia. 6. Bilateral pleural effusions 7. thrombocytopenia and anemia DISCUSSION: cannot give SQ heparin with low platelets d/w renal - increase UF with elevated BNP and significant increase in PVP on CXR ID noted repeat CXR discussed and reviewed monitor oxygen needs Will follow DNR impression, plan, and exam edited and reviewed in detail care discussed with Heber Mars MD Feb 22, 2020 08:09
[2020-02-22] MEDS: Calcitriol 0.5mcg Cap ORAL SCH (09:02)
[2020-02-22] MEDS: Vitamin D 1000 IU Tab GT SCH (09:03)
[2020-02-22] MEDS: Docusate 100mg/10ml Liq NG SCH ×3 (09:03→17:21)
[2020-02-22] MEDS: Meropenem 500 MG in NS 55 ML IVPB SCH (09:04)
[2020-02-22] MEDS: Levemir Flexpen SUBQ SCH (09:13)
--- NOTE | 2020-02-22 10:10 | Nephrology Progress Note ---
Assessment/Plan Problem List: (1) Renal failure (ARF), acute on chronic (2) Diabetic nephropathy (3) CHF (congestive heart failure) (4) Anemia Assessment 1) Renal failure (ARF), acute on chronic (2) COVID-19 (3) UTI (urinary tract infection) (4) Congestive heart failure (5) Anemia (6) Diabetic nephropathy Plan February 21: Due for dialysis today. Will ultrafiltrate max as possible. No chemistry panel done today. I had a conversation on the phone with the daughter last night who at this time would like to continue dialysis. Continue as is. February 20: Patient received 2 dialysis so far. Appears more responsive. Labs reviewed. Medication list reviewed. Vitamin D supplement ordered. Next dialysis tomorrow. Will discuss with the daughter regarding continuation of dialysis if agreeable. February 19: First dialysis February 17. Second dialysis will be done today. Labs reviewed. Medication list reviewed. Continue per consultants. February 18: Patient was dialyzed yesterday. Patient less edematous today. Patient appears more responsive today. Plan to dialyze and ultrafiltrate again tomorrow. Medication list reviewed. Today's labs pending. February 17: Patient due for dialysis catheter today and subsequent dialysis treatment. Patient is edematous. Patient has an NG tube on feeding. Will discontinue IV fluid. Continue per consultants. Discussed with RN. Previously: Consent for insertion of dialysis catheter as per my conversation with the daughter who now desires dialysis NG feeding with Nepro Dialysis cath, followed by dialysis Subjective ROS Limited/Unobtainable: No Constitutional: Reports: malaise Objective Objective Last 24 Hour Vital Signs Date Time Temp Pulse Resp B/P (MAP) Pulse Ox O2 Delivery O2 Flow Rate FiO2 02/22/20 08:00 97.9 81 20 161/86 (111) 98 02/22/20 04:00 98.6 83 20 156/91 (112) 97 02/22/20 00:00 98.8 92 18 137/86 (103) 97 02/21/20 21:00 Nasal Cannula 2.0 02/21/20 20:00 98.6 89 19 141/85 (103) 97 02/21/20 18:34 Nasal Cannula 2.0 02/21/20 16:00 98.5 79 18 139/83 (101) 98 02/21/20 12:00 98.8 69 19 146/80 (102) 98 Intake and Output 02/21/20 02/22/20 19:00 07:00 Intake Total 570 ml 640 ml Output Total 500 ml Balance 570 ml 140 ml Intake Free Water 100 ml 200 ml IV Total 110 ml Tube Feeding 360 ml 440 ml Output Urine Total 500 ml # Voids 1 # Bowel Movements 1 No can panel done today Height (Feet): 5 Height (Inches): 2.00 Weight (Pounds): 150 General Appearance: no apparent distress EENT: other - Has NG tube Cardiovascular: tachycardia Respiratory/Chest: decreased breath sounds Abdomen: distended Quirino Cormier MD Feb 22, 2020 10:10
--- NOTE | 2020-02-22 11:27 | General Progress Note ---
Subjective ROS Limited/Unobtainable: No Allergies: Coded Allergies: No Known Allergies (Unverified , 02/06/20) Objective Last 24 Hour Vital Signs Date Time Temp Pulse Resp B/P (MAP) Pulse Ox O2 Delivery O2 Flow Rate FiO2 02/22/20 09:00 Nasal Cannula 2.0 02/22/20 08:00 97.9 81 20 161/86 (111) 98 02/22/20 04:00 98.6 83 20 156/91 (112) 97 02/22/20 00:00 98.8 92 18 137/86 (103) 97 02/21/20 21:00 Nasal Cannula 2.0 02/21/20 20:00 98.6 89 19 141/85 (103) 97 02/21/20 18:34 Nasal Cannula 2.0 02/21/20 16:00 98.5 79 18 139/83 (101) 98 02/21/20 12:00 98.8 69 19 146/80 (102) 98 Intake and Output 02/21/20 02/22/20 19:00 07:00 Intake Total 570 ml 640 ml Output Total 500 ml Balance 570 ml 140 ml Intake Free Water 100 ml 200 ml IV Total 110 ml Tube Feeding 360 ml 440 ml Output Urine Total 500 ml # Voids 1 # Bowel Movements 1 Height (Feet): 5 Height (Inches): 2.00 Weight (Pounds): 150 General Appearance: no apparent distress EENT: normal ENT inspection Neck: supple Cardiovascular: normal rate Respiratory/Chest: decreased breath sounds Abdomen: normal bowel sounds, non tender, soft Extremities: non-tender Assessment/Plan Problem List: (1) Failure to thrive in adult ICD Codes: R62.7 - Failure to thrive in adult SNOMED: 417783408 (2) Renal failure ICD Codes: N19 - Unspecified kidney failure SNOMED: 66675216 (3) Anemia ICD Codes: D64.9 - Anemia, unspecified SNOMED: 818429084 (4) COVID-19 ICD Codes: U07.1 - COVID-19 SNOMED: 928568280 Status: progressing Assessment/Plan: Assessment/Plan: Dysphagia --> NGT Covid positive last admission Now Influenza (+) HTN elevated trop renal failure Recommendations NGTF Monitor Residuals possible PEG once improved will Gopal Winter MD Feb 22, 2020 11:26
--- NOTE | 2020-02-22 11:51 | Infectious Diseases Prog Note ---
Assessment/Plan Assessment/Plan IMPRESSION: 1. Influenza A.treated 2. Recent COVID-19. 3. Diabetes mellitus with hypoglycemia. 4. End-stage renal disease, on hemodialysis. 5. Dysphagia, failure to thrive. 6. Anemia. 7. Thrombocytopenia. 8. 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 RECOMMENDATIONS: Continue Meropenem Repeat COVID19 test Subjective ROS Limited/Unobtainable: Yes Constitutional: Denies: fever Respiratory: Reports: productive cough Neurologic: Reports: other - more alert, on restraint Allergies: Coded Allergies: No Known Allergies (Unverified , 02/06/20) Objective Last 24 Hour Vital Signs Date Time Temp Pulse Resp B/P (MAP) Pulse Ox O2 Delivery O2 Flow Rate FiO2 02/22/20 09:00 Nasal Cannula 2.0 02/22/20 08:00 97.9 81 20 161/86 (111) 98 02/22/20 04:00 98.6 83 20 156/91 (112) 97 02/22/20 00:00 98.8 92 18 137/86 (103) 97 02/21/20 21:00 Nasal Cannula 2.0 02/21/20 20:00 98.6 89 19 141/85 (103) 97 02/21/20 18:34 Nasal Cannula 2.0 02/21/20 16:00 98.5 79 18 139/83 (101) 98 02/21/20 12:00 98.8 69 19 146/80 (102) 98 Height (Feet): 5 Height (Inches): 2.00 Weight (Pounds): 150 General Appearance: no acute distress HEENT: mucous membranes moist, other - no teeth Respiratory/Chest: lungs clear Cardiovascular: normal rate, other - Sohail's catheter Abdomen: soft, non tender, other - NG tube feeding Extremities: other - decreasing edema Neurologic/Psychiatric: alert, responsive Current Medications Medications (Trade) Dose Ordered Sig/Maria Fernanda Route PRN Reason Start Time Stop Time Status Last Admin Dose Admin Acetaminophen (Tylenol) 500 mg Q6H PRN NG Mild Pain (Pain Scale 1-3) 02/17/20 12:45 03/18/20 12:44 Calcitriol (Rocaltrol) 0.5 mcg DAILY ORAL 02/21/20 12:30 05/21/20 12:29 02/22/20 09:02 Dextrose (Dextrose 50%) 25 ml Q30M PRN IV Hypoglycemia 02/18/20 12:15 05/18/20 12:14 Dextrose (Dextrose 50%) 50 ml Q30M PRN IV Hypoglycemia 02/18/20 12:15 05/18/20 12:14 Docusate Sodium (Colace) 100 mg THREE TIMES A DAY NG 02/17/20 18:00 03/18/20 17:59 02/22/20 09:03 Epoetin Manoj (Epoetin Manoj(ESRD on dialysis)) 10,000 unit FRI- SUBQ 02/21/20 21:00 05/21/20 20:59 02/21/20 20:52 Insulin Aspart (NovoLOG) Q6HR SUBQ 02/18/20 18:00 05/18/20 16:29 02/22/20 05:29 Insulin Detemir (Levemir) 8 units DAILY SUBQ 02/21/20 09:00 05/19/20 08:59 02/22/20 09:13 Lansoprazole (Prevacid) 30 mg BID NG 02/21/20 18:00 03/22/20 17:59 02/22/20 09:03 Meropenem 500 mg/ Sodium Chloride 55 ml @ 110 mls/hr Q24H IVPB 02/20/20 09:00 02/25/20 08:59 02/22/20 09:04 Metolazone (Zaroxolyn) 10 mg ONCE NG 02/22/20 10:09 02/22/20 12:00 02/22/20 11:10 Vitamin D (Vitamin D) 5,000 intlu DAILY GT 02/21/20 12:30 03/22/20 12:29 02/22/20 09:03 Viet Harper MD Feb 22, 2020 11:51
[2020-02-22 12:00] VITALS: BP 167/93
--- NOTE | 2020-02-22 12:12 | NUR ---
held [id number]/10 at 1210 d/t loose stool
--- NOTE | 2020-02-22 12:33 | NUR ---
RD ASSESSMENT & RECOMMENDATIONS SEE CARE ACTIVITY FOR COMPLETE ASSESSMENT DAILY ESTIMATED NEEDS: Needs based on Wounds, DM, ARF +HD / 53.4kg abw 25-33 kcals/kg 6828-8472 total kcals w/ HD 1.25-1.8 g protein/kg 66-96 g total protein Fluids per MD NUTRITION DIAGNOSIS: * Swallowing difficulty R/T dysphagia as evidenced by on NGT feeds at this time, pending PEG placement. * Increased kcal/prot needs R/T wound healing and HD needs as evidenced by pt admitted w/ multiple wounds, inculding sacral DTPI partially opened wound, L hip partial thickness wound, and L heel nonblanchable erythema, w/ an order for cath placement, pending HD. CURRENT TF:NGT: Nepro @ 40ml/hr x 24 hrs ENTERAL NUTRITION RECOMMENDATIONS: Nepro @ 40ml/hr x 24 hrs to provide 960ml, 1728kcal, 78g prot, 698ml free water * Maintain current TF order * HOB over 30 degrees/ water flush per MD Maintain same TF order post PEG placement: initiate TF @ 20ml/hr x 6hrs, advance 10ml q 4-6 hrs as tolerated to goal. ADDITIONAL RECOMMENDATIONS: * Per SNF: HT=62" OC=415lmu (02/05/20), rec daily calibrated bedscale wt * Montior for continuity of HD- [facility] on 02/17 * Monitor renal fxn and lytes * Wound healing: Add Nephrovite x 1 ZnSO4 220mg QD x 10 days, + Silvano BID * Monitor BGs, need for insulin adjustment .
--- NOTE | 2020-02-22 12:57 | Surgery Progress Note ---
Surgery Progress Note Subjective Additional Comments no acute events comfortable stable labs noted exam unchanged Objective Last 24 Hour Vital Signs Date Time Temp Pulse Resp B/P (MAP) Pulse Ox O2 Delivery O2 Flow Rate FiO2 02/22/20 12:00 97.9 81 19 167/93 (117) 98 02/22/20 09:00 Nasal Cannula 2.0 02/22/20 08:00 97.9 81 20 161/86 (111) 98 02/22/20 04:00 98.6 83 20 156/91 (112) 97 02/22/20 00:00 98.8 92 18 137/86 (103) 97 02/21/20 21:00 Nasal Cannula 2.0 02/21/20 20:00 98.6 89 19 141/85 (103) 97 02/21/20 18:34 Nasal Cannula 2.0 02/21/20 16:00 98.5 79 18 139/83 (101) 98 I&O Intake and Output 02/21/20 02/22/20 18:59 06:59 Intake Total 570 ml 680 ml Output Total 500 ml Balance 570 ml 180 ml Intake Free Water 100 ml 200 ml IV Total 110 ml Tube Feeding 360 ml 480 ml Output Urine Total 500 ml # Voids 1 # Bowel Movements 1 Dressing: saturated Cardiovascular: RSR Respiratory: decreased breath sounds Abdomen: soft, non-tender, present bowel sounds Extremities: no tenderness, no cyanosis Plan Problems: (1) CHF (congestive heart failure) (2) Hip fracture, left Assessment & Plan: noted. bruising see above ortho eval (3) Anemia (4) Failure to thrive in adult Assessment & Plan: Nutritional optimization. NG tube for now start tube feeds start meds (5) Renal failure (6) COVID-19 Assessment & Plan: prior positive now negative this admission (7) Congestive heart failure (8) Hypoglycemia (9) UTI (urinary tract infection) (10) Diabetic nephropathy (11) Pneumonia (12) Renal failure (ARF), acute on chronic (13) Deep tissue injury Assessment & Plan: see below (14) Pressure injury of sacral region, unstageable Assessment & Plan: Patient identified on admission to have a large sacral deep tissue injury non-blanchable erythema blistering epidermis intact no drainage. Unknown duration but present on prior admission and noted to be high risk for breakdown given overall condition and status. Tenderness difficult to a certain based on clinical examinations patient's history. Labs noted. Patient high risk for decubitus ulcer formation worsening condition. NG tube in place currently. Nutritional optimization. Turn every 2 hours. Offload pressure with pillows. OPTi foam dressing to sacrum. Care plan initiated. Aydin calles you will follow with recommendations Pt presented on admission with multiple Pressure Injuries, Fx L Hip. Large contusion noted to L Hip/ Lateral L Femur noted on prior admission and preset still. Sacral DTPI partially opened and is 75% necrotic, 25% moist erythematous and clear skin flap that is loose.(L)5.5cm x (W)9cm. Small amt serous exudate noted. Non-Blanchable erythema periwound. Partial thickness wound noted to L Hip. Base of wound is moist and viable. edges adherent to base of wound(L)3cm x (W)2.5cm. L Heel is boggy with non-Blanchable erythema with delineated margins. L heel is boggy with non-blanchable erythema. Tx.Plan: Cleanse Sacral wound with Saline. Apply Therahoney. Apply Moisture Barrier Paste periwound. Cover with Optifoam drsg. Change every 3 days and prn. Apply Moisture Barrier Paste to L Hip wound. Cover with Optifoam drsg. Change every 3 days and prn Apply Cavilon Skin Barrier to both heels. Cover each heel with Optifoam drsg. Change every 7 days and prn. Reposition at least every 2hours or as tolerated. Off-load heels with pillow. APM/CHE Mattress overlay. Chris Lei Feb 22, 2020 12:57
[2020-02-22 16:00] VITALS: BP 143/81
--- NOTE | 2020-02-22 16:10 | NUR ---
NURSE NOTES: Patient refused labs. Labs draw re-scheduled for tomorrow morning Addendum: 02/22/20 at 1612 by Jorge Aguiar RN RN disregard last note. wrong patient
--- NOTE | 2020-02-22 19:21 | NUR ---
NURSE HAND-OFF: Important Events on Shift: EGD and Peg placement on 02/23/20. HD done 3L out. Patient Status: stable Diet: Nepro@40 via NG Pending Orders: n/a Pending Results/Labs:n/a Pending MD notification:n/a Latest Vital Signs: Temperature 97.9 , Pulse 82 , B/P 143 /81 , Respiratory Rate 19 , O2 SAT 96 , Nasal Cannula, O2 Flow Rate 2.0 . Vital Sign Comment:stable Latest Barrett Fall Score: 55 Fall Risk: High Risk Safety Measures: Call light Within Reach, Bed Alarm Zone 1, Side Rails Side Rails x2, Bed position Low and Locked. Fall Precautions: Yellow Socks Door Sign Report given to BONG Constantino
--- NOTE | 2020-02-22 19:52 | NUR ---
NURSE NOTES: Patient received in bed, awake, on bilateral soft wrist restraints for safety and prevention of pulling medical devices. Bilateral arms edematous and elevated on pillows. Patient noted to have Cornelius catheter and NG tube@ 63cm for feeding. No residual noted at this time. Patient will be NPO at midnight prior to EGD with possible PEG placement tomorrow. Will continue with plan of care.
[2020-02-22 20:00] VITALS: BP 153/83
--- NOTE | 2020-02-22 20:58 | General Progress Note ---
Subjective ROS Limited/Unobtainable: Yes Allergies: Coded Allergies: No Known Allergies (Unverified , 02/06/20) Objective Last 24 Hour Vital Signs Date Time Temp Pulse Resp B/P (MAP) Pulse Ox O2 Delivery O2 Flow Rate FiO2 02/22/20 20:00 99.3 86 18 153/83 (106) 99 02/22/20 16:00 97.9 82 19 143/81 (101) 96 02/22/20 12:00 97.9 81 19 167/93 (117) 98 02/22/20 09:00 Nasal Cannula 2.0 02/22/20 08:00 97.9 81 20 161/86 (111) 98 02/22/20 04:00 98.6 83 20 156/91 (112) 97 02/22/20 00:00 98.8 92 18 137/86 (103) 97 02/21/20 21:00 Nasal Cannula 2.0 Intake and Output 02/21/20 02/22/20 18:59 06:59 Intake Total 570 ml 680 ml Output Total 500 ml Balance 570 ml 180 ml Intake Free Water 100 ml 200 ml IV Total 110 ml Tube Feeding 360 ml 480 ml Output Urine Total 500 ml # Voids 1 # Bowel Movements 1 Height (Feet): 5 Height (Inches): 2.00 Weight (Pounds): 150 Assessment/Plan Problem List: (1) COVID-19 ICD Codes: U07.1 - COVID-19 SNOMED: 328595634 (2) Renal failure ICD Codes: N19 - Unspecified kidney failure SNOMED: 82421739 (3) Anemia ICD Codes: D64.9 - Anemia, unspecified SNOMED: 833884854 (4) Hypoglycemia ICD Codes: E16.2 - Hypoglycemia, unspecified SNOMED: 042591277 (5) Congestive heart failure ICD Codes: I50.9 - Heart failure, unspecified SNOMED: 58167721 (6) UTI (urinary tract infection) ICD Codes: N39.0 - Urinary tract infection, site not specified SNOMED: 48975308 (7) Diabetic nephropathy ICD Codes: E11.21 - Type 2 diabetes mellitus with diabetic nephropathy SNOMED: 83157178, 779377229 (8) Renal failure (ARF), acute on chronic ICD Codes: N17.9 - Acute kidney failure, unspecified; N18.9 - Chronic kidney disease, unspecified SNOMED: 868668503 (9) Pressure injury of sacral region, unstageable ICD Codes: L89.150 - Pressure ulcer of sacral region, unstageable SNOMED: 656321005 Status: progressing Assessment/Plan: renal failure requiring diaylsis poor historian afebrile covid positive resp insuff no wheezing arf on top of cri chf sepsis Janes Faust MD Feb 22, 2020 20:58
[2020-02-23] VITALS (10 sets, daily range): BP systolic 120–165; BP diastolic 64–97
--- NOTE | 2020-02-23 03:10 | NUR ---
NURSE NOTES: Patient in bed, resting. No signs of distress. NG-tube in place at 63cm; patient NPO for GI procedure in the AM. R jugular HD cath in place. Dressing clean, dry and intact. IV intact and patent. Cornelius in place and draining yellow urine. Bed locked and in lowest position. Bed alarm on. HOB elevated. Will continue plan of care.
--- NOTE | 2020-02-23 03:14 | NUR ---
NURSE HAND-OFF: Important Events on Shift:[NPO p midnight for EGD/PEG] Patient Status: [asleep] Diet: [NPO] Pending Orders: [for EGD/PEG today at 8am] Pending Results/Labs:[] Pending MD notification:[] Latest Vital Signs: Temperature 98.0 , Pulse 86 , B/P 164 /88 , Respiratory Rate 18 , O2 SAT 99 , Nasal Cannula, O2 Flow Rate 2.0 . Vital Sign Comment: [] Latest Barrett Fall Score: 35 Fall Risk: Medium Risk Safety Measures: Call light Within Reach, Bed Alarm Zone 1, Side Rails Side Rails x2, Bed position Low and Locked. Fall Precautions: Yellow Socks Door Sign Report given to [Zuly WOODY].
[2020-02-23] MEDS: NovoLOG Insulin Flexpen SUBQ SCH ×4 (06:00→23:11)
--- NOTE | 2020-02-23 06:20 | General Progress Note ---
Subjective ROS Limited/Unobtainable: Yes Allergies: Coded Allergies: No Known Allergies (Unverified , 02/06/20) Subjective events noted interval notes reviewed glucose values oln low normal side Item Value Date Time Bedside Blood Glucose 98 mg/dl 02/23/20 0600 Bedside Blood Glucose 116 mg/dl 02/22/20 2304 Bedside Blood Glucose 136 mg/dl H 02/22/20 1723 Bedside Blood Glucose 176 mg/dl H 02/22/20 1211 Bedside Blood Glucose 161 mg/dl H 02/22/20 0913 Objective Last 24 Hour Vital Signs Date Time Temp Pulse Resp B/P (MAP) Pulse Ox O2 Delivery O2 Flow Rate FiO2 02/23/20 03:34 97.5 82 18 165/97 (119) 99 02/23/20 00:00 98.0 86 18 164/88 (113) 99 02/22/20 21:00 Nasal Cannula 2.0 02/22/20 20:00 99.3 86 18 153/83 (106) 99 02/22/20 16:00 97.9 82 19 143/81 (101) 96 02/22/20 12:00 97.9 81 19 167/93 (117) 98 02/22/20 09:00 Nasal Cannula 2.0 02/22/20 08:00 97.9 81 20 161/86 (111) 98 Intake and Output 02/22/20 02/23/20 19:00 07:00 Intake Total 680 ml 280 ml Output Total 3000 ml 400 ml Balance -2320 ml -120 ml Intake Free Water 200 ml 120 ml Tube Feeding 480 ml 160 ml Output Urine Total 400 ml Hemodialysis UF 3000 ml Height (Feet): 5 Height (Inches): 5.00 Weight (Pounds): 196 General Appearance: no apparent distress Neck: normal alignment Cardiovascular: normal rate Respiratory/Chest: lungs clear Abdomen: normal bowel sounds Objective Current Medications Medications (Trade) Dose Ordered Sig/Maria Fernanda Route PRN Reason Start Time Stop Time Status Last Admin Dose Admin Acetaminophen (Tylenol) 500 mg Q6H PRN NG Mild Pain (Pain Scale 1-3) 02/17/20 12:45 03/18/20 12:44 Calcitriol (Rocaltrol) 0.5 mcg DAILY ORAL 02/21/20 12:30 05/21/20 12:29 02/22/20 09:02 Cefoxitin Sodium 1 gm/Dextrose 55 ml @ 110 mls/hr ONCE IVPB 02/23/20 07:00 02/23/20 09:00 Dextrose (Dextrose 50%) 25 ml Q30M PRN IV Hypoglycemia 02/18/20 12:15 05/18/20 12:14 Dextrose (Dextrose 50%) 50 ml Q30M PRN IV Hypoglycemia 02/18/20 12:15 05/18/20 12:14 Docusate Sodium (Colace) 100 mg THREE TIMES A DAY NG 02/17/20 18:00 03/18/20 17:59 02/22/20 09:03 Epoetin Manoj (Epoetin Manoj(ESRD on dialysis)) 10,000 unit FRI-FRI-FRI SUBQ 02/21/20 21:00 05/21/20 20:59 02/21/20 20:52 Insulin Aspart (NovoLOG) Q6HR SUBQ 02/18/20 18:00 05/18/20 16:29 02/22/20 12:11 Insulin Detemir (Levemir) 8 units DAILY SUBQ 02/21/20 09:00 05/19/20 08:59 02/22/20 09:13 Lansoprazole (Prevacid) 30 mg BID NG 02/21/20 18:00 03/22/20 17:59 02/22/20 17:23 Meropenem 500 mg/ Sodium Chloride 55 ml @ 110 mls/hr Q24H IVPB 02/20/20 09:00 02/25/20 08:59 02/22/20 09:04 Vitamin D (Vitamin D) 5,000 intlu DAILY GT 02/21/20 12:30 03/22/20 12:29 02/22/20 09:03 Assessment/Plan Problem List: (1) Hypoglycemia ICD Codes: E16.2 - Hypoglycemia, unspecified SNOMED: 291755688 (2) UTI (urinary tract infection) ICD Codes: N39.0 - Urinary tract infection, site not specified SNOMED: 05170002 (3) CHF (congestive heart failure) ICD Codes: I50.9 - Heart failure, unspecified SNOMED: 04113920 (4) Failure to thrive in adult ICD Codes: R62.7 - Failure to thrive in adult SNOMED: 347206452 Status: progressing Assessment/Plan: reduce Levemir to 5 units daily continue Novolog sliding scale every 6 hours hypoglycemia protocol in order Adalberto Echevarria MD Feb 23, 2020 06:20
--- NOTE | 2020-02-23 06:34 | NUR ---
NURSE HAND-OFF: Important Events on Shift: Patient NPO for EGD/PEG this AM Patient Status: Stable Diet: NPO at this time Pending Orders: EGD/PEG this AM Pending Results/Labs: Uric acid, BNP, CRP, CBC, CMP, Phos Pending MD notification: N/A Latest Vital Signs: Temperature 97.5 , Pulse 82 , B/P 165 /97 , Respiratory Rate 18 , O2 SAT 99 , Nasal Cannula, O2 Flow Rate 2.0 . Vital Sign Comment: Latest Barrett Fall Score: 35 Fall Risk: Medium Risk Safety Measures: Call light Within Reach, Bed Alarm Zone 1, Side Rails Side Rails x2, Bed position Low and Locked. Fall Precautions: Yellow Socks Door Sign Addendum: 02/23/20 at 0723 by RADHIKA PLEITEZ RN Report given to BONG Burr
[2020-02-23 06:59] LABS: HEMATOCRIT 25.3 % (37.0-47.0); HEMOGLOBIN 8.1 G/DL (12.0-16.0); MEAN CORPUSCULAR VOLUME 89 FL (80-99); PLATELET COUNT 74 K/UL (150-450); RED BLOOD COUNT 2.86 M/UL (4.20-5.40); RED CELL DISTRIBUTION WIDTH 18.5 % (11.6-14.8); WHITE BLOOD COUNT 5.4 K/UL (4.8-10.8)
[2020-02-23] MEDS ORDERED: cefOXitin Sod 1 GM in D5W 55 ML IVPB SCH (07:00)
[2020-02-23 07:37] LABS: ALBUMIN 2.2 G/DL (3.4-5.0); ALBUMIN/GLOBULIN RATIO 0.6 (1.0-2.7); BILIRUBIN,TOTAL 0.7 MG/DL (0.2-1.0); CALCIUM 8.1 MG/DL (8.5-10.1); CREATININE 1.9 MG/DL (0.55-1.30); PHOSPHORUS 3.3 MG/DL (2.5-4.9)
--- NOTE | 2020-02-23 07:57 | Pre-Procedure Note/Attestation ---
Pre-Procedure Note/Attestation Complete Prior to Procedure Planned Procedure: not applicable Procedure Narrative: egd/peg Indications for Procedure Pre-Operative Diagnosis: dysphagia Attestation I attest that I discussed the nature of the procedure; its benefits; risks and complications; and alternatives (and the risks and benefits of such alternatives), prior to the procedure, with the patient (or the patient's legal insurance verification representative). I attest that, if there was a reasonable possibility of needing a blood transfu celestino, the patient (or the patient's legal insurance verification representative) was given the [facility] standardized written summary, pursuant to the Dru Génesis Blood Safety Act ([place] Health and Safety Code # 1645, as amended). I attest that I re-evaluated the patient just prior to the surgery and that there has been no change in the patient's H&P, except as documented below: Gopal Winter MD Feb 23, 2020 07:57
[2020-02-23] MEDS ORDERED: NS Irrig 1000ml ONE (08:00)
[2020-02-23] MEDS ORDERED: NS 500ML IVPB ONE (08:00)
[2020-02-23] MEDS ORDERED: Sterile Water Irrig 1000ml IRRIG ONE (08:00)
[2020-02-23] MEDS ORDERED: Lidocaine 1% MPF 10mg/ml 5ml ONE (08:00)
--- NOTE | 2020-02-23 08:12 | Endoscopy Procedure Note ---
Endoscopy Procedure Note General Indication for Procedure: dysphgia Procedures Performed: EGD, PEG Operative Findings/Diagnosis: same Specimen: none Pt Tolerated Procedure Well: Yes Estimated Blood Loss: none Anesthesia Anesthesiologist: laci Anesthesia: MAC Inserted Devices Implant(s) used?: No GI Core Measures 50 yrs or older w/o bx or poly: Not Applicable 10yrs. F/U recommended: Not Applicable Gopal Winter MD Feb 23, 2020 08:12
--- NOTE | 2020-02-23 08:13 | NUR ---
NURSE NOTES: PT OFF UNIT FOR EGD AND PEG PLACEMENT.
--- NOTE | 2020-02-23 08:25 | Immediate Post-Op Evaluation ---
Immediate Post-Op Evalulation Immediate Post-Op Evalulation Procedure: PEG placement Date of Evaluation: Feb 23, 2020 Time of Evaluation: 08:15 IV Fluids: 100 Blood Pressure Systolic: 135 Blood Pressure Diastolic: 77 Pulse Rate: 82 Respiratory Rate: 14 O2 Sat by Pulse Oximetry: 100 Temperature (Fahrenheit): 97.5 Nausea: No Vomiting: No Patient Status: reacts, patent Hydration Status: adequate Drug: none; see chart Cely Clark CRNA Feb 23, 2020 08:25
--- NOTE | 2020-02-23 08:28 | Anethesia Preoperative Eval ---
Anesthesia Pre-op PMH/ROS General Date of Evaluation: Feb 23, 2020 Time of Evaluation: 08:00 Anesthesiologist: ramírez ASA Score: ASA 4 Mallampati Score Class I : Soft palate, uvula, fauces, pillars visible Class II: Soft palate, uvula, fauces visible Class III: Soft palate, base of uvula visible Class IV: Only hard plate visible Mallampati Classification: Class III Surgeon: lorie Diagnosis: CHF Surgical Procedure: PEG placement Anesthesia History: none Family History: no anesthesia problems Allergies: Coded Allergies: No Known Allergies (Unverified , 02/06/20) Medications: see eMAR Patient NPO?: Yes NPO Date: Feb 23, 2020 NPO Time: 00:01 Past Medical History Cardiovascular: Reports: HTN, CAD, other - CHF Pulmonary: Reports: other - COVID hx, pneumonia; Denies: asthma, COPD, BASIA Gastrointestinal/Genitourinary: Reports: GERD, CRI, ESRD Neurologic/Psychiatric: Reports: dementia; Denies: CVA, depression/anxiety, TIA, other Endocrine: Reports: DM; Denies: hypothyroidism, steroids, other HEENT: Denies: cataract (L), cataract (R), glaucoma, [place] (L), [place] (R), other Hematology/Immune: Reports: anemia Musculoskeletal/Integumentary: Denies: OA, RA, DJD, DDD, edema, other Other: obesity Anesthesia Pre-op Phys. Exam Physician Exam Last Vital Signs Date Time Temp Pulse Resp B/P (MAP) Pulse Ox O2 Delivery O2 Flow Rate FiO2 02/23/20 03:34 97.5 82 18 165/97 (119) 99 02/22/20 21:00 Nasal Cannula 2.0 Constitutional: other - confused; on two point restraints Neurologic: other - demented; consent obtained from daughter Cardiovascular: RRR Respiratory: other - ronchi Gastrointestinal: S/NT/ND Airway Exam Mallampati Classification 3 Mallampati Score: Class III MO: limited Dentures: no upper, no lower Anesthesia Pre-op A/P Labs Hematology Test 02/23/20 06:33 White Blood Count 5.4 K/UL (4.8-10.8) Red Blood Count 2.86 M/UL (4.20-5.40) L Hemoglobin 8.1 G/DL (12.0-16.0) L Hematocrit 25.3 % (37.0-47.0) L Mean Corpuscular Volume 89 FL (80-99) Mean Corpuscular Hemoglobin 28.3 PG (27.0-31.0) Mean Corpuscular Hemoglobin Concent 32.0 G/DL (32.0-36.0) Red Cell Distribution Width 18.5 % (11.6-14.8) H Platelet Count 74 K/UL (150-450) L Mean Platelet Volume 7.5 FL (6.5-10.1) Neutrophils (%) (Auto) % (45.0-75.0) Lymphocytes (%) (Auto) % (20.0-45.0) Monocytes (%) (Auto) % (1.0-10.0) Eosinophils (%) (Auto) % (0.0-3.0) Basophils (%) (Auto) % (0.0-2.0) Differential Total Cells Counted 100 Neutrophils % (Manual) 88 % (45-75) H Lymphocytes % (Manual) 8 % (20-45) L Monocytes % (Manual) 1 % (1-10) Eosinophils % (Manual) 3 % (0-3) Basophils % (Manual) 0 % (0-2) Band Neutrophils 0 % (0-8) Platelet Estimate Decreased L Platelet Morphology Normal Anisocytosis 1+ Chemistry Test 02/23/20 06:33 Sodium Level 134 MMOL/L (136-145) L Potassium Level 4.0 MMOL/L (3.5-5.1) Chloride Level 100 MMOL/L (98-107) Carbon Dioxide Level 26 MMOL/L (21-32) Anion Gap 8 mmol/L (5-15) Blood Urea Nitrogen 48 mg/dL (7-18) H Creatinine 1.9 MG/DL (0.55-1.30) H Estimat Glomerular Filtration Rate 25.4 mL/min (>60) Glucose Level 98 MG/DL (74-106) Uric Acid 2.8 MG/DL (2.6-7.2) Calcium Level 8.1 MG/DL (8.5-10.1) L Phosphorus Level 3.3 MG/DL (2.5-4.9) Total Bilirubin 0.7 MG/DL (0.2-1.0) Aspartate Amino Transf (AST/SGOT) 19 U/L (15-37) Alanine Aminotransferase (ALT/SGPT) 16 U/L (12-78) Alkaline Phosphatase 85 U/L (46-116) C-Reactive Protein, Quantitative 8.9 mg/dL (0.00-0.90) H Pro-B-Type Natriuretic Peptide 14707 pg/mL (0-125) H Total Protein 5.7 G/DL (6.4-8.2) L Albumin 2.2 G/DL (3.4-5.0) L Globulin 3.5 g/dL Albumin/Globulin Ratio 0.6 (1.0-2.7) L Studies Pre-op Studies: EKG - sr Risk Assessment & Plan Assessment: stable Plan: mac Status Change Before Surgery: No Pre-Antibiotics Drug: none for anesthesia Cely Clark CRNA Feb 23, 2020 08:28
--- NOTE | 2020-02-23 08:50 | NUR ---
NURSE NOTES: PT ARRIVED BACK FROM EGD AND PEG PLACEMENT. RECIEVED REPORT FROM BONG VELASCO. NO FINDINGS FROM EGD. PT HAS G-TUBE INSERTED ON LEFT MID QUADRANT. PER KRISTA, LET NEW PEG PLACEMENT REST 4-6 HOURS BEFORE STARTING FEEDING NEPRO 40ML/HR. ABDOMINAL BINDER APPLIED. PT IN HIGH ODELL'S POSITION WITH HOB ELEVATED. VSS. BED IN LOWEST POSITION WITH BEDSIDE RAILS X3 RAISED. BED ALARM ON ZONE 1. BILATERAL SOFT WRIST RESTRAINTS ARE ON BOTH WRISTS. SKIN INTACT AND PERIPHERAL PULSES STRONG AND PALPABLE. NO SKIN ISSUES ON WRISTS NOTED. WILL CONTINUE TO MONITOR.
[2020-02-23] MEDS ORDERED: Levemir Flexpen SUBQ SCH (09:00)
[2020-02-23] MEDS: Docusate 100mg/10ml Liq NG SCH ×3 (09:00→17:16)
[2020-02-23] MEDS: Calcitriol 0.5mcg Cap ORAL SCH (09:28)
[2020-02-23] MEDS: Meropenem 500 MG in NS 55 ML IVPB SCH (09:28)
[2020-02-23] MEDS: Vitamin D 1000 IU Tab GT SCH (09:28)
[2020-02-23] MEDS: Acetaminophen 650mg/20.3ml NG PRN ×2 (09:29→17:16)
--- NOTE | 2020-02-23 09:33 | 48 Hour Post Anesthesia Eval ---
Post Anesthesia Evaluation Procedure: PEG placement Date of Evaluation: Feb 23, 2020 Time of Evaluation: 09:33 Blood Pressure Systolic: 155 0: 83 Pulse Rate: 52 Respiratory Rate: 14 O2 Sat by Pulse Oximetry: 98 Airway: patent Nausea: No Vomiting: No Hydration Status: adequate Cardiopulmonary Status: stable Mental Status/LOC: patient returned to baseline Post-Anesthesia Complications: none Follow-up care needed: N/A Cely Clark CRNA Feb 23, 2020 09:33
--- NOTE | 2020-02-23 10:00 | Procedure Note ---
DATE OF PROCEDURE: 02/23/2020 SURGEON: Gopal Winter MD PROCEDURE: Upper endoscopy with G-tube placement. ANESTHESIA: Per MICA LAYER, Cely Tarrillion. INSTRUMENT: Olympus adult upper endoscope. INDICATION: Dysphagia. REASON FOR PROCEDURE: The procedure, risks, benefits, and possible consequences, including hemorrhage, aspiration, perforation and infection, and alternative treatments, were explained to the patient/legal guardian by Dr. Gopal Winter and the patient/legal guardian understood and accepted these risks. DESCRIPTION OF PROCEDURE: After informed consent was obtained and the patient was adequately sedated, Olympus upper endoscope was advanced from mouth into the second portion of the duodenum and retroflexion was performed in the stomach. The patient had mild atrophic gastritis. Then, under endoscopic guidance and under sterile condition, a 20-Irish pull type of G-tube was successfully placed in the epigastric area. The distance from the tip of the tube to skin was about 2.5 cm in size. The patient tolerated the procedure very well without any complication. FINDINGS: Status post successful G-tube placement. RECOMMENDATIONS: Abdominal binder. Elevate the head of the bed at all times. G-tube flush. G-tube care. Start tube feeding later today. I want to thank Dr. Faust for this kind referral. Gopal Winter M.D. DR: Mitchel JOB#: [id number] CC: Janes Faust M.D.
--- NOTE | 2020-02-23 10:00 | NUR ---
Speech Note Chart reviewed. PEG placed this morning, hold tx. follow up routinely Max Lloyd
--- NOTE | 2020-02-23 10:44 | Nephrology Progress Note ---
Assessment/Plan Problem List: (1) Renal failure (ARF), acute on chronic (2) Diabetic nephropathy (3) CHF (congestive heart failure) (4) Anemia Assessment 1) Renal failure (ARF), acute on chronic (2) COVID-19 (3) UTI (urinary tract infection) (4) Congestive heart failure (5) Anemia (6) Diabetic nephropathy Plan February 22: Dialyzed yesterday. Due for PEG today. Will hold off dialysis and continue to monitor renal parameters and use Zaroxolyn as needed. Continue per consultants. February 21: Due for dialysis today. Will ultra filtrate max as possible. No chemistry panel done today. I had a conversation on the phone with the daughter last night who at this time would like to continue dialysis. Continue as is. February 20: Patient received 2 dialysis so far. Appears more responsive. Labs reviewed. Medication list reviewed. Vitamin D supplement ordered. Next dialysis tomorrow. Will discuss with the daughter regarding continuation of dialysis if agreeable. February 19: First dialysis February 17. Second dialysis will be done today. Labs reviewed. Medication list reviewed. Continue per consultants. February 18: Patient was dialyzed yesterday. Patient less edematous today. Patient appears more responsive today. Plan to dialyze and ultrafiltrate again tomorrow. Medication list reviewed. Today's labs pending. February 17: Patient due for dialysis catheter today and subsequent dialysis treatment. Patient is edematous. Patient has an NG tube on feeding. Will discontinue IV fluid. Continue per consultants. Discussed with RN. Previously: Consent for insertion of dialysis catheter as per my conversation with the daughter who now desires dialysis NG feeding with Nepro Dialysis cath, followed by dialysis Subjective ROS Limited/Unobtainable: Yes Objective Objective Last 24 Hour Vital Signs Date Time Temp Pulse Resp B/P (MAP) Pulse Ox O2 Delivery O2 Flow Rate FiO2 02/23/20 09:33 52 14 98 02/23/20 08:35 97.2 83 21 155/83 99 Room Air 02/23/20 08:25 84 20 154/87 98 Room Air 02/23/20 08:25 82 14 100 02/23/20 08:20 87 22 148/84 100 Nasal Cannula 3 02/23/20 08:15 97.1 81 18 135/81 99 Nasal Cannula 3 02/23/20 08:00 97.9 67 20 160/87 (111) 98 02/23/20 03:34 97.5 82 18 165/97 (119) 99 02/23/20 00:00 98.0 86 18 164/88 (113) 99 02/22/20 21:00 Nasal Cannula 2.0 02/22/20 20:00 99.3 86 18 153/83 (106) 99 02/22/20 16:00 97.9 82 19 143/81 (101) 96 02/22/20 12:00 97.9 81 19 167/93 (117) 98 Intake and Output 02/22/20 02/23/20 19:00 07:00 Intake Total 680 ml 280 ml Output Total 3000 ml 400 ml Balance -2320 ml -120 ml Intake Free Water 200 ml 120 ml Tube Feeding 480 ml 160 ml Output Urine Total 400 ml Hemodialysis UF 3000 ml Laboratory Tests 02/23/20 06:33: White Blood Count 5.4, Red Blood Count 2.86L, Hemoglobin 8.1L, Hematocrit 25.3L, Mean Corpuscular Volume 89, Mean Corpuscular Hemoglobin 28.3, Mean Corpuscular Hemoglobin Concent 32.0, Red Cell Distribution Width 18.5H, Platelet Count 74L, Mean Platelet Volume 7.5, Neutrophils (%) (Auto) , Lymphocytes (%) (Auto) , Monocytes (%) (Auto) , Eosinophils (%) (Auto) , Basophils (%) (Auto) , Differential Total Cells Counted 100, Neutrophils % (Manual) 88H, Lymphocytes % (Manual) 8L, Monocytes % (Manual) 1, Eosinophils % (Manual) 3, Basophils % (Manual) 0, Band Neutrophils 0, Platelet Estimate DecreasedL, Platelet Morphology Normal, Anisocytosis 1+, Sodium Level 134L, Potassium Level 4.0, Chloride Level 100, Carbon Dioxide Level 26, Anion Gap 8, Blood Urea Nitrogen 48H, Creatinine 1.9H, Estimat Glomerular Filtration Rate 25.4, Glucose Level 98, Uric Acid 2.8, Calcium Level 8.1L, Phosphorus Level 3.3, Total Bilirubin 0.7, Aspartate Amino Transf (AST/SGOT) 19, Alanine Aminotransferase (ALT/SGPT) 16, Alkaline Phosphatase 85, C-Reactive Protein, Quantitative 8.9H, Pro-B-Type Natriuretic Peptide 41310S, Total Protein 5.7L, Albumin 2.2L, Globulin 3.5, Albumin/Globulin Ratio 0.6L Height (Feet): 5 Height (Inches): 5.00 Weight (Pounds): 196 General Appearance: no apparent distress, lethargic Cardiovascular: tachycardia Respiratory/Chest: decreased breath sounds, rhonchi - bilaterally Abdomen: distended Quirino Cormier MD Feb 23, 2020 10:44
--- NOTE | 2020-02-23 12:01 | NUR ---
DISCHARGE PLANNING PATIENT HAS BEEN REFERRED TO [facility] P: [phone] F: [phone]
--- NOTE | 2020-02-23 12:06 | NUR ---
NURSE NOTES: ORDER FOR HEPB AND HEP C AG/AB NOTED. RN SPOKE TO KAYCEE IN LAB, NEED TO COLLECT 2 RED TOPS. RN COLLECTED AND SENT DOWN TO LAB.
--- NOTE | 2020-02-23 12:40 | NUR ---
SAWYER CORK SLABS NOTE S/W ZAINAB IN LAB. CONFIRMED SPECIMEN FOR HEP PANEL BEING SENT TO [facility].
--- NOTE | 2020-02-23 12:49 | Surgery Progress Note ---
Surgery Progress Note Subjective Symptoms: improved, tolerating diet, passing flatus, BM Objective Last 24 Hour Vital Signs Date Time Temp Pulse Resp B/P (MAP) Pulse Ox O2 Delivery O2 Flow Rate FiO2 02/23/20 12:00 96.7 80 18 120/64 (82) 96 02/23/20 09:33 52 14 98 02/23/20 09:00 Room Air 2.0 02/23/20 08:35 97.2 83 21 155/83 99 Room Air 02/23/20 08:25 84 20 154/87 98 Room Air 02/23/20 08:25 82 14 100 02/23/20 08:20 87 22 148/84 100 Nasal Cannula 3 02/23/20 08:15 97.1 81 18 135/81 99 Nasal Cannula 3 02/23/20 08:00 97.9 67 20 160/87 (111) 98 02/23/20 03:34 97.5 82 18 165/97 (119) 99 02/23/20 00:00 98.0 86 18 164/88 (113) 99 02/22/20 21:00 Nasal Cannula 2.0 02/22/20 20:00 99.3 86 18 153/83 (106) 99 02/22/20 16:00 97.9 82 19 143/81 (101) 96 I&O Intake and Output 02/22/20 02/23/20 18:59 06:59 Intake Total 680 ml 320 ml Output Total 3000 ml 400 ml Balance -2320 ml -80 ml Intake Free Water 200 ml 120 ml Tube Feeding 480 ml 200 ml Output Urine Total 400 ml Hemodialysis UF 3000 ml Dressing: saturated Cardiovascular: RSR Respiratory: decreased breath sounds Abdomen: soft, non-tender, present bowel sounds Extremities: no tenderness, no cyanosis Laboratory Tests Test 02/23/20 06:33 White Blood Count 5.4 K/UL (4.8-10.8) Red Blood Count 2.86 M/UL (4.20-5.40) L Hemoglobin 8.1 G/DL (12.0-16.0) L Hematocrit 25.3 % (37.0-47.0) L Mean Corpuscular Volume 89 FL (80-99) Mean Corpuscular Hemoglobin 28.3 PG (27.0-31.0) Mean Corpuscular Hemoglobin Concent 32.0 G/DL (32.0-36.0) Red Cell Distribution Width 18.5 % (11.6-14.8) H Platelet Count 74 K/UL (150-450) L Mean Platelet Volume 7.5 FL (6.5-10.1) Neutrophils (%) (Auto) % (45.0-75.0) Lymphocytes (%) (Auto) % (20.0-45.0) Monocytes (%) (Auto) % (1.0-10.0) Eosinophils (%) (Auto) % (0.0-3.0) Basophils (%) (Auto) % (0.0-2.0) Differential Total Cells Counted 100 Neutrophils % (Manual) 88 % (45-75) H Lymphocytes % (Manual) 8 % (20-45) L Monocytes % (Manual) 1 % (1-10) Eosinophils % (Manual) 3 % (0-3) Basophils % (Manual) 0 % (0-2) Band Neutrophils 0 % (0-8) Platelet Estimate Decreased L Platelet Morphology Normal Anisocytosis 1+ Sodium Level 134 MMOL/L (136-145) L Potassium Level 4.0 MMOL/L (3.5-5.1) Chloride Level 100 MMOL/L (98-107) Carbon Dioxide Level 26 MMOL/L (21-32) Anion Gap 8 mmol/L (5-15) Blood Urea Nitrogen 48 mg/dL (7-18) H Creatinine 1.9 MG/DL (0.55-1.30) H Estimat Glomerular Filtration Rate 25.4 mL/min (>60) Glucose Level 98 MG/DL (74-106) Uric Acid 2.8 MG/DL (2.6-7.2) Calcium Level 8.1 MG/DL (8.5-10.1) L Phosphorus Level 3.3 MG/DL (2.5-4.9) Total Bilirubin 0.7 MG/DL (0.2-1.0) Aspartate Amino Transf (AST/SGOT) 19 U/L (15-37) Alanine Aminotransferase (ALT/SGPT) 16 U/L (12-78) Alkaline Phosphatase 85 U/L (46-116) C-Reactive Protein, Quantitative 8.9 mg/dL (0.00-0.90) H Pro-B-Type Natriuretic Peptide 14553 pg/mL (0-125) H Total Protein 5.7 G/DL (6.4-8.2) L Albumin 2.2 G/DL (3.4-5.0) L Globulin 3.5 g/dL Albumin/Globulin Ratio 0.6 (1.0-2.7) L Hepatitis B Surface Antigen Pending Hepatitis B Surface Antibody, Quant Pending Hepatitis C Antibody Pending Plan Problems: (1) CHF (congestive heart failure) (2) Hip fracture, left Assessment & Plan: noted. bruising see above ortho eval (3) Anemia (4) Failure to thrive in adult Assessment & Plan: Nutritional optimization. NG tube for now start tube feeds start meds (5) Renal failure (6) COVID-19 Assessment & Plan: prior positive now negative this admission (7) Congestive heart failure (8) Hypoglycemia (9) UTI (urinary tract infection) (10) Diabetic nephropathy (11) Pneumonia (12) Renal failure (ARF), acute on chronic (13) Deep tissue injury Assessment & Plan: see below (14) Pressure injury of sacral region, unstageable Assessment & Plan: Patient identified on admission to have a large sacral deep tissue injury non-blanchable erythema blistering epidermis intact no drainage. Unknown duration but present on prior admission and noted to be high risk for breakdown given overall condition and status. Tenderness difficult to a certain based on clinical examinations patient's history. Labs noted. Patient high risk for decubitus ulcer formation worsening condition. NG tube in place currently. Nutritional optimization. Turn every 2 hours. Offload pressure with pillows. OPTi foam dressing to sacrum. Care plan initiated. T marli you will follow with recommendations Pt presented on admission with multiple Pressure Injuries, Fx L Hip. Large contusion noted to L Hip/ Lateral L Femur noted on prior admission and preset still. Sacral DTPI partially opened and is 75% necrotic, 25% moist erythematous and clear skin flap that is loose.(L)5.5cm x (W)9cm. Small amt serous exudate noted. Non-Blanchable erythema periwound. Partial thickness wound noted to L Hip. Base of wound is moist and viable. edges adherent to base of wound(L)3cm x (W)2.5cm. L Heel is boggy with non-Blanchable erythema with delineated margins. L heel is boggy with non-blanchable erythema. Tx.Plan: Cleanse Sacral wound with Saline. Apply Therahoney. Apply Moisture Barrier Paste periwound. Cover with Optifoam drsg. Change every 3 days and prn. Apply Moisture Barrier Paste to L Hip wound. Cover with Optifoam drsg. Change every 3 days and prn Apply Cavilon Skin Barrier to both heels. Cover each heel with Optifoam drsg. Change every 7 days and prn. Reposition at least every 2hours or as tolerated. Off-load heels with pillow. APM/CHE Mattress overlay. Chris Lei Feb 23, 2020 12:49
--- NOTE | 2020-02-23 13:51 | NUR ---
NURSE NOTES: PT WAS STARTED ON GTF NEPRO AT 10ML/HR AT 1300HRS, GOAL AT 40ML/HR. PT IN NO APPARENT DISTRESS AT THIS TIME. VSS. WILL CONTINUE TO MONITOR.
--- NOTE | 2020-02-23 14:09 | Infectious Diseases Prog Note ---
Assessment/Plan Assessment/Plan IMPRESSION: 1. Influenza A.treated 2. Recent COVID-19.COVID test X 2: negative 3. Diabetes mellitus with hypoglycemia. 4. End-stage renal disease, on hemodialysis. 5. Dysphagia, failure to thrive. 6. Anemia. 7. Thrombocytopenia. 8. 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 RECOMMENDATIONS: Continue Meropenem Discontinue Droplet isolation Subjective ROS Limited/Unobtainable: Yes Constitutional: Reports: other - looks better Gastrointestinal/Abdominal: Reports: other - had GT placement today Neurologic: Reports: other - more alert, on restraint Allergies: Coded Allergies: No Known Allergies (Unverified , 02/06/20) Objective Last 24 Hour Vital Signs Date Time Temp Pulse Resp B/P (MAP) Pulse Ox O2 Delivery O2 Flow Rate FiO2 02/23/20 12:00 96.7 80 18 120/64 (82) 96 02/23/20 09:33 52 14 98 02/23/20 09:00 Room Air 2.0 02/23/20 08:35 97.2 83 21 155/83 99 Room Air 02/23/20 08:25 84 20 154/87 98 Room Air 02/23/20 08:25 82 14 100 02/23/20 08:20 87 22 148/84 100 Nasal Cannula 3 02/23/20 08:15 97.1 81 18 135/81 99 Nasal Cannula 3 02/23/20 08:00 97.9 67 20 160/87 (111) 98 02/23/20 03:34 97.5 82 18 165/97 (119) 99 02/23/20 00:00 98.0 86 18 164/88 (113) 99 02/22/20 21:00 Nasal Cannula 2.0 02/22/20 20:00 99.3 86 18 153/83 (106) 99 02/22/20 16:00 97.9 82 19 143/81 (101) 96 Height (Feet): 5 Height (Inches): 5.00 Weight (Pounds): 196 HEENT: mucous membranes moist Respiratory/Chest: lungs clear Cardiovascular: normal rate, other - RIJ HD line Abdomen: soft, non tender, other - GT in place Extremities: no edema Neurologic/Psychiatric: alert, responsive Microbiology Date/Time Source Procedure Growth Status 02/22/20 12:30 Nasopharynx SARS-CoV-2 RdRp Gene Assay - Final Complete Laboratory Tests Test 02/22/20 17:10 02/22/20 23:00 02/23/20 06:08 02/23/20 06:33 POC Whole Blood Glucose 136 MG/DL (74-106) H 116 MG/DL (74-106) H Pending White Blood Count 5.4 K/UL (4.8-10.8) Red Blood Count 2.86 M/UL (4.20-5.40) L Hemoglobin 8.1 G/DL (12.0-16.0) L Hematocrit 25.3 % (37.0-47.0) L Mean Corpuscular Volume 89 FL (80-99) Mean Corpuscular Hemoglobin 28.3 PG (27.0-31.0) Mean Corpuscular Hemoglobin Concent 32.0 G/DL (32.0-36.0) Red Cell Distribution Width 18.5 % (11.6-14.8) H Platelet Count 74 K/UL (150-450) L Mean Platelet Volume 7.5 FL (6.5-10.1) Neutrophils (%) (Auto) % (45.0-75.0) Lymphocytes (%) (Auto) % (20.0-45.0) Monocytes (%) (Auto) % (1.0-10.0) Eosinophils (%) (Auto) % (0.0-3.0) Basophils (%) (Auto) % (0.0-2.0) Differential Total Cells Counted 100 Neutrophils % (Manual) 88 % (45-75) H Lymphocytes % (Manual) 8 % (20-45) L Monocytes % (Manual) 1 % (1-10) Eosinophils % (Manual) 3 % (0-3) Basophils % (Manual) 0 % (0-2) Band Neutrophils 0 % (0-8) Platelet Estimate Decreased L Platelet Morphology Normal Anisocytosis 1+ Sodium Level 134 MMOL/L (136-145) L Potassium Level 4.0 MMOL/L (3.5-5.1) Chloride Level 100 MMOL/L (98-107) Carbon Dioxide Level 26 MMOL/L (21-32) Anion Gap 8 mmol/L (5-15) Blood Urea Nitrogen 48 mg/dL (7-18) H Creatinine 1.9 MG/DL (0.55-1.30) H Estimat Glomerular Filtration Rate 25.4 mL/min (>60) Glucose Level 98 MG/DL (74-106) Uric Acid 2.8 MG/DL (2.6-7.2) Calcium Level 8.1 MG/DL (8.5-10.1) L Phosphorus Level 3.3 MG/DL (2.5-4.9) Total Bilirubin 0.7 MG/DL (0.2-1.0) Aspartate Amino Transf (AST/SGOT) 19 U/L (15-37) Alanine Aminotransferase (ALT/SGPT) 16 U/L (12-78) Alkaline Phosphatase 85 U/L (46-116) C-Reactive Protein, Quantitative 8.9 mg/dL (0.00-0.90) H Pro-B-Type Natriuretic Peptide 43588 pg/mL (0-125) H Total Protein 5.7 G/DL (6.4-8.2) L Albumin 2.2 G/DL (3.4-5.0) L Globulin 3.5 g/dL Albumin/Globulin Ratio 0.6 (1.0-2.7) L Hepatitis B Surface Antigen Pending Hepatitis B Surface Antibody, Quant Pending Hepatitis C Antibody Pending Test 02/23/20 12:44 POC Whole Blood Glucose 144 MG/DL (74-106) H Current Medications Medications (Trade) Dose Ordered Sig/Maria Fernanda Route PRN Reason Start Time Stop Time Status Last Admin Dose Admin Acetaminophen (Tylenol) 500 mg Q6H PRN NG Mild Pain (Pain Scale 1-3) 02/17/20 12:45 03/18/20 12:44 02/23/20 09:29 Calcitriol (Rocaltrol) 0.5 mcg DAILY ORAL 02/21/20 12:30 05/21/20 12:29 02/23/20 09:28 Dextrose (Dextrose 50%) 25 ml Q30M PRN IV Hypoglycemia 02/18/20 12:15 05/18/20 12:14 Dextrose (Dextrose 50%) 50 ml Q30M PRN IV Hypoglycemia 02/18/20 12:15 05/18/20 12:14 Docusate Sodium (Colace) 100 mg THREE TIMES A DAY NG 02/17/20 18:00 03/18/20 17:59 02/22/20 09:03 Epoetin Manoj (Epoetin Manoj(ESRD on dialysis)) 10,000 unit FRI-FRI-FRI SUBQ 02/21/20 21:00 05/21/20 20:59 02/21/20 20:52 Insulin Aspart (NovoLOG) Q6HR SUBQ 02/18/20 18:00 05/18/20 16:29 02/22/20 12:11 Insulin Detemir (Levemir) 5 units DAILY SUBQ 02/23/20 09:00 05/19/20 08:59 Lansoprazole (Prevacid) 30 mg BID NG 02/21/20 18:00 03/22/20 17:59 02/23/20 09:28 Meropenem 500 mg/ Sodium Chloride 55 ml @ 110 mls/hr Q24H IVPB 02/20/20 09:00 02/25/20 08:59 02/23/20 09:28 Vitamin D (Vitamin D) 5,000 intlu DAILY GT 02/21/20 12:30 03/22/20 12:29 02/23/20 09:28 Viet Harper MD Feb 23, 2020 14:09
--- NOTE | 2020-02-23 15:57 | NUR ---
NURSE NOTES: RN RECEIVED ORDER FROM DR Twin JUAREZ TO DISCONTINUE DROPLET ISOLATION FOR INFLUENZA A ON 02/24/2020. WILL ENDORSE.
--- NOTE | 2020-02-23 17:14 | NUR ---
CASE MANAGEMENT:REVIEW SI;S/P PEG PLACEMENT. ACUTE RENAL FAILURE. 98.7 84 21 155/83 96% ON RA H/H 8.1/25.3 PLT 74 NA 134 BUN 48 CR 1.9 CRP 8.9 BNP 46596 ALB 2.2 IS;PREVACID NG MEROPENEM IV Q24 CEFOXITIN IV ONCE IVF NS BOLUS ONCE MED SURG STATUS DCP;FROM [facility]
--- NOTE | 2020-02-23 17:43 | Pulmonology Progress Note ---
Subjective ROS Limited/Unobtainable: Yes Constitutional: Reports: other - looks better HEENT: Repors: no symptoms Respiratory: Reports: no symptoms Cardiovascular: Reports: no symptoms Gastrointestinal/Abdominal: Reports: other - had GT placement today Allergies: Coded Allergies: No Known Allergies (Unverified , 02/06/20) All Systems: reviewed and negative except above Subjective care noted Objective Last 24 Hour Vital Signs Date Time Temp Pulse Resp B/P (MAP) Pulse Ox O2 Delivery O2 Flow Rate FiO2 02/23/20 16:00 98.7 67 20 123/70 (87) 96 02/23/20 12:00 96.7 80 18 120/64 (82) 96 02/23/20 09:33 52 14 98 02/23/20 09:00 Room Air 2.0 02/23/20 08:35 97.2 83 21 155/83 99 Room Air 02/23/20 08:25 84 20 154/87 98 Room Air 02/23/20 08:25 82 14 100 02/23/20 08:20 87 22 148/84 100 Nasal Cannula 3 02/23/20 08:15 97.1 81 18 135/81 99 Nasal Cannula 3 02/23/20 08:00 97.9 67 20 160/87 (111) 98 02/23/20 03:34 97.5 82 18 165/97 (119) 99 02/23/20 00:00 98.0 86 18 164/88 (113) 99 02/22/20 21:00 Nasal Cannula 2.0 02/22/20 20:00 99.3 86 18 153/83 (106) 99 Intake and Output 02/22/20 02/23/20 19:00 07:00 Intake Total 680 ml 280 ml Output Total 3000 ml 400 ml Balance -2320 ml -120 ml Intake Free Water 200 ml 120 ml Tube Feeding 480 ml 160 ml Output Urine Total 400 ml Hemodialysis UF 3000 ml General Appearance: WD/WN, no acute distress HEENT: normocephalic Respiratory: chest wall non-tender, normal breath sounds, no respiratory distress, decreased breath sounds, crackles/rales Cardiovascular: normal peripheral pulses, normal rate, regular rhythm Abdomen: normal bowel sounds, soft, non tender Extremities: no cyanosis, no clubbing, other - edema Skin: no rash Microbiology Date/Time Source Procedure Growth Status 02/22/20 12:30 Nasopharynx SARS-CoV-2 RdRp Gene Assay - Final Complete Laboratory Tests 02/22/20 23:00: POC Whole Blood Glucose 116H 02/23/20 06:08: POC Whole Blood Glucose [Pending] 02/23/20 06:33: White Blood Count 5.4, Red Blood Count 2.86L, Hemoglobin 8.1L, Hematocrit 25.3L, Mean Corpuscular Volume 89, Mean Corpuscular Hemoglobin 28.3, Mean Corpuscular Hemoglobin Concent 32.0, Red Cell Distribution Width 18.5H, Platelet Count 74L, Mean Platelet Volume 7.5, Neutrophils (%) (Auto) , Lymphocytes (%) (Auto) , Monocytes (%) (Auto) , Eosinophils (%) (Auto) , Basophils (%) (Auto) , Differential Total Cells Counted 100, Neutrophils % (Manual) 88H, Lymphocytes % (Manual) 8L, Monocytes % (Manual) 1, Eosinophils % (Manual) 3, Basophils % (Manual) 0, Band Neutrophils 0, Platelet Estimate DecreasedL, Platelet Morphology Normal, Anisocytosis 1+, Sodium Level 134L, Potassium Level 4.0, Chloride Level 100, Carbon Dioxide Level 26, Anion Gap 8, Blood Urea Nitrogen 48H, Creatinine 1.9H, Estimat Glomerular Filtration Rate 25.4, Glucose Level 98, Uric Acid 2.8, Calcium Level 8.1L, Phosphorus Level 3.3, Total Bilirubin 0.7, Aspartate Amino Transf (AST/SGOT) 19, Alanine Aminotransferase (ALT/SGPT) 16, Alkaline Phosphatase 85, C-Reactive Protein, Quantitative 8.9H, Pro-B-Type Natriuretic Peptide 70926K, Total Protein 5.7L, Albumin 2.2L, Globulin 3.5, Albumin/Globulin Ratio 0.6L, Hepatitis B Surface Antigen [Pending], Hepatitis B Surface Antibody, Quant [Pending], Hepatitis C Antibody [Pending] 02/23/20 12:44: POC Whole Blood Glucose 144H 02/23/20 17:10: POC Whole Blood Glucose 151H Current Medications Medications (Trade) Dose Ordered Sig/Maria Fernanda Route PRN Reason Start Time Stop Time Status Last Admin Dose Admin Acetaminophen (Tylenol) 500 mg Q6H PRN NG Mild Pain (Pain Scale 1-3) 02/17/20 12:45 03/18/20 12:44 02/23/20 17:16 Calcitriol (Rocaltrol) 0.5 mcg DAILY ORAL 02/21/20 12:30 05/21/20 12:29 02/23/20 09:28 Dextrose (Dextrose 50%) 25 ml Q30M PRN IV Hypoglycemia 02/18/20 12:15 05/18/20 12:14 Dextrose (Dextrose 50%) 50 ml Q30M PRN IV Hypoglycemia 02/18/20 12:15 05/18/20 12:14 Docusate Sodium (Colace) 100 mg THREE TIMES A DAY NG 02/17/20 18:00 03/18/20 17:59 02/22/20 09:03 Epoetin Manoj (Epoetin Manoj(ESRD on dialysis)) 10,000 unit FRI-FRI-FRI SUBQ 02/21/20 21:00 05/21/20 20:59 02/21/20 20:52 Insulin Aspart (NovoLOG) Q6HR SUBQ 02/18/20 18:00 05/18/20 16:29 02/23/20 17:16 Insulin Detemir (Levemir) 5 units DAILY SUBQ 02/23/20 09:00 05/19/20 08:59 Lansoprazole (Prevacid) 30 mg BID NG 02/21/20 18:00 03/22/20 17:59 02/23/20 17:15 Meropenem 500 mg/ Sodium Chloride 55 ml @ 110 mls/hr Q24H IVPB 02/20/20 09:00 02/25/20 08:59 02/23/20 09:28 Vitamin D (Vitamin D) 5,000 intlu DAILY GT 02/21/20 12:30 03/22/20 12:29 02/23/20 09:28 Assessment/Plan Assessment/Plan IMPRESSION: 1. Previous COVID-19 pneumonia. 2. Cardiomegaly/CHF. 3. Renal failure. 4. Influenza A 5. Hyperlipidemia. 6. Bilateral pleural effusions 7. thrombocytopenia and anemia DISCUSSION: cannot give SQ heparin with low platelets d/w renal - increase UF with elevated BNP and significant increase in PVP on CXR ID noted repeat CXR for improvement monitor oxygen needs Will follow DNR impression, plan, and exam edited and reviewed in detail care discussed with Heber Mars MD Feb 23, 2020 17:43
--- NOTE | 2020-02-23 18:51 | NUR ---
NURSE HAND-OFF: Important Events on Shift: PT RECEIVED PEG PLACEMENT TODAY. STARTED ON GTF NEPRO AT 15 ML/H. GOAL RATE AT 40ML/H. PT TOLERATING WELL. HEPATITIS PANEL SENT TO LAB. BILATERAL SOFT WRIST RESTRAINTS. Patient Status: STABLE Diet: GTF NEPRO 40ML/HR. Pending Orders: N/A Pending Results/Labs: HEPATITIS PANEL Pending MD notification:N/A Latest Vital Signs: Temperature 98.7 , Pulse 67 , B/P 123 /70 , Respiratory Rate 20 , O2 SAT 96 , Room Air, O2 Flow Rate 2.0 . Vital Sign Comment: STABLE Latest Barrett Fall Score: 35 Fall Risk: Medium Risk Safety Measures: Call light Within Reach, Bed Alarm Zone 1, Side Rails Side Rails x2, Bed position Low and Locked. Fall Precautions: Yellow Socks Door Sign
--- NOTE | 2020-02-23 18:57 | NUR ---
HAND-OFF: Report given to Marco Antonio HOUGH RN.
--- NOTE | 2020-02-23 20:00 | NUR ---
NURSE NOTES: Patient received in bed, awake, verbal, but confused. S/P GT placement, abdominal binder on. On GTF rate of 15cc/hr at this time, no residual. Will increase as tolerated during the shift. HOB elevated. Bilateral soft wrist restraints on per order. Bilateral arms elevated on pillows. Contacted Dr. Faust for renewal order, MD instructed RN to contact Dr. Thomas. Message left to Dr. Thomas, awaiting response from .
[2020-02-23] MEDS: Epoetin Alfa-EPBX(ESRD on dialysis)10,000 unit/ml vial SUBQ SCH (20:22)
--- NOTE | 2020-02-23 21:23 | General Progress Note ---
Subjective ROS Limited/Unobtainable: Yes Allergies: Coded Allergies: No Known Allergies (Unverified , 02/06/20) Objective Last 24 Hour Vital Signs Date Time Temp Pulse Resp B/P (MAP) Pulse Ox O2 Delivery O2 Flow Rate FiO2 02/23/20 16:00 98.7 67 20 123/70 (87) 96 02/23/20 12:00 96.7 80 18 120/64 (82) 96 02/23/20 09:33 52 14 98 02/23/20 09:00 Room Air 2.0 02/23/20 08:35 97.2 83 21 155/83 99 Room Air 02/23/20 08:25 84 20 154/87 98 Room Air 02/23/20 08:25 82 14 100 02/23/20 08:20 87 22 148/84 100 Nasal Cannula 3 02/23/20 08:15 97.1 81 18 135/81 99 Nasal Cannula 3 02/23/20 08:00 97.9 67 20 160/87 (111) 98 02/23/20 03:34 97.5 82 18 165/97 (119) 99 02/23/20 00:00 98.0 86 18 164/88 (113) 99 Intake and Output 02/22/20 02/23/20 18:59 06:59 Intake Total 680 ml 320 ml Output Total 3000 ml 400 ml Balance -2320 ml -80 ml Intake Free Water 200 ml 120 ml Tube Feeding 480 ml 200 ml Output Urine Total 400 ml Hemodialysis UF 3000 ml Laboratory Tests 02/22/20 23:00: POC Whole Blood Glucose 116H 02/23/20 06:08: POC Whole Blood Glucose [Pending] 02/23/20 06:33: White Blood Count 5.4, Red Blood Count 2.86L, Hemoglobin 8.1L, Hematocrit 25.3L, Mean Corpuscular Volume 89, Mean Corpuscular Hemoglobin 28.3, Mean Corpuscular Hemoglobin Concent 32.0, Red Cell Distribution Width 18.5H, Platelet Count 74L, Mean Platelet Volume 7.5, Neutrophils (%) (Auto) , Lymphocytes (%) (Auto) , Monocytes (%) (Auto) , Eosinophils (%) (Auto) , Basophils (%) (Auto) , Differential Total Cells Counted 100, Neutrophils % (Manual) 88H, Lymphocytes % (Manual) 8L, Monocytes % (Manual) 1, Eosinophils % (Manual) 3, Basophils % (Manual) 0, Band Neutrophils 0, Platelet Estimate DecreasedL, Platelet Morphology Normal, Anisocytosis 1+, Sodium Level 134L, Potassium Level 4.0, Chloride Level 100, Carbon Dioxide Level 26, Anion Gap 8, Blood Urea Nitrogen 48H, Creatinine 1.9H, Estimat Glomerular Filtration Rate 25.4, Glucose Level 98, Uric Acid 2.8, Calcium Level 8.1L, Phosphorus Level 3.3, Total Bilirubin 0.7, Aspartate Amino Transf (AST/SGOT) 19, Alanine Aminotransferase (ALT/SGPT) 16, Alkaline Phosphatase 85, C-Reactive Protein, Quantitative 8.9H, Pro-B-Type Natri uretic Peptide 11751Q, Total Protein 5.7L, Albumin 2.2L, Globulin 3.5, Albumin/Globulin Ratio 0.6L, Hepatitis B Surface Antigen [Pending], Hepatitis B Surface Antibody, Quant [Pending], Hepatitis C Antibody [Pending] 02/23/20 12:44: POC Whole Blood Glucose 144H 02/23/20 17:10: POC Whole Blood Glucose 151H Height (Feet): 5 Height (Inches): 5.00 Weight (Pounds): 196 Assessment/Plan Problem List: (1) COVID-19 ICD Codes: U07.1 - COVID-19 SNOMED: 027523844 (2) Renal failure ICD Codes: N19 - Unspecified kidney failure SNOMED: 80770354 (3) Anemia ICD Codes: D64.9 - Anemia, unspecified SNOMED: 465519352 (4) Hypoglycemia ICD Codes: E16.2 - Hypoglycemia, unspecified SNOMED: 584030466 (5) Congestive heart failure ICD Codes: I50.9 - Heart failure, unspecified SNOMED: 89683724 (6) UTI (urinary tract infection) ICD Codes: N39.0 - Urinary tract infection, site not specified SNOMED: 00542850 (7) Diabetic nephropathy ICD Codes: E11.21 - Type 2 diabetes mellitus with diabetic nephropathy SNOMED: 13992512, 415723716 (8) Renal failure (ARF), acute on chronic ICD Codes: N17.9 - Acute kidney failure, unspecified; N18.9 - Chronic kidney disease, unspecified SNOMED: 008221365 (9) Pressure injury of sacral region, unstageable ICD Codes: L89.150 - Pressure ulcer of sacral region, unstageable SNOMED: 631672331 Status: progressing Assessment/Plan: anemia of renal disease chf uti dm malnutrition afebrile covid positive arf on top of cri chf sepsis Janes Faust MD Feb 23, 2020 21:23
--- NOTE | 2020-02-23 21:30 | NUR ---
NURSE NOTES: Received new orders from Dr. Thomas for renewal of restraints due to pulling medical devices, haldol prn and zyprexa qhs. Will carry out as ordered.
[2020-02-23] MEDS ORDERED: Haloperidol 5mg/ml Inj IM PRN (21:45)
--- NOTE | 2020-02-23 22:29 | Initial Psychiatric Evaluation ---
Psychiatry Consultation Psychiatry Consultation Chief Complaint: Generalized Weakness Allergies: Coded Allergies: No Known Allergies (Unverified , 02/06/20) Medication History Scheduled Apixaban (Eliquis), 5 MG PO BID, (Reported) Carvedilol* (Carvedilol*), 12.5 MG PO EVERY 12 HOURS, (Reported) Furosemide* (Lasix*), 40 MG ORAL DAILY, (Reported) Gabapentin (Neurontin), 300 MG ORAL TWICE A DAY, (Reported) Losartan Potassium (Losartan Potassium), 100 MG ORAL DAILY, (Reported) Mv-Mn/Iron/Fa/Herbal Cmplx#190 (Vitamin D3 Complete Caplet), 1 EACH PO DAILY, (Reported) Scheduled PRN Hydralazine Hcl* (Hydralazine Hcl*), 20 MG PO DAILY PRN for HYPERTENSION, (Reported) Discontinued Medications Acetaminophen* (Acetaminophen 325MG Tablet*), 650 MG NGT Q6H PRN for Mild Pain (Pain Scale 1-3), (Reported) Discontinued Reason: Pt stopped taking med Atorvastatin Calcium* (Atorvastatin Calcium*), 20 MG NGT BEDTIME, (Reported) Discontinued Reason: MD discontinued med Bisacodyl (Bisacodyl), 10 MG RC for Constipation, (Reported) Discontinued Reason: Medication dose changed Calcium Carb/Mag Hydrox/Simeth (Mylanta Tonight 800-270-80/10), 30 ML GT Q6HR PRN for GASTRITIS, (Reported) Discontinued Reason: Pt stopped taking med Docusate Sodium* (Docusate Sodium*), 100 MG GT DAILY, (Reported) Discontinued Reason: Pt stopped taking med Ferrous Sulfate* (Ferrous Sulfate*), 325 MG GT DAILY, (Reported) Discontinued Reason: Pt stopped taking med Folic Acid* (Folic Acid*), 1 MG GT DAILY, (Reported) Discontinued Reason: Pt stopped taking med Gabapentin* (Gabapentin*), 300 MG ORAL BID, (Reported) Discontinued Reason: Prescription changed Glipizide* (Glipizide*), 10 MG GT BIDAC, (Reported) Discontinued Reason: Pt stopped taking med Heparin Sod (Porcine) (Heparin Sodium*), 5,000 UNITS SUBQ EVERY 12 HOURS, (Reported) Discontinued Reason: Pt stopped taking med Hydrocodone Bit/Acetaminophen 5-325* ([place] 5-325 Tablet*), 1 TAB NGT Q4H PRN for Moderate Pain (Pain Scale 4-6), (Reported) Discontinued Reason: Pt stopped taking med Insulin Aspart (Novolog), UNITS SQ, (Reported) Discontinued Reason: Pt stopped taking med Magnesium Hydroxide* (Milk Of Magnesia*), 30 ML GT Q6HR PRN for GASTRITIS, (Reported) Discontinued Reason: Pt stopped taking med Na Phos,M-B/Na Phos,Di-Ba* (Fleet Enema*), 133 ML RECTAL for Constipation, (Reported) Discontinued Reason: Pt stopped taking med Nut.tx.glucose Intolerance,Soy (Glucerna), 1 EACH GT LUNCHTIME, (Reported) Discontinued Reason: Pt stopped taking med Ondansetron* (Zofran*), 4 MG GT Q12HR PRN for Nausea & Vomiting, (Reported) Discontinued Reason: Pt stopped taking med Pantoprazole* (Pantoprazole*), 40 MG GT EVERY 12 HOURS, (Reported) Discontinued Reason: Pt stopped taking med Ztaopflcrabt-Zgwq-Ztekmpwn,Iso (Zosyn 3.375 Gm Pre Mix-Bag), 3.375 GM IVPB EVERY 12 HOURS, (Reported) Discontinued Reason: Pt stopped taking med Sodium Citrate (Sod Citrate-Citric Acid Soln), 30 ML GT BID, (Reported) Discontinued Reason: Pt had allergic rxn Objective Data Height (Feet): 5 Height (Inches): 5.00 Weight (Pounds): 196 Eboni Thomas MD Feb 23, 2020 22:29
[2020-02-24] VITALS (7 sets, daily range): BP systolic 139–162; BP diastolic 67–97
[2020-02-24] MEDS: NovoLOG Insulin Flexpen SUBQ SCH ×3 (05:57→17:21)
[2020-02-24 07:02] LABS: HEMATOCRIT 21.4 % (37.0-47.0); MEAN CORPUSCULAR VOLUME 88 FL (80-99); PLATELET COUNT 104 K/UL (150-450); RED BLOOD COUNT 2.42 M/UL (4.20-5.40); RED CELL DISTRIBUTION WIDTH 18.8 % (11.6-14.8); WHITE BLOOD COUNT 7.1 K/UL (4.8-10.8)
--- NOTE | 2020-02-24 07:10 | General Progress Note ---
Subjective ROS Limited/Unobtainable: Yes Allergies: Coded Allergies: No Known Allergies (Unverified , 02/06/20) Subjective events noted interval notes reviewed glucose values stable - did not receive Levemir 5 units yesterday morning Item Value Date Time Bedside Blood Glucose 198 mg/dl H 02/24/20 0600 Bedside Blood Glucose 133 mg/dl H 02/23/20 2311 Bedside Blood Glucose 151 mg/dl H 02/23/20 1716 Bedside Blood Glucose 144 mg/dl H 02/23/20 1249 Bedside Blood Glucose 98 mg/dl 02/23/20 0900 Bedside Blood Glucose 98 mg/dl 02/23/20 0600 Bedside Blood Glucose 116 mg/dl 02/22/20 2304 Objective Last 24 Hour Vital Signs Date Time Temp Pulse Resp B/P (MAP) Pulse Ox O2 Delivery O2 Flow Rate FiO2 02/24/20 04:00 97.5 110 26 162/97 (118) 98 02/24/20 00:00 98.4 100 22 162/92 (115) 98 02/23/20 21:00 Room Air 02/23/20 20:00 97.2 77 20 157/90 (112) 99 02/23/20 16:00 98.7 67 20 123/70 (87) 96 02/23/20 12:00 96.7 80 18 120/64 (82) 96 02/23/20 09:33 52 14 98 02/23/20 09:00 Room Air 2.0 02/23/20 08:35 97.2 83 21 155/83 99 Room Air 02/23/20 08:25 84 20 154/87 98 Room Air 02/23/20 08:25 82 14 100 02/23/20 08:20 87 22 148/84 100 Nasal Cannula 3 02/23/20 08:15 97.1 81 18 135/81 99 Nasal Cannula 3 02/23/20 08:00 97.9 67 20 160/87 (111) 98 Intake and Output 02/23/20 02/24/20 19:00 07:00 Intake Total 320 ml 375 ml Output Total 0 ml 1600 ml Balance 320 ml -1225 ml Intake Free Water 60 ml 45 ml IV Total 180 ml Tube Feeding 80 ml 330 ml Output Urine Total 1600 ml Estimated Blood Loss 0 ml Laboratory Tests 02/23/20 12:44: POC Whole Blood Glucose 144H 02/23/20 17:10: POC Whole Blood Glucose 151H 02/23/20 23:02: POC Whole Blood Glucose 133H 02/24/20 05:23: White Blood Count [Pending], Red Blood Count [Pending], Hemoglobin [Pending], Hematocrit [Pending], Mean Corpuscular Volume [Pending], Mean Corpuscular Hemoglobin [Pending], Mean Corpuscular Hemoglobin Concent [Pending], Red Cell Distribution Width [Pending], Platelet Count [Pending], Mean Platelet Volume [Pending], Neutrophils (%) (Auto) [Pending], Lymphocytes (%) (Auto) [Pending], Monocytes (%) (Auto) [Pending], Eosinophils (%) (Auto) [Pending], Basophils (%) (Auto) [Pending], Sodium Level [Pending], Potassium Level [Pending], Chloride Level [Pending], Carbon Dioxide Level [Pending], Blood Urea Nitrogen [Pending], Creatinine [Pending], Estimat Glomerular Filtration Rate [Pending], Glucose Level [Pending], Uric Acid [Pending], Calcium Level [Pending], Phosphorus Level [Pending], Total Bilirubin [Pending], Aspartate Amino Transf (AST/SGOT) [Pending], Alanine Aminotransferase (ALT/SGPT) [Pending], Alkaline Phosphatase [Pending], Total Protein [Pending], Albumin [Pending], Globulin [Pending] Height (Feet): 5 Height (Inches): 5.00 Weight (Pounds): 196 General Appearance: no apparent distress Neck: normal alignment Cardiovascular: normal rate Respiratory/Chest: lungs clear Abdomen: normal bowel sounds Objective Current Medications Medications (Trade) Dose Ordered Sig/Maria Fernanda Route PRN Reason Start Time Stop Time Status Last Admin Dose Admin Acetaminophen (Tylenol) 500 mg Q6H PRN NG Mild Pain (Pain Scale 1-3) 02/17/20 12:45 03/18/20 12:44 02/23/20 17:16 Calcitriol (Rocaltrol) 0.5 mcg DAILY ORAL 02/21/20 12:30 05/21/20 12:29 02/23/20 09:28 Dextrose (Dextrose 50%) 25 ml Q30M PRN IV Hypoglycemia 02/18/20 12:15 05/18/20 12:14 Dextrose (Dextrose 50%) 50 ml Q30M PRN IV Hypoglycemia 02/18/20 12:15 05/18/20 12:14 Docusate Sodium (Colace) 100 mg THREE TIMES A DAY NG 02/17/20 18:00 03/18/20 17:59 02/22/20 09:03 Epoetin Manoj (Epoetin Manoj(ESRD on dialysis)) 10,000 unit FRI-FRI-FRI SUBQ 02/21/20 21:00 05/21/20 20:59 02/23/20 20:22 Haloperidol Lactate (Haldol) 5 mg Q6H PRN IM Agitation 02/23/20 21:45 04/08/20 21:44 Insulin Aspart (NovoLOG) Q6HR SUBQ 02/18/20 18:00 05/18/20 16:29 02/24/20 05:57 Insulin Detemir (Levemir) 5 units DAILY SUBQ 02/23/20 09:00 05/19/20 08:59 Lansoprazole (Prevacid) 30 mg BID NG 02/21/20 18:00 03/22/20 17:59 02/23/20 17:15 Meropenem 500 mg/ Sodium Chloride 55 ml @ 110 mls/hr Q24H IVPB 02/20/20 09:00 02/25/20 08:59 02/23/20 09:28 Olanzapine (ZyPREXA) 5 mg QHS GT 02/24/20 21:00 04/09/20 20:59 Vitamin D (Vitamin D) 5,000 intlu DAILY GT 02/21/20 12:30 03/22/20 12:29 02/23/20 09:28 Assessment/Plan Problem List: (1) Hypoglycemia ICD Codes: E16.2 - Hypoglycemia, unspecified SNOMED: 052817075 (2) UTI (urinary tract infection) ICD Codes: N39.0 - Urinary tract infection, site not specified SNOMED: 67077684 (3) CHF (congestive heart failure) ICD Codes: I50.9 - Heart failure, unspecified SNOMED: 78798647 (4) Failure to thrive in adult ICD Codes: R62.7 - Failure to thrive in adult SNOMED: 652812296 Status: progressing Assessment/Plan: DC Levemir continue Novolog sliding scale every 6 hours hypoglycemia protocol in order Adalberto Echevarria MD Feb 24, 2020 07:10
--- NOTE | 2020-02-24 07:15 | NUR ---
NURSE NOTES: received patient in bed,patient awake, but confused. no sign of distress, HL patent, On GTF rate of 80cc/hr, no residual noted, HOB elevated.on fall and aspiration precaution, on Bilateral soft wrist restraints on per order. Bilateral arms elevated on pillows., pepe q2h for comfort and good circulation, kept clean dry and comfortable in bed, need met and anticipated raul moeller Addendum: 02/24/20 at 0858 by ALISSA CARRILLO RN RN NURSE NOTES: received patient in bed,patient awake, but confused. no sign of distress, HL patent, On GTF rate of 40cc/hr, no residual noted, HOB elevated.on fall and aspiration precaution, on Bilateral soft wrist restraints on per order. Bilateral arms elevated on pillows., pepe q2h for comfort and good circulation, kept clean dry and comfortable in bed, need met and anticipated raul moeller
[2020-02-24 07:21] LABS: ALBUMIN 2.2 G/DL (3.4-5.0); ALBUMIN/GLOBULIN RATIO 0.7 (1.0-2.7); BILIRUBIN,TOTAL 0.5 MG/DL (0.2-1.0); CALCIUM 8.3 MG/DL (8.5-10.1); CREATININE 2.3 MG/DL (0.55-1.30); PHOSPHORUS 3.8 MG/DL (2.5-4.9); POTASSIUM 4.5 MMOL/L (3.5-5.1)
--- NOTE | 2020-02-24 07:35 | NUR ---
NURSE HAND-OFF: Important Events on Shift:[TF rate reached goal at 40cc/hr; restraints renewed. Dr. Thomas new consult] Patient Status: [awake] Diet: [Nepro @40] Pending Orders: [] Pending Results/Labs:[] Pending MD notification:[] Latest Vital Signs: Temperature 97.5 , Pulse 110 , B/P 162 /97 , Respiratory Rate 26 , O2 SAT 98 , Room Air, O2 Flow Rate 2.0 . Vital Sign Comment: [high BP] Latest Barrett Fall Score: 50 Fall Risk: High Risk Safety Measures: Call light Within Reach, Bed Alarm Zone 1, Side Rails Side Rails x2, Bed position Low and Locked. Fall Precautions: Yellow Socks Door Sign Report given to [Mirna Brandt RN].
[2020-02-24 07:45] LABS: HEMOGLOBIN 6.9 G/DL (12.0-16.0)
[2020-02-24] MEDS: Calcitriol 0.5mcg Cap ORAL SCH (08:30)
[2020-02-24] MEDS: Vitamin D 1000 IU Tab GT SCH (08:30)
[2020-02-24] MEDS: Docusate 100mg/10ml Liq NG SCH ×3 (08:31→17:27)
[2020-02-24] MEDS: Meropenem 500 MG in NS 55 ML IVPB SCH (08:39)
--- NOTE | 2020-02-24 09:02 | NUR ---
nurse notes notified daughter regarding hgb 6.9 and made aware regarding plan of care to transfuse to 2 Units of PRBC, patient daughter agreed and gave tel consent witnessed by Bennett SIMMS
--- NOTE | 2020-02-24 09:50 | Nephrology Progress Note ---
Assessment/Plan Problem List: (1) Renal failure (ARF), acute on chronic (2) Diabetic nephropathy (3) CHF (congestive heart failure) (4) Anemia Assessment 1) Renal failure (ARF), acute on chronic (2) COVID-19 (3) UTI (urinary tract infection) (4) Congestive heart failure (5) Anemia (6) Diabetic nephropathy Plan February 23: Last dialysis February 21. PEG placed yesterday February 22. Today hemoglobin is low. Labs reviewed. Transfused 2 units of packed RBCs. Continue to monitor renal parameters. Dialysis as needed. February 22: Dialyzed yesterday. Due for PEG today. Will hold off dialysis and continue to monitor renal parameters and use Zaroxolyn as needed. Continue per consultants. February 21: Due for dialysis today. Will ultra filtrate max as possible. No chemistry panel done today. I had a conversation on the phone with the daughter last night who at this time would like to continue dialysis. Continue as is. February 20: Patient received 2 dialysis so far. Appears more responsive. Labs reviewed. Medication list reviewed. Vitamin D supplement ordered. Next dialysis tomorrow. Will discuss with the daughter regarding continuation of dialysis if agreeable. February 19: First dialysis February 17. Second dialysis will be done today. Labs reviewed. Medication list reviewed. Continue per consultants. February 18: Patient was dialyzed yesterday. Patient less edematous today. Patient appears more responsive today. Plan to dialyze and ultrafiltrate again tomorrow. Medication list reviewed. Today's labs pending. February 17: Patient due for dialysis catheter today and subsequent dialysis treatment. Patient is edematous. Patient has an NG tube on feeding. Will discontinue IV fluid. Continue per consultants. Discussed with RN. Previously: Consent for insertion of dialysis catheter as per my conversation with the daughter who now desires dialysis NG feeding with Nepro Dialysis cath, followed by dialysis Subjective ROS Limited/Unobtainable: Yes Objective Objective Last 24 Hour Vital Signs Date Time Temp Pulse Resp B/P (MAP) Pulse Ox O2 Delivery O2 Flow Rate FiO2 02/24/20 08:10 Room Air 02/24/20 07:58 154/94 (114) 02/24/20 07:57 98.4 114 22 162/97 (118) 96 02/24/20 04:00 97.5 110 26 162/97 (118) 98 02/24/20 00:00 98.4 100 22 162/92 (115) 98 02/23/20 21:00 Room Air 02/23/20 20:00 97.2 77 20 157/90 (112) 99 02/23/20 16:00 98.7 67 20 123/70 (87) 96 02/23/20 12:00 96.7 80 18 120/64 (82) 96 Intake and Output 02/23/20 02/24/20 19:00 07:00 Intake Total 320 ml 375 ml Output Total 0 ml 1600 ml Balance 320 ml -1225 ml Intake Free Water 60 ml 45 ml IV Total 180 ml Tube Feeding 80 ml 330 ml Output Urine Total 1600 ml Estimated Blood Loss 0 ml Current Medications Medications (Trade) Dose Ordered Sig/Maria Fernanda Route PRN Reason Start Time Stop Time Status Last Admin Dose Admin Acetaminophen (Tylenol) 500 mg Q6H PRN NG Mild Pain (Pain Scale 1-3) 02/17/20 12:45 03/18/20 12:44 02/23/20 17:16 Calcitriol (Rocaltrol) 0.5 mcg DAILY ORAL 02/21/20 12:30 05/21/20 12:29 02/24/20 08:30 Dextrose (Dextrose 50%) 25 ml Q30M PRN IV Hypoglycemia 02/18/20 12:15 05/18/20 12:14 Dextrose (Dextrose 50%) 50 ml Q30M PRN IV Hypoglycemia 02/18/20 12:15 05/18/20 12:14 Docusate Sodium (Colace) 100 mg THREE TIMES A DAY NG 02/17/20 18:00 03/18/20 17:59 02/22/20 09:03 Epoetin Manoj (Epoetin Manoj(ESRD on dialysis)) 10,000 unit FRI-FRI-FRI SUBQ 02/21/20 21:00 05/21/20 20:59 02/23/20 20:22 Haloperidol Lactate (Haldol) 5 mg Q6H PRN IM Agitation 02/23/20 21:45 04/08/20 21:44 Insulin Aspart (NovoLOG) Q6HR SUBQ 02/18/20 18:00 05/18/20 16:29 02/24/20 05:57 Lansoprazole (Prevacid) 30 mg BID NG 02/21/20 18:00 03/22/20 17:59 02/24/20 08:30 Meropenem 500 mg/ Sodium Chloride 55 ml @ 110 mls/hr Q24H IVPB 02/20/20 09:00 02/25/20 08:59 02/24/20 08:39 Olanzapine (ZyPREXA) 5 mg QHS GT 02/24/20 21:00 04/09/20 20:59 Vitamin D (Vitamin D) 5,000 intlu DAILY GT 02/21/20 12:30 03/22/20 12:29 02/24/20 08:30 Laboratory Tests 02/23/20 12:44: POC Whole Blood Glucose 144H 02/23/20 17:10: POC Whole Blood Glucose 151H 02/23/20 23:02: POC Whole Blood Glucose 133H 02/24/20 05:23: White Blood Count 7.1, Red Blood Count 2.42L, Hemoglobin 6.9*L, Hematocrit 21.4L , Mean Corpuscular Volume 88, Mean Corpuscular Hemoglobin 28.5, Mean Corpuscular Hemoglobin Concent 32.3, Red Cell Distribution Width 18.8H, Platelet Count 104L, Mean Platelet Volume 7.2, Neutrophils (%) (Auto) , Lymphocytes (%) (Auto) , Monocytes (%) (Auto) , Eosinophils (%) (Auto) , Basophils (%) (Auto) , Differ ential Total Cells Counted 100, Neutrophils % (Manual) 86H, Lymphocytes % (Manual) 8L, Monocytes % (Manual) 4, Eosinophils % (Manual) 2, Basophils % (Manual) 0, Band Neutrophils 0, Platelet Estimate DecreasedL, Platelet Morphology Normal, Hypochromasia 4+, Anisocytosis 2+, Spherocytes 2+, Sodium Level 132L, Potassium Level 4.5, Chloride Level 99, Carbon Dioxide Level 25, Anion Gap 8, Blood Urea Nitrogen 88H, Creatinine 2.3H, Estimat Glomerular Filtration Rate 20.3, Glucose Level 200#H, Uric Acid 3.4, Calcium Level 8.3L, Phosphorus Level 3.8, Total Bilirubin 0.5, Aspartate Amino Transf (AST/SGOT) 16, Alanine Aminotransferase (ALT/SGPT) 15, Alkaline Phosphatase 95, Total Protein 5.3L, Albumin 2.2L, Globulin 3.1, Albumin/Globulin Ratio 0.7L Height (Feet): 5 Height (Inches): 5.00 Weight (Pounds): 196 General Appearance: no apparent distress Cardiovascular: tachycardia Respiratory/Chest: decreased breath sounds Abdomen: soft, distended, other - Has GT tube now Quirino Cormier MD Feb 24, 2020 09:50
--- NOTE | 2020-02-24 10:04 | NUR ---
RADIOLOGY DEPT., CHEST X-RAY DONE.-P.DYE
--- NOTE | 2020-02-24 10:52 | Diagnostic Imaging Report ---
Indication: Shortness breath Technique: One view of the chest Comparison: 02/21/2020 Findings: Bilateral interstitial congestion and hazy airspace opacities, likely small bilateral pleural effusions are unchanged. Heart remains enlarged. Nasogastric tube is been removed. Right jugular dialysis catheter remains Impression: Interim nasogastric tube removal. 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
--- NOTE | 2020-02-24 11:39 | Infectious Diseases Prog Note ---
Assessment/Plan Assessment/Plan IMPRESSION: 1. Influenza A.treated 2. Recent COVID-19.COVID test X 2: negative 3. Diabetes mellitus with hypoglycemia. 4. End-stage renal disease, on hemodialysis. 5. Dysphagia, failure to thrive. 6. Anemia. 7. Thrombocytopenia. 8. 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 RECOMMENDATIONS: Continue Meropenem Subjective ROS Limited/Unobtainable: Yes Respiratory: Reports: productive cough Neurologic: Reports: confusion, other - on restraint Allergies: Coded Allergies: No Known Allergies (Unverified , 02/06/20) Objective Last 24 Hour Vital Signs Date Time Temp Pulse Resp B/P (MAP) Pulse Ox O2 Delivery O2 Flow Rate FiO2 02/24/20 08:10 Room Air 02/24/20 07:58 154/94 (114) 02/24/20 07:57 98.4 114 22 162/97 (118) 96 02/24/20 04:00 97.5 110 26 162/97 (118) 98 02/24/20 00:00 98.4 100 22 162/92 (115) 98 02/23/20 21:00 Room Air 02/23/20 20:00 97.2 77 20 157/90 (112) 99 02/23/20 16:00 98.7 67 20 123/70 (87) 96 02/23/20 12:00 96.7 80 18 120/64 (82) 96 Height (Feet): 5 Height (Inches): 5.00 Weight (Pounds): 196 HEENT: mucous membranes moist Respiratory/Chest: lungs clear Cardiovascular: tachycardia, other - R permacath Abdomen: soft, non tender, other - GT feeding Extremities: other - edema decreasing Neurologic/Psychiatric: alert, responsive, disoriented Microbiology Date/Time Source Procedure Growth Status 02/22/20 12:30 Nasopharynx SARS-CoV-2 RdRp Gene Assay - Final Complete Laboratory Tests Test 02/23/20 12:44 02/23/20 17:10 02/23/20 23:02 02/24/20 05:23 POC Whole Blood Glucose 144 MG/DL (74-106) H 151 MG/DL (74-106) H 133 MG/DL (74-106) H White Blood Count 7.1 K/UL (4.8-10.8) Red Blood Count 2.42 M/UL (4.20-5.40) L Hemoglobin 6.9 G/DL (12.0-16.0) *L Hematocrit 21.4 % (37.0-47.0) L Mean Corpuscular Volume 88 FL (80-99) Mean Corpuscular Hemoglobin 28.5 PG (27.0-31.0) Mean Corpuscular Hemoglobin Concent 32.3 G/DL (32.0-36.0) Red Cell Distribution Width 18.8 % (11.6-14.8) H Platelet Count 104 K/UL (150-450) L Mean Platelet Volume 7.2 FL (6.5-10.1) Neutrophils (%) (Auto) % (45.0-75.0) Lymphocytes (%) (Auto) % (20.0-45.0) Monocytes (%) (Auto) % (1.0-10.0) Eosinophils (%) (Auto) % (0.0-3.0) Basophils (%) (Auto) % (0.0-2.0) Differential Total Cells Counted 100 Neutrophils % (Manual) 86 % (45-75) H Lymphocytes % (Manual) 8 % (20-45) L Monocytes % (Manual) 4 % (1-10) Eosinophils % (Manual) 2 % (0-3) Basophils % (Manual) 0 % (0-2) Band Neutrophils 0 % (0-8) Platelet Estimate Decreased L Platelet Morphology Normal Hypochromasia 4+ Anisocytosis 2+ Spherocytes 2+ Sodium Level 132 MMOL/L (136-145) L Potassium Level 4.5 MMOL/L (3.5-5.1) Chloride Level 99 MMOL/L (98-107) Carbon Dioxide Level 25 MMOL/L (21-32) Anion Gap 8 mmol/L (5-15) Blood Urea Nitrogen 88 mg/dL (7-18) H Creatinine 2.3 MG/DL (0.55-1.30) H Estimat Glomerular Filtration Rate 20.3 mL/min (>60) Glucose Level 200 MG/DL (74-106) #H Uric Acid 3.4 MG/DL (2.6-7.2) Calcium Level 8.3 MG/DL (8.5-10.1) L Phosphorus Level 3.8 MG/DL (2.5-4.9) Total Bilirubin 0.5 MG/DL (0.2-1.0) Aspartate Amino Transf (AST/SGOT) 16 U/L (15-37) Alanine Aminotransferase (ALT/SGPT) 15 U/L (12-78) Alkaline Phosphatase 95 U/L (46-116) Total Protein 5.3 G/DL (6.4-8.2) L Albumin 2.2 G/DL (3.4-5.0) L Globulin 3.1 g/dL Albumin/Globulin Ratio 0.7 (1.0-2.7) L Current Medications Medications (Trade) Dose Ordered Sig/Maria Fernanda Route PRN Reason Start Time Stop Time Status Last Admin Dose Admin Acetaminophen (Tylenol) 500 mg Q6H PRN NG Mild Pain (Pain Scale 1-3) 02/17/20 12:45 03/18/20 12:44 02/23/20 17:16 Calcitriol (Rocaltrol) 0.5 mcg DAILY ORAL 02/21/20 12:30 05/21/20 12:29 02/24/20 08:30 Dextrose (Dextrose 50%) 25 ml Q30M PRN IV Hypoglycemia 02/18/20 12:15 05/18/20 12:14 Dextrose (Dextrose 50%) 50 ml Q30M PRN IV Hypoglycemia 02/18/20 12:15 05/18/20 12:14 Docusate Sodium (Colace) 100 mg THREE TIMES A DAY NG 02/17/20 18:00 03/18/20 17:59 02/22/20 09:03 Epoetin Manoj (Epoetin Manoj(ESRD on dialysis)) 10,000 unit -FRI SUBQ 02/21/20 21:00 05/21/20 20:59 02/23/20 20:22 Haloperidol Lactate (Haldol) 5 mg Q6H PRN IM Agitation 02/23/20 21:45 04/08/20 21:44 Insulin Aspart (NovoLOG) Q6HR SUBQ 02/18/20 18:00 05/18/20 16:29 02/24/20 05:57 Lansoprazole (Prevacid) 30 mg BID NG 02/21/20 18:00 03/22/20 17:59 02/24/20 08:30 Meropenem 500 mg/ Sodium Chloride 55 ml @ 110 mls/hr Q24H IVPB 02/20/20 09:00 02/25/20 08:59 02/24/20 08:39 Olanzapine (ZyPREXA) 5 mg QHS GT 02/24/20 21:00 04/09/20 20:59 Vitamin D (Vitamin D) 5,000 intlu DAILY GT 02/21/20 12:30 03/22/20 12:29 02/24/20 08:30 Viet Harper MD Feb 24, 2020 11:39
[2020-02-24] MEDS: Acetaminophen 650mg/20.3ml NG PRN ×2 (12:03→17:27)
--- NOTE | 2020-02-24 12:19 | Surgery Progress Note ---
Surgery Progress Note Subjective Symptoms: improved, tolerating diet, passing flatus Objective Last 24 Hour Vital Signs Date Time Temp Pulse Resp B/P (MAP) Pulse Ox O2 Delivery O2 Flow Rate FiO2 02/24/20 12:06 99.3 115 22 146/75 (98) 94 02/24/20 08:10 Room Air 02/24/20 07:58 154/94 (114) 02/24/20 07:57 98.4 114 22 162/97 (118) 96 02/24/20 04:00 97.5 110 26 162/97 (118) 98 02/24/20 00:00 98.4 100 22 162/92 (115) 98 02/23/20 21:00 Room Air 02/23/20 20:00 97.2 77 20 157/90 (112) 99 02/23/20 16:00 98.7 67 20 123/70 (87) 96 I&O Intake and Output 02/23/20 02/24/20 19:00 07:00 Intake Total 320 ml 415 ml Output Total 0 ml 1600 ml Balance 320 ml -1185 ml Intake Free Water 60 ml 45 ml IV Total 180 ml Tube Feeding 80 ml 370 ml Output Urine Total 1600 ml Estimated Blood Loss 0 ml Dressing: saturated Cardiovascular: RSR Respiratory: clear, decreased breath sounds Abdomen: soft, non-tender, present bowel sounds Extremities: no edema, no tenderness, no cyanosis Laboratory Tests Test 02/23/20 12:44 02/23/20 17:10 02/23/20 23:02 02/24/20 05:23 POC Whole Blood Glucose 144 MG/DL (74-106) H 151 MG/DL (74-106) H 133 MG/DL (74-106) H White Blood Count 7.1 K/UL (4.8-10.8) Red Blood Count 2.42 M/UL (4.20-5.40) L Hemoglobin 6.9 G/DL (12.0-16.0) *L Hematocrit 21.4 % (37.0-47.0) L Mean Corpuscular Volume 88 FL (80-99) Mean Corpuscular Hemoglobin 28.5 PG (27.0-31.0) Mean Corpuscular Hemoglobin Concent 32.3 G/DL (32.0-36.0) Red Cell Distribution Width 18.8 % (11.6-14.8) H Platelet Count 104 K/UL (150-450) L Mean Platelet Volume 7.2 FL (6.5-10.1) Neutrophils (%) (Auto) % (45.0-75.0) Lymphocytes (%) (Auto) % (20.0-45.0) Monocytes (%) (Auto) % (1.0-10.0) Eosinophils (%) (Auto) % (0.0-3.0) Basophils (%) (Auto) % (0.0-2.0) Differential Total Cells Counted 100 Neutrophils % (Manual) 86 % (45-75) H Lymphocytes % (Manual) 8 % (20-45) L Monocytes % (Manual) 4 % (1-10) Eosinophils % (Manual) 2 % (0-3) Basophils % (Manual) 0 % (0-2) Band Neutrophils 0 % (0-8) Platelet Estimate Decreased L Platelet Morphology Normal Hypochromasia 4+ Anisocytosis 2+ Spherocytes 2+ Sodium Level 132 MMOL/L (136-145) L Potassium Level 4.5 MMOL/L (3.5-5.1) Chloride Level 99 MMOL/L (98-107) Carbon Dioxide Level 25 MMOL/L (21-32) Anion Gap 8 mmol/L (5-15) Blood Urea Nitrogen 88 mg/dL (7-18) H Creatinine 2.3 MG/DL (0.55-1.30) H Estimat Glomerular Filtration Rate 20.3 mL/min (>60) Glucose Level 200 MG/DL (74-106) #H Uric Acid 3.4 MG/DL (2.6-7.2) Calcium Level 8.3 MG/DL (8.5-10.1) L Phosphorus Level 3.8 MG/DL (2.5-4.9) Total Bilirubin 0.5 MG/DL (0.2-1.0) Aspartate Amino Transf (AST/SGOT) 16 U/L (15-37) Alanine Aminotransferase (ALT/SGPT) 15 U/L (12-78) Alkaline Phosphatase 95 U/L (46-116) Total Protein 5.3 G/DL (6.4-8.2) L Albumin 2.2 G/DL (3.4-5.0) L Globulin 3.1 g/dL Albumin/Globulin Ratio 0.7 (1.0-2.7) L Test 02/24/20 12:06 POC Whole Blood Glucose 209 MG/DL (74-106) H Plan Problems: (1) CHF (congestive heart failure) (2) Hip fracture, left Assessment & Plan: noted. bruising see above ortho eval (3) Anemia (4) Failure to thrive in adult Assessment & Plan: Nutritional optimization. NG tube for now start tube feeds start meds DAILY ESTIMATED NEEDS: Needs based on Wounds, DM, ARF +HD / 53.4kg abw 25-33 kcals/kg [id number] total kcals w/ HD 1.25-1.8 g protein/kg 66-96 g total protein Fluids per MD NUTRITION DIAGNOSIS: * Swallowing difficulty R/T dysphagia as evidenced by on NGT feeds at this time, pending PEG placement. * Increased kcal/prot needs R/T wound healing and HD needs as evidenced by pt admitted w/ multiple wounds, inculding sacral DTPI partially opened wound, L hip partial thickness wound, and L heel nonblanchable erythema, w/ an order for cath placement, pending HD. CURRENT TF:NGT: Nepro @ 40ml/hr x 24 hrs ENTERAL NUTRITION RECOMMENDATIONS: Nepro @ 40ml/hr x 24 hrs to provide 960ml, 1728kcal, 78g prot, 698ml free water * Maintain current TF order * HOB over 30 degrees/ water flush per MD Maintain same TF order post PEG placement: initiate TF @ 20ml/hr x 6hrs, advance 10ml q 4-6 hrs as tolerated to goal. ADDITIONAL RECOMMENDATIONS: * Per SNF: HT=62" PW=439mrs (02/05/20), rec daily calibrated bedscale wt * Montior for continuity of HD- First HD on 02/17 * Monitor renal fxn and lytes * Wound healing: Add Nephrovite x 1 ZnSO4 220mg QD x 10 days, + Silvano BID * Monitor BGs, need for insulin adjustment (5) Renal failure (6) COVID-19 Assessment & Plan: prior positive now negative this admission (7) Congestive heart failure (8) Hypoglycemia (9) UTI (urinary tract infection) (10) Diabetic nephropathy (11) Pneumonia (12) Renal failure (ARF), acute on chronic (13) Deep tissue injury Assessment & Plan: see below (14) Pressure injury of sacral region, unstageable Assessment & Plan: Patient identified on admission to have a large sacral deep tissue injury non-blanchable erythema blistering epidermis intact no drainage. Unknown duration but present on prior admission and noted to be high risk for breakdown given overall condition and status. Tenderness difficult to a certain based on clinical examinations patient's history. Labs noted. Patient high risk for decubitus ulcer formation worsening condition. NG tube in place currently. Nutritional optimization. Turn every 2 hours. Offload pressure with pillows. OPTi foam dressing to sacrum. Care plan initiated. T marli you will follow with recommendations Pt presented on admission with multiple Pressure Injuries, Fx L Hip. Large contusion noted to L Hip/ Lateral L Femur noted on prior admission and preset still. Sacral DTPI partially opened and is 75% necrotic, 25% moist erythematous and clear skin flap that is loose.(L)5.5cm x (W)9cm. Small amt serous exudate noted. Non-Blanchable erythema periwound. Partial thickness wound noted to L Hip. Base of wound is moist and viable. edges adherent to base of wound(L)3cm x (W)2.5cm. L Heel is boggy with non-Blanchable erythema with delineated margins. L heel is boggy with non-blanchable erythema. Tx.Plan: Cleanse Sacral wound with Saline. Apply Therahoney. Apply Moisture Barrier Paste periwound. Cover with Optifoam drsg. Change every 3 days and prn. Apply Moisture Barrier Paste to L Hip wound. Cover with Optifoam drsg. Change every 3 days and prn Apply Cavilon Skin Barrier to both heels. Cover each heel with Optifoam drsg. Change every 7 days and prn. Reposition at least every 2hours or as tolerated. Off-load heels with pillow. APM/CHE Mattress overlay. Chris Lei Feb 24, 2020 12:19
--- NOTE | 2020-02-24 12:24 | NUR ---
INVOICING SPECIALIST NOTE S/W ROYA AT [facility] [phone]. PER ROYA, REQUEST FOR AUTH HAS BEEN SUBMITTED AND IS CURRENTLY PENDING.
--- NOTE | 2020-02-24 13:56 | General Progress Note ---
Subjective ROS Limited/Unobtainable: No Allergies: Coded Allergies: No Known Allergies (Unverified , 02/06/20) Objective Last 24 Hour Vital Signs Date Time Temp Pulse Resp B/P (MAP) Pulse Ox O2 Delivery O2 Flow Rate FiO2 02/24/20 12:06 99.3 115 22 146/75 (98) 94 02/24/20 08:10 Room Air 02/24/20 07:58 154/94 (114) 02/24/20 07:57 98.4 114 22 162/97 (118) 96 02/24/20 04:00 97.5 110 26 162/97 (118) 98 02/24/20 00:00 98.4 100 22 162/92 (115) 98 02/23/20 21:00 Room Air 02/23/20 20:00 97.2 77 20 157/90 (112) 99 02/23/20 16:00 98.7 67 20 123/70 (87) 96 Intake and Output 02/23/20 02/24/20 19:00 07:00 Intake Total 320 ml 415 ml Output Total 0 ml 1600 ml Balance 320 ml -1185 ml Intake Free Water 60 ml 45 ml IV Total 180 ml Tube Feeding 80 ml 370 ml Output Urine Total 1600 ml Estimated Blood Loss 0 ml Laboratory Tests 02/23/20 17:10: POC Whole Blood Glucose 151H 02/23/20 23:02: POC Whole Blood Glucose 133H 02/24/20 05:23: White Blood Count 7.1, Red Blood Count 2.42L, Hemoglobin 6.9*L, Hematocrit 21.4L , Mean Corpuscular Volume 88, Mean Corpuscular Hemoglobin 28.5, Mean Corpuscular Hemoglobin Concent 32.3, Red Cell Distribution Width 18.8H, Platelet Count 104L, Mean Platelet Volume 7.2, Neutrophils (%) (Auto) , Lymphocytes (%) (Auto) , Monocytes (%) (Auto) , Eosinophils (%) (Auto) , Basophils (%) (Auto) , Dif ferential Total Cells Counted 100, Neutrophils % (Manual) 86H, Lymphocytes % (Manual) 8L, Monocytes % (Manual) 4, Eosinophils % (Manual) 2, Basophils % (Manual) 0, Band Neutrophils 0, Platelet Estimate DecreasedL, Platelet Morphology Normal, Hypochromasia 4+, Anisocytosis 2+, Spherocytes 2+, Sodium Level 132L, Potassium Level 4.5, Chloride Level 99, Carbon Dioxide Level 25, Anion Gap 8, Blood Urea Nitrogen 88H, Creatinine 2.3H, Estimat Glomerular Filtration Rate 20.3, Glucose Level 200#H, Uric Acid 3.4, Calcium Level 8.3L, Phosphorus Level 3.8, Total Bilirubin 0.5, Aspartate Amino Transf (AST/SGOT) 16, Alanine Aminotransferase (ALT/SGPT) 15, Alkaline Phosphatase 95, Total Protein 5.3L, Albumin 2.2L, Globulin 3.1, Albumin/Globulin Ratio 0.7L 02/24/20 12:06: POC Whole Blood Glucose 209H Height (Feet): 5 Height (Inches): 5.00 Weight (Pounds): 196 General Appearance: lethargic EENT: normal ENT inspection Neck: supple Cardiovascular: normal rate Respiratory/Chest: decreased breath sounds Abdomen: normal bowel sounds, non tender, soft Extremities: non-tender Assessment/Plan Problem List: (1) Failure to thrive in adult ICD Codes: R62.7 - Failure to thrive in adult SNOMED: 462257337 (2) Renal failure ICD Codes: N19 - Unspecified kidney failure SNOMED: 07007655 (3) Anemia ICD Codes: D64.9 - Anemia, unspecified SNOMED: 093051724 (4) COVID-19 ICD Codes: U07.1 - COVID-19 SNOMED: 759694528 Status: progressing Assessment/Plan: Assessment/Plan: Dysphagia Covid positive last admission Now Influenza (+) HTN elevated trop renal failure Recommendations GTF Monitor Residuals transfuse today ppi will Gopal Winter MD Feb 24, 2020 13:56
--- NOTE | 2020-02-24 15:55 | NUR ---
SPEECH PATHOLOGY NOTE: RECENT NOTE FROM NUTRITION RE/ASSESSMENT: The patient was discharged recently and came back. This is just an addendum to the last H and P that I dictated recently. The patient was just out for a short time and then came back. On the last admission, the daughter did not want the patient to be dialyzed and did not want a feeding tube. Apparently, now, she has changed her mind and might be willing to do dialysis and possibly G-tube, so we need to talk to the daughter again. The patient's renal failure is getting worse, but on my last conversation with the daughter, the patient's daughter wanted DNR. The patient also is COVID positive, unable to get more further history from the patient due to dementia. Current Status (02/18/20) Med Surg. Recent DC and readmit, last seen by RD on 02/13. S/p NGT insertion. Previously family declined PEG/HD but now agreeable.Seen by BAT CARRIER w/ rec for nonoral feeds. Per nephro, "Patient due for dialysis catheter today and subsequent dialysis treatment. Patient is edematous. Patient has an NG tube on feeding. Will discontinue IV fluid. " (02/21) Med Surg. Cont on NGT, now pending PEG placement. S/p HD, first HD on 02/17, then 02/19, next HD today. Procedure: XRAY Chest 1v Indication: Shortness breath Technique: One view of the chest Comparison: 02/21/2020 Findings: Bilateral interstitial congestion and hazy airspace opacities, likely small bilateral pleural effusions are unchanged. Heart remains enlarged. Nasogastric tube is been removed. Right jugular dialysis catheter remains Impression: Interim nasogastric tube removal. 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 TRIALS BY [facility] SECONDARY TO PATIENTS CURRENT MEDICAL STATUS. ORAL CARE PROVIDED. O: DYSPHAGIA TX/MANAGEMENT A: PATIENT PRESENTED SOB. XEROSTOMIA BEING ADDRESSED BY RN WITH CONTINUOUS ORAL CARE THROUGHOUT THE DAY WITH USE OF MOUTH MOISTENER PATIENTS COUGH PRESENTS NON/CLEARING, NON/PRODUCTIVE. PEG PLACED YESTERDAY ALTHOUGH ORAL CARE HAD JUST BEEN DONE PRIOR TO THIS VISIT, PATIENTS MOUTH WAS DRY AGAIN 2/2 MOUTH BREATHING. MOISTURIZING GEL APPLIED WITH TOOTHETTE. ORAL CARE STIMULATED ORAL SECRETIONS WITH SUBSEQUENT CONSISTENT COUGH RESPONSE. RESPIRATION RATE INCREASE WITH ORAL CARE FROM BASELINE OF 22BPM TO 28 BPM. CURRENT CXR: CONGESTION UNCHANGED FOR PAST 3 DAYS. P: CONTINUE PER POC
--- NOTE | 2020-02-24 17:32 | Pulmonology Progress Note ---
Subjective ROS Limited/Unobtainable: No Constitutional: Reports: other - looks better HEENT: Repors: no symptoms Respiratory: Reports: no symptoms Cardiovascular: Reports: no symptoms Gastrointestinal/Abdominal: Reports: other - had GT placement today Allergies: Coded Allergies: No Known Allergies (Unverified , 02/06/20) All Systems: reviewed and negative except above Subjective care noted Objective Last 24 Hour Vital Signs Date Time Temp Pulse Resp B/P (MAP) Pulse Ox O2 Delivery O2 Flow Rate FiO2 02/24/20 16:10 97.7 104 20 139/67 (91) 94 02/24/20 12:06 99.3 115 22 146/75 (98) 94 02/24/20 08:10 Room Air 02/24/20 07:58 154/94 (114) 02/24/20 07:57 98.4 114 22 162/97 (118) 96 02/24/20 04:00 97.5 110 26 162/97 (118) 98 02/24/20 00:00 98.4 100 22 162/92 (115) 98 02/23/20 21:00 Room Air 02/23/20 20:00 97.2 77 20 157/90 (112) 99 Intake and Output 02/23/20 02/24/20 19:00 07:00 Intake Total 320 ml 415 ml Output Total 0 ml 1600 ml Balance 320 ml -1185 ml Intake Free Water 60 ml 45 ml IV Total 180 ml Tube Feeding 80 ml 370 ml Output Urine Total 1600 ml Estimated Blood Loss 0 ml General Appearance: WD/WN, no acute distress HEENT: normocephalic Respiratory: chest wall non-tender, normal breath sounds, no respiratory distress, decreased breath sounds, crackles/rales Cardiovascular: normal peripheral pulses, normal rate, regular rhythm Abdomen: normal bowel sounds, soft, non tender Extremities: no cyanosis, no clubbing, other - edema Skin: no rash Microbiology Date/Time Source Procedure Growth Status 02/22/20 12:30 Nasopharynx SARS-CoV-2 RdRp Gene Assay - Final Complete Laboratory Tests 02/23/20 23:02: POC Whole Blood Glucose 133H 02/24/20 05:23: White Blood Count 7.1, Red Blood Count 2.42L, Hemoglobin 6.9*L, Hematocrit 21.4L , Mean Corpuscular Volume 88, Mean Corpuscular Hemoglobin 28.5, Mean Corpuscular Hemoglobin Concent 32.3, Red Cell Distribution Width 18.8H, Platelet Count 104L, Mean Platelet Volume 7.2, Neutrophils (%) (Auto) , Lymphocytes (%) (Auto) , Monocytes (%) (Auto) , Eosinophils (%) (Auto) , Basophils (%) (Auto) , Differential Total Cells Counted 100, Neutrophils % (Manual) 86H, Lymphocytes % (Manual) 8L, Monocytes % (Manual) 4, Eosinophils % (Manual) 2, Basophils % (Manual) 0, Band Neutrophils 0, Platelet Estimate DecreasedL, Platelet Morpho logy Normal, Hypochromasia 4+, Anisocytosis 2+, Spherocytes 2+, Sodium Level 132L, Potassium Level 4.5, Chloride Level 99, Carbon Dioxide Level 25, Anion Gap 8, Blood Urea Nitrogen 88H, Creatinine 2.3H, Estimat Glomerular Filtration Rate 20.3, Glucose Level 200#H, Uric Acid 3.4, Calcium Level 8.3L, Phosphorus Level 3.8, Total Bilirubin 0.5, Aspartate Amino Transf (AST/SGOT) 16, Alanine Aminotransferase (ALT/SGPT) 15, Alkaline Phosphatase 95, Total Protein 5.3L, Albumin 2.2L, Globulin 3.1, Albumin/Globulin Ratio 0.7L 02/24/20 12:06: POC Whole Blood Glucose 209H 02/24/20 16:41: POC Whole Blood Glucose 210H Current Medications Medications (Trade) Dose Ordered Sig/Maria Fernanda Route PRN Reason Start Time Stop Time Status Last Admin Dose Admin Acetaminophen (Tylenol) 500 mg Q6H PRN NG Mild Pain (Pain Scale 1-3) 02/17/20 12:45 03/18/20 12:44 02/24/20 12:03 Calcitriol (Rocaltrol) 0.5 mcg DAILY ORAL 02/21/20 12:30 05/21/20 12:29 02/24/20 08:30 Dextrose (Dextrose 50%) 25 ml Q30M PRN IV Hypoglycemia 02/18/20 12:15 05/18/20 12:14 Dextrose (Dextrose 50%) 50 ml Q30M PRN IV Hypoglycemia 02/18/20 12:15 05/18/20 12:14 Docusate Sodium (Colace) 100 mg THREE TIMES A DAY NG 02/17/20 18:00 03/18/20 17:59 02/22/20 09:03 Epoetin Manoj (Epoetin Manoj(ESRD on dialysis)) 10,000 unit FRI-FRI-FRI SUBQ 02/21/20 21:00 05/21/20 20:59 02/23/20 20:22 Haloperidol Lactate (Haldol) 5 mg Q6H PRN IM Agitation 02/23/20 21:45 04/08/20 21:44 Insulin Aspart (NovoLOG) Q6HR SUBQ 02/18/20 18:00 05/18/20 16:29 02/24/20 17:21 Lansoprazole (Prevacid) 30 mg BID NG 02/21/20 18:00 03/22/20 17:59 02/24/20 08:30 Meropenem 500 mg/ Sodium Chloride 55 ml @ 110 mls/hr Q24H IVPB 02/25/20 09:00 02/27/20 08:59 Olanzapine (ZyPREXA) 5 mg QHS GT 02/24/20 21:00 04/09/20 20:59 Vitamin D (Vitamin D) 5,000 intlu DAILY GT 02/21/20 12:30 03/22/20 12:29 02/24/20 08:30 Assessment/Plan Assessment/Plan IMPRESSION: 1. Previous COVID-19 pneumonia. 2. Cardiomegaly/CHF. 3. Renal failure. 4. Influenza A 5. Hyperlipidemia. 6. Bilateral pleural effusions 7. thrombocytopenia and anemia DISCUSSION: cannot give SQ heparin with low platelets ID noted repeat CXR noted monitor oxygen needs Will follow DNR impression, plan, and exam edited and reviewed in detail care discussed with Heber Mars MD Feb 24, 2020 17:32
--- NOTE | 2020-02-24 17:40 | NUR ---
NURSE HAND-OFF: Important Events on Shift:[hgb 6.9 with ordered 2 Units given] Patient Status: [improving] Diet: [g tube feeding] Pending Orders: [labs in am] Pending Results/Labs:[none] Pending MD notification:[none] Latest Vital Signs: Temperature 97.7 , Pulse 104 , B/P 139 /67 , Respiratory Rate 20 , O2 SAT 94 , Room Air, O2 Flow Rate 2.0 . Vital Sign Comment: [stable] Latest Barrett Fall Score: 50 Fall Risk: High Risk Safety Measures: Call light Within Reach, Bed Alarm Zone 1, Side Rails Side Rails x2, Bed position Low and Locked. Fall Precautions: Yellow Socks Door Sign on going blood transfusion no blood transfusion reaction noted Report given to [alecia bess RN accordingly].
--- NOTE | 2020-02-24 19:43 | NUR ---
NURSE NOTES: Pt. received from BONG Bradley. Pt. AAOx1, breathing even and unlabored on room air, no indications of distress, no complaints indications of pain at this time. IV noted left hand 22g intact and patent, currently with blood transfusion at 120cc, tolerating transfusion well. Gtube intact and patent, running at 40cc. Pt. with bilateral soft wrist restraints, movement and sensation intact, pulses palpable. Bed low and locked, head of bed elevated, side rails x3 up, bed alarm active, and call light in reach.
[2020-02-25] VITALS: BP 167/100
[2020-02-25] MEDS: NovoLOG Insulin Flexpen SUBQ SCH (00:21)
--- NOTE | 2020-02-25 01:45 | Consultation ---
DATE OF CONSULTATION: 02/25/2020 CONSULTING PHYSICIAN: Eboni Thomas MD. HISTORY OF PRESENT ILLNESS: This is an 79-year-old female with a history of multiple medical issues who has been admitted to the hospital for medical stabilization. The patient presented with disorganized speech and behavior, confused, attempted to pull out the G-tube as well as lines. Patient received antianxiety medication and also will be placed on restraints. Patient is confused, not able to be engaged. Patient also is positive for COVID. PAST PSYCHIATRIC HISTORY: Dementia, psychotic disorder. PAST MEDICAL HISTORY: COVID positive, hyperlipidemia, and acute renal failure. ALLERGIES: No known drug allergies. SUBSTANCE ABUSE HISTORY: No known history of illicit drug use or alcohol. MENTAL STATUS EXAMINATION: Patient is alert, disoriented. Mood is agitated. Affect is blunted, congruent with mood. Thought process is concrete. Thought content, no suicidal or homicidal ideation. Cognition is impaired. Insight and judgment is impaired. ASSESSMENT: Winchester I Dementia with behavior disturbance. Winchester II Deferred. Winchester III As above. Winchester IV Low. Winchester V 20. PLAN: 1. We will start the patient on Zyprexa. 2. Soft restraints. 3. Provide the patient with reality orientation. 4. Discussed with the nurse. Eboni Thomas M.D. DR: WILLIAMS JOB#: [id number] CC:
[2020-02-25 04:00] VITALS: BP 168/100
--- NOTE | 2020-02-25 04:48 | NUR ---
CODE BLUE: See Code sheet which remains on paper.responded to code eve, upon arrival no pulse,per report patient is DNI,pls see resuscitation form,meds given per acls protocol
--- NOTE | 2020-02-25 05:10 | NUR ---
CODE BLUE: See Code sheet which remains on paper. Pt. was found unresponsive, assessed for carotid pulses and no pulses was palpable, chest compressions were started and code blue was called at 0445. Cardiac leads were attached and pt. was placed on ambubag. Code team arrived at 0448 and the team notified pt. is DNI only. Code was performed, epinephrine given at 0449, dextrose given at 0450, calcium gluconate given at 0450, epinephrine given at 0452, and sodium bicarbonate given at 0453. Blood sugar was 232. Code was completed at 0454, pt. was with pulseless electrical activity throughout. Physician at the bedside consulted primary RN regarding pt.s code status at this time 0454, and code status was affirmed in electrical medical record as DNI. At 0454 pt. was with pulses. At 0502 pt. was pronounced .
--- NOTE | 2020-02-25 05:15 | NUR ---
NURSE NOTES: Dr. Faust called and notified regarding pt's expiration, awaiting return call.
--- NOTE | 2020-02-25 05:16 | Emergency Room Report ---
History of Present Illness General Chief Complaint: Generalized Weakness Source: Medical Record, PMD Present Illness HPI I responded to CODE BLUE called overhead Primary nurse states that patient has recent history of COVID pneumonia, renal failure requiring Sohail dialysis catheter, anemia, dyslipidemia, CHF, diabetes, dementia, and failure to thrive. Initial rhythm was PEA. Patient is pale, ill-appearing, and pulseless CPR was already in progress on my arrival. CODE STATUS was checked in the computer. Last order from primary team was DNI. Patient was DNR on the most recent admission, but this was changed recently according to primary RN. Due to the fact that patient is only DNI on her current code status, several rounds of chest compressions and cardiac medications were given per ACLS protocol. Unfortunately, patient was unable to achieve return of spontaneous circulation and at 0502 Please see RN charting for list of meds given. 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 COVID-19 Screening: Negative COVID-19 COVID-19 Testing Source: nasal Nursing Documentation-[facility] Past Medical History: No History, Except For Hx Cardiac Problems: Yes - CHF, Afib, hyperlipidemia Hx Hypertension: Yes Hx Asthma: Yes Hx Diabetes: Yes - type 2 Hx Cancer: No Hx Gastrointestinal Problems: No Hx Neurological Problems: No Physical Exam Vital Signs Date Time Temp Pulse Resp B/P (MAP) Pulse Ox O2 Delivery O2 Flow Rate FiO2 02/21/20 08:00 98.8 73 17 151/89 (109) 97 02/21/20 09:00 Nasal Cannula 2.0 Sp02 EP Interpretation: reviewed, abnormal Procedures Critical Care Time Critical Care Time Procedure note Cardiopulmonary Resuscitation by me: See code documentation for specific details. ACLS and BLS were performed with high quality chest compressions and minimal interruptions. Any reversible causes were assessed and treated. Medical Decision Making Diagnostic Impression: Primary Impression: Cardiopulmonary arrest Additional Impressions: CHF (congestive heart failure) COVID-19 Failure to thrive in adult Hypoglycemia Renal failure (ARF), acute on chronic Last Vital Signs Date Time Temp Pulse Resp B/P (MAP) Pulse Ox O2 Delivery O2 Flow Rate FiO2 02/25/20 00:00 98.4 110 22 167/100 (122) 96 02/24/20 21:00 Room Air 02/23/20 09:00 2.0 Disposition: PLACE IN OBSERVATION Admit Decision Time: 05:16 Condition: Referrals: Janes Faust MD (PCP) Ysabel Avila D.O. Feb 25, 2020 05:16
--- NOTE | 2020-02-25 05:20 | NUR ---
NURSE NOTES: Daughter called and notified regarding pt.s expiration.
--- NOTE | 2020-02-25 06:00 | NUR ---
NURSE NOTES: 05 Referral given to Noa at [facility] (#[phone]). 0600 Consulting agent Leeann Mcgrath called and notified pt. is disqualified as a [facility] candidate.
--- NOTE | 2020-02-25 06:59 | General Progress Note ---
Subjective ROS Limited/Unobtainable: Yes Allergies: Coded Allergies: No Known Allergies (Unverified , 02/06/20) Subjective events noted interval notes reviewed glucose values are elevated Item Value Date Time Bedside Blood Glucose 219 mg/dl H 02/25/20 0021 Bedside Blood Glucose 210 mg/dl H 02/24/20 1721 Bedside Blood Glucose 209 mg/dl H 02/24/20 1217 Bedside Blood Glucose 198 mg/dl H 02/24/20 0600 Bedside Blood Glucose 133 mg/dl H 02/23/20 2311 Objective Last 24 Hour Vital Signs Date Time Temp Pulse Resp B/P (MAP) Pulse Ox O2 Delivery O2 Flow Rate FiO2 02/25/20 00:00 98.4 110 22 167/100 (122) 96 02/24/20 21:00 Room Air 02/24/20 20:00 97.7 90 20 154/95 (114) 98 02/24/20 16:10 97.7 104 20 139/67 (91) 94 02/24/20 12:06 99.3 115 22 146/75 (98) 94 02/24/20 08:10 Room Air 02/24/20 07:58 154/94 (114) 02/24/20 07:57 98.4 114 22 162/97 (118) 96 Intake and Output 02/24/20 02/25/20 19:00 07:00 Intake Total 1050 ml Output Total 650 ml 450 ml Balance 400 ml -450 ml Intake Free Water 265 ml IV Total 55 ml Tube Feeding 480 ml Blood Product 250 ml Output Urine Total 650 ml 450 ml # Voids 1 # Bowel Movements 1 Laboratory Tests 02/24/20 12:06: POC Whole Blood Glucose 209H 02/24/20 16:41: POC Whole Blood Glucose 210H 02/25/20 00:13: POC Whole Blood Glucose [Pending] 02/25/20 04:53: POC Whole Blood Glucose 232H Height (Feet): 5 Height (Inches): 5.00 Weight (Pounds): 196 General Appearance: no apparent distress Neck: normal alignment Cardiovascular: normal rate Respiratory/Chest: lungs clear Abdomen: normal bowel sounds Pelvis: normal external exam Objective Current Medications Medications (Trade) Dose Ordered Sig/Maria Fernanda Route PRN Reason Start Time Stop Time Status Last Admin Dose Admin Acetaminophen (Tylenol) 500 mg Q6H PRN NG Mild Pain (Pain Scale 1-3) 02/17/20 12:45 03/18/20 12:44 02/24/20 17:27 Calcitriol (Rocaltrol) 0.5 mcg DAILY ORAL 02/21/20 12:30 05/21/20 12:29 02/24/20 08:30 Dextrose (Dextrose 50%) 25 ml Q30M PRN IV Hypoglycemia 02/18/20 12:15 05/18/20 12:14 Dextrose (Dextrose 50%) 50 ml Q30M PRN IV Hypoglycemia 02/18/20 12:15 05/18/20 12:14 Docusate Sodium (Colace) 100 mg THREE TIMES A DAY NG 02/17/20 18:00 03/18/20 17:59 02/22/20 09:03 Epoetin Manoj (Epoetin Manoj(ESRD on dialysis)) 10,000 unit FRI- SUBQ 02/21/20 21:00 05/21/20 20:59 02/23/20 20:22 Haloperidol Lactate (Haldol) 5 mg Q6H PRN IM Agitation 02/23/20 21:45 04/08/20 21:44 Insulin Aspart (NovoLOG) Q6HR SUBQ 02/18/20 18:00 05/18/20 16:29 02/25/20 00:21 Lansoprazole (Prevacid) 30 mg BID NG 02/21/20 18:00 03/22/20 17:59 02/24/20 17:27 Meropenem 500 mg/ Sodium Chloride 55 ml @ 110 mls/hr Q24H IVPB 02/25/20 09:00 02/27/20 08:59 Olanzapine (ZyPREXA) 5 mg QHS GT 02/24/20 21:00 04/09/20 20:59 02/24/20 20:46 Vitamin D (Vitamin D) 5,000 intlu DAILY GT 02/21/20 12:30 03/22/20 12:29 02/24/20 08:30 Assessment/Plan Problem List: (1) Hypoglycemia ICD Codes: E16.2 - Hypoglycemia, unspecified SNOMED: 939496142 (2) UTI (urinary tract infection) ICD Codes: N39.0 - Urinary tract infection, site not specified SNOMED: 41687697 (3) CHF (congestive heart failure) ICD Codes: I50.9 - Heart failure, unspecified SNOMED: 18497657 (4) Failure to thrive in adult ICD Codes: R62.7 - Failure to thrive in adult SNOMED: 105712345 Status: progressing Assessment/Plan: start Levemir 8 units daily continue Novolog sliding scale every 6 hours hypoglycemia protocol in order Adalberto Echevarria MD Feb 25, 2020 06:59
--- NOTE | 2020-02-25 07:19 | NUR ---
NURSE NOTES: Spoke with Dr. Faust regarding's pt.s expiration. Discussed with Dr. Faust pt's code status and resuscitation measures performed. Dr. Faust verbalized he spoke with the pt.s daughter regarding comfort care and pt's poor prognosis.
--- NOTE | 2020-02-25 08:21 | Pulmonology Progress Note ---
Subjective ROS Limited/Unobtainable: Yes Constitutional: Reports: other - looks better HEENT: Repors: no symptoms Respiratory: Reports: no symptoms Cardiovascular: Reports: no symptoms Gastrointestinal/Abdominal: Reports: other - had GT placement today Allergies: Coded Allergies: No Known Allergies (Unverified , 02/06/20) All Systems: reviewed and negative except above Subjective care noted follow up labs pending on oxygen Objective Last 24 Hour Vital Signs Date Time Temp Pulse Resp B/P (MAP) Pulse Ox O2 Delivery O2 Flow Rate FiO2 02/25/20 04:00 98.3 78 18 168/100 (122) 94 02/25/20 00:00 98.4 110 22 167/100 (122) 96 02/24/20 21:00 Room Air 02/24/20 20:00 97.7 90 20 154/95 (114) 98 02/24/20 16:10 97.7 104 20 139/67 (91) 94 02/24/20 12:06 99.3 115 22 146/75 (98) 94 Intake and Output 02/24/20 02/25/20 19:00 07:00 Intake Total 1050 ml Output Total 650 ml 450 ml Balance 400 ml -450 ml Intake Free Water 265 ml IV Total 55 ml Tube Feeding 480 ml Blood Product 250 ml Output Urine Total 650 ml 450 ml # Voids 1 # Bowel Movements 1 General Appearance: WD/WN, no acute distress HEENT: normocephalic Respiratory: chest wall non-tender, normal breath sounds, no respiratory distress, decreased breath sounds, crackles/rales Cardiovascular: normal peripheral pulses, normal rate, regular rhythm Abdomen: normal bowel sounds, soft, non tender Extremities: no cyanosis, no clubbing, other - edema Skin: no rash Microbiology Date/Time Source Procedure Growth Status 02/22/20 12:30 Nasopharynx SARS-CoV-2 RdRp Gene Assay - Final Complete Laboratory Tests 02/24/20 12:06: POC Whole Blood Glucose 209H 02/24/20 16:41: POC Whole Blood Glucose 210H 02/25/20 00:13: POC Whole Blood Glucose [Pending] 02/25/20 04:53: POC Whole Blood Glucose 232H Current Medications Medications (Trade) Dose Ordered Sig/Maria Fernanda Route PRN Reason Start Time Stop Time Status Last Admin Dose Admin Acetaminophen (Tylenol) 500 mg Q6H PRN NG Mild Pain (Pain Scale 1-3) 02/17/20 12:45 03/18/20 12:44 02/24/20 17:27 Calcitriol (Rocaltrol) 0.5 mcg DAILY ORAL 02/21/20 12:30 05/21/20 12:29 02/24/20 08:30 Dextrose (Dextrose 50%) 25 ml Q30M PRN IV Hypoglycemia 02/25/20 07:00 05/25/20 06:59 Dextrose (Dextrose 50%) 50 ml Q30M PRN IV Hypoglycemia 02/25/20 07:00 05/25/20 06:59 Docusate Sodium (Colace) 100 mg THREE TIMES A DAY NG 02/17/20 18:00 03/18/20 17:59 02/22/20 09:03 Epoetin Manoj (Epoetin Manoj(ESRD on dialysis)) 10,000 unit FRI-FRI-FRI SUBQ 02/21/20 21:00 05/21/20 20:59 02/23/20 20:22 Haloperidol Lactate (Haldol) 5 mg Q6H PRN IM Agitation 02/23/20 21:45 04/08/20 21:44 Insulin Aspart (NovoLOG) Q6HR SUBQ 02/18/20 18:00 05/18/20 16:29 02/25/20 00:21 Insulin Detemir (Levemir) 8 units DAILY SUBQ 02/25/20 09:00 05/25/20 08:59 Lansoprazole (Prevacid) 30 mg BID NG 02/21/20 18:00 03/22/20 17:59 02/24/20 17:27 Meropenem 500 mg/ Sodium Chloride 55 ml @ 110 mls/hr Q24H IVPB 02/25/20 09:00 02/27/20 08:59 Olanzapine (ZyPREXA) 5 mg QHS GT 02/24/20 21:00 04/09/20 20:59 02/24/20 20:46 Vitamin D (Vitamin D) 5,000 intlu DAILY GT 02/21/20 12:30 03/22/20 12:29 02/24/20 08:30 Assessment/Plan Assessment/Plan IMPRESSION: 1. Previous COVID-19 pneumonia. 2. Cardiomegaly/CHF. 3. Renal failure. 4. Influenza A 5. Hyperlipidemia. 6. Bilateral pleural effusions 7. thrombocytopenia and anemia DISCUSSION: cannot give SQ heparin with low platelets ID noted monitor HH post transfusion monitor imaging monitor oxygen needs Will follow DNR impression, plan, and exam edited and reviewed in detail care discussed with Heber Mars MD Feb 25, 2020 08:21
[2020-02-25] MEDS ORDERED: Levemir Flexpen SUBQ SCH (09:00)
[2020-02-25] MEDS ORDERED: Meropenem 500mg/NS 55ml IVPB SCH ×2 (09:00)
--- NOTE | 2020-02-27 16:22 | Discharge Summary ---
Discharge Summary Discharge Summary _ DATE OF ADMISSION: 02/17/2020 DATE OF DISCHARGE: 02/25/2020 BRIEF SUMMARY: Patient is an 79-year-old female, who was recently discharged due to pneumonia and was previously diagnosed with COVID 19 was taken to the hospital due to hypoglycemia with blood sugar noted to be in the 50s. Patient received glucagon and blood sugar improved to high 70s to 80s. She was then taken to ED for further evaluation. She has a history of NG tube that was placed from last admission. Family refused PEG tube placement as well as dialysis treatment. The patient apparently dislodged the NG tube. Evaluation at ED showed evidence of UTI. BUN was 127 and creatinine 4.3. Chest x-ray showed evidence of chronic CHF. Hip x-ray showed evidence of intertrochanteric left hip fracture. COVID test was negative. Influenza A was positive. She was continued on NG tube feeding. Blood glucose was monitored. She was placed on hypoglycemic protocol. She was given Tamiflu for influenza. Unable to give heparin due to low platelet count. Family consented for dialysis. On February 18, 2020, a Sohail catheter was inserted to the right internal jugular vein. She was eventually started on inpatient hemodialysis. Patient was noted to have a large sacral deep tissue injury. She had partial- thickness wound to the left hip. Left heel boggy. She was placed on APM/CHE mattress overlay. She was given local wound care with frequent repositioning and offloading. Blood culture was showing gram-negative sepsis. She was started on cefepime. Blood culture showed growth of ESBL E. coli. Antibiotic was changed to meropenem. She completed Tamiflu treatment. Glucose level were elevated. She was started on NovoLog sliding scale. She was given Levemir. On 02/23/2020, patient underwent EGD with PEG tube placement. She tolerated pro cedure well. Repeat COVID-19 test was negative. She was taken off droplet isolation. On February 24, 2020, hemoglobin dropped to 6.9. Hematocrit 21. She was given 2 unit packed RBC blood transfusion. Patient was found unresponsive. CODE KIMBERLEE was called. Patient was DNI. Resuscitative efforts failed. Patient eventually . FINAL DIAGNOSES: Cardiopulmonary arrest E. coli sepsis Influenza A infection Dysphagia status post PEG placement End-stage renal failure with initiation of hemodialysis Recent COVID-19 pneumonia Left hip fracture Thrombocytopenia Drop in hemoglobin requiring blood transfusion Cardiomegaly/CHF Hypoglycemia Dementia with behavioral disturbance Deep tissue pressure injury, present on admission Failure to thrive DISPOSITION: Patient . I have been assigned to complete a discharge summary on this account, I was not involved with the patient's management.--ERICKA Spaulding Jacqueline Robles NP Feb 27, 2020 16:22
== END 2020-02-25 09:25 | disposition expired | DRG 871 ==
LOC: EDBD 07:56 → EMR 08:15 → 4E 08:57 → OBSVTOIN 08:57 → EDBEDREQ 08:58 → 4E 15:50
PROC: 05HM33Z Insertion of Infusion Device into Right Internal Jugular Vein, Percutaneous Approach (ICD-10-PCS; 2020-02-18)
PROC: 5A1D70Z Performance of Urinary Filtration, Intermittent, Less than 6 Hours Per Day (ICD-10-PCS; 2020-02-22)
PROC: 0DH63UZ Insertion of Feeding Device into Stomach, Percutaneous Approach (ICD-10-PCS; principal; 2020-02-23 08:04)
PROC: 30233N1 Transfusion of Nonautologous Red Blood Cells into Peripheral Vein, Percutaneous Approach (ICD-10-PCS; 2020-02-24)
PROC: 5A12012 Performance of Cardiac Output, Single, Manual (ICD-10-PCS; 2020-02-25)
DX: A41.51 Sepsis due to Escherichia coli [E. coli] (principal); S72.002A Fracture of unspecified part of neck of left femur, initial encounter for closed fracture; N17.9 Acute kidney failure, unspecified; N39.0 Urinary tract infection, site not specified; F03.91 Unspecified dementia, unspecified severity, with behavioral disturbance; I13.0 Hypertensive heart and chronic kidney disease with heart failure and stage 1 through stage 4 chronic kidney disease, or unspecified chronic kidney disease; J10.1 Influenza due to other identified influenza virus with other respiratory manifestations; E78.5 Hyperlipidemia, unspecified; N18.9 Chronic kidney disease, unspecified; E11.22 Type 2 diabetes mellitus with diabetic chronic kidney disease; D69.6 Thrombocytopenia, unspecified; L89.156 Pressure-induced deep tissue damage of sacral region; L89.222 Pressure ulcer of left hip, stage 2; R13.10 Dysphagia, unspecified; Z86.19 Personal history of other infectious and parasitic diseases; D50.9 Iron deficiency anemia, unspecified; E11.649 Type 2 diabetes mellitus with hypoglycemia without coma; Z79.4 Long term (current) use of insulin; X58.XXXA Exposure to other specified factors, initial encounter; I50.9 Heart failure, unspecified; R62.7 Adult failure to thrive; K29.40 Chronic atrophic gastritis without bleeding; Z22.322 Carrier or suspected carrier of Methicillin resistant Staphylococcus aureus; Z68.32 Body mass index [BMI] 32.0-32.9, adult
CPT/HCPCS: 36415; 36569; 71045; 73502; 74018; 76937; 80053; 80061; 81003; 82150; 82550; 82962; 83036; 83605; 83690; 83735; 83880; 84100; 84300; 84443; 84484; 84550; 85007; 85025; 85610; 85651; 85730; 86140; 86706; 86707; 86710; 86803; 86850; 86900; 86901; 86920; 87040; 87081; 87086; 87181; 93005; 94003; 94150; 96361; 96365; 96367; 99285; J1815; J7030; S5561; U0002